=== PATIENT | male | born 1935 | race Caucasian/White ===

== ENCOUNTER 2017-11-12 03:33 | Inpatient (IN) | payer BC, MEDICARE ==
[~2017-11-12] VITALS: Ht 172.7 cm; Wt 99.8 kg
--- OUTSIDE RECORDS SUMMARY | ~2017-11-12 | XMS | Encounter Summary ---
Demographics + + + | Address | [address] | | | [place] [address] | + + + | Home Phone | | + + + | Preferred Language | Unknown | + + + | Marital Status | | + + + | Tenriism Affiliation | Unknown | + + + | Race | Unknown | + + + | Ethnic Group | Unknown | + + + Author + + + | Author | [facility] | + + + | Organization | [facility] | + + + | Address | Unknown | + + + | Phone | Unavailable | + + + Support + + +---------+ + | Name | Relationship | Address | Phone | + + +---------+ + | Keven Walls | ECON | Unknown | | + + +---------+ + | Iris Walls | ECON | Unknown | | + + +---------+ + Care Team Providers + +------+ + | Care Shim Plug Cutter Name | Role | Phone | + +------+ + | Paolo Solares MD | PCP | | + +------+ + Reason for Visit MRI/CAT Scan (Routine) + +--------+ + + + + | Status | Reason | Specialty | Diagnoses / | Referred By | Referred To | | | | | Procedures | Contact | Contact | + +--------+ + + + + | Pending | | Radiology | Diagnoses | See, | | | Review | | | Pain | Medical | | | | | | Procedures | Record | | | | | | CTA lower | | | | | | | extremity | | | | | | | right | | | + +--------+ + + + + Encounter Details +--------+ + + + + | Date | Type | Department | Care Team | Description | +--------+ + + + + | 11/07/ | Hospital | [facility] | See, Medical | Pain | | 2018 | Encounter | [facility] | Record | | | | | RADIOLOGY [address] | | | | | | [place] [address] | | | | | | [phone] | | | +--------+ + + + + Social History + +-------+ +--------+------+ | Tobacco Use | Types | Packs/Day | Years | Date | | | | | Used | | + +-------+ +--------+------+ | Never Smoker | | | | | + +-------+ +--------+------+ + + +---------+ + | Alcohol Use | Drinks/We | oz/Week | Comments | | | ek | | | + + +---------+ + | No | | | | + + +---------+ + + + + | Sex Assigned at | Date Recorded | | | | + + + | Not on file | | + + + as of this encounter Medications at Time of Discharge + + +-------+---------+--------+ + | Medication | Sig. | Disp. | Refills | Start | End Date | | | | | | Date | | + + +-------+---------+--------+ + | amLODIPine | Take 10 mg by mouth | | | | | | (NORVASC) 5 MG | daily. | | | | | | tablet | | | | | | + + +-------+---------+--------+ + | aspirin 81 MG | Take 81 mg by mouth | | | | | | tablet | daily. | | | | | + + +-------+---------+--------+ + | clopidogrel | Take 75 mg by mouth | | | | | | (PLAVIX) 75 MG | daily. | | | | | | tablet | | | | | | + + +-------+---------+--------+ + | insulin - MIX | Inject 20 Units into | | | | | | insulin NPH-insulin | the skin 2 (two) | | | | | | regular 70/30 | times daily before | | | | | | (HUMULIN, NOVOLIN | meals. | | | | | | 70/30) (70-30) 100 | | | | | | | UNIT/ML injection | | | | | | + + +-------+---------+--------+ + | metFORMIN | Take 1,000 mg by | | | | | | (GLUCOPHAGE) 1000 MG | mouth nightly. | | | | | | tablet | | | | | | + + +-------+---------+--------+ + | omeprazole | Take 40 mg by mouth | | | | | | (PRILOSEC) 40 MG | every morning before | | | | | | capsuleIndications: | breakfast. | | | | | | Gastroesophageal | | | | | | | Reflux Disease | | | | | | + + +-------+---------+--------+ + | pramipexole | Take 1 mg by mouth 3 | | | | | | (MIRAPEX) 1 MG | (three) times | | | | | | tablet | daily. | | | | | + + +-------+---------+--------+ + as of this encounter Plan of Treatment Not on fileas of this encounter Procedures + +--------+ + + + | Procedure Name | Priori | Date/Time | Associated Diagnosis | Comments | | | ty | | | | + +--------+ + + + | CTA LOWER EXTREMITY | Routin | 11/05/2017 | Pain | Results for this | | RIGHT W CONTRAST | e | 2:42 AM | | procedure are in the | | | | PDT | | results section. | + +--------+ + + + in this encounter Results CTA lower extremity right (11/05/2017 2:42 AM) + + + | Narrative | Performed At | + + + | This is a non-reportable procedure without a radiologist report and | [facility] | | is used for image storage only | [facility]Y | + + + + + + + + | Performing | Address | City/State/Zipcode | Phone Number | | Organization | | | | + + + + + | [facility] | [address] | [place] [address] | | + + + + + in this encounter Visit Diagnoses + + | Diagnosis | + + | Pain | + + | Generalized pain | + +"
--- OUTSIDE RECORDS SUMMARY | ~2017-11-12 | XMS | Encounter Summary ---
Demographics + + + | Address | [address] | | | [place] [address] | + + + | Home Phone | | + + + | Preferred Language | Unknown | + + + | Marital Status | | + + + | Baptist Affiliation | Unknown | + + + | Race | Unknown | + + + | Ethnic Group | Unknown | + + + Author + + + | Author | [facility] | + + + | Organization | [facility] | + + + | Address [...] Team Providers + +------+ + | Care Carpet Sewing Machine Operator Name | Role | Phone | + +------+ + | Paolo Solares MD | PCP | | + +------+ + Encounter Details +--------+ + + + + | Date | Type | Department | Care Team | Description | +--------+ + + + + | 11/07/ | Procedure | [facility] | | | | 2018 | [facility] | [facility] | | | | | | [facility] | | | | | | [address] | | | | | | [place] [address] | | | | | | [phone] | | | +--------+ + + + [...] + + + as of this encounter Plan of Treatment Not on fileas of this encounter Visit Diagnoses Not on filein this encounter"
--- OUTSIDE RECORDS SUMMARY | ~2017-11-12 | XMS | Encounter Summary ---
Demographics + + + | Address | [address] | | | [place] [address] | + + + | Home Phone | | + + + | Preferred Language | Unknown | + + + | Marital Status | | + + + | Anabaptism Affiliation | Unknown | + + + | Race | Unknown | + + + | Ethnic Group | Unknown | + + + Author + + + | Author | [facility] | + + + | Organization | [facility] | + + + | Address [...] Team Providers + +------+ + | Care Compensation Consulting Manager Name | Role | Phone | + +------+ + | Paolo Solares MD | PCP | | + +------+ + Encounter Details +--------+ + + + + | Date | Type | Department | Care Team | Description | +--------+ + + + + | 11/07/ | Hospital | [facility]YS[facility] | See, Medical | Pain | | 2018 | Encounter | [facility] | Record | | | | | RADIOLOGY [address] | | [address] | | | | | | [place] [address] | | | | | | [phone] | | | +--------+ + + + [...] | + +--------+ + + + | XR HIP 2 VIEW RIGHT | Routin | 11/05/2017 | Pain | Results for this | | | e | 2:42 AM | | procedure are in the | | | | PDT | | results section. | + +--------+ + + + in this encounter Results X-ray hip 2 view right (11/05/2017 2:42 AM) + + + | Narrative | Performed At | + + + | This is a non-reportable procedure without a radiologist report and | [facility] | | is used for image storage only | [facility]IOLOGY | + + + + + + + + | Performing | Address | City/State/Zipcode | Phone Number | | Organization | | | | + + + + + | [facility] | [address] | [place] [address] | | + + + + + in this encounter Visit Diagnoses + + | Diagnosis | + + | Pain | + + | Generalized pain | + +"
--- OUTSIDE RECORDS SUMMARY | ~2017-11-12 | XMS | Encounter Summary ---
Demographics + + + | Address | [address] | | | [place] [address] | + + + | Home Phone | | + + + | Preferred Language | Unknown | + + + | Marital Status | | + + + | Pentecostal Affiliation | Unknown | + + + | Race | Unknown | + + + | Ethnic Group | Unknown | + + + Author + + + | Author | [facility] | + + + | Organization | [facility] | + + + | Address [...] Team Providers + +------+ + | Care Pan Reclaim Processor Name | Role | Phone | + +------+ + | Paolo Solares MD | PCP | | + +------+ + Encounter Details +--------+ + + + + | Date | Type | Department | Care Team | Description | +--------+ + + + + | 11/07/ | Ancillary | [facility] | See, Medical | Pain | | 2018 | Orders | [facility] | Record | | | | | [address] | | | | | | [place] [address] | | | | | | [phone] | | | +--------+ + + + [...] Treatment Not on fileas of this encounter Results X-ray hip 2 view [...] | + + + + + | [facility] | [address] | [place] [address] | | + + + + + X-ray chest 1 view (11/05/2017 2:42 AM) + + + | Narrative | Performed At | + + + | This is a non-reportable procedure without a radiologist report and | [facility] | | is used for image storage only | [facility] | + + + + + + + + | Performing | Address | City/State/Zipcode | Phone Number | | Organization | | | | + + + + + | [facility] | [address] | [place] [address] | | + + + + + in this encounter Visit Diagnoses + + | Diagnosis | + + | Pain | + + | Generalized pain | + +"
--- OUTSIDE RECORDS SUMMARY | ~2017-11-12 | XMS | Clinical Summary ---
Demographics + + + | Address | [address] | | | [place] [address] | + + + | Home Phone | | + + + | Preferred Language | Unknown | + + + | Marital Status | | + + + | Latter-Day Affiliation | Unknown | + + + | Race | Unknown | + + + | Ethnic Group | Unknown | + + + Author + + + | Author | [facility] | | | and [place] | + + + | Organization | [facility] | | | and [place] | + + + | Address | Unknown | + + + | Phone | Unavailable | + + + Support + + + + + | Name | Relationship | Address | Phone | + + + + + | Keven Hernandez | LU | NA | | | | | [place], [place] | | + + + + + | [place] | ECON | [address] | | | | | [place] [address] | | + + + + + Care Team Providers + +------+ + | Care Supervisor Drapery Hanging Name | Role | Phone | + +------+ + | Paolo Solares MD | PP | | + +------+ + Allergies No Known Allergies Current Medications + + +-------+---------+------+------+-------+ | Prescription | Sig. | Disp. | Refills | Star | End | Statu | | | | | | t | Date | s | | | | | | Date | | | + + +-------+---------+------+------+-------+ | metFORMIN | Take 1,000 mg by | | | | | Activ | | (GLUCOPHAGE) 1000 MG | mouth 2 times daily | | | | | e | | tablet | (with breakfast & | | | | | | | | dinner). | | | | | | + + +-------+---------+------+------+-------+ | clopidogrel | Take 300 mg by mouth | | | | | Activ | | (PLAVIX) 300 mg TABS | Daily. | | | | | e | + + +-------+---------+------+------+-------+ Active Problems Not on file Social History + +-------+ +--------+------+ | Tobacco [...] on file | | + + + Last Filed Vital Signs + + + + | Vital Sign | Reading | Time Taken | + + + + | Blood Pressure | 154/65 | 07/22/20171300 PDT | + + + + | Pulse | 44 | 07/22/20171300 PDT | + + + + | Temperature | 36.1 C (97 F) | 07/22/20171210 PDT | + + + + | Respiratory Rate | 10 | 07/22/20171300 PDT | + + + + | Oxygen Saturation | 95% | 07/22/20171300 PDT | + + + + | Inhaled Oxygen | - | - | | Concentration | | | + + + + | Weight | 101 kg (222 lb 10.6 | 07/22/2017 1211 PDT | | | oz) | | + + + + | Height | - | - | + + + + | Body Mass Index | - | - | + + + + Plan of Treatment + + + + + | Health Maintenance | Due Date | Last Done | Comments | + + + + + | Vaccine: | | | | | Dtap/Tdap/Td (1 - | 7 | | | | Tdap) | | | | + + + + + | Vaccine: Zoster (1 | | | | | of 2) | 8 | | | + + + + + | Vaccine: | | | | | Pneumococcal 65+ | 3 | | | | Low/Medium Risk (1 | | | | | of 2 - PCV13) | | | | + + + + + | Statin Therapy | | | | | (optimal intensity) | 8 | | | + + + + + | Vaccine: Influenza | | | | | (#1) | 8 | | | + + + + + Results Not on filefrom Last 3 Months Insurance + +--------+ +--------+ +---------+ | Payer | Benefi | Subscriber | Type | Phone | Address | | | t Plan | ID | | | | | | / | | | | | | | Group | | | | | + +--------+ +--------+ +---------+ | MEDICARE | MEDICA | [id number] | Medica | [phone] | | | RE | | re | [phone] | | | | PART A | | | | | | | AND B | | | | | + +--------+ +--------+ +---------+ | [employer] | [place] | [id number] | PPO | [phone] | | | TEAMST | 3 | | [phone] | | | | ERS | | | | | | | TRUST | | | | | | | PREMER | | | | | | | A PPO | | | | | + +--------+ +--------+ +---------+ + +--------+ +--------+ + + | Guarantor Name | Accoun | Relation to | Date | Phone | Billing Address | | | t Type | Patient | of | | | | | | | | | | + +--------+ +--------+ + + | MIKIE HERNANDEZ | Person | Self [birth year] | Home: | [address] | | | [place] | | [phone] | [phone] [place] [address] | | | johnson | | [phone] | | + +--------+ +--------+ + +"
--- OUTSIDE RECORDS SUMMARY | ~2017-11-12 | XMS | Encounter Summary ---
Demographics + + + | Address | [address] | | | [place] [address] | + + + | Home Phone | | + + + | Preferred Language | Unknown | + + + | Marital Status | | + + + | Samaritan Affiliation | Unknown | + + + | Race | Unknown | + + + | Ethnic Group | Unknown | + + + Author + + + | Author | [facility] | + + + | Organization | [facility] | + + + | Address [...] Team Providers + +------+ + | Care Heavy Media Operator Name | Role | Phone | + +------+ + | Paolo Solares MD | PCP | | + +------+ + Reason for Referral MRI/CAT Scan (Routine) + +--------+ + + [...] Record | | | | | | CT head | | | | | | | without | | | | | | | contrast | | | + +--------+ + + + + MRI/CAT Scan (Routine) + +--------+ + + [...] | + +--------+ + + + + MRI/CAT Scan (Routine) + +--------+ + + [...] | | | | | | CTA | | | | | | | pulmonary | | | | | | | with IV | | | | | | | contrast | | | + +--------+ + + + + Encounter Details +--------+ + + + + | Date | Type | Department | Care Team | Description | +--------+ + + + + | 11/07/ | Ancillary | [facility] | See, Medical | Pain | | 2018 | [facility] | [facility] | Record | | | | | [address] | | | | | | [place] [address] | | | | | | [phone] | | | +--------+ + + + [...] Not on fileas of this encounter Results CTA pulmonary with IV contrast (11/06/2017 2:41 AM) + + + | Narrative | [...] | + + + + + | [facility] | [address] | [place] [address] | | + + + + + CT head without contrast (11/05/2017 2:42 AM) + + + | Narrative | Performed At | + + + | This is a non-reportable procedure without a radiologist report and | [facility] | | is used for image storage only | [facility] | + + + + + + + + | Performing | Address | City/State/Zipcode | Phone Number | | Organization | | | | + + + + + | [facility] | [address] | [place] [address] | | + + + + + CTA lower extremity right (11/05/2017 2:42 AM) [...] | + + + + + | [facility] | [address] | [place] [address] | | + + + + + in this encounter Visit Diagnoses + + | Diagnosis | + + | Pain | + + | Generalized pain | + +"
--- OUTSIDE RECORDS SUMMARY | ~2017-11-12 | XMS | Encounter Summary ---
Demographics + + + | Address | [address] | | | [place] [address] | + + + | Home Phone | | + + + | Preferred Language | Unknown | + + + | Marital Status | | + + + | Latter Day Affiliation | Unknown | + + + | Race | Unknown | + + + | Ethnic Group | Unknown | + + + Author + + + | Author | [facility] | + + + | Organization | [facility] | + + + | Address [...] Team Providers + +------+ + | Care Car Filler Name | Role | Phone | + +------+ + | Paolo Solares MD | PCP | | + +------+ + Encounter Details +--------+ + + + + | Date | Type | Department | Care Team | Description | +--------+ + + + + | 11/07/ | Ancillary | [facility] | See, Medical | Pain | | 2018 | Orders | [facility] | Record | | | | | [address] | | | | | | [place] [address] | | | | | | [phone] | | | +--------+ + + + [...] [facility] | [address] | [place] [address] | | + + + + + [...] [facility] | [address] | [place] [address] | | + + + + + in this encounter Visit Diagnoses + + | Diagnosis | + + | Pain | + + | Generalized pain | + +"
--- OUTSIDE RECORDS SUMMARY | ~2017-11-12 | XMS | Encounter Summary ---
Demographics + + + | Address | [address] | | | [place] [address] | + + + | Home Phone | | + + + | Preferred Language | Unknown | + + + | Marital Status | | + + + | Bahai Affiliation | Unknown | + + + | Race | Unknown | + + + | Ethnic Group | Unknown | + + + Author + + + | Author | [facility] | + + + | Organization | [facility] | + + + | Address [...] Team Providers + +------+ + | Care Hay Stacker Name | Role | Phone | + +------+ + | Paolo Solares MD | PCP | | + +------+ + Encounter Details +--------+ + + + + | Date | Type | Department | Care Team | Description | +--------+ + + + + | 11/07/ | Ancillary | [facility] | See, Medical | Pain | | 2018 | Orders | [facility] | Record | | | | | [address] | | | | | | [place] [address] | | | | | | [phone] | | | +--------+ + + + [...] [facility] | [address] | [place] [address] | | + + + + + [...] [facility] | [address] | [place] [address] | | + + + + + in this encounter Visit Diagnoses + + | Diagnosis | + + | Pain | + + | Generalized pain | + +"
--- OUTSIDE RECORDS SUMMARY | ~2017-11-12 | XMS | Encounter Summary ---
Demographics + + + | Address | [address] | | | [place] [address] | + + + | Home Phone | | + + + | Preferred Language | Unknown | + + + | Marital Status | | + + + | Roman Catholic Affiliation | Unknown | + + + | Race | Unknown | + + + | Ethnic Group | Unknown | + + + Author + + + | Author | [facility] | + + + | Organization | [facility] | + + + | Address [...] Team Providers + +------+ + | Care Management Retail Intern Name | Role | Phone | + [...] + + | 11/07/ | Hospital | [facility] PHYSICIAN | See, Medical | Pain | | 2018 | Encounter | [facility] | Record | | | | | RADIOLOGY [address] | | | | | | [place] [address] | | | | | | [phone] | | | +--------+ + + + [...] | + + + + + | [facility] | [address] | [place] [address] | | + + + + + in this encounter Visit Diagnoses + + | Diagnosis | + + | Pain | + + | Generalized pain | + +"
--- OUTSIDE RECORDS SUMMARY | ~2017-11-12 | XMS | Encounter Summary ---
Demographics + + + | Address | [address] | | | [place] [address] | + + + | Home Phone | | + + + | Preferred Language | Unknown | + + + | Marital Status | | + + + | Pentecostalism Affiliation | Unknown | + + + | Race | Unknown | + + + | Ethnic Group | Unknown | + + + Author + + + | Author | [facility] | + + + | Organization | [facility] | + + + | Address [...] Team Providers + +------+ + | Care Woodworking Belt Sander Name | Role | Phone | + +------+ + | Paolo Solares MD | PCP | | + +------+ + Encounter Details +--------+ + + + + | Date | Type | Department | Care Team | Description | +--------+ + + + + | 11/07/ | Hospital | [facility] | See, Medical | Pain | | 2018 | Encounter | [facility] | Record | | | | | RADIOLOGY [address] | | | | | | [address] | | | | | | [place] [address] | | | | | | [phone] | | | +--------+ + + + [...] | [address] | [place] [address] | | + + + + + in this encounter Visit Diagnoses + + | Diagnosis | + + | Pain | + + | Generalized pain | + +"
--- OUTSIDE RECORDS SUMMARY | ~2017-11-12 | XMS | Encounter Summary ---
Demographics + + + | Address | [address] | | | [place] [address] | + + + | Home Phone | | + + + | Preferred Language | Unknown | + + + | Marital Status | | + + + | Scientology Affiliation | Unknown | + + + | Race | Unknown | + + + | Ethnic Group | Unknown | + + + Author + + + | Author | [facility] | + + + | Organization | [facility] | + + + | Address [...] Team Providers + +------+ + | Care Life Coach Name | Role | Phone | + [...] + + | 11/07/ | Hospital | [facility] | See, Medical | Pain | | 2018 | Encounter | [facility] | Record | | | | | RADIOLOGY [address] | | | | | | [place] [address] | | | | | | [phone] | | | +--------+ + + + [...] + +--------+ + + + | CT HEAD WO CONTRAST | Routin | 11/05/2017 | Pain | Results for this | | | e | 2:42 AM | | procedure are in the | | | | PDT | | results section. | + +--------+ + + + in this encounter Results CT head without contrast (11/05/2017 2:42 AM) [...] | + + + + + | [facility] | [address] | [place] [address] | | + + + + + in this encounter Visit Diagnoses + + | Diagnosis | + + | Pain | + + | Generalized pain | + +"
--- OUTSIDE RECORDS SUMMARY | ~2017-11-12 | XMS | Clinical Summary ---
Demographics + + + | Address | [address] | | | [place] [address] | + + + | Home Phone | | + + + | Preferred Language | Unknown | + + + | Marital Status | | + + + | Pentecostalism Affiliation | Unknown | + + + | Race | Unknown | + + + | Ethnic Group | Unknown | + + + Author + + + | Author | [facility] | | | and [place] | + + + | Organization | [facility] | | | and [...] | + + + + + | [place],Iris | ECON | [address] | | | | | [place] [address] | | + + + + + Care Team Providers + +------+ + | Care Senior Property Manager Name | Role | Phone | [...] +--------+ +---------+ | MEDICARE | MEDICA | [id number] | Medica | [phone] | | | RE | | re | [phone] | | | | PART A | | | | | | | AND B | | | | | + +--------+ +--------+ +---------+ | [employer] | [place] | [id number] | PPO | [phone] | | [...] | Self [birth year] | Home: | [address] | | | [place] | | 1936 | [phone] | [place] [address] | | | j[place]son | | | [phone] | | + +--------+ +--------+ + +"
--- OUTSIDE RECORDS SUMMARY | ~2017-11-12 | XMS | Clinical Summary ---
Demographics + + + | Address | [address] | | | [place] [address] | + + + | Home Phone | | + + + | Preferred Language | Unknown | + + + | Marital Status | | + + + | Oriental Orthodox Affiliation | Unknown | + + + | Race | Unknown | + + + | Ethnic Group | Unknown | + + + Author + + + | Author | [facility] | | | and [place] | + + + | Organization | [facility] | | [...] | + + + + + | Coulters,Iris | ECON | [address] | | | | | [place] [address] | | + + + + + Care Team Providers + +------+ + | Care Marble Mason Name | Role | Phone | + [...] +--------+ +---------+ | MEDICARE | MEDICA | [id number] | Medica | [phone] | | | | RE | | re | [phone] | | | | PART A | | | | | | | AND B | | | | | + +--------+ +--------+ +---------+ | [employer] | [place] | [id number] | PPO | [phone] | | [...] | Self | [birth year] | Home: | [address] | | | [place] | | 1936 | [phone] | [place] [address] | | | [place] | | | [phone] | | + +--------+ +--------+ + +"
--- OUTSIDE RECORDS SUMMARY | ~2017-11-12 | XMS | Encounter Summary ---
Demographics + + + | Address | [address] | | | [place] [address] | + + + | Home Phone | | + + + | Preferred Language | Unknown | + + + | Marital Status | | + + + | Temple Affiliation | Unknown | + + + | Race | Unknown | + + + | Ethnic Group | Unknown | + + + Author + + + | Author | [facility] | + + + | Organization | [facility] | + + + | Address | Unknown | + + + | Phone | Unavailable | + + + Support + + +---------+ + | Name | Relationship | Address | Phone | + + +---------+ + | Keven Wlals | ECON | Unknown | | + + +---------+ + | Iris Walls | ECON | Unknown | | + + +---------+ + Care Team Providers + +------+ + | Care Revolving Field Assembler Name | Role | Phone | + +------+ + | Paolo Solares MD | PCP | | + +------+ + Encounter Details +--------+ + + + + | Date | Type | Department | Care Team | Description | +--------+ + + + + | 11/07/ | Procedure | [facility] | | | | 2018 | [facility] | [facility] | | | | | | [facility] [place] | | | | | | [address] | | | | | | [place] [address] | | | | | | [phone] | | | +--------+ + + + [...]
--- OUTSIDE RECORDS SUMMARY | ~2017-11-12 | XMS | Clinical Summary ---
Demographics + + + | Address | [address] | | | [place] [address] | + + + | Home Phone | | + + + | Preferred Language | Unknown | + + + | Marital Status | | + + + | Jew Affiliation | Unknown | + + + | Race | Unknown | + + + | Ethnic Group | Unknown | + + + Author + + + | Author | [facility] | + + + | Organization | [facility] | + + + | Address | Unknown | + + + | Phone | Unavailable | + + + Support + + +---------+ + | Name | Relationship | Address | Phone | + + +---------+ + | Keven Hernandez | ECON | Unknown | | + + +---------+ + | Iris Hernandez | ECON | Unknown | | + + +---------+ + Care Team Providers + +------+ + | Care Steward/Stewardess Lounge Name | Role | Phone | + +------+ + | Fide Solares MD | PP | | + [...] mouth nightly. | | | | | e | | tablet | | | | | | | + + +-------+---------+------+------+-------+ | amLODIPine | Take 10 mg by mouth | | | | | Activ | | (NORVASC) 5 MG | daily. | | | | | e | | tablet | | | | | | | + + +-------+---------+------+------+-------+ | aspirin 81 MG | Take 81 mg by mouth | | | | | Activ | | tablet | daily. | | | | | e | + + +-------+---------+------+------+-------+ | clopidogrel | Take 75 mg by mouth | | | | | Activ | | (PLAVIX) 75 MG | daily. | | | | | e | | tablet | | | | | | | + + +-------+---------+------+------+-------+ | omeprazole | Take 40 mg by mouth | | | | | Activ | | (PRILOSEC) 40 MG | every morning before | | | | | e | | capsuleIndications: | breakfast. | | | | | | | Gastroesophageal | | | | | | | | Reflux Disease | | | | | | | + + +-------+---------+------+------+-------+ | insulin - MIX | Inject 20 Units into | | | | | Activ | | insulin NPH-insulin | the skin 2 (two) | | | | | e | | regular 70/30 | times daily before | | | | | | | (HUMULIN, NOVOLIN | meals. | | | | | | | 70/30) (70-30) 100 | | | | | | | | UNIT/ML injection | | | | | | | + + +-------+---------+------+------+-------+ | pramipexole | Take 1 mg by mouth 3 | | | | | Activ | | (MIRAPEX) 1 MG | (three) times | | | | | e | | tablet | daily. | | | | | | + + +-------+---------+------+------+-------+ Active Problems + + + | Problem | Noted Date | + + + | Weakness generalized | 11/08/2017 | + + + | Acute pulmonary embolism (HCC) | 11/07/2017 | + + + | Coronary artery disease | 11/07/2017 | + + + | Hypertension | 11/07/2017 | + + + | Type 2 diabetes mellitus (HCC) | 11/07/2017 | + + + | Avulsion of hamstring muscle, right, initial encounter | 11/07/2017 | + + + | Thigh hematoma, right, initial encounter | 11/07/2017 | + + + Resolved Problems + + + + | Problem | Noted | Resolved | | | Date | Date | + + + + | Acute post-hemorrhagic anemia | 11/08/19 | | | | 18 | 8 | + + + + Encounters +--------+ + + + + | Date | Type | Specialty | Care Team | Description | +--------+ + + + + | 11/07/ | Hospital | | Jonathan Jimenez | Other acute | | 2018 - | Encounter | MD Negrita Rashid, | pulmonary embolism | | | | | MD Katey Jacobs, | without acute cor | | 11/11/ | | | Torsten Luong MD | pulmonale (HCC) | | 2018 | | | Amie Newby MD | (Primary Dx) | +--------+ + + + + +---+ + | | Discharge | | | Summaries | | | - Odin, | | | Amie Augustin MD | | | - | | | 11/11/2017 | | | 12:34 PM | | | PDT | | | Formatting | | | of this | | | note may be | | | different | | | from the | | | original.[facility] | | [facility]: | | | Hospitalist | | | Physician | | | Discharge | | | Summary Pt: | | | Norman | | | Bryan | | | AGE/SEX: 81 | | | y.o. | | | male | | | MRN: | | | [id number] | | | OM: | | | [id number] | | | PCP: | | | FIDE SOLARES | | | | | | : | | | 1935 | | | Admit date: | | | | | | 11/07/2017Dis | | | charge date | | | and time: | | | 11/11/2017 | | | 12:34 PM | | | Admitting | | | Physician: | | | Jonathan M | | | MD Barbara | | | Discharge | | | Physician: | | | Amie U | | | Odin , | | | MDConsults: | | | Dr. | | | LeePrimary | | | Discharge | | | Diagnoses: | | | Principal | | | Problem: | | | Acute | | | pulmonary | | | embolism | | | (HCC)Active | | | Problems: | | | Coronary | | | artery | | | disease | | | Hypertensio | | | n Type 2 | | | diabetes | | | mellitus | | | (HCC) | | | Thigh | | | hematoma, | | | right, | | | initial | | | encounter | | | Weakness | | | generalized | | | Resolved | | | Problems: | | | Acute | | | post-hemorr | | | hagic | | | anemiaSecon | | | mlaina | | | Discharge | | | Diagnoses: | | | | | | NillDischar | | | ged | | | Condition: | | | stableSigni | | | ficant | | | Diagnostic | | | Studies/Pro | | | cedures: | | | Us Lower | | | Extremity | | | Venous | | | Doppler | | | BilateralRe | | | sult Date: | | | 11/07/2017No | | | evidence | | | for deep | | | venous | | | thrombosis | | | bilaterally | | | . RADIA | | | Electronica | | | lly signed | | | by Jackson | | | MD Júnior | | | on Sep 9 | | | 2018 | | | 11:01PM | | | Referring | | | Provider | | | Line: | | | [phone] | | | 5SITE ID: | | | [id number] | | | Cardiac | | | Adult | | | CompleteRes | | | ult Date: | | | . | | | Overall | | | left | | | ventricular | | | systolic | | | function is | | | normal | | | with, an EF | | | between 60 | | | - 65 %. 2. | | | The right | | | ventricle | | | is mildly | | | enlarged | | | measuring | | | between 3.4 | | | - 3.7 cm. | | | 3. The | | | right | | | ventricular | | | systolic | | | function is | | | normal. 4. | | | Mild | | | tricuspid | | | regurgitati | | | on present. | | | 5. The | | | right | | | ventricular | | | systolic | | | pressure | | | (pulmonary | | | artery | | | systolic | | | pressure), | | | as measured | | | by | | | Doppler, is | | | | | | 34.70mmHg.H | | | PI and | | | Hospital | | | Course: 81 | | | year old | | | male with | | | past | | | medical | | | history of | | | CAD, HTN | | | and DM Type | | | 2 who was | | | admitted as | | | [facility] | | [facility] ICU | | | due to | | | acute | | | pulmonary | | | embolism. | | | Apparently, | | | patient | | | had a fall | | | on | | | 11/05/2017 a | | | nd | | | developed a | | | hamstring | | | avulsion of | | | RLE with | | | resultant | | | hematoma in | | | the | | | posterior | | | compartment | | | of the | | | thigh and | | | another he | | | matoma | | | along with | | | the | | | ischioanal | | | fossa. | | | Orthopedic | | | services | | | was | | | consulted | | | there and | | | they | | | recommended | | | | | | conservativ | | | e | | | management | | | and no | | | surgery was | | | | | | recommended | | | . The | | | following | | | day, | | | patient was | | | working | | | with PT | | | services | | | and | | | suddenly | | | developed | | | chest | | | pressure | | | and | | | shortness | | | of breath | | | symptoms. | | | Work up for | | | ACS and | | | Troponins | | | were | | | negative | | | but CTA | | | chest | | | showed | | | multiple | | | pulmonary | | | emboli | | | extending | | | from the | | | distal main | | | pulmonary | | | arteries | | | into the | | | lobar, | | | segmental | | | and | | | subsegmenta | | | l branches | | | of RUL, | | | RML, RLL | | | and LLL. | | | Patient was | | | not a | | | candidate | | | for | | | anticoagula | | | tion due to | | | recent | | | fall and | | | hematoma so | | | Vascular | | | surgery | | | services at | | | [facility] was | | | contacted | | | and Dr. Humphreys | | | | | | recommended | | | IVC filter | | | placement. | | | He was | | | kept in ICU | | | for | | | monitoring | | | and | | | treatment | | | and Dr. Humphreys | | | | | | placed IVC | | | filter | | | without | | | complicatio | | | ns. He was | | | then trans | | | ferred out | | | of the ICU | | | to acute | | | careBecause | | | of his | | | hematoma he | | | was at | | | risk of | | | bleeding | | | and it was | | | decided to | | | proceed | | | with the | | | IVC filter. | | | He is | | | status post | | | IVC | | | filter. | | | Once | | | hematoma | | | improved | | | might need | | | to talk to | | | the primary | | | care | | | doctor | | | regarding | | | full | | | anticoagula | | | tion. When | | | to hold | | | Plavix for | | | 2 more days | | | and then | | | he will | | | talk to the | | | primary | | | care | | | provider | | | for | | | restarting | | | Plavix. His | | | right | | | thigh | | | hematoma | | | has | | | improvedHe | | | Had no CP, | | | SOB, N/V, | | | Diarrhea, | | | Abdominal | | | pain or RAZA. | | | No | | | constipatio | | | n or change | | | in bowel | | | habits. No | | | orthopnea | | | or PND. | | | Appetite is | | | good | | | without | | | abdominal | | | bloating. | | | No cough or | | | fever. No | | | dizziness, | | | lightheaded | | | ness or any | | | symptoms | | | suggestive | | | of stroke. | | | Follow Up | | | Labs/Imagin | | | g and | | | Monitoring: | | | DR. | | | LeeDischarg | | | e Vitals: | | | Vitals: | | | 11/10/17 | | | 2316 | | | 11/11/17 | | | 0306 | | | 11/11/17 | | | 0836 | | | 11/11/17 | | | 1100 BP: | | | 143/65 | | | 120/58 | | | 139/65 | | | 131/61 BP | | | Location: | | | Right upper | | | arm Right | | | upper arm | | | Right upper | | | arm Right | | | upper arm | | | Pulse: 54 | | | 67 52 58 | | | Resp: 22 16 | | | 20 18 | | | Temp: 98.2 | | | F (36.8 | | | C) 98.4 | | | F (36.9 | | | C) 97.6 | | | F (36.4 | | | C) 98.4 | | | F (36.9 | | | C) | | | TempSrc: | | | Axillary | | | Axillary | | | Axillary | | | Axillary | | | SpO2: 97% | | | 98% 97% 91% | | | Weight: | | | 105.1 kg | | | (231 lb | | | 11.3 oz) | | | Height: | | | Discharge | | | Exam: | | | Constitutio | | | nal: Alert | | | and | | | oriented to | | | person, | | | place, and | | | time. Awake | | | and alert | | | and talking | | | to me | | | appropriate | | | lyCardiovas | | | cular: | | | Normal | | | rate, | | | regular | | | rhythm, | | | normal | | | heart | | | sounds with | | | S1 and S2 | | | and intact | | | distal | | | pulses. | | | Exam | | | reveals no | | | gallop and | | | no friction | | | rub. | | | 3/6HSMPulmo | | | nary/Chest: | | | Effort | | | normal and | | | breath | | | sounds | | | normal. No | | | stridor. No | | | | | | respiratory | | | distress. | | | no | | | wheezes. no | | | rales. | | | exhibits no | | | | | | tenderness. | | | Abdominal: | | | Soft. | | | Bowel | | | sounds are | | | normal. | | | exhibits no | | | distension | | | and no | | | mass. There | | | is no | | | tenderness. | | | There is | | | no rebound | | | and no | | | guarding. | | | Musculoskel | | | etal: | | | Normal | | | range of | | | motion.exhi | | | bits no | | | tenderness. | | | Right | | | thigh | | | hematoma | | | Neurologica | | | l: Alert | | | and | | | oriented to | | | person, | | | place, and | | | time. | | | Moving all | | | 4 | | | extremities | | | .Skin: Skin | | | is warm | | | and dry. No | | | rash | | | noted. No | | | erythema. | | | No pallor. | | | Psychiatric | | | : Has a | | | normal mood | | | and | | | affect. | | | Behavior is | | | normal. | | | Judgment | | | normal. Not | | | suicidal | | | LABS: | | | Recent | | | LabsLab | | | | | | 3 | | | | | | 5 | | | | | | 0 WBC 9.11 | | | 8.01 9.26 | | | HGB 9.8* | | | 10.2* 10.2* | | | HCT 27.9* | | | 28.9* 29.1* | | | PLT 144* | | | 151 153 | | | NEUTOPHILPC | | | T 70.97 | | | 69.33 70.50 | | | MONOPCT | | | 6.47 7.59 | | | 7.81 Recent | | | [facility] | | | | | | 3 | | | | | | 5 | | | | | | 0 | | | | | | 8 NA 135 | | | 136 136 < | | | > 139 K 4.9 | | | 4.5 4.3 < | | | > 4.1 CL | | | 102 101 101 | | | < > 103 | | | CO2 27 27 | | | 25 < > 28 | | | BUN 23 22 | | | 18 < > 17 | | | CREATININE | | | 1.0 0.9 1.0 | | | < > 0.95 | | | PROT -- | | | -- -- | | | -- 6.3 | | | BILITOT -- | | | -- -- | | | -- 0.9 | | | ALT -- | | | -- -- | | | -- 17 AST | | | -- -- | | | -- -- 14 | | | < > = | | | values in | | | this | | | interval | | | not | | | displayed.R | | | ecent | | | [facility] | | | | | | 3 | | | | | | 5 | | | | | | 0 MG 2.0 | | | 2.1 2.1 | | | Recent | | | [facility] | | | | | | 8 INR 1.0 | | | Recent | | | [facility] | | | | | | 0 | | | 09/10/61382 | | | 8 | | | [id number] | | | 7 CKTOTAL | | | 118 155 191 | | | Results | | | No | | | results | | | found for | | | the last 72 | | | hours. | | | | | | Disposition | | | : Home or | | | Self | | | CarePatient | | | | | | Instruction | | | s: | | | Medication | | | List | | | CONTINUE | | | taking | | | these | | | medications | | | | | | amLODIPine | | | 5 MG | | | tabletRefil | | | ls: | | | 0Commonly | | | known as: | | | NORVASC | | | aspirin 81 | | | MG | | | tabletRefil | | | ls: 0 | | | clopidogrel | | | 75 MG | | | tabletRefil | | | ls: | | | 0Commonly | | | known as: | | | PLAVIX | | | insulin - | | | MIX insulin | | | | | | NPH-insulin | | | regular | | | 70/30 | | | (70-30) 100 | | | UNIT/ML | | | injectionRe | | | fills: | | | 0Commonly | | | known as: | | | humuLIN, | | | novoLIN | | | 70/30 | | | metFORMIN | | | 1000 MG | | | tabletRefil | | | ls: | | | 0Commonly | | | known as: | | | GLUCOPHAGE | | | omeprazole | | | 40 MG | | | capsuleRefi | | | lls: | | | 0Commonly | | | known as: | | | PRILOSEC | | | pramipexole | | | 1 MG | | | tabletRefil | | | ls: | | | 0Commonly | | | known as: | | | MIRAPEX | | | You might | | | also be | | | taking | | | other | | | medications | | | not listed | | | above. If | | | you have | | | questions | | | about any | | | of your | | | other | | | medications | | | , talk to | | | the person | | | who | | | prescribed | | | them or | | | your | | | Primary | | | Care | | | Provider. | | | Activity: | | | activity | | | as | | | toleratedDi | | | et: | | | diabetic | | | dietWound | | | Care: as | | | directedDis | | | charge | | | medications | | | | | | reconciliat | | | ion was | | | completed | | | by myself. | | | I | | | carefully | | | reviewed | | | all the | | | medications | | | with the | | | patient. | | | All the | | | dosages was | | | confirmed | | | with the | | | patient to | | | the best of | | | patient's | | | knowledge. | | | I resumed | | | most of his | | | home | | | medication | | | after | | | talking to | | | the | | | patient. I | | | informed | | | the patient | | | that, If | | | you are | | | not taking | | | any of | | | those | | | medicines | | | or if you | | | think that | | | dose is not | | | right | | | please talk | | | to the | | | primary | | | care doctor | | | for | | | adjustment | | | of doses | | | and | | | medications | | | . Please | | | take all | | | the | | | medication | | | to your PCP | | | and show | | | him what | | | medication | | | you are | | | taking so | | | that he can | | | adjust | | | your | | | medications | | | if needed. | | | Follow-Up: | | | Jaime [address] Petr, | | | [id number] | | | [place] | | | [address] | | | [place] | | | [phone] | | | [phone] | | | T Solares, | | | [address] | | | | | | [place] | | | [place] | | | [place] | | | [phone] | | | [address]In 1 | | | week | | | Discharge | | | took more | | | than 35 | | | minutes, to | | | include | | | final | | | examination | | | , | | | discussion | | | of | | | admission, | | | and | | | preparation | | | of | | | prescriptio | | | ns, | | | instruction | | | s for | | | ongoing | | | care, | | | follow up | | | and | | | dictation | | | of | | | summary.Sig | | | leobardo:AMIE U | | | ODIN, | | | MD11/11/2017 | | | 12:34 | | | PMDictation | | | software, | | | Dragon, | | | used which | | | may contain | | | error for | | | similar | | | sounding | | | words even | | | after | | | review. | | | Personal | | | communicati | | | on | | | requested | | | for any | | | clarificati | | | on.Portions | | | of this | | | chart may | | | have been | | | copied from | | | previous | | | notes for | | | continuity | | | of care | | | purpose | +---+ + +--------+ +---+ +------+ | 11/07/ | Hospital | | See, Medical | Pain | | 2017 | Encounter | | Record | | +--------+ +---+ +------+ | 11/07/ | Hospital | | See, Medical | Pain | | 2017 | Encounter | | Record | | +--------+ +---+ +------+ | 11/07/ | Hospital | | See, Medical | Pain | | 2018 | Encounter | | Record | | +--------+ +---+ +------+ | 11/07/ | Hospital | | See, Medical | Pain | | 2018 | Encounter | | Record | | +--------+ +---+ +------+ | 11/07/ | Hospital | | See, Medical | Pain | | 2018 | Encounter | | Record | | +--------+ +---+ +------+ | 11/07/ | Procedure | | | | | 2018 | Pass | | | | +--------+ +---+ +------+ | 11/07/ | Procedure | | | | | 2018 | Pass | | | | +--------+ +---+ +------+ | 11/07/ | Ancillary | | See, Medical | Pain | | 2018 | Orders | | Record | | +--------+ +---+ +------+ | 11/07/ | Ancillary | | See, Medical | Pain | | 2018 | Orders | | Record | | +--------+ +---+ +------+ from Last 3 Months Immunizations + + + + | Name | Dates Previously Given | Next Due | + + + + | Hepatitis A Adult | 08/22/2013 | | + + + + | Hepatitis B Adult | 08/22/2013 | | + + + + | IPV | 08/22/2013 | | + + + + | Influenza, Trivalent | 12/06/2003 | | | W/Preservative | | | + + + + | Tdap | 10/29/2008 | | + + + + | Typhoid Inactivated | 08/22/2013 | | + + + + | Yellow Fever | 08/22/2013 | | + + + + | Zoster (Live) | 08/22/2013 | | + + + + Social History + [...] | Blood Pressure | 131/61 | 11/11/2017 11:00 AM PDT | + + + + | Pulse | 58 | 11/11/2017 11:00 AM PDT | + + + + | Temperature | 36.9 C (98.4 F) | 11/11/2017 11:00 AM PDT | + + + + | Respiratory Rate | 18 | 11/11/2017 11:00 AM PDT | + + + + | Oxygen Saturation | 91% | 11/11/2017 11:00 AM PDT | + + + + | Inhaled Oxygen | - | - | | Concentration | | | + + + + | Weight | 105.1 kg (231 lb | 11/11/2017 3:06 AM PDT | | | 11.3 oz) | | + + + + | Height | 172.7 cm (5' 8") | 11/07/2017 6:00 PM PDT | + + + + | Body Mass Index | 35.23 | 11/11/2017 3:06 AM PDT | + + + + Plan of Treatment Not on file Implants + +--------+-------+ +--------+--------+--------+ | Implanted | Type | Area | Manufacture | Device | Expira | Model | | | | | r | | tion | / | | | | | | Identi | Date | Serial | | | | | | fier | | / Lot | + +--------+-------+ +--------+--------+--------+ | Salvatore Sung Vena Cava | Filter | Shiela | PEPPER | | 05/14/ | IGTCFS | | Filter-11/07/2017Implanted: | | Cava | [employer] | | 2020 | -65-1- | | Qty: 1 on 11/07/2017 by Petr | | | Navarro PABON | | | JUG-TU | | Jaime Villanueva MD | | | | | | LIP | | | | | | | | /[id number] | | | | | | | | 6 | | | | | | | | /[id number] | | | | | | | | 572 | + +--------+-------+ +--------+--------+--------+ Procedures + +--------+ + + + | Procedure Name | Priori | Date/Time | Associated Diagnosis | Comments | | | ty | | | | + +--------+ + + + | POCT GLUCOSE | Routin | 11/11/2017 | | Results for this | | | e | 10:53 AM | | procedure are in the | | | | PDT | | results section. | + +--------+ + + + | POCT GLUCOSE | Routin | 11/11/2017 | | Results for this | | | e | 5:10 AM | | procedure are in the | | | | PDT | | results section. | + +--------+ + + + | PHOSPHOROUS | [place] | 11/11/2017 | | Results for this | | | | 4:13 AM | | procedure are in the | | | | PDT | | results section. | + +--------+ + + + | MAGNESIUM | [place] | 11/11/2017 | | Results for this | | | | 4:13 AM | | procedure are in the | | | | PDT | | results section. | + +--------+ + + + | BASIC METABOLIC | [place] | 11/11/2017 | | Results for this | | PANEL | | 4:13 AM | | procedure are in the | | | | PDT | | results section. | + +--------+ + + + | CBC W/AUTO DIFF | [place] | 11/11/2017 | | Results for this | | (REFLEX TO MANUAL) | | 4:13 AM | | procedure are in the | | | | PDT | | results section. | + +--------+ + + + | POCT GLUCOSE | Routin | 11/10/2017 | | Results for this | | | e | 8:54 PM | | procedure are in the | | | | PDT | | results section. | + +--------+ + + + | POCT GLUCOSE | Routin | 11/10/2017 | | Results for this | | | e | 4:36 PM | | procedure are in the | | | | PDT | | results section. | + +--------+ + + + | POCT GLUCOSE | Routin | 11/10/2017 | | Results for this | | | e | 11:24 AM | | procedure are in the | | | | PDT | | results section. | + +--------+ + + + | POCT GLUCOSE | Routin | 11/10/2017 | | Results for this | | | e | 10:00 AM | | procedure are in the | | | | PDT | | results section. | + +--------+ + + + | POCT GLUCOSE | Routin | 11/10/2017 | | Results for this | | | e | 5:25 AM | | procedure are in the | | | | PDT | | results section. | + +--------+ + + + | PHOSPHOROUS | Routin | 11/10/2017 | | Results [...] + +--------+ + + + | CBC W/AUTO DIFF | Routin | 11/10/2017 | | Results for this | | (REFLEX TO MANUAL) | e | 4:35 AM | | procedure are in the | | | | PDT | | results section. | + +--------+ + + + | POCT GLUCOSE | Routin | 11/09/2017 | | Results for this | | | e | 9:19 PM | | procedure are in the | | | | PDT | | results section. | + +--------+ + + + | POCT GLUCOSE | Routin | 11/09/2017 | | Results for this | | | e | 4:29 PM | | procedure are in the | | | | PDT | | results section. | + +--------+ + + + | POCT GLUCOSE | Routin | 11/09/2017 | | Results for this | | | e | 11:48 AM | | procedure are in the | | | | PDT | | results section. | + +--------+ + + + | POCT GLUCOSE | Routin | 11/09/2017 | | Results for this | | | e | 6:07 AM | | procedure are in the | | | | PDT | | results section. | + +--------+ + + + | CK | Routin | 11/09/2017 | | Results for this | | | e - AM | 4:00 AM | | procedure are in the | | | | PDT | | results section. | + +--------+ + + + | PHOSPHOROUS | Routin | 11/09/2017 | | Results [...] + +--------+ + + + | CBC W/AUTO DIFF | Routin | 11/09/2017 | | Results for this | | (REFLEX TO MANUAL) | e | 4:00 AM | | procedure are in the | | | | PDT | | results section. | + +--------+ + + + | POCT GLUCOSE | Routin | 11/08/2017 | | Results for this | | | e | 9:52 PM | | procedure are in the | | | | PDT | | results section. | + +--------+ + + + | POCT GLUCOSE | Routin | 11/08/2017 | | Results for this | | | e | 5:15 PM | | procedure are in the | | | | PDT | | results section. | + +--------+ + + + | POCT GLUCOSE | Routin | 11/08/2017 | | Results for this | | | e | 12:08 PM | | procedure are in the | | | | PDT | | results section. | + +--------+ + + + | HGB AND HCT | STAT | 11/08/2017 | | Results for this | | | | 12:01 PM | | procedure are in the | | | | PDT | | results section. | + +--------+ + + + | POCT GLUCOSE | Routin | 11/08/2017 | | Results for this | | | e | 10:14 AM | | procedure are in the | | | | PDT | | results section. | + +--------+ + + + | ECHO CARDIAC ADULT | Routin | 11/08/2017 | | Results for this | | COMPLETE | e | 8:30 AM | | procedure are in the | | | | PDT | | results section. | + +--------+ + + + | CK | STAT | 11/08/2017 | | Results for this | | | | 6:08 AM | | procedure are in the | | | | PDT | | results section. | + +--------+ + + + | PHOSPHOROUS | Routin | 11/08/2017 | | Results [...] + +--------+ + + + | CBC W/AUTO DIFF | STAT | 11/08/2017 | | Results for this | | (REFLEX TO MANUAL) | | 6:08 AM | | procedure are in the | | | | PDT | | results section. | + +--------+ + + + | POCT GLUCOSE | Routin | 11/08/2017 | | Results for this | | | e | 5:52 AM | | procedure are in the | | | | PDT | | results section. | + +--------+ + + + | POCT GLUCOSE | Routin | 11/08/2017 | | Results for this | | | e | 12:21 AM | | procedure are in the | | | | PDT | | results section. | + +--------+ + + + | CK | STAT | 11/08/2017 | | Results for this | | | | 12:17 AM | | procedure are in the | | | | PDT | | results section. | + +--------+ + + + | HGB AND HCT | STAT | 11/07/2017 | | Results for this | | | | 11:56 PM | | procedure are in the | | | | PDT | | results section. | + +--------+ + + + | US LOWER EXTREMITY | Today | 11/07/2017 | | Results for this | | VENOUS DOPPLER BILAT | | 10:08 PM | | procedure are in the | | | | PDT | | results section. | + +--------+ + + + | POCT GLUCOSE | Routin | 11/07/2017 | | Results for this | | | e | 7:37 PM | | procedure are in the | | | | PDT | | results section. | + +--------+ + + + | IR IVC FILTER | Routin | 11/07/2017 | | Results for this | | PLACEMENT | e | 7:21 PM | | procedure are in the | | | | PDT | | results section. | + +--------+ + + + | IR GUIDANCE VASCULAR | Routin | 11/07/2017 | | Results for this | | ACCESS US | e | 7:15 PM | | procedure are in the | | | | PDT | | results section. | + +--------+ + + + | LACTIC ACID, PLASMA | STAT | 11/07/2017 | | Results for this | | | | 6:40 PM | | procedure are in the | | | | PDT | | results section. | + +--------+ + + + | PROTIME-INR | STAT | 11/07/2017 | | Results for this | | | | 6:38 PM | | procedure are in the | | | | PDT | | results section. | + +--------+ + + + | CK | STAT | 11/07/2017 | | Results for this | | | | 6:38 PM | | procedure are in the | | | | PDT | | results section. | + +--------+ + + + | COMPREHENSIVE | STAT | 11/07/2017 | | Results for this | | METABOLIC PANEL | | 6:38 PM | | procedure are in the | | | | PDT | | results section. | + +--------+ + + + | CBC W/AUTO DIFF | STAT | 11/07/2017 | | Results for this | | (REFLEX TO MANUAL) | | 6:38 PM | | procedure are in the | | | | PDT | | results section. | + +--------+ + + + | MRSA BY PCR | Routin | 11/07/2017 | | Results for this | | | e | 6:13 PM | | procedure are in the | | | | PDT | | results section. | + +--------+ + + + | CTA PULMONARY W | Routin | 11/06/2017 | Pain | Results for this | | CONTRAST | e | 2:41 AM | | procedure are in the [...] 1 VIEW | Routin | 11/05/2017 | Pain | [...] section. | + +--------+ + + + from Last 3 Months Results POCT glucose (11/11/2017 10:53 AM)Only the most recent of 18 results within the time period is included. + + + + + | Component | Value | Ref Range | Performed At | + + + + + | GLUCOSE,POC SCREEN | 274 (H)Comment: Testing | 65 - 99 mg/dL | [facility] | | | performed at [facility] [place] | | | | | [address] [facility];[place] | | | | | [address] | | | + + + + + + + + + + | Performing | Address | City/State/Zipcode | Phone Number | | Organization | | | | + + + + + | [facility] | [address] | [place] [address] | | + + + + + CBC w/auto diff (reflex to manual) (11/11/2017 4:13 AM)Only the most recent of 5 results w alaynain the time period is included. + + + + + | Component | Value | Ref Range | Performed At | + + + + + | WBC | 9.11 | 3.80 - 11.00 K/uL | [facility] | + + + + + | RBC | 3.27 (L) | 4.20 - 5.70 M/uL | [facility] | + + + + + | HGB | 9.8 (L) | 13.2 - 17.0 g/dL | [facility] | + + + + + | HCT | 27.9 (L) | 39.0 - 50.0 % | [facility] | + + + + + | MCV | 85.5 | 80.0 - 100.0 fl | [facility] | + + + + + | MCH | 30.1 | 27.0 - 34.0 pg | [facility] | + + + + + | MCHC | 35.2 | 32.0 - 35.5 g/dL | [facility] | + + + + + | RDW SD | 42.4 | 37 - 53 fl | [facility] | + + + + + | PLT | 144 (L) | 150 - 400 K/uL | [facility] | + + + + + | MPV | 10.0 | fl | [facility] | + + + + + | DIFF TYPE | AUTOMATED | | [facility] | + + + + + | NEUTROPHILS | 70.97 | % | [facility] | + + + + + | LYMPHOCYTES | 19.21 | % | [facility] | + + + + + | MONOCYTES | 6.47 | % | [facility] | + + + + + | EOSINOPHILS | 2.59 | % | [facility] | + + + + + | BASOPHILS | 0.76 | % | [facility] | + + + + + | NEUTROPHILS ABS | 6.46 | 1.90 - 7.40 K/uL | [facility] | + + + + + | LYMPHOCYTES ABS | 1.75 | 1.00 - 3.90 K/uL | [facility] | + + + + + | MONOCYTES ABS | 0.59 | 0.00 - 0.80 K/uL | [facility] | + + + + + | EOSINOPHILS ABS | 0.24 | 0.00 - 0.50 K/uL | [facility] | + + + + + | BASOPHILS ABS | 0.07Comment: Testing | 0.00 - 0.10 K/uL | [facility] | | | performed at [facility] [place] | | | | | [address];[place] | | | | | [address] | | | + + + + + + + | Specimen | + + | Blood | + + + + + + + | Performing | Address | City/State/Zipcode | Phone Number | | Organization | | | | + + + + + | [facility] | [address] | [place] [address] | | + + + + + Phosphorus (11/11/2017 4:13 AM)Only the most recent of 4 results within the time period is included. + + + + + | Component | Value | Ref Range | Performed At | + + + + + | PHOSPHORUS | 3.5Comment: Testing | 2.3 - 4.8 mg/dL | [facility] | | | performed at [facility] [place] | | | | | [facility];[place], [place] | | | | | [address] | | | + + + + + + + | Specimen | + + | Blood | + + + + + + + | Performing | Address | City/State/Zipcode | Phone Number | | Organization | | | | + + + + + | [facility] | [address] | [place] [address] | | + + + + + Magnesium (11/11/2017 4:13 AM)Only the most recent of 4 results within the time period is included. + + + + + | Component | Value | Ref Range | Performed At | + + + + + | MAGNESIUM | 2.0Comment: MODERATE | 1.7 - 2.4 mg/dL | [facility] | | | HEMOLYSISTesting | | | | | performed at [facility] [place] | | | | | [facility];[place], [place] | | | | | [address] | | | + + + + + + + | Specimen | + + | Blood | + + + + + + + | Performing | Address | City/State/Zipcode | Phone Number | | Organization | | | | + + + + + | [facility] | [address] | [place] [address] | | + + + + + Basic metabolic panel (11/11/2017 4:13 AM)Only the most recent of 4 results within the period is included. + + + + + | Component | Value | Ref Range | Performed At | + + + + + | SODIUM | 135 | 135 - 145 mmol/L | [facility] | + + + + + | POTASSIUM | 4.9Comment: MODERATE | 3.5 - 4.9 mmol/L | [facility] | | | HEMOLYSIS | | | + + + + + | CHLORIDE | 102 | 99 - 109 mmol/L | [facility] | + + + + + | CO2 | 27 | 23 - 32 mmol/L | [facility] | + + + + + | ANION GAP AGAP | 11 | 5 - 20 mmol/L | [facility] | + + + + + | GLUCOSE | 155 (H) | 65 - 99 mg/dL | [facility] | + + + + + | BUN | 23 | 8 - 25 mg/dL | [facility] | + + + + + | CREATININE | 1.0 | 0.70 - 1.30 mg/dL | [facility] | + + + + + | BUN/CREAT | 23 | | [facility] | + + + + + | CALCIUM | 7.8 (L) | 8.5 - 10.5 mg/dL | [facility] | + + + + + | EGFR | >60Comment: GFR <60: | >60 mL/min/1.73m2 | [facility] | | | CHRONIC KIDNEY DISEASE, | | | | | IF FOUND OVER A 3 MONTH | | | | | PERIOD.GFR <15: KIDNEY | | | | | FAILURE.FOR | | | | | AMERICANS, MULTIPLY THE | | | | | CALCULATED GFR BY | | | | | 1.210.This eGFR is | | | | | calculated using the | | | | | MDRD IDIN traceable | | | | | equation.Testing | | | | | performed at [facility] [place] | | | | | [facility];[place], [place] | | | | | [address] | | | + + + + + + + | Specimen | + + | Blood | + + + + + + + | Performing | Address | City/State/Zipcode | Phone Number | | Organization | | | | + + + + + | [facility] | [address] [facility] | [place] [address] | | + + + + + CPK (11/09/2017 4:00 AM)Only the most recent of 4 results within the time period is includ ed. + + + + + | Component | Value | Ref Range | Performed At | + + + + + | CPK | 118Comment: Testing | 55 - 400 U/L | [email or web address] | | | performed at [facility] [place] | | | | | [facility];[place] | | | | | [address] | | | + + + + + + + | Specimen | + + | Blood | + + + + + + + | Performing | Address | City/State/Zipcode | Phone Number | | Organization | | | | + + + + + | [facility] | [address] | [place] [address] | | + + + + + HGB and HCT (11/08/2017 12:01 PM)Only the most recent of 2 results within the time period i s included. + + + + + | Component | Value | Ref Range | Performed At | + + + + + | HGB | 11.2 (L) | 13.2 - 17.0 g/dL | [email or web address] | + + + + + | HCT | 32.2 (L)Comment: Testing | 39.0 - 50.0 % | [facility] | | | performed at [facility] [place] | | | | | [address];[place] | | | | | [address] | | | + + + + + + + + + + | Performing | Address | City/State/Zipcode | Phone Number | | Organization | | | | + + + + + | [facility] | [address] | [place] [address] | | + + + + + Echo cardiac adult complete (11/08/2017 8:30 AM) + +-------+ + + | Component | Value | Ref Range | Performed At | + +-------+ + + | LV EF | 65 | 50 - 70 % | [facility] | | | | | [facility] | + +-------+ + + + + + | Impressions | Performed At | + + + | 1. Overall left ventricular systolic function is normal with, an EF | [facility] | | between 60 - 65 %. 2. The right ventricle is mildly enlarged | [facility] | | measuring between 3.4 - 3.7 [...] NORMAN HERNANDEZ Date of : 1935 | [facility] | | Performing Physician: Sharda Hernadez MD, | RADIOLOGY | | FAC | | | INDICATIONS PULMONARY EMBOLISM CONCLUSIONS [...] ECG rhythm: Sinus rhythm. ECG rhythm: Resting | | | bradycardia (HR<60bpm). Study: A 2-dimensional transthoracic | | | echocardiogram with m-mode, spectral and color flow Doppler was | | | perfomed. Study: This was a technically adequate study. Left | | | Ventricle: Overall left ventricular systolic function is normal with, | | | an EF between 60 - 65 %. Left Ventricle: The left ventricle cavity | | | size is normal. Left Ventricle: Left ventricular wall thickness is | | | normal. Right Ventricle: The right ventricle is mildly enlarged | | | measuring between 3.4 - 3.7 cm. Right Ventricle: The right | | | ventricular systolic function is normal. Left Atrium: The left atrial | | | size is normal Left Atrium: , and the LA measures 4.1cm. Right | | | Atrium: The right atrium is mildly enlarged. Aortic Valve: The aortic | | | valve is trileaflet. Aortic Valve: The aortic valve is mildly | | | calcified. Aortic Valve: There is no evidence of aortic | | | regurgitation. Aortic Valve: There is no evidence of aortic | | | stenosis. Mitral Valve: The mitral valve is normal. Mitral Valve: | | | There is trace mitral regurgitation. Tricuspid Valve: The tricuspid | | | valve appears structurally normal. Tricuspid Valve: Mild tricuspid | | | regurgitation present. Tricuspid Valve: There is mild pulmonary | | | hypertension. Tricuspid Valve: The right ventricular systolic | | | pressure (pulmonary artery systolic pressure), as measured by Doppler, | | | is 34.70mmHg. Pulmonic Valve: Pulmonic valve appears structurally | | | normal. Pulmonic Valve: Mild pulmonic regurgitation. Pericardium: | | | There is a trivial pericardial effusion present. IVC/Hepatic Veins: | | | The IVC is normal size (1.5-2.5cm) and collapses >50% with sniff, | | | consistent with central venous pressures of 5-10mmHg. MEASUREMENTS | | | RA Area: 13.51 cm2 Ao asc: 2.67 cm Ao | | | sinus: 2.[address] junct: 2.52 cm IVC: 1.58 cm LA | | | Major: 5.12 cm EDV(Teich): 98.65 ml IVSd: 0.75 cm | | | LVIDd: 4.62 cm LVPWd: 1.24 cm LVOT Diam: 1.92 cm | | | %FS: 29.70 % EF(Teich): 56.81 % ESV(Teich): 42.60 ml | | | IVSs: 1.13 cm LVIDs: 3.25 cm LVPWs: 1.50 cm | | | SV(Teich): 56.05 ml RA Major: 5.14 cm RVIDd: 3.49 cm | | | LAESV(A-L): 48.23 ml LAESV Index (A-L): 22.33 ml/m2 LAAs | | | A2C: 18.00 cm2 LAESV A-L A2C: 49.35 ml LALs A2C: 5.57 cm | | | LAAs A4C: 16.69 cm2 LAESV A-L A4C: 44.72 ml LALs A4C: | | | 5.28 cm Ao Diam: 3.18 cm AV Cusp: 1.64 cm LA Diam: 4.07 | | | cm LA/Ao: 1.27 %FS: 34.07 % EDV(Teich): 122.09 ml | | | EF(Teich): 62.73 % ESV(Teich): 45.49 ml IVSd: 0.82 cm | | | IVSs: 1.01 cm LVIDd: 5.06 cm LVIDs: 3.34 cm LVPWd: | | | 0.79 cm LVPWs: 1.41 cm SV(Teich): 76.59 ml TAPSE: 2.27 | | | cm IVC diameter: 2.41 cm IVC collapse: 0.90 cm IVC % | | | collapse: 60.08 % HR: 56.81 BPM AV maxP.10 mmHg AV | | | meanP.86 mmHg AV Vmax: 1.94 m/s AV Vmean: 1.40 m/s | | | AV VTI: 48.26 cm EPI Vmax: 1.57 cm2 EPI (VTI): 1.55 cm2 | | | AVAI Vmax: 0.00 cm2/m2 AVAI (VTI): 0.00 cm2/m2 LVOT | | | maxP.40 mmHg LVOT meanP.21 mmHg LVSI Dopp: 34.74 | | | ml/m2 LVSV Dopp: 75.04 ml LVOT Vmax: 1.04 m/s LVOT | | | Vmean: 0.69 m/s LVOT VTI: 25.70 cm MCO: 505.23 ms MV A | | | Kurtis: 0.87 m/s MV DecT: 191.95 ms MV E Kurtis: 0.89 m/s MV | | | E/A Ratio: 1.02 MV PHT: 57.30 ms MVA By PHT: 3.83 cm2 | | | MV A Dur: 131.30 ms Septal e': 0.09 m/s Septal E/e': | | | 9.33 Lateral e': 0.08 m/s Lateral E/e': 10.00 P Vein | | | A: 0.25 m/s P Vein A Dur: 102.75 ms P Vein D: 0.37 m/s | | | P Vein S/D Ratio: 1.57 P Vein S: 0.59 m/s PAEDP: 11.06 | | | mmHg PRend P.06 mmHg PRend Vmax: 1.41 m/s HR: 59.71 | | | BPM PV maxP.09 mmHg PV meanP.66 mmHg PV Vmax: | | | 0.88 m/s PV Vmean: 0.61 m/s PV VTI: 23.70 cm RAP: 3 | | | mmHg RV S': 0.11 m/s RVSP: 34.70 mmHg TR maxP.70 | | | mmHg TR Vmax: 2.81 m/s TV A Kurtis: 0.43 m/s TV Dec [place]: | | | 2.19 m/s2 TV Dec Time: 244.15 ms TV E Kurtis: 0.53 m/s TV E/A | | | Ratio: 1.22 Automotive Tire Tester: [id number] Authenticated by: Sharda | | | Satya JONES, [facility] Report Date/Time: 11-08-2017 16:25:4 | | + + + + + | Procedure Note | + + | Gallo, Rad Results In - 11/08/2017 4:30 PM PDT Patient Name: Lionel HERNANDEZ of | | : 1935ccession: [id number] Physician: Sharda Hernadez MD, [facility] | | INDICATIONS PUL | | MONARY EMBOLISMCONCLUSIONS 1. Overall left ventricular systolic function is | | normal with, an EF between 60 - 65 %.2. The right ventricle is mildly enlarged measuring | | between 3.4 - 3.7 cm.3. The right ventricular systolic function is normal.4. Mild | | tricuspid regurgitation present.5. The right ventricular systolic pressure (pulmonary | | artery systolic pressure), as measured by Doppler, is 34.70mmHg.FINDINGS--------ECG | | rhythm: Sinus rhythm. ECG rhythm: Resting bradycardia (HR<60bpm).Study: A 2-dimensional | | transthoracic echocardiogram with m-mode, spectral and color flow Doppler was perfomed. | | Study: This was a technically adequate study.Left Ventricle: Overall left ventricular | | systolic function is normal with, an EF between 60 - 65 %. Left Ventricle: The left | | ventricle cavity size is normal. Left Ventricle: Left ventricular wall thickness is | | normal.Right Ventricle: The right ventricle is mildly enlarged measuring between 3.4 - | | 3.7 cm. Right Ventricle: The right ventricular systolic function is normal.Left Atrium: | | The left atrial size is normalLeft Atrium: , and the LA measures 4.1cm.Right Atrium: The | | right atrium is mildly enlarged.Aortic Valve: The aortic valve is trileaflet. Aortic | | Valve: The aortic valve is mildly calcified. Aortic Valve: There is no evidence of | | aortic regurgitation. Aortic Valve: There is no evidence of aortic stenosis.Mitral | | Valve: The mitral valve is normal. Mitral Valve: There is trace mitral | | regurgitation.Tricuspid Valve: The tricuspid valve appears structurally normal. | | Tricuspid Valve: Mild tricuspid regurgitation present. Tricuspid Valve: There is mild | | pulmonary hypertension. Tricuspid Valve: The right ventricular systolic pressure | | (pulmonary artery systolic pressure), as measured by Doppler, is 34.70mmHg.Pulmonic | | Valve: Pulmonic valve appears structurally normal. Pulmonic Valve: Mild pulmonic | | regurgitation.Pericardium: There is a trivial pericardial effusion present.IVC/Hepatic | | Veins: The IVC is normal size (1.5-2.5cm) and collapses >50% with sniff, consistent with | | central venous pressures of 5-10mmHg.MEASUREMENTS RA Area: 13.51 cm2Ao | | asc: [...] mlLAESV Index (A-L): 22.33 ml/m2LAAs A2C: 18.00 [id number] A-L A2C: 49.35 | | mlLALs A2C: 5.57 cmLAAs A4C: 16.69 [id number] A-L A4C: 44.72 mlLALs A4C: 5.28 cmAo | | Diam: 3.18 cmAV Cusp: 1.64 cmLA Diam: 4.07 cmLA/Ao: 1.27 %FS: 34.07 | | %EDV(Teich): 122.09 mlEF(Teich): 62.73 [...] 48.26 cmAVA Vmax: 1.57 cm2AVA (VTI): 1.55 [id number] Vmax: | | 0.00 cm2/m2AVAI (VTI): 0.00 cm2/m2LVOT maxP.40 mmHgLVOT meanP.21 mmHgLVSI | | Dopp: 34.74 ml/m2LVSV Dopp: 75.04 mlLVOT Vmax: 1.04 m/sLVOT Vmean: 0.69 m/sLVOT | | VTI: 25.70 cmMCO: 505.23 msMV A Kurtis: 0.87 m/sMV DecT: 191.95 msMV E Kurtis: 0.89 | | m/sMV E/A Ratio: 1.02 MV PHT: 57.30 msMVA By PHT: 3.83 cm2MV A Dur: 131.30 | | msSeptal e': 0.09 m/sSeptal E/e': 9.33 Lateral e': 0.08 m/sLateral E/e': 10.00 P | | Vein A: 0.25 m/sP Vein A Dur: 102.75 msP Vein D: 0.37 m/sP Vein S/D Ratio: 1.57 | | P Vein S: 0.59 m/sPAEDP: 11.06 mmHgPRend P.06 mmHgPRend Vmax: 1.41 m/sHR: | | 59.71 BPMPV maxP.09 mmHgPV meanP.66 mmHgPV Vmax: 0.88 m/sPV Vmean: 0.61 | | m/sPV VTI: 23.70 cmRAP: 3 mmHgRV S': 0.11 m/sRVSP: 34.70 mmHgTR maxP.70 | | mmHgTR Vmax: 2.81 m/sTV A Kurtis: 0.43 m/sTV Dec [place]: 2.19 m/s2TV Dec Time: | | 244.15 msTV E Kurtis: 0.53 m/sTV E/A Ratio: 1.22 Automotive Tire Tester: [email or web address] by: | | Sharda Hernadez MD, FACCReport Date/Time: 11-08-2017 16:25:4IMPRESSION:1. Overall left | | ventricular systolic function [...] A Kurtis: 0.43 m/s | |TV Dec [place]: 2.19 m/s2 | |TV Dec Time: 244.15 ms | |TV E Kurtis: 0.53 m/s | |TV E/A Ratio: 1.22 | | | |Automotive Tire Tester: KVW | |Authenticated by: Sharda Hernadez MD, [facility] | |Report Date/Time: 11-08-2017 16:25:4 | | [...] by Doppler, is 34.70mmHg. | + + + + + + + | Performing | Address | City/State/Zipcode | Phone Number | | Organization | | | | + + + + + | [facility] | [address] [facility] | [place] [address] | | + + + + + US Lower extremity venous doppler bilateral (11/07/2017 10:08 PM) + + + | Impressions | Performed At | + + + | No evidence for deep venous thrombosis bilaterally. RADIA | [facility] | | Electronically signed by Jackson Callejas MD on Nov 07 2017 11:01PM | RADIOLOGY | | Referring Provider Line: [phone] ID: [id number] | | + + + + + + | Narrative | Performed At | + + + | EXAM: BILATERAL LOWER EXTREMITY VENOUS ULTRASOUND EXAM DATE: | [place] | | 11/07/2017 10:08 PM. CLINICAL HISTORY: Bilateral pulmonary emboli. | RADIOLOGY | | COMPARISON: None. TECHNIQUE: Real-time sonographic vascular | | | imaging was performed by the cardiac catheterization technician through the lower extremities | | | utilizing both color-flow and Doppler spectral analysis. Multiple | | | hospital insurance representative static images were saved for review. [...] + | Gallo, Rad Results In - 11/07/2017 11:01 PM PDT EXAM:BILATERAL LOWER EXTREMITY VENOUS | | ULTRASOUNDEXAM DATE: 11/07/2017 10:08 PM.CLINICAL HISTORY: Bilateral pulmonary | | emboli.COMPARISON: None.TECHNIQUE: Real-time sonographic vascular imaging was performed | | by the cardiac catheterization technician through the lower extremities utilizing both color-flow and Doppler | | spectral analysis. Multiple hospital insurance representative static images were saved for review.FINDINGS: | | Right:Common Femoral Vein (CFV): Normal.CFV-GSV Junction: Normal.Profunda Femoral Vein | | (PFV): Normal.Femoral Vein (FV) Prox: Normal.Femoral Vein (FV) Mid: Normal.Femoral Vein | | (FV) Dist: Normal.Popliteal Vein: Normal.Posterior Tibial Veins: Normal.Peroneal Veins: | | Normal.Left:Common Femoral Vein (CFV): Normal.CFV-GSV Junction: Normal.Profunda Femoral | | Vein (PFV): Normal.Femoral Vein (FV) Prox: Normal.Femoral Vein (FV) Mid: Normal.Femoral | | Vein (FV) Dist: Normal.Popliteal Vein: Normal.Posterior Tibial Veins: Normal.Peroneal | | Veins: Normal.Other: None.IMPRESSION:No evidence for deep venous thrombosis | | bilaterally.[facility] Electronically signed by Jackson Callejas MD on Nov 07 2017 11:01PM | | Referring Provider Line: [phone] ID: [id number] | |CFV-GSV Junction: Normal. | [...] Nov 07 2017 11:01PM Referring Provider Line: [phone] ID: [id number] | + + + + + + + | Performing | Address | City/State/Zipcode | Phone Number | | Organization | | | | + + + + + | [facility] | [address] | [place] [address] | | + + + + + IR IVC filter placement (11/07/2017 7:21 PM) + + + | Narrative | Performed At | + + + | IR IVC FILTER PLACEMENT PREOPERATIVE DIAGNOSIS DVT and PE with | [facility] | | contraindication for anticoagulation POSTOPERATIVE DIAGNOSIS Same | RADIOLOGY | | PROCEDURES 1. Moderate conscious sedation 2. Ultrasound guided | | | access of right internal jugular vein 3. Vena cavagram. 4. Inferior | | | vena cava filter placement under fluoroscopic guidance SURGEON | | | Jaime Humphreys MD FIXED INCOME PORTFOLIO MANAGER None. ANESTHESIA Moderate sedation, | | | [...] was properly identified and brought to the tutorial laboratory supervisor. | | | Patient was placed supine on the tutorial laboratory supervisor table and patient was given | | [...] + | Gallo, Rad Results In - 11/10/2017 4:27 PM PDT IR IVC FILTER PLACEMENTPREOPERATIVE | | DIAGNOSISDVT and PE with contraindication for anticoagulationPOSTOPERATIVE | | DIAGNOSISSamePROCEDURES1. Moderate conscious sedation2. Ultrasound guided access of | | right internal jugular vein3. Vena cavagram.4. Inferior vena cava filter placement under | | fluoroscopic guidanceSUKristy De La Rosa.ANESTHESIAModerate sedation, | | local anesthesia.Informed consent was obtained from the patient. Continuous cardiac | | monitoring was performed throughout the procedure.Conscious sedation was provided by the | | nursing staff during the procedure under my supervision.Sedation time: 10 | | minutesMedications: 1 mg Versed IV, 50 mcg Fentanyl IVESTIMATED BLOOD | | LOSSMinimal.CONTRAST USED25 mL of Isovue-250.INDICATIONSSee preoperative history and | | physicalFINDINGSA Bard Padma filter was deployed below the level of the renal veins in | | the inferiorvena cava and confirmed by fluoroscopy.DESCRIPTION OF PROCEDUREPatient was | | properly identified and brought to the tutorial laboratory supervisor.Patient was placed supine on the cath | [...] x2. There were no apparent | | complications.IMPRESSIONProper placement of a Cook Salvatore tulip IVC filter below the | | level of the renal veins. | |Medications: 1 mg Versed IV, 50 mcg Fentanyl IV | | | |ESTIMATED BLOOD LOSS | |Minimal. | | | |CONTRAST USED | |25 mL of Isovue-250. | | | |INDICATIONS | |See preoperative history and physical | | | |FINDINGS | |A Bard Swain filter was deployed below the level of the renal veins in the inferior | |vena cava and confirmed by fluoroscopy. | | | |DESCRIPTION OF PROCEDURE | |Patient was properly identified and brought to the tutorial laboratory supervisor. | |Patient was placed supine on the tutorial laboratory supervisor table and patient was | |given moderate [...] | |IMPRESSION | |Proper placement of a [employer] IVC filter below the level of the renal veins. | | | | | + + + + + + + | Performing | Address | City/State/Zipcode | Phone Number | | Organization | | | | + + + + + | [facility] | [address] | [place] [address] | | + + + + + IR guidance vascular access US (11/07/2017 7:15 PM) + + + | Narrative | Performed At | + + + | This Point of Care (POC) ultrasound image has been reviewed and | [facility] | | interpreted by the physician identified as the performing physician in | RADIOLOGY | | the associated interpretation and report. | | + + + + + + + + | Performing | Address | City/State/Zipcode | Phone Number | | Organization | | | | + + + + + | [facility] | [address] | [place] [address] | | + + + + + Lactic acid (11/07/2017 6:40 PM) + + + + + | Component | Value | Ref Range | Performed At | + + + + + | LACTIC ACID | 1.4Comment: Testing | 0.4 - 2.0 mmol/L | [facility] | | | performed at [facility] [place] | | | | | [address];[place], [place] | | | | | [id number] | | | + + + + + + + | Specimen | + + | Blood | + + + + + + + | Performing | Address | City/State/Zipcode | Phone Number | | Organization | | | | + + + + + | [facility] | [address] | [place] [address] | | + + + + + Protime-INR (11/07/2017 6:38 PM) + + + + + | Component | Value | Ref Range | Performed At | + + + + + | INR | 1.0Comment: REFERENCE | | [facility] | | | RANGE:0.9 - | | | | | 1.2 NON-ANTICOAGULATE | | | | | D2.0 - 3.0 ALL OTHER | | | | | THERAPEUTIC | | | | | INDICATIONS2.5 - 3.5 | | | | | MECHANICAL HEART VALVES, | | | | | RECURRENT OR SYSTEMIC | | | | | EMBOLISMTesting | | | | | performed at [facility] [place] | | [address];[place] | | | | | [address] | | | + + + + + + + | Specimen | + + | Blood | + + + + + + + | Performing | Address | City/State/Zipcode | Phone Number | | Organization | | | | + + + + + | [facility] | [address] | [place] [address] | | + + + + + Comprehensive metabolic panel (11/07/2017 6:38 PM) + + + + + | Component | Value | Ref Range | Performed At | + + + + + | SODIUM | 139 | 135 - 145 mmol/L | [facility] | + + + + + | POTASSIUM | 4.1 | 3.5 - 4.9 mmol/L | [facility] | + + + + + | CHLORIDE | 103 | 99 - 109 mmol/L | [facility] | + + + + + | CO2 | 28 | 23 - 32 mmol/L | [facility] | + + + + + | ANION GAP AGAP | 12 | 5 - 20 mmol/L | [facility] | + + + + + | GLUCOSE | 194 (H) | 65 - 99 mg/dL | [facility] | + + + + + | BUN | 17 | 8 - 25 mg/dL | [facility] | + + + + + | CREATININE | 0.95 | 0.70 - 1.30 mg/dL | [facility] | + + + + + | BUN/CREAT | 18 | | [facility] | + + + + + | CALCIUM | 8.0 (L) | 8.5 - 10.5 mg/dL | [facility] | + + + + + | TOTAL PROTEIN | 6.3 | 6.3 - 8.2 g/dL | [facility] | + + + + + | Albumin | 3.0 (L) | 3.3 - 4.8 g/dL | [facility] | + + + + + | GLOBULIN | 3.2 | 1.3 - 4.9 g/dL | [facility] | + + + + + | A/G | 0.9 (L) | 1.0 - 2.4 | [facility] | + + + + + | TBIL | 0.9 | 0.1 - 1.5 mg/dL | [facility] | + + + + + | ALK PHOS | 65 | 35 - 115 U/L | [facility] | + + + + + | AST | 14 | 10 - 45 U/L | [facility] | + + + + + | ALT | 17 | 10 - 65 U/L | [facility] | + + + + + | EGFR | >60Comment: GFR <60: | >60 mL/min/1.73m2 | [facility] | | | CHRONIC KIDNEY DISEASE, | | | | | IF FOUND OVER A 3 MONTH | | | | | PERIOD.GFR <15: KIDNEY | | | | | FAILURE.FOR | | | | | AMERICANS, MULTIPLY THE | | | | | CALCULATED GFR BY | | | | | 1.210.This eGFR is | | | | | calculated using the | | | | | MDRD IDMS traceable | | | | | equation.Testing | | | | | performed at [facility] [place] | | | | [address];[place] | | | | | [address] | | | + + + + + + + | Specimen | + + | Blood | + + + + + + + | Performing | Address | City/State/Zipcode | Phone Number | | Organization | | | | + + + + + | [facility] | [address] | [place] [address] | | + + + + + MRSA by PCR (11/07/2017 6:13 PM) + + + + + | Component | Value | Ref Range | Performed At | + + + + + | SOURCE | NARES(NOSE) | | [facility] | + + + + + | MRSA PCR | NEGATIVEComment: Testing | NEGATIVE | [facility] | | | performed at [facility] [place];[address] | | | | [address];[place] | | | | | [address] | | | + + + + + + + | Specimen | + + | Nasopharyngeal - | | Nasopharyngeal | | Culture | + + + + + + + | Performing | Address | City/State/Zipcode | Phone Number | | Organization | | | | + + + + + | [facility] | [address] | [place] [address] | | + + + + + CTA pulmonary with IV contrast (11/06/2017 2:41 AM) + + + | Narrative | Performed At | + + + | This is a non-reportable procedure without a radiologist report and | [facility] | | is used for image storage only | [facility] | + + + + + + + + | Performing | Address | City/State/Zipcode | Phone Number | | Organization | | | | + + + + + | [facility] | [address] | [place] [address] | | + + + + + [...] | + + + + + | [facility] | [address] | [place] [address] | | + + + + + X-ray hip 2 view right (11/05/2017 2:42 [...] | + + + + + | [facility] | [address] | [place] [address] | | + + + + + [...] [facility] | [address] | [place] [address] | | + + + + + [...] [facility] | [address] | [place] [address] | | + + + + + from Last 3 Months Insurance + +--------+ +------+-------+ + | Payer | Benefi | Subscriber | Type | Phone | Address | | | t Plan | ID | | | | | | / | | | | | | | Group | | | | | + +--------+ +------+-------+ + | MEDICARE | MEDICA | [id number] | | | [address] | | | RE | | | | [place] [address] | | | IP-OP | | | | | + +--------+ +------+-------+ + + +--------+ +--------+ + + | Guarantor Name | Accoun | Relation to | Date | Phone | Billing Address | | | t Type | Patient | of | | | | | | | | | | + +--------+ +--------+ + + | NORMAN HERNANDEZ | Person | Self [birth year] Home: | [address] | | | al/Fam | | 1936 | [phone] | [place] | | | [place] | | | [phone] | [phone] | + +--------+ +--------+ + +
--- OUTSIDE RECORDS SUMMARY | ~2017-11-12 | XMS | Encounter Summary ---
Demographics + + + | Address | [address] | | | [place] [address] | + + + | Home Phone | | + + + | Preferred Language | Unknown | + + + | Marital Status | | + + + | Alevism Affiliation | Unknown | + + + | Race | Unknown | + + + | Ethnic Group | Unknown | + + + Author + + + | Author | [facility] [facility] | + + + | Organization | [facility] [facility] | + + + | Address [...] Team Providers + +------+ + | Care In Home Sales Consultant Name | Role | Phone | + +------+ + | Paolo Solares MD | PCP | | + +------+ + Encounter Details +--------+ + + + + | Date | Type | Department | Care Team | Description | +--------+ + + + + | 11/07/ | Procedure | [facility] | | | | 2018 | [facility] | [facility] | | | | | | [facility] | | | | | | [address] | | | | | | [place] [address] | | | | | | [phone] | | | +--------+ + + + [...]
--- OUTSIDE RECORDS SUMMARY | ~2017-11-12 | XMS | Clinical Summary ---
Demographics + + + | Address | [address] | | | [place] [address] | + + + | Home Phone | | + + + | Preferred Language | Unknown | + + + | Marital Status | | + + + | Rastafari Affiliation | Unknown | + + + | Race | Unknown | + + + | Ethnic Group | Unknown | + + + Author + + + | Author | [facility] [employer] [facility] | + + + | Organization | [facility] [employer] | + + + | Address [...] Team Providers + +------+ + | Care Strategic Manager Name | Role | Phone | [...] | | | Norman | | | Cecil | | | AGE/SEX: 81 | | | y.o. | | | male | | | MRN: | | | [id number] | | | OM: | | | [...] | | | anemiaSecon | | | malina | | | Discharge | | | [...] | | services at | | | [facility] was | | | contacted [...] | | | 0 | | | 09/10/84796 | | | 8 | | | [address] | | | 7 [address] | | [...] | Jaime [address] Petr, | | | [id number] | | | [place] | | | DriveRichla | | | nd [place] | | | [phone] | | | 2-[address]Scott | | | T Solares, | | | [address] | | | | | | [place] | | | n [place] | | | [place] | | | [phone] | | | [address]In [address] | | [...] Testing | 65 - 99 mg/dL | [facility] | | | performed at [facility];[address] | | | | | [address] [facility] [address] [facility] [address];[place] | | | | | [address] | | | + + + + + + + + + + | Performing | Address | City/State/Zipcode | Phone Number | | Organization | | | | + + + + + | [facility] | [address] | [place] [address] | | + + + + + [...] (L) | 13.2 - 17.0 g/dL | [facility] | + + + + + | HCT | 27.9 (L) | 39.0 - 50.0 % | [facility] | + + + + + | MCV | 85.5 | 80.0 - 100.0 fl | [facility] | + + + [...] (L) | 150 - 400 K/uL | [facility] | + + + [...] Testing | 0.00 - 0.10 K/uL | [facility] | | | performed at [facility];[address] | | | | | [address];[place] | | | | | [address] | | | + + + + + + + | Specimen | + + | Blood | + + + + + + + | Performing | Address | City/State/Zipcode | Phone Number | | Organization | | | | + + + + + | [facility] | [address] | [place] [address] | | + + + + + Phosphorus (11/11/2017 4:13 AM)Only the most recent of 4 results within the time period is included. + + + + + | Component | Value | Ref Range | Performed At | + + + + + | PHOSPHORUS | 3.5Comment: Testing | 2.3 - 4.8 mg/dL | [facility] | | | performed at [facility] | | | | | [facility];[place], [place] | | | | | [address] | | | + + + + + + + | Specimen | + + | Blood | + + + + + + + | Performing | Address | City/State/Zipcode | Phone Number | | Organization | | | | + + + + + | [facility] | [address] | [place] [address] | | + + + + + Magnesium (11/11/2017 4:13 AM)Only the most recent of 4 results within the time period is included. + + + + + | Component | Value | Ref Range | Performed At | + + + + + | MAGNESIUM | 2.0Comment: MODERATE | 1.7 - 2.4 mg/dL | [facility] | | | HEMOLYSISTesting | | | | | performed at [facility];[address] | | | | | [address];[place], [place] | | | | | [address] | | | + + + + + + + | Specimen | + + | Blood | + + + + + + + | Performing | Address | City/State/Zipcode | Phone Number | | Organization | | | | + + + + + | [facility] | [address] | [place] [address] | | + + + + + [...] 1.0 | 0.70 - 1.30 mg/dL | [facility] | + + + + + | BUN/CREAT | 23 | | [facility] | + + + + + | CALCIUM | 7.8 (L) | 8.5 - 10.5 mg/dL | [facility] | + + + + + | EGFR | >60Comment: GFR <60: | >60 mL/min/1.73m2 | [facility] | | | CHRONIC [...] | | | | | performed at [facility] | | | | | [facility];[place], [place] | | | | | [address] | | | + + + + + + + | Specimen | + + | Blood | + + + + + + + | Performing | Address | City/State/Zipcode | Phone Number | | Organization | | | | + + + + + | [facility] | [address] | [place] [address] | | + + + + + CPK (11/09/2017 4:00 AM)Only the most recent of 4 results within the time period is includ ed. + + + + + | Component | Value | Ref Range | Performed At | + + + + + | CPK | 118Comment: Testing | 55 - 400 U/L | [facility] | | | performed at [facility];[address] | | | | | [facility];[place] | | | | | [address] | | | + + + + + + + | Specimen | + + | Blood | + + + + + + + | Performing | Address | City/State/Zipcode | Phone Number | | Organization | | | | + + + + + | [facility] | [address] | [place] [address] | | + + + + + HGB and HCT (11/08/2017 12:01 PM)Only the most recent of 2 results within the time period i s included. + + + + + | Component | Value | Ref Range | Performed At | + + + + + | HGB | 11.2 (L) | 13.2 - 17.0 g/dL | [facility] | + + + + + | HCT | 32.2 (L)Comment: Testing | 39.0 - 50.0 % | [facility] | | | performed at [facility];[address] | | | | | [address];[place] | | | | | [address] | | | + + + + + + + + + + | Performing | Address | City/State/Zipcode | Phone Number | | Organization | | | | + + + + + | [facility] | [address] | [place] [address] | | + + + + + [...] NORMAN HERNANDEZ Date of : 1935 | [facility] | | Performing Physician: Sharda Hernadez MD, [...] TV A Kurtis: 0.43 m/s TV Dec [place]: | | | 2.19 m/s2 TV Dec Time: 244.15 ms TV E Kurtis: 0.53 m/s TV E/A | | | Ratio: 1.22 Web Site Specialist: GADIEL Authenticated by: Sharda | | | Satya JONES, [facility] Report Date/Time: 11-08-2017 16:25:4 | | + + + + + | Procedure Note | + + | Gallo, Rad Results In - 11/08/2017 4:30 PM PDT Patient Name: Lionel HERNANDEZ of | | : 1935ccession: [id number] Physician: Sharda Hernadez MD, [facility] | | INDICATIONS PUL | | [...] mlLAESV Index (A-L): 22.33 ml/m2LAAs A2C: 18.00 [id number] A-L A2C: 49.35 | | mlLALs A2C: 5.57 cmLAAs A4C: 16.69 [id number] A-L A4C: 44.72 mlLALs A4C: 5.28 cmAo [...] 48.26 cmAVA Vmax: 1.57 cm2AVA (VTI): 1.55 [id number] Vmax: | | 0.00 cm2/m2AVAI (VTI): 0.00 [...] 2.81 m/sTV A Kurtis: 0.43 m/sTV Dec [place]: 2.19 m/s2TV Dec Time: | | 244.15 msTV E Kurtis: 0.53 m/sTV E/A Ratio: 1.22 Web Site Specialist: KVWAuthenticated by: | | Sharda Hernadez MD, [...] A Kurtis: 0.43 m/s | |TV Dec [place]: 2.19 m/s2 | |TV Dec Time: 244.15 ms | |TV E Kurtis: 0.53 m/s | |TV E/A Ratio: 1.22 | | | |Web Site Specialist: KVW | |Authenticated by: Sharda Hernadez MD, [facility] | |Report Date/Time: 11-08-2017 16:25:4 | [...] | + + + + + | [facility] | [address] [facility] [address] | [place] [address] | | + + + + + US Lower extremity venous doppler bilateral (11/07/2017 10:08 PM) + + + | Impressions | Performed At | + + + | No evidence for deep venous thrombosis bilaterally. [facility] | [facility] | | Electronically signed by Jackson Callejas MD on Nov 07 2017 11:01PM | RADIOLOGY | | Referring Provider Line: [phone] ID: [id number] | | + + + + + + | Narrative | Performed At | + + + | EXAM: BILATERAL LOWER EXTREMITY VENOUS ULTRASOUND EXAM DATE: | [place] | | 11/07/2017 10:08 PM. CLINICAL HISTORY: Bilateral pulmonary emboli. | RAD[facility] | | COMPARISON: None. TECHNIQUE: Real-time sonographic vascular | | | imaging was performed by the leacher through the lower extremities | | | utilizing both color-flow and Doppler spectral analysis. Multiple | | | sales representative door to door static images were saved for review. FINDINGS: [...] imaging was performed | | by the leacher through the lower extremities utilizing both color-flow and Doppler | | spectral analysis. Multiple sales representative door to door static images were saved for review.FINDINGS: | [...] 2017 11:01PM | | Referring Provider Line: [phone] ID: [id number] | |CFV-GSV Junction: Normal. | [...] Nov 07 2017 11:01PM Referring Provider Line: [phone] ID: [id number] | + + + + + + + | Performing | Address | City/State/Zipcode | Phone Number | | Organization | | | | + + + + + | [facility] | [address] | [place] [address] | | + + + + + IR IVC filter placement (11/07/2017 7:21 PM) + + + | Narrative | Performed At | + + + | IR IVC FILTER PLACEMENT PREOPERATIVE DIAGNOSIS DVT and PE with | [facility] | | contraindication for anticoagulation POSTOPERATIVE DIAGNOSIS Same | [facility] | | PROCEDURES 1. Moderate conscious sedation 2. Ultrasound guided | | | access of right internal jugular vein 3. Vena cavagram. 4. Inferior | | | vena cava filter placement under fluoroscopic guidance SURGEON | | | Jaime Humphreys MD MACHINE SEWER None. ANESTHESIA Moderate sedation, | | | [...] was properly identified and brought to the stucco laborer. | | | Patient was placed supine on the stucco laborer table and patient was given | | [...] | properly identified and brought to the stucco laborer.Patient was placed supine on the cath | [...] | | | |FINDINGS | |A [employer] Concho filter was deployed below the level of the renal veins in the inferior | |vena cava and confirmed by fluoroscopy. | | | |DESCRIPTION OF PROCEDURE | |Patient was properly identified and brought to the stucco laborer. | |Patient was placed supine on the stucco laborer table and patient was | |given moderate [...] | |IMPRESSION | |Proper placement of a [employer] IVC filter below the level of the renal veins. | | | | | + + + + + + + | Performing | Address | City/State/Zipcode | Phone Number | | Organization | | | | + + + + + | [facility] | [address] | [place] [address] | | + + + + + [...] | + + + + + | [facility] | [address] | [place] [address] | | + + + + + Lactic acid (11/07/2017 6:40 PM) + + + + + | Component | Value | Ref Range | Performed At | + + + + + | LACTIC ACID | 1.4Comment: Testing | 0.4 - 2.0 mmol/L | [facility] | | | performed at [facility];[address] | | | | | [address];[place], [place] | | | | | [address] | | | + + + + + + + | Specimen | + + | Blood | + + + + + + + | Performing | Address | City/State/Zipcode | Phone Number | | Organization | | | | + + + + + | [facility] | [address] | [place] [address] | | + + + + + Protime-INR (11/07/2017 6:38 PM) + + + + + | Component | Value | Ref Range | Performed At | + + + + + | INR | 1.0Comment: REFERENCE | | [facility] | | | RANGE:0.9 [...] | | | | | performed at [facility];[address] | | | [address];[place] | | | | | [address] | | | + + + + + + + | Specimen | + + | Blood | + + + + + + + | Performing | Address | City/State/Zipcode | Phone Number | | Organization | | | | + + + + + | [facility] | [address] | [place] [address] | | + + + + + [...] 65 | 35 - 115 U/L | [facility] | + + + + + | AST | 14 | 10 - 45 U/L | [facility] | + + + + + | ALT | 17 | 10 - 65 U/L | [facility] | + + + + + | EGFR | >60Comment: GFR <60: | >60 mL/min/1.73m2 | [facility] | | | CHRONIC [...] | | | | | performed at [facility];[address] | | | | | [address];[place] | | | | | [address] | | | + + + + + + + | Specimen | + + | Blood | + + + + + + + | Performing | Address | City/State/Zipcode | Phone Number | | Organization | | | | + + + + + | [facility] | [address] | [place] [address] | | + + + + + MRSA by PCR (11/07/2017 6:13 PM) + + + + + | Component | Value | Ref Range | Performed At | + + + + + | SOURCE | NARES(NOSE) | | [facility] | + + + + + | MRSA PCR | NEGATIVEComment: Testing | NEGATIVE | [facility] | | | performed at [facility];[address] | | | | | [address];[place] | | | | | [address] | | | + + + + + + + | Specimen | + + | Nasopharyngeal - | | Nasopharyngeal | | Culture | + + + + + + + | Performing | Address | City/State/Zipcode | Phone Number | | Organization | | | | + + + + + | [facility] | [address] | [place] [address] | | + + + + + CTA pulmonary with IV contrast (11/06/2017 2:41 AM) + + + | Narrative | Performed At | + + + | This is a non-reportable procedure without a radiologist report and | [facility] | | is used for image storage only | [facility]Y | + + + + + + + + | Performing | Address | City/State/Zipcode | Phone Number | | Organization | | | | + + + + + | [facility] | [address] | [place] [address] | | + + + + + [...] | + + + + + | [facility] | [address] | [place] [address] | | + + + + + [...] | + + + + + | [facility] | [address] | [place] [address] | | + + + + + [...] [facility] | [address] | [place] [address] | | + + + + + [...] | [address] | [place] [address] | | + + + + + [...] +------+-------+ + | MEDICARE | MEDICA | [id number] | | | [address] | | | RE | | | | [place] [address] | | | IP-OP | | | [...] | Self | [birth year] | Home: | [address] | | | al/Fam | | 1936 | [phone] | [place] | | | [place] | | | [phone] | [phone] | + +--------+ +--------+ + +
--- OUTSIDE RECORDS SUMMARY | ~2017-11-12 | XMS | Encounter Summary ---
Demographics + + + | Address | [address] | | | [place] [address] | + + + | Home Phone | | + + + | Preferred Language | Unknown | + + + | Marital Status | | + + + | Buddhism Affiliation | Unknown | + + + | Race | Unknown | + + + | Ethnic Group | Unknown | + + + Author + + + | Author | [facility] | + + + | Organization | [facility] [facility] | + + + | Address [...] Team Providers + +------+ + | Care Mill Laborer Name | Role | Phone | + [...] + + | 11/07/ | Ancillary | [facility] | See, Medical | Pain | | 2018 | [facility] | [facility] | Record | | | | | [address] | | | | | | [place] [address] | | | | | | [phone] | | | +--------+ + + + [...] [facility] | [address] | [place] [address] | | + + + + + [...] [facility] | [address] | [place] [address] | | + + + + + [...] [facility] | [address] | [place] [address] | | + + + + + in this encounter Visit Diagnoses + + | Diagnosis | + + | Pain | + + | Generalized pain | + +"
--- OUTSIDE RECORDS SUMMARY | ~2017-11-12 | XMS | Encounter Summary ---
Demographics + + + | Address | [address] | | | [place] [address] | + + + | Home Phone | | + + + | Preferred Language | Unknown | + + + | Marital Status | | + + + | Orthodox Affiliation | Unknown | + + + | Race | Unknown | + + + | Ethnic Group | Unknown | + + + Author + + + | Author | [facility] [facility] | + + + | Organization | [facility] [employer] [facility] | + + + | Address [...] Team Providers + +------+ + | Care Deep Fat Cook Fry Name | Role | Phone | + [...] + + | 11/07/ | Hospital | [facility] | See, Medical | Pain | | 2018 | Encounter | [facility] | Record | | | | | RADIOLOGY [address] | | | | | | [place] [address] | | | | | | [phone] | | | +--------+ + + + [...] + + in this encounter Results CTA pulmonary with IV [...] | + + + + + | [facility] | [address] | [place] [address] | | + + + + + in this encounter Visit Diagnoses + + | Diagnosis | + + | Pain | + + | Generalized pain | + +"
--- OUTSIDE RECORDS SUMMARY | ~2017-11-12 | XMS | Encounter Summary ---
Demographics + + + | Address | [address] | | | [place] [address] | + + + | Home Phone | | + + + | Preferred Language | Unknown | + + + | Marital Status | | + + + | Synagogue Affiliation | Unknown | + + + | Race | Unknown | + + + | Ethnic Group | Unknown | + + + Author + + + | Author | [facility] | + + + | Organization | [facility] | + + + | Address [...] Team Providers + +------+ + | Care Computer Artist Name | Role | Phone | + +------+ + | Fide Solares MD | PCP | | + +------+ + Reason for Visit Auth/Cert +--------+--------+ + + + + | Status | Reason | Specialty | Diagnoses / | Referred By | Referred To | | | | | Procedures | Contact | Contact | +--------+--------+ + + + + | | | Internal | Diagnoses | | [facility] 9th | | | | Medicine | Bilateral | | [address] | | | | | PE's Needs | | [address] | | | | | IVC filter | | [address] | | | | | | | [place], [place] | | | | | | | [address] Phone: | | | | | | | [phone] | +--------+--------+ + + + + Encounter Details +--------+ + + + + | Date | Type | Department | Care Team | Description | +--------+ + + + + | 11/07/ | Hospital | [facility] | Ana Jimenezgallo | Other acute | | 2018 - | Encounter | [facility] | MD Taylor Menchaca | pulmonary embolism | | | | [address] | [address] [employer] | without acute cor | | 11/11/ | | [address] | Office [place], [place] | pulmonale (HCC) | | 2018 | | [place] [address] | [phone] | (Primary Dx) | | | | [phone] | | | | | | | Reynaldo Rees MD | | | | | | [address] | | | | | | [place] [address] | | | | | | [phone] | | | | | | | | | | | | Torsten Mcghee | | | | | | MD [address] | | | | | | [address]VD [place], [place] | | | | | | [address] | | | | | | | | | | | | Amie Newby MD | | | | | | [address] [facility] [address] | | | | | | [place] [address] | | | | | | [phone] | | | | | | | [...] + + + as of this encounter Last Filed Vital [...] AM PDT | + + + + in this encounter Discharge Summaries Amie Newby MD - 11/11/2017 12:34 PM PDTFormatting of this note may be different from andreas calles. [facility] Service: Hospitalist Physician Discharge Summary Pt: Norman Hernandez AGE/SEX: 81 y.o. male ROOM: [facility] PCP: FIDE SOLARES : 1935 Admit date: [...] Nov 07 2017 11:01PM Referring Provider Line: [phone] ID: [id number] Echo Cardiac Adult Complete Result [...] who was admitted as a transfer from [facility] to our ICU due to acute [...] hematoma so V ascular surgery services at [facility] was contacted and Dr. Humphreys recommended [...] improved might need [facility] full [facility]. When to [...] arm Pulse: 54 67 52 58 Resp: 18 Temp: 98.2 F (36.8 C) 98.4 [...] Not suicida l LABS: Recent Labs Lab 11/11/1741211/10/17 0435 11/09/17 0400 WBC 9.11 8.01 9.26 HGB 9.8* 10.2* 10.2* HCT 27.9* 28.9* 29.1* PLT 144* 151 153 NEUTOPHILPCT 70.97 69.33 70.50 MONOPCT 6.47 7.59 7.81 Recent Labs Lab 11/11/173 11/10/17 0435 11/09/17 0400 11/07/17 1838 NA 135 136 136 [...] this interval not displayed. Recent Labs Lab 11/11/17 0413 11/10/17 0435 11/09/17 0400 MG 2.0 2.1 2.1 Recent Labs [...] medications if needed. Follow-Up: Jaime Humphreys MD [address] [place] [id number] Fide Solares MD [address] [place] [id number] In 1 week Discharge took more than 35 minutes, to include final examination, discussion of admission, and preparation of prescriptions, instructions for ongoing care, follow up and dictation of summary. Signed: AMIE Charli PERFECTO, MD 11/11/2017 12:34 PM Dictation software, Dole [employer], used which may contain error for similar sounding words even af ter review. Personal communication requested for any clarification. Portions of this chart may have been copied from previous notes for continuity of care purp ose in this encounter Discharge Instructions Amie Newby MD - 11/11/2017Hold Plvix for 2 days. Talk to PCP before restarting Talk to PCP regarding full anticoagulationin this encounter Medications at Time of Discharge [...] + +-------+---------+--------+ + as of this encounter Progress Notes Amie Newby MD - 11/10/2017 11:40 AM PDTFormatting of this note may be different from andreas calles. [facility] Service: Hospitalist Progress Note Pt: Norman Kavita AGE/SEX: 81 y.o. male ROOM: 9118/9118-1 : 1935 PCP: FIDE SOLARES ADMIT DATE: 11/07/2017 TODAY'S DATE: 11/10/2017 Hospital Day/Hospital Course: LOS: [address] Mcghee 81 year old malewith past medical history of CAD, HTN and DM Type 2 who was admitted as a transfer from [facility] to our ICU due to acute [...] hematoma so Vas cular surgery services at [facility] was contacted and Dr. Humphreys recommended IVC filter placement. Andre mendoza was kept in ICU for monitoring [...] CO2 27 25 26 28 BUN 18 18 17 CREATININE 0.9 1.0 1.0 0.95 [...] Component Value Units Date/Time MRSA by PCR [[id number]] Collected: 11/07/171812 Specimen: Nasopharyngeal from Nasopharyngeal Culture Updated: 11/07/171931 SOURCE NARES(NOSE) MRSA PCR NEGATIVE PROBLEM LIST [...] who was admitted as a transfer from [facility] to our ICU due to acute [...] MD, FACP 11/10/2017 11:40 AM Dictation software, Dole Tian, used which may contain error for similar sounding words even af ter review. Personal communication requested for any clarification. Portions of this chart may have been copied from previous notes for continuity of care purp Amie Goodson MD - 11/09/2017 11:17 AM PDTFormatting of this note may be different from andreas mendoza original. [facility] Service: Hospitalist Progress Note Pt: Norman Hernandez AGE/SEX: 81 y.o. male ROOM: [address] [place] [address] : 1935 PCP: FIDE SOLARES ADMIT DATE: 11/07/2017 TODAY'S DATE: 11/09/2017 Hospital Day/Hospital Course: LOS: [address] Mcghee 81 year old malewith past medical history of CAD, HTN and DM Type 2 who was admitted as a transfer from [facility] to our ICU due to acute [...] hematoma so Vas cular surgery services at [facility] was contacted and Dr. Humphreys recommended IVC filter placement. Andre mendoza was kept in ICU for monitoring [...] Component Value Units Date/Time MRSA by PCR [[id number]] Collected: 11/07/171812 Specimen: Nasopharyngeal from Nasopharyngeal Culture [...] who was admitted as a transfer from [facility] to our ICU due to acute [...] MD, FACP 11/09/2017 11:17 AM Dictation software, Dole Tian, used which may contain error for similar sounding words even af ter review. Personal communication requested for any clarification. Portions of this chart may have been copied from previous notes for continuity of care purp Torsten Vance MD - 11/08/2017 9:00 AM PDTFormatting of this note may be different from the original. [facility] Service: Hospitalist Progress Note Norman Hernandez 81 y.o. [id number] [id number] male FIDE SOLARES Hospital Day: LOS: 1 day SUBJECTIVE Patient Summary: Patient is a 81 year old male with past medical history of CAD, HTN and DM Type 2 who was a dmitted as a transfer from [facility] to our ICU due to acute [...] following day, patient was working with PT [employer] and suddenly developed chest pressure and shortness [...] hem atoma so Vascular surgery services at [facility] was contacted and Dr. Humphreys recommended [...] compartment syndrome. Orthopedic services was consulted in [facility] who recommended conservative management and pain [...] and answered their questions. TORSTEN MCGHEE MD 11/08/2017Radha Su DO - 11/07/2017 9:25 PM PDTPt arrived to ICU in very stable conditi on earlier this evening. He was taken to the [facility] and had an IVC filter placed by Dr. Arroyo. The pt is on RA with oxygen sats 97-98% wihtout any dyspnea or distress. He is pain free at this time except for c/o c/o cramping in his R thigh and wants to get his nightly pramipe xole. Otherwise, he ate dinner and is watching TV in bed. I examined him, including his legs which he reports are unchanged from earlier today and he is stable to transfer out of the [facility] to acute care. I gave report to Dr. Rees who accepted the pt in transfer to the hospi talist service. Cayla Dos Santos, [facility] - 11/07/2017 5:49 PM PDTFormatting of this note may be different from the original. Clinical Pharmacy Note: Renal Monitoring Norman Hernandez [...] Cayla Dos Santos PharmD 11/07/2017 5:49 PM in this encounter Plan of Treatment Not [...] + + + in this encounter Results POCT glucose (11/11/2017 10:53 AM) + + + + + | Component | Value | Ref Range | Performed At | + + + + + | GLUCOSE,POC SCREEN | 274 (H)Comment: Testing | 65 - 99 mg/dL | [facility] | | | performed at [facility];[address] | | | | | [address];[place] | | | | | [address] | | | + + + + + + + + + + | Performing | Address | City/State/Zipcode | Phone Number | | Organization | | | | + + + + + | [facility] | [address] | [place] [address] | | + + + + + POCT glucose (11/11/2017 5:10 AM) + + + + + | Component | Value | Ref Range | Performed At | + + + + + | GLUCOSE,POC SCREEN | 173 (H)Comment: Testing | 65 - 99 mg/dL | [facility] | | | performed at [facility];[address] | | | | | [address];[place] | | | | | [address] | | | + + + + + + + + + + | Performing | Address | City/State/Zipcode | Phone Number | | Organization | | | | + + + + + | [facility] | [address] | [place] [address] | | + + + + + Phosphorus (11/11/2017 4:13 AM) + + + + + | Component | Value | Ref Range | Performed At | + + + + + | PHOSPHORUS | 3.5Comment: Testing | 2.3 - 4.8 mg/dL | [facility] | | | performed at [facility];[address] | | | | | [facility];[place] | | | | | [address] | | | + + + + + + + | Specimen | + + | Blood | + + + + + + + | Performing | Address | City/State/Zipcode | Phone Number | | Organization | | | | + + + + + | [facility] | [address] | [place] [address] | | + + + + + Magnesium (11/11/2017 4:13 AM) + + + + + | Component | Value | Ref Range | Performed At | + + + + + | MAGNESIUM | 2.0Comment: MODERATE | 1.7 - 2.4 mg/dL | [facility] | | | HEMOLYSISTesting | | | | | performed at [facility];[address] | | | | | [address];[place] | | | | | [address] | | | + + + + + + + | Specimen | + + | Blood | + + + + + + + | Performing | Address | City/State/Zipcode | Phone Number | | Organization | | | | + + + + + | [facility] | [address] | [place] [address] | | + + + + + Basic metabolic panel (11/11/2017 4:13 AM) + + + + + | Component | Value | Ref Range | Performed At | + + + + + | SODIUM | 135 | 135 - 145 mmol/L | [facility] | + + + + + | POTASSIUM | 4.9Comment: MODERATE | 3.5 - 4.9 mmol/L | [facility] | | | HEMOLYSIS | | | + + + + + | CHLORIDE | 102 | 99 - 109 mmol/L | [facility] | + + + + + | CO2 | 27 | 23 - 32 mmol/L | [facility] | + + + + + | ANION GAP AGAP | 11 | 5 - 20 mmol/L | [facility] | + + + + + | GLUCOSE | 155 (H) | 65 - 99 mg/dL | [facility] | + + + + + | BUN | 23 | 8 - 25 mg/dL | [facility] | + + + + + | CREATININE | 1.0 | 0.70 - 1.30 mg/dL | [facility] | + + + + + | BUN/CREAT | 23 | | [facility] | + + + + + | CALCIUM | 7.8 (L) | 8.5 - 10.5 mg/dL | [facility] | + + + + + | EGFR | >60Comment: GFR <60: | >60 mL/min/1.73m2 | [facility] | | | CHRONIC KIDNEY DISEASE, [...] | | | | | performed at [facility];[address] | | | | | [address];[place] | | | | | [address] | | | + + + + + + + | Specimen | + + | Blood | + + + + + + + | Performing | Address | City/State/Zipcode | Phone Number | | Organization | | | | + + + + + | [facility] | [address] | [place] [address] | | + + + + + CBC w/auto diff (reflex to manual) (11/11/2017 4:13 AM) + + + + + | Component | Value | Ref Range | Performed At | + + + + + | WBC | 9.11 | 3.80 - 11.00 K/uL | [facility] | + + + + + | RBC | 3.27 (L) | 4.20 - 5.70 M/uL | [facility] | + + + + + | HGB | 9.8 (L) | 13.2 - 17.0 g/dL | [facility] | + + + + + | HCT | 27.9 (L) | 39.0 - 50.0 % | [facility] | + + + + + | MCV | 85.5 | 80.0 - 100.0 fl | [facility] | + + [...] (L) | 150 - 400 K/uL | [facility] | + + + + + | MPV | 10.0 | fl | [facility] | + + + + + | DIFF TYPE | AUTOMATED | | [facility] | + + + + + | NEUTROPHILS | 70.97 | % | [facility] | + + + + + | LYMPHOCYTES | 19.21 | % | [facility] | + + + + + | MONOCYTES | 6.47 | % | [facility] | + + [...] 0.24 | 0.00 - 0.50 K/uL | [facility] | + + + + + | BASOPHILS ABS | 0.07Comment: Testing | 0.00 - 0.10 K/uL | [facility] | | | performed at [facility] | | | | | [address];[place], [place] | | | | | [address] | | | + + + + + + + | Specimen | + + | Blood | + + + + + + + | Performing | Address | City/State/Zipcode | Phone Number | | Organization | | | | + + + + + | [facility] | [address] | [place] [address] | | + + + + + POCT glucose (11/10/2017 8:54 PM) + + + + + | Component | Value | Ref Range | Performed At | + + + + + | GLUCOSE,POC SCREEN | 224 (H)Comment: Testing | 65 - 99 mg/dL | [facility] | | | performed at [facility];[address] | | | | | [facility];[place] | | | | | [address] | | | + + + + + + + + + + | Performing | Address | City/State/Zipcode | Phone Number | | Organization | | | | + + + + + | [facility] | [address] | [place] [address] | | + + + + + POCT glucose (11/10/2017 4:36 PM) + + + + + | Component | Value | Ref Range | Performed At | + + + + + | GLUCOSE,POC SCREEN | 271 (H)Comment: Testing | 65 - 99 mg/dL | [facility] | | | performed at [facility];[address] | | | | | [address];[place] | | | | | [address] | | | + + + + + + + + + + | Performing | Address | City/State/Zipcode | Phone Number | | Organization | | | | + + + + + | [facility] | [address] | [place] [address] | | + + + + + POCT glucose (11/10/2017 11:24 AM) + + + + + | Component | Value | Ref Range | Performed At | + + + + + | GLUCOSE,POC SCREEN | 234 (H)Comment: Testing | 65 - 99 mg/dL | [facility] | | | performed at [facility];[address] | | | | | [address];[place] | | | | | [address] | | | + + + + + + + + + + | Performing | Address | City/State/Zipcode | Phone Number | | Organization | | | | + + + + + | [facility] | [address] | [place] [address] | | + + + + + POCT glucose (11/10/2017 10:00 AM) + + + + + | Component | Value | Ref Range | Performed At | + + + + + | GLUCOSE,POC SCREEN | 247 (H)Comment: Testing | 65 - 99 mg/dL | [facility] | | | performed at [facility];[address] | | | | | [address];[place] | | | | | [address] | | | + + + + + + + + + + | Performing | Address | City/State/Zipcode | Phone Number | | Organization | | | | + + + + + | [facility] | [address] | [place] [address] | | + + + + + POCT glucose (11/10/2017 5:25 AM) + + + + + | Component | Value | Ref Range | Performed At | + + + + + | GLUCOSE,POC SCREEN | 228 (H)Comment: Testing | 65 - 99 mg/dL | [facility] | | | performed at [facility];[address] | | | | | [address];[place] | | | | | [address] | | | + + + + + + + + + + | Performing | Address | City/State/Zipcode | Phone Number | | Organization | | | | + + + + + | [facility] | [address] | [place] [address] | | + + + + + Phosphorus (11/10/2017 4:35 AM) + + + + + | Component | Value | Ref Range | Performed At | + + + + + | PHOSPHORUS | 3.6Comment: Testing | 2.3 - 4.8 mg/dL | [facility] | | | performed at [facility], [address] | | LABORATORY | | | [address], | | | | | [place] [address] | | | + + + + + + + | Specimen | + + | Blood | + + + + + + + | Performing | Address | City/State/Zipcode | Phone Number | | Organization | | | | + + + + + | [facility] | [address] | [place] [address] | [phone] | | LABORATORY | [address] | | | + + + + + Magnesium (11/10/2017 4:35 AM) + + + + + | Component | Value | Ref Range | Performed At | + + + + + | MAGNESIUM | 2.1Comment: Testing | 1.7 - 2.4 mg/dL | [facility] | | | performed at [facility], [address] | | LABORATORY | | | [facility], | | | | | [place] [address] | | | + + + + + + + | Specimen | + + | Blood | + + + + + + + | Performing | Address | City/State/Zipcode | Phone Number | | Organization | | | | + + + + + | [facility] | [address] | [place] [address] | [phone] | | LABORATORY | [address] | | | + + + + + Basic metabolic panel (11/10/2017 4:35 AM) + + + + + | Component | Value | Ref Range | Performed At | + + + + + | SODIUM | 136 | 135 - 145 mmol/L | [facility] | | | | | LABORATORY | + + + + + | POTASSIUM | 4.5 | 3.5 - 4.9 mmol/L | [facility] | | | | | LABORATORY | + + + + + | CHLORIDE | 101 | 99 - 109 mmol/L | [facility] | | | | | LABORATORY | + + + + + | CO2 | 27 | 23 - 32 mmol/L | [facility] | | | | | LABORATORY | + + + + + | ANION GAP AGAP | 13 | 5 - 20 mmol/L | [facility] | | | | | LABORATORY | + + + + + | GLUCOSE | 219 (H) | 65 - 99 mg/dL | [facility] | | | | | LAB[facility] | + + + + + | BUN | 22 | 8 - 25 mg/dL | [facility] | | | | | LABORATORY | + + + + + | CREATININE | 0.9 | 0.70 - 1.30 mg/dL | [facility] | | | | | LABORATORY | + + + + + | BUN/CREAT | 24 | | [facility] | | | | | LABORATORY | + + + + + | CALCIUM | 8.0 (L) | 8.5 - 10.5 mg/dL | [facility] | | | | | LABORATORY | + + + + + | EGFR | >60Comment: GFR <60: | >60 mL/min/1.73m2 | [facility] | | | CHRONIC KIDNEY DISEASE, | | LABORATORY | | | IF FOUND OVER A [...] | | | | | performed at [facility], [address] | | | | | [facility], | | | | | [place] [address] | | | + + + + + + + | Specimen | + + | Blood | + + + + + + + | Performing | Address | City/State/Zipcode | Phone Number | | Organization | | | | + + + + + | [facility] | [address] | [place] [address] | [phone] | | LABORATORY | [address] | | | + + + + + CBC w/auto diff (reflex to manual) (11/10/2017 4:35 AM) + + + + + | Component | Value | Ref Range | Performed At | + + + + + | WBC | 8.01 | 3.80 - 11.00 K/uL | [facility] | | | | | LABORATORY | + + + + + | RBC | 3.41 (L) | 4.20 - 5.70 M/uL | [facility] | | | | | LABORATORY | + + + + + | HGB | 10.2 (L) | 13.2 - 17.0 g/dL | [facility] | | | | | LABOR[facility]ORY | + + + + + | HCT | 28.9 (L) | 39.0 - 50.0 % | [facility] | | | | | LABORATORY | + + + + + | MCV | 84.8 | 80.0 - 100.0 fl | [facility] | | | | | LABORATORY | + + + + + | MCH | 29.9 | 27.0 - 34.0 pg | [facility] | | | | | LABORATORY | + + + + + | MCHC | 35.2 | 32.0 - 35.5 g/dL | [facility] | | | | | LABORATORY | + + + + + | RDW SD | 42.4 | 37 - 53 fl | [facility] | | | | | LABORATORY | + + + + + | PLT | 151 | 150 - 400 K/uL | [facility] | | | | | LABORATORY | + + + + + | MPV | 10.4 | fl | [facility] | | | | | LABORATORY | + + + + + | DIFF TYPE | AUTOMATED | | [facility] | | | | | LABORATORY | + + + + + | NEUTROPHILS | 69.33 | % | [facility] | | | | | LABORATORY | + + + + + | LYMPHOCYTES | 20.01 | % | [facility] | | | | | LABORATORY | + + + + + | MONOCYTES | 7.59 | % | [facility] | | | | | LABORATORY | + + + + + | EOSINOPHILS | 2.49 | % | [facility] | | | | | LABORATORY | + + + + + | BASOPHILS | 0.58 | % | [facility] | | | | | LABORATORY | + + + + + | NEUTROPHILS ABS | 5.55 | 1.90 - 7.40 K/uL | [facility] | | | | | LABORATORY | + + + + + | LYMPHOCYTES ABS | 1.60 | 1.00 - 3.90 K/uL | [facility] | | | | | LABORATORY | + + + + + | MONOCYTES ABS | 0.61 | 0.00 - 0.80 K/uL | [facility] | | | | | LABORATORY | + + + + + | EOSINOPHILS ABS | 0.20 | 0.00 - 0.50 K/uL | [facility] | | | | | LABORATORY | + + + + + | BASOPHILS ABS | 0.05Comment: Testing | 0.00 - 0.10 K/uL | [facility] | | | performed at [facility], [address] | | LABORATORY | | | [address] [facility], | | | | | [place] [address] | | | + + + + + + + | Specimen | + + | Blood | + + + + + + + | Performing | Address | City/State/Zipcode | Phone Number | | Organization | | | | + + + + + | [facility] | [address] | [place] [address] | [phone] | | LABORATORY | [address] | | | + + + + + POCT glucose (11/09/2017 9:19 PM) + + + + + | Component | Value | Ref Range | Performed At | + + + + + | GLUCOSE,POC SCREEN | 228 (H)Comment: Testing | 65 - 99 mg/dL | [facility] | | | performed at [facility];[address] | | | | | [address];[place], [place] | | | | | [address] | | | + + + + + + + + + + | Performing | Address | City/State/Zipcode | Phone Number | | Organization | | | | + + + + + | [facility] | [address] | [place] [address] | | + + + + + POCT glucose (11/09/2017 4:29 PM) + + + + + | Component | Value | Ref Range | Performed At | + + + + + | GLUCOSE,POC SCREEN | 225 (H)Comment: Testing | 65 - 99 mg/dL | [facility] | | | performed at [facility];[address] | | | | | [address];[place], [place] | | | | | [address] | | | + + + + + + + + + + | Performing | Address | City/State/Zipcode | Phone Number | | Organization | | | | + + + + + | [facility] | [address] | [place] [address] | | + + + + + POCT glucose (11/09/2017 11:48 AM) + + + + + | Component | Value | Ref Range | Performed At | + + + + + | GLUCOSE,POC SCREEN | 213 (H)Comment: Testing | 65 - 99 mg/dL | [facility] | | | performed at [facility];[address] | | | | | [address];[place] | | | | | [address] | | | + + + + + + + + + + | Performing | Address | City/State/Zipcode | Phone Number | | Organization | | | | + + + + + | [facility] | [address] | [place] [address] | | + + + + + POCT glucose (11/09/2017 6:07 AM) + + + + + | Component | Value | Ref Range | Performed At | + + + + + | GLUCOSE,POC SCREEN | 231 (H)Comment: Testing | 65 - 99 mg/dL | [facility] | | | performed at [facility];[address] | | | | | [address];[place] | | | | | [address] | | | + + + + + + + + + + | Performing | Address | City/State/Zipcode | Phone Number | | Organization | | | | + + + + + | [facility] | [address] | [place] [address] | | + + + + + Phosphorus (11/09/2017 4:00 AM) + + + + + | Component | Value | Ref Range | Performed At | + + + + + | PHOSPHORUS | 3.0Comment: Testing | 2.3 - 4.8 mg/dL | [facility] | | | performed at [facility], [address] | LABORATORY | | | [facility], | | | | | [place] [address] | | | + + + + + + + | Specimen | + + | Blood | + + + + + + + | Performing | Address | City/State/Zipcode | Phone Number | | Organization | | | | + + + + + | [facility] | [address] [place] [address] | [place] [address] | [phone] | | LABORATORY | Blvd. | | | + + + + + Magnesium (11/09/2017 4:00 AM) + + + + + | Component | Value | Ref Range | Performed At | + + + + + | MAGNESIUM | 2.1Comment: Testing | 1.7 - 2.4 mg/dL | [facility] | | | performed at [facility], [address] | | LABORATORY | | | [facility], | | | | | [place] [address] | | | + + + + + + + | Specimen | + + | Blood | + + + + + + + | Performing | Address | City/State/Zipcode | Phone Number | | Organization | | | | + + + + + | [facility] | [address] | [place] [address] | [phone] | | LABORATORY | Blvd. | | | + + + + + Basic metabolic panel (11/09/2017 4:00 AM) + + + + + | Component | Value | Ref Range | Performed At | + + + + + | SODIUM | 136 | 135 - 145 mmol/L | [facility] | | | | | LABORATORY | + + + + + | POTASSIUM | 4.3 | 3.5 - 4.9 mmol/L | [facility] | | | | | LABORATORY | + + + + + | CHLORIDE | 101 | 99 - 109 mmol/L | [facility] | | | | | LABORATORY | + + + + + | CO2 | 25 | 23 - 32 mmol/L | [facility] | | | | | LABORATORY | + + + + + | ANION GAP AGAP | 14 | 5 - 20 mmol/L | [facility] | | | | | LABORATORY | + + + + + | GLUCOSE | 213 (H) | 65 - 99 mg/dL | [facility] | | | | | LABORATORY | + + + + + | BUN | 18 | 8 - 25 mg/dL | [facility] | | | | | LABORATORY | + + + + + | CREATININE | 1.0 | 0.70 - 1.30 mg/dL | [facility] | | | | | LABORATORY | + + + + + | BUN/CREAT | 18 | | [facility] | | | | | LABORATORY | + + + + + | CALCIUM | 7.6 (L) | 8.5 - 10.5 mg/dL | [facility] | | | | | LABORATORY | + + + + + | EGFR | >60Comment: GFR <60: | >60 mL/min/1.73m2 | [facility] | | | CHRONIC KIDNEY DISEASE, | | LABORATORY | | | IF FOUND OVER A [...] | | | | | performed at [facility], [address] | | | | | [facility], | | | | | [place] [address] | | | + + + + + + + | Specimen | + + | Blood | + + + + + + + | Performing | Address | City/State/Zipcode | Phone Number | | Organization | | | | + + + + + | [facility] | [address] | [place] [address] | [phone] | | LABORATORY | Blvd. | | | + + + + + CBC w/auto diff (reflex to manual) (11/09/2017 4:00 AM) + + + + + | Component | Value | Ref Range | Performed At | + + + + + | WBC | 9.26 | 3.80 - 11.00 K/uL | [facility] | | | | | LABORATORY | + + + + + | RBC | 3.41 (L) | 4.20 - 5.70 M/uL | [facility] | | | | | LABORATORY | + + + + + | HGB | 10.2 (L) | 13.2 - 17.0 g/dL | [facility] | | | | | LABORATORY | + + + + + | HCT | 29.1 (L) | 39.0 - 50.0 % | [facility] | | | | | LABORATORY | + + + + + | MCV | 85.2 | 80.0 - 100.0 fl | [facility] | | | | | LABORATORY | + + + + + | MCH | 30.0 | 27.0 - 34.0 pg | [facility] | | | | | LABORATORY | + + + + + | MCHC | 35.1 | 32.0 - 35.5 g/dL | [facility] | | | | | LABORATORY | + + + + + | RDW SD | 42.9 | 37 - 53 fl | [facility] | | | | | LABORATORY | + + + + + | PLT | 153 | 150 - 400 K/uL | [facility] | | | | | LABORATORY | + + + + + | MPV | 10.5 | fl | [facility] | | | | | LABORATORY | + + + + + | DIFF TYPE | AUTOMATED | | [facility] | | | | | LABORATORY | + + + + + | NEUTROPHILS | 70.50 | % | [facility] | | | | | LABORATORY | + + + + + | LYMPHOCYTES | 19.96 | % | [facility] | | | | | LABORATORY | + + + + + | MONOCYTES | 7.81 | % | [facility] | | | | | LABORATORY | + + + + + | EOSINOPHILS | 1.17 | % | [facility] | | | | | LABORATORY | + + + + + | BASOPHILS | 0.56 | % | [facility] | | | | | LABORATORY | + + + + + | NEUTROPHILS ABS | 6.53 | 1.90 - 7.40 K/uL | [facility] | | | | | LABORATORY | + + + + + | LYMPHOCYTES ABS | 1.85 | 1.00 - 3.90 K/uL | [facility] | | | | | LABORATORY | + + + + + | MONOCYTES ABS | 0.72 | 0.00 - 0.80 K/uL | [facility] | | | | | LABORATORY | + + + + + | EOSINOPHILS ABS | 0.11 | 0.00 - 0.50 K/uL | [facility] | | | | | LABORATORY | + + + + + | BASOPHILS ABS | 0.05Comment: Testing | 0.00 - 0.10 K/uL | [facility] | | | performed at [facility], [address] | | LABORATORY | | | [facility], | | | | | [place] [address] | | | + + + + + + + | Specimen | + + | Blood | + + + + + + + | Performing | Address | City/State/Zipcode | Phone Number | | Organization | | | | + + + + + | [facility] | [address] [place] [address] | [place] [address] | [phone] | | LABORATORY | [facility]. | | | + + + + + CPK (11/09/2017 4:00 AM) + + + + + | Component | Value | Ref Range | Performed At | + + + + + | CPK | 118Comment: Testing | 55 - 400 U/L | [facility] | | | performed at [facility];[address] | | | | | [address];[place] | | | | | [address] | | | + + + + + + + | Specimen | + + | Blood | + + + + + + + | Performing | Address | City/State/Zipcode | Phone Number | | Organization | | | | + + + + + | [facility] | [address] | [place] [address] | | + + + + + POCT glucose (11/08/2017 9:52 PM) + + + + + | Component | Value | Ref Range | Performed At | + + + + + | GLUCOSE,POC SCREEN | 272 (H)Comment: Testing | 65 - 99 mg/dL | [facility] | | | performed at [facility];[address] | | | | | [address];[place], [place] | | | | | [address] | | | + + + + + + + + + + | Performing | Address | City/State/Zipcode | Phone Number | | Organization | | | | + + + + + | [facility] | [address] | [place] [address] | | + + + + + POCT glucose (11/08/2017 5:15 PM) + + + + + | Component | Value | Ref Range | Performed At | + + + + + | GLUCOSE,POC SCREEN | 282 (H)Comment: Testing | 65 - 99 mg/dL | [facility] | | | performed at [facility];[address] | | | | | [address];[place] | | | | | [address] | | | + + + + + + + + + + | Performing | Address | City/State/Zipcode | Phone Number | | Organization | | | | + + + + + | [facility] | [address] | [place] [address] | | + + + + + POCT glucose (11/08/2017 12:08 PM) + + + + + | Component | Value | Ref Range | Performed At | + + + + + | GLUCOSE,POC SCREEN | 288 (H)Comment: Testing | 65 - 99 mg/dL | [facility] | | | performed at [facility];[address] | | | | | [address];[place] | | | | | [address] | | | + + + + + + + + + + | Performing | Address | City/State/Zipcode | Phone Number | | Organization | | | | + + + + + | [facility] | [address] | [place] [address] | | + + + + + HGB and HCT (11/08/2017 12:01 PM) + + + + + | Component | Value | Ref Range | Performed At | + + + + + | HGB | 11.2 (L) | 13.2 - 17.0 g/dL | [facility]ORAT[facility] | + + + + + | HCT | 32.2 (L)Comment: Testing | 39.0 - 50.0 % | [facility] | | | performed at [facility];[address] | | | | | [facility];[place] | | | | | [address] | | | + + + + + + + + + + | Performing | Address | City/State/Zipcode | Phone Number | | Organization | | | | + + + + + | [facility] | [address] | [place] [address] | | + + + + + POCT glucose (11/08/2017 10:14 AM) + + + + + | Component | Value | Ref Range | Performed At | + + + + + | GLUCOSE,POC SCREEN | 181 (H)Comment: Testing | 65 - 99 mg/dL | [facility] | | | performed at [facility];[address] | | | | | [address];[place], [place] | | | | | [address] | | | + + + + + + + + + + | Performing | Address | City/State/Zipcode | Phone Number | | Organization | | | | + + + + + | [facility] | [address] | [place] [address] | | + + + + + [...] NORMAN HERNANDEZ Date of : 1935 | [place] | | Performing Physician: Sharda Hernadez MD, | RADIOLOGY | | FACC | | | INDICATIONS PULMONARY EMBOLISM CONCLUSIONS [...] TV A Kurtis: 0.43 m/s TV Dec Mccracken: | | | 2.19 m/s2 TV Dec Time: 244.15 ms TV E Kurtis: 0.53 m/s TV E/A | | | Ratio: 1.22 Director [employer]: [employer] Authenticated by: Sharda | | | Satya JONES, [facility] Report Date/Time: 11-08-2017 16:25:4 | | + + + + + | Procedure Note | + + | Roni Holder In - 11/08/2017 4:30 PM PDT Patient Name: Lionel HERNANDEZ of | | : 1935ccession: [id number] Physician: Sharda Hernadez MD, [facility] | | INDICATIONS PUL | | MONARY [...] mlLAESV Index (A-L): 22.33 ml/m2LAAs A2C: 18.00 [id number] A-L A2C: 49.35 | | mlLALs A2C: 5.57 cmLAAs A4C: 16.69 [id number] A-L A4C: 44.72 mlLALs A4C: 5.28 cmAo [...] 48.26 cmAVA Vmax: 1.57 cm2AVA (VTI): 1.55 [id number] Vmax: | | 0.00 cm2/m2AVAI (VTI): 0.00 [...] 2.81 m/sTV A Kurtis: 0.43 m/sTV Dec Mccracken: 2.19 m/s2TV Dec Time: | | 244.15 msTV E Kurtis: 0.53 m/sTV E/A Ratio: 1.22 Director Nursery School: [email or web address] by: | | Sharda Hernadez MD, [...] A Kurtis: 0.43 m/s | |TV Dec Mccracken: 2.19 m/s2 | |TV Dec Time: 244.15 ms | |TV E Kurtis: 0.53 m/s | |TV E/A Ratio: 1.22 | | | |Director Nursery [employer]: [employer] | |Authenticated by: Sharda Hernadez MD, [facility] | |Report Date/Time: 11-08-2017 16:25:4 | | [...] | + + + + + | [facility] | [address] | [place] [address] | | + + + + + CPK (11/08/2017 6:08 AM) + + + + + | Component | Value | Ref Range | Performed At | + + + + + | CPK | 155Comment: Testing | 55 - 400 U/L | [facility] | | | performed at [facility];[address] | | | | | [address];[place] | | | | | [address] | | | + + + + + + + + + + | Performing | Address | City/State/Zipcode | Phone Number | | Organization | | | | + + + + + | [facility] | [address] | [place] [address] | | + + + + + Phosphorus (11/08/2017 6:08 AM) + + + + + | Component | Value | Ref Range | Performed At | + + + + + | PHOSPHORUS | 3.2Comment: Testing | 2.3 - 4.8 mg/dL | [facility] | | | performed at [facility], [address] | | LABORATORY | | | [facility], | | | | | [place] [address] | | | + + + + + + + | Specimen | + + | Blood | + + + + + + + | Performing | Address | City/State/Zipcode | Phone Number | | Organization | | | | + + + + + | [facility] | [address] | [place] [address] | [phone] | | LABORATORY | [address]vd[address] | | | + + + + + Magnesium (11/08/2017 6:08 AM) + + + + + | Component | Value | Ref Range | Performed At | + + + + + | MAGNESIUM | 2.1Comment: Testing | 1.7 - 2.4 mg/dL | [facility] | | | performed at [facility], [address] | | LABORATORY | | | [address], | | | | | [place] [address] | | | + + + + + + + | Specimen | + + | Blood | + + + + + + + | Performing | Address | City/State/Zipcode | Phone Number | | Organization | | | | + + + + + | [facility] | [address] | [place] [address] | [phone] | | LABORATORY | [address]vd[address] | | | + + + + + Basic metabolic panel (11/08/2017 6:08 AM) + + + + + | Component | Value | Ref Range | Performed At | + + + + + | SODIUM | 138 | 135 - 145 mmol/L | [facility] | | | | | LABORATORY | + + + + + | POTASSIUM | 4.3 | 3.5 - 4.9 mmol/L | [facility] | | | | | LABORATORY | + + + + + | CHLORIDE | 102 | 99 - 109 mmol/L | [facility] | | | | | LABORATORY | + + + + + | CO2 | 26 | 23 - 32 mmol/L | [facility] | | | | | LABORATORY | + + + + + | ANION GAP AGAP | 14 | 5 - 20 mmol/L | [facility] | | | | | LABORATORY | + + + + + | GLUCOSE | 177 (H) | 65 - 99 mg/dL | [facility] | | | | | LABORATORY | + + + + + | BUN | 18 | 8 - 25 mg/dL | [facility] | | | | | LABORATORY | + + + + + | CREATININE | 1.0 | 0.70 - 1.30 mg/dL | [facility] | | | | | LABORATORY | + + + + + | BUN/CREAT | 18 | | [facility] | | | | | LABORATORY | + + + + + | CALCIUM | 7.9 (L) | 8.5 - 10.5 mg/dL | [facility] | | | | | LABORATORY | + + + + + | EGFR | >60Comment: GFR <60: | >60 mL/min/1.73m2 | [facility] | | | CHRONIC KIDNEY DISEASE, | | LABORATORY | | | IF FOUND OVER A [...] | | | | | performed at [facility], [address] | | | | | [address], | | | | | [place] [address] | | | + + + + + + + | Specimen | + + | Blood | + + + + + + + | Performing | Address | City/State/Zipcode | Phone Number | | Organization | | | | + + + + + | [facility] | [address] | [place] [address] | [phone] | | LABORATORY | [place] | | | + + + + + CBC w/auto diff (reflex to manual) (11/08/2017 6:08 AM) + + + + + | Component | Value | Ref Range | Performed At | + + + + + | WBC | 8.65 | 3.80 - 11.00 K/uL | [facility] | + + + + + | RBC | 3.47 (L) | 4.20 - 5.70 M/uL | [facility] | + + + + + | HGB | 10.4 (L) | 13.2 - 17.0 g/dL | [facility] | + + + + + | HCT | 29.8 (L) | 39.0 - 50.0 % | [facility] | + + + + + | MCV | 85.9 | 80.0 - 100.0 fl | [facility] | + + + + + | MCH | 30.0 | 27.0 - 34.0 pg | [facility] | + + + + + | MCHC | 34.9 | 32.0 - 35.5 g/dL | [facility] | + + + + + | RDW SD | 43.3 | 37 - 53 fl | [facility] | + + + + + | PLT | 139 (L) | 150 - 400 K/uL | [facility] | + + + + + | MPV | 10.0 | fl | [facility] | + + + + + | DIFF TYPE | AUTOMATED | | [facility] | + + + + + | NEUTROPHILS | 63.16 | % | [facility] | + + + + + | LYMPHOCYTES | 26.48 | % | [facility] | + + + + + | MONOCYTES | 8.27 | % | [facility] | + + + + + | EOSINOPHILS | 1.57 | % | [facility] | + + + + + | BASOPHILS | 0.52 | % | [facility] | + + + + + | NEUTROPHILS ABS | 5.46 | 1.90 - 7.40 K/uL | [facility] | + + + + + | LYMPHOCYTES ABS | 2.29 | 1.00 - 3.90 K/uL | [facility] | + + + + + | MONOCYTES ABS | 0.72 | 0.00 - 0.80 K/uL | [facility] | + + + + + | EOSINOPHILS ABS | 0.14 | 0.00 - 0.50 K/uL | [facility] | + + + + + | BASOPHILS ABS | 0.05Comment: Testing | 0.00 - 0.10 K/uL | [facility] | | | performed at [facility] | | | | | [address] [facility];[place], [place] | | | | | [address] | | | + + + + + + + | Specimen | + + | Blood | + + + + + + + | Performing | Address | City/State/Zipcode | Phone Number | | Organization | | | | + + + + + | [facility] | [address] | [place] [address] | | + + + + + POCT glucose (11/08/2017 5:52 AM) + + + + + | Component | Value | Ref Range | Performed At | + + + + + | GLUCOSE,POC SCREEN | 181 (H)Comment: Testing | 65 - 99 mg/dL | [facility] | | | performed at [facility];[address] | | | | | [facility];[place] | | | | | [address] | | | + + + + + + + + + + | Performing | Address | City/State/Zipcode | Phone Number | | Organization | | | | + + + + + | [facility] | [address] | [place] [address] | | + + + + + POCT glucose (11/08/2017 12:21 AM) + + + + + | Component | Value | Ref Range | Performed At | + + + + + | GLUCOSE,POC SCREEN | 213 (H)Comment: Testing | 65 - 99 mg/dL | [facility] | | | performed at [facility];[address] | | | | | [address];[place], [place] | | | | | [address] | | | + + + + + + + + + + | Performing | Address | City/State/Zipcode | Phone Number | | Organization | | | | + + + + + | [facility] | [address] | [place] [address] | | + + + + + CPK (11/08/2017 12:17 AM) + + + + + | Component | Value | Ref Range | Performed At | + + + + + | CPK | 191Comment: Testing | 55 - 400 U/L | [facility] | | | performed at [facility];[address] | | | | | [address];[place], [place] | | | | | [address] | | | + + + + + + + | Specimen | + + | Blood | + + + + + + + | Performing | Address | City/State/Zipcode | Phone Number | | Organization | | | | + + + + + | [facility] | [address] | [place] [address] | | + + + + + HGB and HCT (11/07/2017 11:56 PM) + + + + + | Component | Value | Ref Range | Performed At | + + + + + | HGB | 10.4 (L) | 13.2 - 17.0 g/dL | [facility] | + + + + + | HCT | 31.0 (L)Comment: Testing | 39.0 - 50.0 % | [facility] | | | performed at [facility];[address] | | | | | [address];[place] | | | | | [address] | | | + + + + + + + + + + | Performing | Address | City/State/Zipcode | Phone Number | | Organization | | | | + + + + + | [facility] | [address] | [place] [address] | | + + + + + US Lower extremity venous doppler bilateral (11/07/2017 10:08 PM) + + + | Impressions | Performed At | + + + | No evidence for deep venous thrombosis bilaterally. RADIA | [facility] | | Electronically signed by Jackson Callejas MD on Nov 07 2017 11:01PM | RADIOLOGY | | Referring Provider Line: [phone] ID: [id number] | | + + + + + + | Narrative | Performed At | + + + | EXAM: BILATERAL LOWER EXTREMITY VENOUS ULTRASOUND EXAM DATE: | [facility] | | 11/07/2017 10:08 PM. CLINICAL HISTORY: Bilateral pulmonary emboli. | RADIOLOGY | | COMPARISON: None. TECHNIQUE: Real-time sonographic vascular | | | imaging was performed by the medical delivery technician through the lower extremities | | | utilizing both color-flow and Doppler spectral analysis. Multiple | | | customer solutions representative static images were saved for review. [...] imaging was performed | | by the medical delivery technician through the lower extremities utilizing both color-flow and Doppler | | spectral analysis. Multiple customer solutions representative static images were saved for review.FINDINGS: [...] 2017 11:01PM | | Referring Provider Line: [phone] ID: [id number] | |CFV-GSV Junction: Normal. | [...] Nov 07 2017 11:01PM Referring Provider Line: [phone] ID: [id number] | + + + + + + + | Performing | Address | City/State/Zipcode | Phone Number | | Organization | | | | + + + + + | [facility] | [address] | [place] [address] | | + + + + + POCT glucose (11/07/2017 7:37 PM) + + + + + | Component | Value | Ref Range | Performed At | + + + + + | GLUCOSE,POC SCREEN | 222 (H)Comment: Testing | 65 - 99 mg/dL | [facility] | | | performed at [facility];[address] | [address];[place], [place] | | | | | [address] | | | + + + + + + + + + + | Performing | Address | City/State/Zipcode | Phone Number | | Organization | | | | + + + + + | [facility] | [address] | [place] [address] | | + + + + + IR IVC filter placement (11/07/2017 7:21 PM) + + + | Narrative | Performed At | + + + | IR IVC FILTER PLACEMENT PREOPERATIVE DIAGNOSIS DVT and PE with | [facility] | | contraindication for anticoagulation POSTOPERATIVE DIAGNOSIS Same | RADIOLOGY | | PROCEDURES 1. Moderate conscious sedation 2. Ultrasound guided | | | access of right internal jugular vein 3. Vena cavagram. 4. Inferior | | | vena cava filter placement under fluoroscopic guidance SURGEON | | | Jaime Humphreys MD HUMAN [employer]OURCES [employer]OCIATE None. ANESTHESIA Moderate sedation, | | | [...] preoperative history and physical FINDINGS A [employer] [place] | | | filter was deployed below the level of the renal veins in the inferior | | | vena cava and confirmed by fluoroscopy. DESCRIPTION OF PROCEDURE | | | Patient was properly identified and brought to the laborer starch factory. | | | Patient was placed supine on the laborer starch factory table and patient was given | | [...] cava filter placement under | | fluoroscopic guidanceVILOETTE VillagranBannerreji.ANESTHESIAModerate sedation, | | local anesthesia.Informed consent was [...] preoperative history and | | physicalFINDINGSA [employer] [place] filter was deployed below the level of the renal veins in | | the inferiorvena cava and confirmed by fluoroscopy.DESCRIPTION OF PROCEDUREPatient was | | properly identified and brought to the laborer starch factory.Patient was placed supine on the cath | [...] | | | |FINDINGS | |A [employer] [place] filter was deployed below the level of the renal veins in the inferior | |vena cava and confirmed by fluoroscopy. | | | |DESCRIPTION OF PROCEDURE | |Patient was properly identified and brought to the laborer starch factory. | |Patient was placed supine on the laborer starch factory table and patient was | |given moderate [...] | + + + + + | [facility] | [address] | [place] [address] | | + + + + + IR guidance vascular access US (11/07/2017 7:15 PM) + + + | Narrative | Performed At | + + + | This Point of Care (POC) ultrasound image has been reviewed and | [facility] | | interpreted by the physician identified as the performing physician in | RADIOLOGY | | the associated interpretation and report. | | + + + + + + + + | Performing | Address | City/State/Zipcode | Phone Number | | Organization | | | | + + + + + | [facility] | [address] | [place] [address] | | + + + + + Lactic acid (11/07/2017 6:40 PM) + + + + + | Component | Value | Ref Range | Performed At | + + + + + | LACTIC ACID | 1.4Comment: Testing | 0.4 - 2.0 mmol/L | [facility] | | | performed at [facility];[address] | | | | | [facility];[place] | | | | | [address] | | | + + + + + + + | Specimen | + + | Blood | + + + + + + + | Performing | Address | City/State/Zipcode | Phone Number | | Organization | | | | + + + + + | [facility] | [address] | [place] [address] | | + + + + + Protime-INR (11/07/2017 6:38 PM) + + + + + | Component | Value | Ref Range | Performed At | + + + + + | INR | 1.0Comment: REFERENCE | | [facility] | | | RANGE:0.9 - | [...] | | | | | performed at [facility];[address] | | | | | [address];[place] | | | | | [address] | | | + + + + + + + | Specimen | + + | Blood | + + + + + + + | Performing | Address | City/State/Zipcode | Phone Number | | Organization | | | | + + + + + | [facility] | [address] | [place] [address] | | + + + + + CPK (11/07/2017 6:38 PM) + + + + + | Component | Value | Ref Range | Performed At | + + + + + | CPK | 141Comment: Testing | 55 - 400 U/L | [facility] | | | performed at [facility];[address] | | | | | [address];[place] | | | | | [address] | | | + + + + + + + | Specimen | + + | Blood | + + + + + + + | Performing | Address | City/State/Zipcode | Phone Number | | Organization | | | | + + + + + | [facility] | [address] | [place] [address] | | + + + + + Comprehensive metabolic panel (11/07/2017 6:38 PM) + + + + + | Component | Value | Ref Range | Performed At | + + + + + | SODIUM | 139 | 135 - 145 mmol/L | [facility] | + + + + + | POTASSIUM | 4.1 | 3.5 - 4.9 mmol/L | [facility] | + + + + + | CHLORIDE | 103 | 99 - 109 mmol/L | [facility] | + + + + + | CO2 | 28 | 23 - 32 mmol/L | [facility] | + + + + + | ANION GAP AGAP | 12 | 5 - 20 mmol/L | [facility] | + + + + + | GLUCOSE | 194 (H) | 65 - 99 mg/dL | [facility] | + + + + + | BUN | 17 | 8 - 25 mg/dL | [facility] | + + + + + | CREATININE | 0.95 | 0.70 - 1.30 mg/dL | [facility] | + + + + + | BUN/CREAT | 18 | | [facility] | + + + + + | CALCIUM | 8.0 (L) | 8.5 - 10.5 mg/dL | [facility] | + + + + + | TOTAL PROTEIN | 6.3 | 6.3 - 8.2 g/dL | [facility] | + + + + + | Albumin | 3.0 (L) | 3.3 - 4.8 g/dL | [facility] | + + + + + | GLOBULIN | 3.2 | 1.3 - 4.9 g/dL | [facility] | + + + + + | A/G | 0.9 (L) | 1.0 - 2.4 | [facility] | + + + + + | TBIL | 0.9 | 0.1 - 1.5 mg/dL | [facility] | + + + + + | ALK PHOS | 65 | 35 - 115 U/L | [facility] | + + + + + | AST | 14 | 10 - 45 U/L | [facility] | + + + + + | ALT | 17 | 10 - 65 U/L | [facility] | + + + + + | EGFR | >60Comment: GFR <60: | >60 mL/min/1.73m2 | [facility] | | | CHRONIC KIDNEY DISEASE, [...] | | | | | performed at [facility];[address] | | | | | [facility];[place], [place] | | | | | [address] | | | + + + + + + + | Specimen | + + | Blood | + + + + + + + | Performing | Address | City/State/Zipcode | Phone Number | | Organization | | | | + + + + + | [facility] | [address] | [place] [address] | | + + + + + CBC W/Auto Diff (Reflex to Manual) (11/07/2017 6:38 PM) + + + + + | Component | Value | Ref Range | Performed At | + + + + + | WBC | 8.12 | 3.80 - 11.00 K/uL | [facility] | + + + + + | RBC | 3.76 (L) | 4.20 - 5.70 M/uL | [facility] | + + + + + | HGB | 10.9 (L) | 13.2 - 17.0 g/dL | [facility] | + + + + + | HCT | 32.6 (L) | 39.0 - 50.0 % | [facility] | + + + + + | MCV | 86.7 | 80.0 - 100.0 fl | [facility] | + + + + + | MCH | 29.1 | 27.0 - 34.0 pg | [facility] | + + + + + | MCHC | 33.5 | 32.0 - 35.5 g/dL | [facility] | + + + + + | RDW SD | 42.4 | 37 - 53 fl | [facility] | + + + + + | PLT | 144 (L) | 150 - 400 K/uL | [facility] | + + + + + | MPV | 9.9 | fl | [facility] | + + + + + | DIFF TYPE | AUTOMATED | | [facility] | + + + + + | NEUTROPHILS | 63.18 | % | [facility] | + + + + + | LYMPHOCYTES | 28.46 | % | [facility] | + + + + + | MONOCYTES | 7.06 | % | [facility] | + + + + + | EOSINOPHILS | 0.97 | % | [facility] | + + + + + | BASOPHILS | 0.33 | % | [facility] | + + + + + | NEUTROPHILS ABS | 5.13 | 1.90 - 7.40 K/uL | [facility] | + + + + + | LYMPHOCYTES ABS | 2.31 | 1.00 - 3.90 K/uL | [facility] | + + + + + | MONOCYTES ABS | 0.57 | 0.00 - 0.80 K/uL | [facility] | + + + + + | EOSINOPHILS ABS | 0.08 | 0.00 - 0.50 K/uL | [facility] | + + + + + | BASOPHILS ABS | 0.03Comment: Testing | 0.00 - 0.10 K/uL | [facility] | | | performed at [facility];[address] | | | | [address];[place] | | | | | [address] | | | + + + + + + + | Specimen | + + | Blood | + + + + + + + | Performing | Address | City/State/Zipcode | Phone Number | | Organization | | | | + + + + + | [facility] | [address] | [place] [address] | | + + + + + MRSA by PCR (11/07/2017 6:13 PM) + + + + + | Component | Value | Ref Range | Performed At | + + + + + | SOURCE | NARES(NOSE) | | [facility] | + + + + + | MRSA PCR | NEGATIVEComment: Testing | NEGATIVE | [facility] | | | performed at [facility];[address] | | | | [address];[place], [place] | | | | | [address] | | | + + + + + + + | Specimen | + + | Nasopharyngeal - | | Nasopharyngeal | | Culture | + + + + + + + | Performing | Address | City/State/Zipcode | Phone Number | | Organization | | | | + + + + + | [facility] | [address] | [place] [address] | | + + + + + in this encounter Visit Diagnoses + + | Diagnosis | + + | Other acute pulmonary embolism without acute cor pulmonale (HCC) | + + | Coronary artery disease | + + | Coronary atherosclerosis of unspecified type of vessel, resighini or graft | + + | Hypertension | + + | Unspecified essential hypertension | + + | Type 2 diabetes mellitus (HCC) | + + | Type II or unspecified type diabetes mellitus without mention of complication, not | | stated as uncontrolled | + + | Thigh hematoma, right, initial encounter | + + | Acute post-hemorrhagic anemia | + + | Acute posthemorrhagic anemia | + + | Weakness generalized | + + | Other malaise and fatigue | + + Admitting Diagnoses + + | Diagnosis | + + | Other acute pulmonary embolism without acute cor pulmonale (HCC) | + + | Bilateral PE's | + + | Needs IVC filter | + + Administered Medications + +--------+---------+------+------+------+ | Medication Order | MAR | Action | Dose | Rate | Site | | | Action | Date | | | | + +--------+---------+------+------+------+ + +---+ | acetaminophen (TYLENOL) | | | suppository 650 mg 650 mg, | | | Rectal, Every 6 Hours PRN, Mild | | | Pain (1-3), Fever, Starting Sun | | | 11/07/17 at 1743 | | + +---+ | | | + +---+ + +-------+ +--------+---+---+ | acetaminophen (TYLENOL) tablet | Given | 11/07/2017 | 650 mg | | | | 650 mg 650 mg, Oral, Every 6 | | 23:31 | | | | | Hours PRN, Mild Pain (1-3), | | PDT | | | | | Fever, Starting 11/07/17 at | | | | | | | 1743 | | | | | | + +-------+ +--------+---+---+ +---+---+ | | | +---+---+ + +-------+ +-------+---+---+ | amLODIPine (NORVASC) tablet 10 | Given | | 10 mg | | | | mg 10 mg, Oral, Daily, First | | 8 09:12 | | | | | dose on 11/08/17 at 0900 | | PDT | | | | + +-------+ +-------+---+---+ +-------+ +-------+---+---+ | Given | | 10 mg | | | | | 8 08:38 | | | | | | PDT | | | | +-------+ +-------+---+---+ | Given | | 10 mg | | | | | 8 09:04 | | | | | | PDT | | | | +-------+ +-------+---+---+ +---+---+ | | | +---+---+ + +-------+ +-----+-------+---+ | ceFAZolin (ANCEF) IVPB 2 g 2 | Given | 11/07/2017 | 2 g | 200 | | | g, Intravenous, Administer over | | 19:02 | | mL/hr | | | 30 Minutes, Once, 11/07/17 at | | PDT | | | | | 1930, For 1 dose, Intra-procedure | | | | | | | (CATH/IR) | | | | | | + +-------+ +-----+-------+---+ + + +-----+-------+---+ | Given by Other | 11/07/2017 | 2 g | 200 | | | | 19:53 | | mL/hr | | | | PDT | | | | + + +-----+-------+---+ + +---+ | | | + +---+ | dextrose 10 % infusion at | | | 0-100 mL/hr, Intravenous, | | | Continuous PRN, Hypoglycemia, | | | Starting 11/08/17 at 1226, For | | | BG 70 or less run infusion at | | | 100 mL/ hr. Discontinue when BG | | | increases to 100 mg/dl or greater | | | x 2-3 hours and patient is | | | eating. Call provider if BG not | | | maintained after 2-3 hours. | | + +---+ | | | + +---+ | dextrose 50 % solution 12 mL | | | 12 mL, Intravenous, PRN, | | | Hypoglycemia (BG < 70 mg/dL), | | | Starting [facility] 11/08/17 at 1226 | | + +---+ | | | + +---+ | dextrose 50 % solution 25 mL | | | 25 mL, Intravenous, PRN, | | | Hypoglycemia (BG < 70 mg/dL), | | | Starting [facility] 11/08/17 at 1226 | | + +---+ | | | + +---+ + +-------+ +--------+---+---+ | docusate sodium (COLACE) | Given | 11/07/2017 | 100 mg | | | | capsule 100 mg 100 mg, Oral, 2 | | 20:46 | | | | | Times Daily, First dose on Sun | | PDT | | | | | 11/07/17 at 2100 | | | | | | + +-------+ +--------+---+---+ +---+---+ | | | +---+---+ + +-------+ +--------+---+---+ | docusate sodium (COLACE) | Given | | 100 mg | | | | capsule 100 mg 100 mg, Oral, 2 | | 8 08:38 | | | | | Times Daily, First dose on Mon | | PDT | | | | | 11/08/17 at 1330 | | | | | | + +-------+ +--------+---+---+ +-------+ +--------+---+---+ | Given | | 100 mg | | | | | 8 20:58 | | | | | | PDT | | | | +-------+ +--------+---+---+ | Given | | 100 mg | | | | | 8 09:04 | | | | | | PDT | | | | +-------+ +--------+---+---+ +---+---+ | | | +---+---+ + +-------+ +--------+---+---+ | fentaNYL (SUBLIMAZE) injection | Given | 11/07/2017 | 50 mcg | | | | Once PRN, Starting Wed11/07/17 at | | 19:02 | | | | | 1902, Intra-procedure (CATH/IR) | | PDT | | | | + +-------+ +--------+---+---+ + +---+ | | | + +---+ | glucagon (GLUCAGEN) injection | | | 0.5 mg 0.5 mg, Intramuscular, | | | PRN, Hypoglycemia, (BG < 70 | | | mg/dL), Starting Wed11/08/17 at | | | 1226 | | + +---+ | | | + +---+ | glucagon (GLUCAGEN) injection 1 | | | mg 1 mg, Intramuscular, PRN, | | | Hypoglycemia, (BG < 70 mg/dL), | | | Starting Wed11/08/17 at 1226 | | + +---+ | | | + +---+ + +-------+ +-------+---+---+ | hydrALAZINE (APRESOLINE) | Given | | 10 mg | | | | injection 10 mg 10 mg, | | 8 09:34 | | | | | Intravenous, Every 1 Hour PRN, | | PDT | | | | | Hypertension, Starting 11/07/17 | | | | | | | at 1813 | | | | | | + +-------+ +-------+---+---+ +---+---+ | | | +---+---+ + +-------+ +-------+---+---+ | hydrALAZINE (APRESOLINE) | Given | | 20 mg | | | | injection 20 mg 20 mg, | | 8 09:17 | | | | | Intravenous, Every 1 Hour PRN, | | PDT | | | | | Hypertension, Starting 11/07/17 | | | | | | | at 1813 | | | | | | + +-------+ +-------+---+---+ + +---+ | | | + +---+ | hydrALAZINE (APRESOLINE) | | | injection 20 mg 20 mg, | | | Intravenous, Every 1 Hour PRN, | | | Hypertension, Starting Wed | | | 11/10/17 at 1146 | | + +---+ | | | + +---+ + +-------+ + +---+---+ | HYDROcodone-acetaminophen | Given | | 1 tablet | | | | (NORCO) 10-325 MG per tablet 1 | | 8 04:45 | | | | | tablet 1 tablet, Oral, Every 4 | | PDT | | | | | Hours PRN, Severe Pain (7-10), | | | | | | | Starting 11/07/17 at 2345 | | | | | | + +-------+ + +---+---+ +---+---+ | | | +---+---+ + +-------+ + +---+---+ | HYDROcodone-acetaminophen | Given | | 1 tablet | | | | (NORCO) 10-325 MG per tablet 1 | | 8 09:12 | | | | | tablet 1 tablet, Oral, Every 4 | | PDT | | | | | Hours PRN, Severe Pain (7-10), | | | | | | | Starting 11/08/17 at 1228 | | | | | | + +-------+ + +---+---+ +-------+ + +---+---+ | Given | | 1 tablet | | | | | 8 15:48 | | | | | | PDT | | | | +-------+ + +---+---+ +---+---+ | | | +---+---+ + +-------+ + +---+---+ | HYDROcodone-acetaminophen | Given | | 1 tablet | | | | (NORCO) 5-325 MG per tablet 1 | | 8 17:15 | | | | | tablet 1 tablet, Oral, Every 4 | | PDT | | | | | Hours PRN, Mild Pain (1-3), | | | | | | | Moderate Pain (4-6), Starting Mon | | | | | | | 11/08/17 at 1228 | | | | | | + +-------+ + +---+---+ +---+---+ | | | +---+---+ + +-------+ +--------+---+---+ | HYDROmorphone (DILAUDID) | Given | | 0.5 mg | | | | injection 0.5 mg 0.5 mg, | | 8 00:14 | | | | | Intravenous, Every 3 Hours PRN, | | PDT | | | | | Severe Pain (7-10), Starting Sun | | | | | | | 11/07/17 at 2349 | | | | | | + +-------+ +--------+---+---+ +---+---+ | | | +---+---+ + +-------+ + +---+---+ | insulin glargine (LANTUS) | Given | | 10 Units | | | | injection 10 Units 10 Units, | | 8 12:07 | | | | | Subcutaneous, 2 Times Daily, | | PDT | | | | | First dose on Tu11/09/17 at 1200 | | | | | | + +-------+ + +---+---+ +-------+ + +---+---+ | Given | | 10 Units | | | | | 8 21:20 | | | | | | PDT | | | | +-------+ + +---+---+ | Given | | 10 Units | | | | | 8 08:42 | | | | | | PDT | | | | +-------+ + +---+---+ +---+---+ | | | +---+---+ + +-------+ + +---+---+ | insulin glargine (LANTUS) | Given | | 15 Units | | | | injection 15 Units 15 Units, | | 8 20:59 | | | | | Subcutaneous, 2 Times Daily, | | PDT | | | | | First dose on Wed11/10/17 at 2100 | | | | | | + +-------+ + +---+---+ +-------+ + +---+---+ | Given | | 15 Units | | | | | 8 09:05 | | | | | | PDT | | | | +-------+ + +---+---+ +---+---+ | | | +---+---+ + +-------+ + +---+---+ | insulin glargine (LANTUS) | Given | | 20 Units | | | | injection 20 Units 20 Units, | | 8 22:35 | | | | | Subcutaneous, Nightly, First dose | | PDT | | | | | on 11/08/17 at 2200 | | | | | | + +-------+ + +---+---+ +---+---+ | | | +---+---+ + +-------+ +---------+---+---+ | insulin lispro (human) | Given | | 5 Units | | | | (HUMALOG) injection 0-10 Units | | 8 16:43 | | | | | 0-10 Units, Subcutaneous, 3 Times | | PDT | | | | | Daily Before Meals, First dose | | | | | | | on Wed11/08/17 at 1300 | | | | | | + +-------+ +---------+---+---+ +-------+ +---------+---+---+ | Given | | 2 Units | | | | | 8 05:52 | | | | | | PDT | | | | +-------+ +---------+---+---+ | Given | | 5 Units | | | | | 8 11:06 | | | | | | PDT | | | | +-------+ +---------+---+---+ +---+---+ | | | +---+---+ + +-------+ +---------+---+---+ | insulin lispro (human) | Given | | 2 Units | | | | (HUMALOG) injection 0-5 Units | | 8 22:35 | | | | | 0-5 Units, Subcutaneous, Nightly, | | PDT | | | | | First dose on Wed11/08/17 at | | | | | | | 2200 | | | | | | + +-------+ +---------+---+---+ +-------+ +---------+---+---+ | Given | | 1 Units | | | | | 8 21:20 | | | | | | PDT | | | | +-------+ +---------+---+---+ | Given | | 1 Units | | | | | 8 21:00 | | | | | | PDT | | | | +-------+ +---------+---+---+ +---+---+ | | | +---+---+ + +-------+ +---------+---+---+ | insulin lispro (human) | Given | 11/07/2017 | 2 Units | | | | (HUMALOG) injection 0-6 Units | | 20:46 | | | | | 0-6 Units, Subcutaneous, Every 6 | | PDT | | | | | Hours Scheduled (4 times per | | | | | | | day), First dose on 11/07/17 at | | | | | | | 1900 | | | | | | + +-------+ +---------+---+---+ + + +---------+---+---+ | Given | | 2 Units | | | | | 8 00:22 | | | | | | PDT | | | | + + +---------+---+---+ | Given by Other | | 1 Units | | | | | 8 06:47 | | | | | | PDT | | | | + + +---------+---+---+ +---+---+ | | | +---+---+ + +-------+ +--------+---+---+ | iopamidol (ISOVUE-250) 51 % | Given | 11/07/2017 | 25 mLs | | | | injection 25 mL 25 mL, | | 19:07 | | | | | Intra-arterial, Img Once PRN, | | PDT | | | | | Other, Starting 11/07/17 at | | | | | | | 1932, For 1 dose | | | | | | + +-------+ +--------+---+---+ +---+---+ | | | +---+---+ + +-------+ +--------+---+---+ | lidocaine 1 % injection Once | Given | 11/07/2017 | 10 mLs | | | | PRN, During PCI per physician, | | 19:02 | | | | | Starting 11/07/17 at 1902, | | PDT | | | | | Intra-procedure (CATH/IR) | | | | | | + +-------+ +--------+---+---+ +---+---+ | | | +---+---+ + +-------+ +------+---+---+ | midazolam (VERSED) injection | Given | 11/07/2017 | 1 mg | | | | Intravenous, Once PRN, Starting | | 19:02 | | | | | 11/07/17 at 1902, | | PDT | | | | | Intra-procedure (CATH/IR) | | | | | | + +-------+ +------+---+---+ +---+---+ | | | +---+---+ + +-------+ +------+---+---+ | ondansetron (ZOFRAN) injection | Given | | 4 mg | | | | 4 mg 4 mg, Intravenous, Every 6 | | 8 08:18 | | | | | Hours PRN, Nausea, Vomiting, | | PDT | | | | | Starting 11/07/17 at 1743 | | | | | | + +-------+ +------+---+---+ +-------+ +------+---+---+ | Given | | 4 mg | | | | | 8 09:54 | | | | | | PDT | | | | +-------+ +------+---+---+ + +---+ | | | + +---+ | ondansetron (ZOFRAN-ODT) | | | disintegrating tablet 4 mg 4 mg, | | | Oral, Every 6 Hours PRN, Nausea, | | | Vomiting, Starting 11/07/17 at | | | 1743 | | + +---+ | | | + +---+ + +-------+ +-------+---+---+ | pantoprazole (PROTONIX) EC | Given | | 40 mg | | | | tablet 40 mg 40 mg, Oral, Every | | 8 06:47 | | | | | Morning Before Breakfast, First | | PDT | | | | | dose on 11/08/17 at 0630 | | | | | | + +-------+ +-------+---+---+ +-------+ +-------+---+---+ | Given | | 40 mg | | | | | 8 05:40 | | | | | | PDT | | | | +-------+ +-------+---+---+ | Given | | 40 mg | | | | | 8 05:52 | | | | | | PDT | | | | +-------+ +-------+---+---+ +---+---+ | | | +---+---+ + +-------+ +------+---+---+ | polyethylene glycol (GLYCOLAX) | Given | 11/07/2017 | 17 g | | | | packet 17 g 17 g, Oral, Daily | | 20:46 | | | | | PRN, Constipation, Starting Sun | | PDT | | | | | 11/07/17 at 1748 | | | | | | + +-------+ +------+---+---+ +-------+ +------+---+---+ | Given | | 17 g | | | | | 8 09:27 | | | | | | PDT | | | | +-------+ +------+---+---+ +---+---+ | | | +---+---+ + +-------+ +------+---+---+ | pramipexole (MIRAPEX) tablet 1 | Given | 11/07/2017 | 1 mg | | | | mg 1 mg, Oral, Nightly, First | | 21:58 | | | | | dose on 11/07/17 at 2200 | | PDT | | | | + +-------+ +------+---+---+ +---+---+ | | | +---+---+ + +-------+ +------+---+---+ | pramipexole (MIRAPEX) tablet 2 | Given | | 2 mg | | | | mg 2 mg, Oral, 3 Times Daily, | | 8 20:59 | | | | | First dose on Wed11/08/17 at 2200 | | PDT | | | | + +-------+ +------+---+---+ +-------+ +------+---+---+ | Given | | 2 mg | | | | | 8 05:52 | | | | | | PDT | | | | +-------+ +------+---+---+ | Given | | 2 mg | | | | | 8 13:52 | | | | | | PDT | | | | +-------+ +------+---+---+ +---+---+ | | | +---+---+ + +---------+ +---+-------+---+ | sodium chloride 0.9 % infusion | New Bag | | | 110 | | | at 110 mL/hr, Intravenous, | | 8 10:16 | | mL/hr | | | Continuous, Starting Wed11/08/17 | | PDT | | | | | at 1030 | | | | | | + +---------+ +---+-------+---+ +---------+ +---+-------+---+ | New Bag | | | 110 | | | | 8 20:00 | | mL/hr | | | | PDT | | | | +---------+ +---+-------+---+ | New Bag | | | 110 | | | | 8 04:03 | | mL/hr | | | | PDT | | | | +---------+ +---+-------+---+ +---+---+ | | | +---+---+ + +-------+ +-------+---+---+ | traMADol (ULTRAM) tablet 50 mg | Given | | 50 mg | | | | 50 mg, Oral, Every 6 Hours PRN, | | 8 08:38 | | | | | Severe Pain (7-10), Starting Mon | | PDT | | | | | 11/08/17 at 1242 | | | | | | + +-------+ +-------+---+---+ +-------+ +-------+---+---+ | Given | | 50 mg | | | | | 8 20:58 | | | | | | PDT | | | | +-------+ +-------+---+---+ | Given | | 50 mg | | | | | 8 09:04 | | | | | | PDT | | | | +-------+ +-------+---+---+ +---+---+ | | | +---+---+ in this encounter
--- OUTSIDE RECORDS SUMMARY | ~2017-11-12 | XMS | Encounter Summary ---
Demographics + + + | Address | [address] | | | [place] [address] | + + + | Home Phone | | + + + | Preferred Language | Unknown | + + + | Marital Status | | + + + | Synagogue Affiliation | Unknown | + + + | Race | Unknown | + + + | Ethnic Group | Unknown | + + + Author + + + | Author | [facility] | + + + | Organization | [facility] | + + + | [...] Team Providers + +------+ + | Care Drill Hand Name | Role | Phone | + +------+ + | Paolo Solares MD | PCP | | + +------+ + Encounter Details +--------+ + + + + | Date | Type | Department | Care Team | Description | +--------+ + + + + | 11/07/ | Hospital | [facility] | See, Medical | Pain | | 2018 | Encounter | [facility] | Record | | | | | RADIOLOGY [address] | | [address] | [address] | | | | | | [place] [address] | | | | | | [phone] | | | +--------+ + + + [...] | [address] | [place] [address] | | + + + + + in this encounter Visit Diagnoses + + | Diagnosis | + + | Pain | + + | Generalized pain | + +"
--- OUTSIDE RECORDS SUMMARY | ~2017-11-12 | XMS | Encounter Summary ---
Demographics + + + | Address | [address] | | | [place] [address] | + + + | Home Phone | | + + + | Preferred Language | Unknown | + + + | Marital Status | | + + + | Uatsdin Affiliation | Unknown | + + + | Race | Unknown | + + + | Ethnic Group | Unknown | + + + Author + + + | Author | [facility] | + + + | Organization | [facility] | + + + | Address [...] Team Providers + +------+ + | Care Manufacturing Teacher Name | Role | Phone | + [...] + + | 11/07/ | Ancillary | [facility] | See, Medical | Pain | | 2018 | [facility] | [facility] | Record | | | | | [address] | | | | | | [place] [address] | | | | | | [phone] | | | +--------+ + + + [...] [facility] | [address] | [place] [address] | | + + + + + [...] [facility] | [address] | [place] [address] | | + + + + + [...] [facility] | [address] | [place] [address] | | + + + + + in this encounter Visit Diagnoses + + | Diagnosis | + + | Pain | + + | Generalized pain | + +"
--- OUTSIDE RECORDS SUMMARY | ~2017-11-12 | XMS | Encounter Summary ---
Demographics + + + | Address | [address] | | | [place] [address] | + + + | Home Phone | | + + + | Preferred Language | Unknown | + + + | Marital Status | | + + + | Congregational Affiliation | Unknown | + + + | Race | Unknown | + + + | Ethnic Group | Unknown | + + + Author + + + | Author | [facility] | + + + | Organization | [facility] | + + + | Address [...] Team Providers + +------+ + | Care Photographer News Name | Role | Phone | + [...] + + | 11/07/ | Hospital | [facility] | See, Medical | Pain | | 2018 | Encounter | [facility] | Record | | | | | RADIOLOGY [address] | | | | | | [place] [address] | | | | | | [phone] | | | +--------+ + + + [...] | + + + + + | [facility] | [address] | [place] [address] | | + + + + + in this encounter Visit Diagnoses + + | Diagnosis | + + | Pain | + + | Generalized pain | + +"
--- OUTSIDE RECORDS SUMMARY | ~2017-11-12 | XMS | Encounter Summary ---
Demographics + + + | Address | [address] | | | [place] [address] | + + + | Home Phone | | + + + | Preferred Language | Unknown | + + + | Marital Status | | + + + | Congregational Affiliation | Unknown | + + + | Race | Unknown | + + + | Ethnic Group | Unknown | + + + Author + + + | Author | [facility] [employer] [facility] | + + + | Organization | [facility] [facility] | + + + | Address [...] Team Providers + +------+ + | Care Neurosurgical Nurse Practitioner Name | Role | Phone | + [...] | | Internal | Diagnoses | | [facility] 9th | | | | Medicine | Bilateral | | [address] | | | | | PE's Needs | | [address] | | | | | IVC filter | | [address] | | | | | | | [place], [place] | | | | | | | [address] Phone: | | | | | | | [phone] | +--------+--------+ + + + + Encounter Details +--------+ + + + + | Date | Type | Department | Care Team | Description | +--------+ + + + + | 11/07/ | Hospital | [facility] | Aan Jimenezgallo | Other acute | | 2018 - | Encounter | [facility] | MD Taylor Menchaca | pulmonary embolism | | | | [address] [place] | [address] [employer] | without acute cor | | 11/11/ | | [address] | Office [place], [place] | pulmonale (HCC) | | 2018 | | [place] [address] | [address] | (Primary Dx) | | | | [phone] | | | | | | | Reynaldo Rees MD | | | | | | [address] | | | | | | [place] [address] | | | | | | [phone] | | | | | | | | | | | | Torsten Mcghee | | | | | | MD Taylor [address] | | | | | | [address] [place], [place] | | | | | | [address] | | | | | | | | | | | | Amie Newby MD | | | | | | [address] [facility] | | | | | | [place] [address] | | | | | | [phone] | | | | | | | [...] note may be different from andreas calles. [facility] Service: Hospitalist Physician Discharge Summary Pt: Norman Hernandez AGE/SEX: 81 y.o. male ROOM: [facility]91[facility] PCP: FIDE SOLARES : 1935 Admit date: [...] Nov 07 2017 11:01PM Referring Provider Line: [phone] ID: [id number] Echo Cardiac Adult Complete Result [...] who was admitted as a transfer from [facility] to our ICU due to acute pulmonary [...] hematoma so V ascular surgery services at [facility] was contacted and Dr. Humphreys recommended [...] improved might need [facility] full [facility]. When to [...] medications if needed. Follow-Up: Jaime Humphreys MD [address] [place] [id number] Fide Solares MD [address] [place] [id number] In 1 week Discharge took more than 35 minutes, to include final examination, discussion of admission, and preparation of prescriptions, instructions for ongoing care, follow up and dictation of summary. Signed: AMIE Charli PERFECTO, MD 11/11/2017 12:34 PM Dictation software, [employer], used which may contain error for similar sounding words even af ter review. Personal communication requested for any clarification. Portions of this chart may have been copied from previous notes for continuity of care purp ose in this encounter Discharge Instructions Amie Newyb MD - 11/11/2017Hold Plvix for 2 days. [...] note may be different from andreas calles. [facility] Service: Hospitalist Progress Note Pt: Norman Kavita AGE/SEX: 81 y.o. male ROOM: 9118/9118-1 : 1935 PCP: FIDE SOLARES ADMIT DATE: 11/07/2017 TODAY'S DATE: 11/10/2017 Hospital Day/Hospital Course: LOS: [address] Mcghee 81 year old malewith past medical history of CAD, HTN and DM Type 2 who was admitted as a transfer from [facility] to our ICU due to acute pulmonary [...] hematoma so Vas cular surgery services at [facility] was contacted and Dr. Humphreys recommended [...] Component Value Units Date/Time MRSA by PCR [[id number]] Collected: 11/07/171812 Specimen: Nasopharyngeal from Nasopharyngeal Culture [...] who was admitted as a transfer from [facility] to our ICU due to acute pulmonary [...] MD, FACP 11/10/2017 11:40 AM Dictation software, [employer], used which may contain error for similar sounding words even af ter review. Personal communication requested for any clarification. Portions of this chart may have been copied from previous notes for continuity of care purp Amie Goodson MD - 11/09/2017 11:17 AM PDTFormatting of this note may be different from andreas mendoza original. [facility] Service: Hospitalist Progress Note Pt: Norman Hernandez AGE/SEX: 81 y.o. male ROOM: [address] [place] [address] : 1935 PCP: FIDE SOLARES ADMIT DATE: 11/07/2017 TODAY'S DATE: 11/09/2017 Hospital Day/Hospital Course: LOS: [address] Mcghee 81 year old malewith past medical history of CAD, HTN and DM Type 2 who was admitted as a transfer from [facility] to our ICU due to acute pulmonary [...] hematoma so Vas cular surgery services at [facility] was contacted and Dr. Humphreys recommended [...] Component Value Units Date/Time MRSA by PCR [[id number]] Collected: 11/07/171812 Specimen: Nasopharyngeal from Nasopharyngeal Culture [...] who was admitted as a transfer from [facility] to our ICU due to acute pulmonary [...] MD, FACP 11/09/2017 11:17 AM Dictation software, [employer], used which may contain error for similar sounding words even af ter review. Personal communication requested for any clarification. Portions of this chart may have been copied from previous notes for continuity of care purp Torsten Vance MD - 11/08/2017 9:00 AM PDTFormatting of this note may be different from the original. [facility] Service: Hospitalist Progress Note Norman Hernandez 81 y.o. [id number] male FIDE SOLARES Hospital Day: LOS: 1 day SUBJECTIVE Patient Summary: Patient is a 81 year old male with past medical history of CAD, HTN and DM Type 2 who was a dmitted as a transfer from [facility] to our ICU due to acute pulmonary [...] following day, patient was working with PT [employer] and suddenly developed chest pressure and shortness [...] hem atoma so Vascular surgery services at [facility] was contacted and Dr. Humphreys recommended IVC filter placement. He was kept in ICU for monitoring and treatment and Dr. Humpherys placed IVC filter wit hout complications. He [...] compartment syndrome. Orthopedic services was consulted in [facility] who recommended conservative management and pain [...] this evening. He was taken to the dairy lab technician and had an IVC filter placed by [...] is stable to transfer out of the [facility] to acute care. I gave report to Dr. Rees who accepted the pt in transfer to the hospi talist service. Cayla Dos Santos, [facility] - 11/07/2017 5:49 PM PDTFormatting of this [...] Testing | 65 - 99 mg/dL | [facility] | | | performed at [facility];[address] | | | | | [address];[place] | | | | | [address] | | | + + + + + + + + + + | Performing | Address | City/State/Zipcode | Phone Number | | Organization | | | | + + + + + | [facility] | [address] | [place] [address] | | + + + + + POCT glucose (11/11/2017 5:10 AM) + + + + + | Component | Value | Ref Range | Performed At | + + + + + | GLUCOSE,POC SCREEN | 173 (H)Comment: Testing | 65 - 99 mg/dL | [facility] | | | performed at [facility];[address] | | | | | [address];[place] | | | | | [address] | | | + + + + + + + + + + | Performing | Address | City/State/Zipcode | Phone Number | | Organization | | | | + + + + + | [facility] | [address] | [place] [address] | | + + + + + Phosphorus (11/11/2017 4:13 AM) + + + + + | Component | Value | Ref Range | Performed At | + + + + + | PHOSPHORUS | 3.5Comment: Testing | 2.3 - 4.8 mg/dL | [facility] | | | performed at [facility];[address] | | | | | [employer];[place] | | | | | [address] | | | + + + + + + + | Specimen | + + | Blood | + + + + + + + | Performing | Address | City/State/Zipcode | Phone Number | | Organization | | | | + + + + + | [facility] | [address] | [place] [address] | | + + + + + Magnesium (11/11/2017 4:13 AM) + + + + + | Component | Value | Ref Range | Performed At | + + + + + | MAGNESIUM | 2.0Comment: MODERATE | 1.7 - 2.4 mg/dL | [facility] | | | HEMOLYSISTesting | | | | | performed at [facility];[address] | | | | | [address];[place] | | | | | [address] | | | + + + + + + + | Specimen | + + | Blood | + + + + + + + | Performing | Address | City/State/Zipcode | Phone Number | | Organization | | | | + + + + + | [facility] | [address] | [place] [address] | | + + + + + Basic metabolic panel (11/11/2017 4:13 AM) + + + + + | Component | Value | Ref Range | Performed At | + + + + + | SODIUM | 135 | 135 - 145 mmol/L | [facility] | + + + + + | POTASSIUM | 4.9Comment: MODERATE | 3.5 - 4.9 mmol/L | [facility] | | | HEMOLYSIS | [...] 1.0 | 0.70 - 1.30 mg/dL | [facility] | + + + + + | BUN/CREAT | 23 | | [facility] | + + + + + | CALCIUM | 7.8 (L) | 8.5 - 10.5 mg/dL | [facility] | + + + + + | EGFR | >60Comment: GFR <60: | >60 mL/min/1.73m2 | [facility] | | | CHRONIC KIDNEY [...] | | | | | performed at [facility];[address] | | | | | [address];[place] | | | | | [address] | | | + + + + + + + | Specimen | + + | Blood | + + + + + + + | Performing | Address | City/State/Zipcode | Phone Number | | Organization | | | | + + + + + | [facility] | [address] | [place] [address] | | + + + + + CBC w/auto diff (reflex to manual) (11/11/2017 4:13 AM) + + + + + | Component | Value | Ref Range | Performed At | + + + + + | WBC | 9.11 | 3.80 - 11.00 K/uL | [facility] | + + + + + | RBC | 3.27 (L) | 4.20 - 5.70 M/uL | [facility] | + + + + + | HGB | 9.8 (L) | 13.2 - 17.0 g/dL | [facility] | + + + + + | HCT | 27.9 (L) | 39.0 - 50.0 % | [facility] | + + + + + [...] (L) | 150 - 400 K/uL | [facility] | + + + + + | MPV | 10.0 | fl | [facility] | + + + + + | DIFF TYPE | AUTOMATED | | [facility] | + + + + + | NEUTROPHILS | 70.97 | % | [facility] | + + + + [...] 0.24 | 0.00 - 0.50 K/uL | [facility] | + + + + + | BASOPHILS ABS | 0.07Comment: Testing | 0.00 - 0.10 K/uL | [facility] | | | performed at [facility] | | | | | [address];[place], [place] | | | | | [address] | | | + + + + + + + | Specimen | + + | Blood | + + + + + + + | Performing | Address | City/State/Zipcode | Phone Number | | Organization | | | | + + + + + | [facility] | [address] | [place] [address] | | + + + + + POCT glucose (11/10/2017 8:54 PM) + + + + + | Component | Value | Ref Range | Performed At | + + + + + | GLUCOSE,POC SCREEN | 224 (H)Comment: Testing | 65 - 99 mg/dL | [facility] | | | performed at [facility];[address] | | | | | [facility];[place] | | | | | [address] | | | + + + + + + + + + + | Performing | Address | City/State/Zipcode | Phone Number | | Organization | | | | + + + + + | [facility] | [address] | [place] [address] | | + + + + + POCT glucose (11/10/2017 4:36 PM) + + + + + | Component | Value | Ref Range | Performed At | + + + + + | GLUCOSE,POC SCREEN | 271 (H)Comment: Testing | 65 - 99 mg/dL | [facility] | | | performed at [facility];[address] | | | | | [address];[place] | | | | | [address] | | | + + + + + + + + + + | Performing | Address | City/State/Zipcode | Phone Number | | Organization | | | | + + + + + | [facility] | [address] | [place] [address] | | + + + + + POCT glucose (11/10/2017 11:24 AM) + + + + + | Component | Value | Ref Range | Performed At | + + + + + | GLUCOSE,POC SCREEN | 234 (H)Comment: Testing | 65 - 99 mg/dL | [facility] | | | performed at [facility];[address] | | | | | [address];[place] | | | | | [address] | | | + + + + + + + + + + | Performing | Address | City/State/Zipcode | Phone Number | | Organization | | | | + + + + + | [facility] | [address] | [place] [address] | | + + + + + POCT glucose (11/10/2017 10:00 AM) + + + + + | Component | Value | Ref Range | Performed At | + + + + + | GLUCOSE,POC SCREEN | 247 (H)Comment: Testing | 65 - 99 mg/dL | [facility] | | | performed at [facility];[address] | | | | | [address];[place] | | | | | [address] | | | + + + + + + + + + + | Performing | Address | City/State/Zipcode | Phone Number | | Organization | | | | + + + + + | [facility] | [address] | [place] [address] | | + + + + + POCT glucose (11/10/2017 5:25 AM) + + + + + | Component | Value | Ref Range | Performed At | + + + + + | GLUCOSE,POC SCREEN | 228 (H)Comment: Testing | 65 - 99 mg/dL | [facility] | | | performed at [facility];[address] | | | | | [address];[place] | | | | | [address] | | | + + + + + + + + + + | Performing | Address | City/State/Zipcode | Phone Number | | Organization | | | | + + + + + | [facility] | [address] | [place] [address] | | + + + + + Phosphorus (11/10/2017 4:35 AM) + + + + + | Component | Value | Ref Range | Performed At | + + + + + | PHOSPHORUS | 3.6Comment: Testing | 2.3 - 4.8 mg/dL | [facility] | | | performed at [facility], [address] | | LABORATORY | | | [address], | | | | | [place] [address] | | | + + + + + + + | Specimen | + + | Blood | + + + + + + + | Performing | Address | City/State/Zipcode | Phone Number | | Organization | | | | + + + + + | [facility] | [address] | [place] [address] | [phone] | | LABORATORY | [address] | | | + + + + + Magnesium (11/10/2017 4:35 AM) + + + + + | Component | Value | Ref Range | Performed At | + + + + + | MAGNESIUM | 2.1Comment: Testing | 1.7 - 2.4 mg/dL | [facility] | | | performed at [facility], [address] | | LABORATORY | | | [facility], | | | | | [place] [address] | | | + + + + + + + | Specimen | + + | Blood | + + + + + + + | Performing | Address | City/State/Zipcode | Phone Number | | Organization | | | | + + + + + | [facility] | [address] | [place] [address] | [phone] | | LABORATORY | [address]vd. | | [...] | | | | | performed at [facility], [address] | | | | | [facility], | | | | | [place] [address] | | | + + + + + + + | Specimen | + + | Blood | + + + + + + + | Performing | Address | City/State/Zipcode | Phone Number | | Organization | | | | + + + + + | [facility] | [address] | [place] [address] | [phone] | | LABORATORY | [address]vd. | | [...] | [facility] | | | performed at [facility], [address] | | LABORATORY | | | [address] [facility], | | | | | [place] [address] | | | + + + + + + + | Specimen | + + | Blood | + + + + + + + | Performing | Address | City/State/Zipcode | Phone Number | | Organization | | | | + + + + + | [facility] | [address] | [place] [address] | [phone] | | LABORATORY | [address] | | | + + + + + POCT glucose (11/09/2017 9:19 PM) + + + + + | Component | Value | Ref Range | Performed At | + + + + + | GLUCOSE,POC SCREEN | 228 (H)Comment: Testing | 65 - 99 mg/dL | [facility] | | | performed at [facility];[address] | | | | | [address];[place], [place] | | | | | [address] | | | + + + + + + + + + + | Performing | Address | City/State/Zipcode | Phone Number | | Organization | | | | + + + + + | [facility] | [address] | [place] [address] | | + + + + + POCT glucose (11/09/2017 4:29 PM) + + + + + | Component | Value | Ref Range | Performed At | + + + + + | GLUCOSE,POC SCREEN | 225 (H)Comment: Testing | 65 - 99 mg/dL | [facility] | | | performed at [facility];[address] | | | | | [address];[place], [place] | | | | | [address] | | | + + + + + + + + + + | Performing | Address | City/State/Zipcode | Phone Number | | Organization | | | | + + + + + | [facility] | [address] | [place] [address] | | + + + + + POCT glucose (11/09/2017 11:48 AM) + + + + + | Component | Value | Ref Range | Performed At | + + + + + | GLUCOSE,POC SCREEN | 213 (H)Comment: Testing | 65 - 99 mg/dL | [facility] | | | performed at [facility];[address] | | | | | [address];[place] | | | | | [address] | | | + + + + + + + + + + | Performing | Address | City/State/Zipcode | Phone Number | | Organization | | | | + + + + + | [facility] | [address] | [place] [address] | | + + + + + POCT glucose (11/09/2017 6:07 AM) + + + + + | Component | Value | Ref Range | Performed At | + + + + + | GLUCOSE,POC SCREEN | 231 (H)Comment: Testing | 65 - 99 mg/dL | [facility] | | | performed at [facility];[address] | | | | | [address];[place] | | | | | [address] | | | + + + + + + + + + + | Performing | Address | City/State/Zipcode | Phone Number | | Organization | | | | + + + + + | [facility] | [address] | [place] [address] | | + + + + + Phosphorus (11/09/2017 4:00 AM) + + + + + | Component | Value | Ref Range | Performed At | + + + + + | PHOSPHORUS | 3.0Comment: Testing | 2.3 - 4.8 mg/dL | [facility] | | | performed at [facility], [address] | | LABORATORY | | | [facility], | | | | | [place] [address] | | | + + + + + + + | Specimen | + + | Blood | + + + + + + + | Performing | Address | City/State/Zipcode | Phone Number | | Organization | | | | + + + + + | [facility] | [address] [place] [address] | [place] [address] | [phone] | | LABORATORY | [address]vd[address] | | | + + + + + Magnesium (11/09/2017 4:00 AM) + + + + + | Component | Value | Ref Range | Performed At | + + + + + | MAGNESIUM | 2.1Comment: Testing | 1.7 - 2.4 mg/dL | [facility] | | | performed at [facility], [address] | | LABORATORY | | | [facility] [place] [address], | | | | | [place] [address] | | | + + + + + + + | Specimen | + + | Blood | + + + + + + + | Performing | Address | City/State/Zipcode | Phone Number | | Organization | | | | + + + + + | [facility] | [address] | [place] [address] | [phone] | | LABORATORY | Blvd. | | [...] >60Comment: GFR <60: | >60 mL/min/1.73m2 | [facility] | | | CHRONIC KIDNEY DISEASE, | [...] | | | | | performed at [facility], [address] | | | | | [facility], | | | | | [place] [address] | | | + + + + + + + | Specimen | + + | Blood | + + + + + + + | Performing | Address | City/State/Zipcode | Phone Number | | Organization | | | | + + + + + | [facility] | [address] | [place] [address] | [phone] | | LABORATORY | Blvd. | | [...] [address] | | LABORATORY | | | [facility], | | | | | [place] [address] | | | + + + + + + + | Specimen | + + | Blood | + + + + + + + | Performing | Address | City/State/Zipcode | Phone Number | | Organization | | | | + + + + + | [facility] | [address] [place] [address] | [place] [address] | [phone] | | LABORATORY | [facility]. | | | + + + + + CPK (11/09/2017 4:00 AM) + + + + + | Component | Value | Ref Range | Performed At | + + + + + | CPK | 118Comment: Testing | 55 - 400 U/L | [facility] | | | performed at [facility];[address] | | | | | [address];[place] | | | | | [address] | | | + + + + + + + | Specimen | + + | Blood | + + + + + + + | Performing | Address | City/State/Zipcode | Phone Number | | Organization | | | | + + + + + | [facility] | [address] | [place] [address] | | + + + + + POCT glucose (11/08/2017 9:52 PM) + + + + + | Component | Value | Ref Range | Performed At | + + + + + | GLUCOSE,POC SCREEN | 272 (H)Comment: Testing | 65 - 99 mg/dL | [facility] | | | performed at [facility];[address] | | | | | [address];[place], [place] | | | | | [address] | | | + + + + + + + + + + | Performing | Address | City/State/Zipcode | Phone Number | | Organization | | | | + + + + + | [facility] | [address] | [place] [address] | | + + + + + POCT glucose (11/08/2017 5:15 PM) + + + + + | Component | Value | Ref Range | Performed At | + + + + + | GLUCOSE,POC SCREEN | 282 (H)Comment: Testing | 65 - 99 mg/dL | [facility] | | | performed at [facility];[address] | | | | | [address];[place] | | | | | [address] | | | + + + + + + + + + + | Performing | Address | City/State/Zipcode | Phone Number | | Organization | | | | + + + + + | [facility] | [address] | [place] [address] | | + + + + + POCT glucose (11/08/2017 12:08 PM) + + + + + | Component | Value | Ref Range | Performed At | + + + + + | GLUCOSE,POC SCREEN | 288 (H)Comment: Testing | 65 - 99 mg/dL | [facility] | | | performed at [facility];[address] | | | | [address];[place] | | | | | [address] | | | + + + + + + + + + + | Performing | Address | City/State/Zipcode | Phone Number | | Organization | | | | + + + + + | [facility] | [address] [facility] | [place] [address] | | + + + + + HGB and HCT (11/08/2017 12:01 PM) + + + + + | Component | Value | Ref Range | Performed At | + + + + + | HGB | 11.2 (L) | 13.2 - 17.0 g/dL | [facility] | + + + + + | HCT | 32.2 (L)Comment: Testing | 39.0 - 50.0 % | [facility] | | | performed at [facility];[address] | | | | | [employer];[place] | | | | | [address] | | | + + + + + + + + + + | Performing | Address | City/State/Zipcode | Phone Number | | Organization | | | | + + + + + | [facility] | [address] | [place] [address] | | + + + + + POCT glucose (11/08/2017 10:14 AM) + + + + + | Component | Value | Ref Range | Performed At | + + + + + | GLUCOSE,POC SCREEN | 181 (H)Comment: Testing | 65 - 99 mg/dL | [facility] | | | performed at [facility];[address] | | | | | [address];[place], [place] | | | | | [id number] | | | + + + + + + + + + + | Performing | Address | City/State/Zipcode | Phone Number | | Organization | | | | + + + + + | [facility] | [address] | [place] [address] | | + + + + + [...] TV A Kurtis: 0.43 m/s TV Dec [place]: | | | 2.19 m/s2 TV Dec Time: 244.15 ms TV E Kurt[place]: 0.53 m/s TV E/A | | | Ratio: 1.22 Test Eng: GADIEL Authenticated by: Sharda | | | Satya JONES, [facility] Report Date/Time: 11-08-2017 16:25:4 | | + + + + + | Procedure Note | + + | Roni Holder In - 11/08/2017 4:30 PM PDT Patient Name: Lionel HERNANDEZ of | | : 1935ccession: [id number] Physician: Sharda Hernadez MD, [facility] | | INDICATIONS PUL | | MONARY [...] mlLAESV Index (A-L): 22.33 ml/m2LAAs A2C: 18.00 io3CBCID A-L A2C: 49.35 | | mlLALs A2C: 5.57 cmLAAs A4C: 16.69 [id number] A-L A4C: 44.72 mlLALs A4C: 5.28 cmAo [...] 48.26 cmAVA Vmax: 1.57 cm2AVA (VTI): 1.55 [id number] Vmax: | | 0.00 cm2/m2AVAI (VTI): 0.00 [...] 2.81 m/sTV A Kurtis: 0.43 m/sTV Dec [place]: 2.19 m/s2TV Dec Time: | | 244.15 msTV E Kurtis: 0.53 m/sTV E/A Ratio: 1.22 Test Eng: SIDDHARTHAuthenticated by: | | Sharda Hernadez MD, [...] A Kurtis: 0.43 m/s | |TV Dec [place]: 2.19 m/s2 | |TV Dec Time: 244.15 ms | |TV E Kurtis: 0.53 m/s | |TV E/A Ratio: 1.22 | | | |Test Eng: KVW | |Authenticated by: Sharda Hernadez MD, [...] | + + + + + | [facility] | [address] | [place] [address] | | + + + + + CPK (11/08/2017 6:08 AM) + + + + + | Component | Value | Ref Range | Performed At | + + + + + | CPK | 155Comment: Testing | 55 - 400 U/L | [facility] | | | performed at [facility];[address] | [address];[place] | | | | | [address] | | | + + + + + + + + + + | Performing | Address | City/State/Zipcode | Phone Number | | Organization | | | | + + + + + | [facility] | [address] | [place] [address] | | + + + + + Phosphorus (11/08/2017 6:08 AM) + + + + + | Component | Value | Ref Range | Performed At | + + + + + | PHOSPHORUS | 3.2Comment: Testing | 2.3 - 4.8 mg/dL | [facility] | | | performed at [facility], [address] | | LABORATORY | | | [facility], | | | | | [place] [address] | | | + + + + + + + | Specimen | + + | Blood | + + + + + + + | Performing | Address | City/State/Zipcode | Phone Number | | Organization | | | | + + + + + | [facility] | [address] | [place] [address] | [phone] | | LABORATORY | [address] | | | + + + + + Magnesium (11/08/2017 6:08 AM) + + + + + | Component | Value | Ref Range | Performed At | + + + + + | MAGNESIUM | 2.1Comment: Testing | 1.7 - 2.4 mg/dL | [facility] | | | performed at [facility], [address] | | LABORATORY | | | [address], | | | | | [place] [address] | | | + + + + + + + | Specimen | + + | Blood | + + + + + + + | Performing | Address | City/State/Zipcode | Phone Number | | Organization | | | | + + + + + | [facility] | [address] | [place] [address] | [phone] | | LABORATORY | [address] | | | + + + + + Basic metabolic panel (11/08/2017 6:08 AM) + + + + + | Component | Value | Ref Range | Performed At | + + + + + | SODIUM | 138 | 135 - 145 mmol/L | [facility] | | | | | LABORATORY | [...] + | BUN/CREAT | 18 | | [facility] | | | | | LABORATORY | + + + + + | CALCIUM | 7.9 (L) | 8.5 - 10.5 mg/dL | [facility] | | | | | LABORATORY | [...] | | | | | performed at [facility], [address] | | | | | [address], | | | | | [place] [address] | | | + + + + + + + | Specimen | + + | Blood | + + + + + + + | Performing | Address | City/State/Zipcode | Phone Number | | Organization | | | | + + + + + | [facility] | [address] | [place] [address] | [phone] | | LABORATORY | [address] | | | + + + + + CBC w/auto diff (reflex to manual) (11/08/2017 6:08 AM) + + + + + | Component | Value | Ref Range | Performed At | + + + + + | WBC | 8.65 | 3.80 - 11.00 K/uL | [facility] | + + + + + | RBC | 3.47 (L) | 4.20 - 5.70 M/uL | [facility] | + + + + + | HGB | 10.4 (L) | 13.2 - 17.0 g/dL | [facility] | + + + + + [...] 34.9 | 32.0 - 35.5 g/dL | [facility] | + + + + + | RDW SD | 43.3 | 37 - 53 fl | [facility] | + + + + + | PLT | 139 (L) | 150 - 400 K/uL | [facility] | + + + + + | MPV | 10.0 | fl | [facility] | + + + + + | DIFF TYPE | AUTOMATED | | [facility] | + + + + + | NEUTROPHILS | 63.16 | % | [facility] | + + + + [...] 0.14 | 0.00 - 0.50 K/uL | [facility] | + + + + + | BASOPHILS ABS | 0.05Comment: Testing | 0.00 - 0.10 K/uL | [facility] | | | performed at [facility] | | | | | [address] [facility];[place], [place] | | | | | [address] | | | + + + + + + + | Specimen | + + | Blood | + + + + + + + | Performing | Address | City/State/Zipcode | Phone Number | | Organization | | | | + + + + + | [facility] | [address] | [place] [address] | | + + + + + POCT glucose (11/08/2017 5:52 AM) + + + + + | Component | Value | Ref Range | Performed At | + + + + + | GLUCOSE,POC SCREEN | 181 (H)Comment: Testing | 65 - 99 mg/dL | [facility] | | | performed at [facility];[address] | | | | [address] [facility];[place] | | | | | [address] | | | + + + + + + + + + + | Performing | Address | City/State/Zipcode | Phone Number | | Organization | | | | + + + + + | [facility] | [address] | [place] [address] | | + + + + + POCT glucose (11/08/2017 12:21 AM) + + + + + | Component | Value | Ref Range | Performed At | + + + + + | GLUCOSE,POC SCREEN | 213 (H)Comment: Testing | 65 - 99 mg/dL | [facility] | | | performed at [facility];[address];[place], [place] | | | | | [address] | | | + + + + + + + + + + | Performing | Address | City/State/Zipcode | Phone Number | | Organization | | | | + + + + + | [facility] | [address] | [place] [address] | | + + + + + CPK (11/08/2017 12:17 AM) + + + + + | Component | Value | Ref Range | Performed At | + + + + + | CPK | 191Comment: Testing | 55 - 400 U/L | [facility] | | | performed at [facility];[address];[place], [place] | | | | | [address] | | | + + + + + + + | Specimen | + + | Blood | + + + + + + + | Performing | Address | City/State/Zipcode | Phone Number | | Organization | | | | + + + + + | [facility] | [address] | [place] [address] | | + + + + + HGB and HCT (11/07/2017 11:56 PM) + + + + + | Component | Value | Ref Range | Performed At | + + + + + | HGB | 10.4 (L) | 13.2 - 17.0 g/dL | [facility] | + + + + + | HCT | 31.0 (L)Comment: Testing | 39.0 - 50.0 % | [facility] | | | performed at [facility];[address] | | | | | [address];[place] | | | | | [address] | | | + + + + + + + + + + | Performing | Address | City/State/Zipcode | Phone Number | | Organization | | | | + + + + + | [facility] | [address] | [place] [address] | | + + + + + US Lower extremity venous doppler bilateral (11/07/2017 10:08 PM) + + + | Impressions | Performed At | + + + | No evidence for deep venous thrombosis bilaterally. [facility] | [facility] | | Electronically signed by Jackson Callejas MD on Nov 07 2017 11:01PM | RADIOLOGY | | Referring Provider Line: [phone] ID: [id number] | | + + + + + + | Narrative | Performed At | + + + | EXAM: BILATERAL LOWER EXTREMITY VENOUS ULTRASOUND EXAM DATE: | [facility] | | 11/07/2017 10:08 PM. CLINICAL HISTORY: Bilateral pulmonary emboli. | RAD[facility] | | COMPARISON: None. TECHNIQUE: Real-time sonographic vascular | | | imaging was performed by the clay miller through the lower extremities | | | utilizing both color-flow and Doppler spectral analysis. Multiple | | | authorization representative static images were saved for review. [...] imaging was performed | | by the clay miller through the lower extremities utilizing both color-flow and Doppler | | spectral analysis. Multiple authorization representative static images were saved for review.FINDINGS: [...] 2017 11:01PM | | Referring Provider Line: [phone] ID: [id number] | |CFV-GSV Junction: Normal. | [...] Nov 07 2017 11:01PM Referring Provider Line: [phone] ID: [id number] | + + + + + + + | Performing | Address | City/State/Zipcode | Phone Number | | Organization | | | | + + + + + | [facility] | [address] | [place] [address] | | + + + + + POCT glucose (11/07/2017 7:37 PM) + + + + + | Component | Value | Ref Range | Performed At | + + + + + | GLUCOSE,POC SCREEN | 222 (H)Comment: Testing | 65 - 99 mg/dL | [facility] | | | performed at [facility];[address];[place], [place] | | | | | [address] | | | + + + + + + + + + + | Performing | Address | City/State/Zipcode | Phone Number | | Organization | | | | + + + + + | [facility] | [address] | [place] [address] | | + + + + + [...] SURGEON | | | Jaime Humphreys MD TABULATING SUPERVISOR None. ANESTHESIA Moderate sedation, | | | [...] preoperative history and physical FINDINGS A Bard Walworth | | | filter was deployed below the level of the renal veins in the inferior | | | vena cava and confirmed by fluoroscopy. DESCRIPTION OF PROCEDURE | | | Patient was properly identified and brought to the dairy lab technician. | | | Patient was placed supine on the dairy lab technician table and patient was given | [...] cava filter placement under | | fluoroscopic guidanceVIOLETTE VillagranDignity Health [facility].ANESTHESIAModerate sedation, | | local anesthesia.Informed consent was [...] preoperative history and | | physicalFINDINGSA Bard Walworth filter was deployed below the level of the renal veins in | | the inferiorvena cava and confirmed by fluoroscopy.DESCRIPTION OF PROCEDUREPatient was | | properly identified and brought to the dairy lab technician.Patient was placed supine on the cath [...] | | | |FINDINGS | |A Bard Walworth filter was deployed below the level of the renal veins in the inferior | |vena cava and confirmed by fluoroscopy. | | | |DESCRIPTION OF PROCEDURE | |Patient was properly identified and brought to the dairy lab technician. | |Patient was placed supine on the dairy lab technician table and patient was | |given [...] | + + + + + | [facility] | [address] | [place] [address] | | + + + + + [...] | + + + + + | [facility] | [address] | [place] [address] | | + + + + + Lactic acid (11/07/2017 6:40 PM) + + + + + | Component | Value | Ref Range | Performed At | + + + + + | LACTIC ACID | 1.4Comment: Testing | 0.4 - 2.0 mmol/L | [facility] | | | performed at [facility];[address] | | | | | [facility];[place] | | | | | [address] | | | + + + + + + + | Specimen | + + | Blood | + + + + + + + | Performing | Address | City/State/Zipcode | Phone Number | | Organization | | | | + + + + + | [facility] | [address] | [place] [address] | | + + + + + Protime-INR (11/07/2017 6:38 PM) + + + + + | Component | Value | Ref Range | Performed At | + + + + + | INR | 1.0Comment: REFERENCE | | [facility] | | | RANGE:0.9 - [...] | | | | | performed at [facility];[address] | | | | | [address];[place] | | | | | [address] | | | + + + + + + + | Specimen | + + | Blood | + + + + + + + | Performing | Address | City/State/Zipcode | Phone Number | | Organization | | | | + + + + + | [facility] | [address] | [place] [address] | | + + + + + CPK (11/07/2017 6:38 PM) + + + + + | Component | Value | Ref Range | Performed At | + + + + + | CPK | 141Comment: Testing | 55 - 400 U/L | [facility] | | | performed at [facility];[address] | | | | | [address];[place] | | | | | [address] | | | + + + + + + + | Specimen | + + | Blood | + + + + + + + | Performing | Address | City/State/Zipcode | Phone Number | | Organization | | | | + + + + + | [facility] | [address] | [place] [address] | | + + + + + Comprehensive metabolic panel (11/07/2017 6:38 PM) + + + + + | Component | Value | Ref Range | Performed At | + + + + + | SODIUM | 139 | 135 - 145 mmol/L | [facility] | + + + + + | POTASSIUM | 4.1 | 3.5 - 4.9 mmol/L | [facility] | + + + + + [...] (L) | 8.5 - 10.5 mg/dL | [facility] | + + + + + | TOTAL PROTEIN | 6.3 | 6.3 - 8.2 g/dL | [facility] | + + + + + | Albumin | 3.0 (L) | 3.3 - 4.8 g/dL | [facility] | + + + + + | GLOBULIN | 3.2 | 1.3 - 4.9 g/dL | [facility] | + + + + + | A/G | 0.9 (L) | 1.0 - 2.4 | [facility] | + + + + + | TBIL | 0.9 | 0.1 - 1.5 mg/dL | [facility] | + + + + + | ALK PHOS | 65 | 35 - 115 U/L | [facility] | + + + + + | AST | 14 | 10 - 45 U/L | [facility] | + + + + + | ALT | 17 | 10 - 65 U/L | [facility] | + + + + + | EGFR | >60Comment: GFR <60: | >60 mL/min/1.73m2 | [facility] | | | CHRONIC KIDNEY [...] | | | | | performed at [facility];[address] | | | | | [facility];[place], [place] | | | | | [address] | | | + + + + + + + | Specimen | + + | Blood | + + + + + + + | Performing | Address | City/State/Zipcode | Phone Number | | Organization | | | | + + + + + | [facility] | [address] | [place] [address] | | + + + + + CBC W/Auto Diff (Reflex to Manual) (11/07/2017 6:38 PM) + + + + + | Component | Value | Ref Range | Performed At | + + + + + | WBC | 8.12 | 3.80 - 11.00 K/uL | [facility] | + + + + + | RBC | 3.76 (L) | 4.20 - 5.70 M/uL | [facility] | + + + + + | HGB | 10.9 (L) | 13.2 - 17.0 g/dL | [facility] | + + + + + | HCT | 32.6 (L) | 39.0 - 50.0 % | [facility] | + + + + + | MCV | 86.7 | 80.0 - 100.0 fl | [facility] | + + + + + | MCH | 29.1 | 27.0 - 34.0 pg | [facility] | + + + + + | MCHC | 33.5 | 32.0 - 35.5 g/dL | [facility] | + + + + + | RDW SD | 42.4 | 37 - 53 fl | [facility] | + + + + + | PLT | 144 (L) | 150 - 400 K/uL | [facility] | + + + + + | MPV | 9.9 | fl | [facility] | + + + + + [...] Testing | 0.00 - 0.10 K/uL | [facility] | | | performed at [facility];[address] | | | | | [address];[place] | | | | | [address] | | | + + + + + + + | Specimen | + + | Blood | + + + + + + + | Performing | Address | City/State/Zipcode | Phone Number | | Organization | | | | + + + + + | [facility] | [address] | [place] [address] | | + + + + + MRSA by PCR (11/07/2017 6:13 PM) + + + + + | Component | Value | Ref Range | Performed At | + + + + + | SOURCE | NARES(NOSE) | | [facility] | + + + + + | MRSA PCR | NEGATIVEComment: Testing | NEGATIVE | [facility] | | | performed at [facility];[address] | | | | | [address];[place], [place] | | | | | [address] | | | + + + + + + + | Specimen | + + | Nasopharyngeal - | | Nasopharyngeal | | Culture | + + + + + + + | Performing | Address | City/State/Zipcode | Phone Number | | Organization | | | | + + + + + | [facility] | [address] | [place] [address] | | + + + + + in this encounter Visit Diagnoses + + | Diagnosis | + + | Other acute pulmonary embolism without acute cor pulmonale (HCC) | + + | Coronary artery disease | + + | Coronary atherosclerosis of unspecified type of vessel, [place] or graft | + + | Hypertension [...] < 70 mg/dL), | | | Starting [facility] 11/08/17 at 1226 | | + +---+ | | | + +---+ | dextrose 50 % solution 25 mL | | | 25 mL, Intravenous, PRN, | | | Hypoglycemia (BG < 70 mg/dL), | | | Starting [facility] 11/08/17 at 1226 | | + +---+ [...]
--- OUTSIDE RECORDS SUMMARY | ~2017-11-12 | XMS | Encounter Summary ---
Demographics + + + | Address | [address] | | | [place] [address] | + + + | Home Phone | | + + + | Preferred Language | Unknown | + + + | Marital Status | | + + + | Cheondoism Affiliation | Unknown | + + + | Race | Unknown | + + + | Ethnic Group | Unknown | + + + Author + + + | Author | [facility] | + + + | Organization | [facility] | + + + | Address [...] Team Providers + +------+ + | Care Digital Project Coordinator Name | Role | Phone | + +------+ + | Paolo Solares MD | PCP | | + +------+ + Encounter Details +--------+ + + + + | Date | Type | Department | Care Team | Description | +--------+ + + + + | 11/07/ | Hospital | [facility] | See, Medical | Pain | | 2018 | Encounter | [facility] | Record | | | | | RADIOLOGY [address] | | | | | | [place] [address] | | | | | | [phone] | | | +--------+ + + + [...] + + in this encounter Results X-ray chest 1 view (11/05/2017 2:42 AM) + + + | Narrative | Performed At | + + + | This is a non-reportable procedure without a radiologist report and | [facility] | | is used for image storage only | RADIOLOGY | + + + + + + + + | Performing | Address | City/State/Zipcode | Phone Number | | Organization | | | | + + + + + | [facility] | [address] | [place] [address] | | + + + + + in this encounter Visit Diagnoses + + | Diagnosis | + + | Pain | + + | Generalized pain | + +"
--- OUTSIDE RECORDS SUMMARY | ~2017-11-12 | XMS | Encounter Summary ---
Demographics + + + | Address | [address] | | | [place] [address] | + + + | Home Phone | | + + + | Preferred Language | Unknown | + + + | Marital Status | | + + + | Amish Affiliation | Unknown | + + + | Race | Unknown | + + + | Ethnic Group | Unknown | + + + Author + + + | Author | [facility] | + + + | Organization | [facility] | + + + | Address [...] Team Providers + +------+ + | Care Concrete Vault Maker Name | Role | Phone | + +------+ + | Paolo Solares MD | PCP | | + +------+ + Encounter Details +--------+ + + + + | Date | Type | Department | Care Team | Description | +--------+ + + + + | 11/07/ | Procedure | [facility] | | | | 2018 | [facility] | [facility] | | | | | | [facility] | | | | | | [address] | | | | | | [place] [address] | | | | | | [phone] | | | +--------+ + + + [...]
--- OUTSIDE RECORDS SUMMARY | ~2017-11-12 | XMS | Encounter Summary ---
Demographics + + + | Address | [address] | | | [place] [address] | + + + | Home Phone | | + + + | Preferred Language | Unknown | + + + | Marital Status | | + + + | Christianity Affiliation | Unknown | + + + | Race | Unknown | + + + | Ethnic Group | Unknown | + + + Author + + + | Author | [facility] [employer] | + + + | Organization | [facility] [employer] | + + + | Address [...] Team Providers + +------+ + | Care [employer] Taleo Manager Name | Role | Phone | [...] | | Internal | Diagnoses | | [facility] 9th | | | | Medicine | Bilateral | | [address] | | | | | PE's Needs | | [address] | | | | | IVC filter | | [address] | | | | | | | [place], [place] | | | | | | | [address] Phone: | | | | | | | [phone] | +--------+--------+ + + + + Encounter Details +--------+ + + + + | Date | Type | Department | Care Team | Description | +--------+ + + + + | 11/07/ | Hospital | [facility] | Ana Jimenezgallo | Other acute | | 2018 - | Encounter | [facility] | MD Taylor Menchaca | pulmonary embolism | | | | [address] [place] | [address] [employer] | without acute cor | | 11/11/ | | [address] | Office [place], [place] | pulmonale (HCC) | | 2018 | | [place] [address] | [address] | (Primary Dx) | | | | [phone] | | | | | | | Reynaldo Rees MD | | | | | | [address] | | | | | | [place] [address] | | | | | | [phone] | | | | | | | | | | | | Torsten Mcghee | | | | | | MD Taylor [address] | | | | | | BLVD [place], [place] | | | | | | [address] | | | | | | | | | | | | Amie Newby MD | | | | | | [address] | | | | | | [place] [address] | | | | | | [phone] | | | | | | | [...] note may be different from andreas calles. [facility] Service: Hospitalist Physician Discharge Summary Pt: Norman Hernandez AGE/SEX: 81 y.o. male ROOM: [facility], [facility] PCP: FIDE SOLARES : 1935 Admit [...] Nov 07 2017 11:01PM Referring Provider Line: [phone] ID: [id number] Echo Cardiac Adult Complete Result [...] who was admitted as a transfer from [facility] to our ICU due to acute [...] hematoma so V ascular surgery services at [facility] was contacted and Dr. Humphreys recommended IVC [...] improved [facility]. When [...] if needed. Follow-Up: Jaime Humphreys MD [address] [place] [address] Fide Solares MD [address] [place] [id number] In 1 week Discharge took more than 35 minutes, to include final examination, discussion of admission, and preparation of prescriptions, instructions for ongoing care, follow up and dictation of summary. Signed: AMIE Charli PERFECTO, MD 11/11/2017 12:34 PM Dictation software, Real Time Wine, used which may contain error for similar [...] note may be different from andreas calles. [facility] Service: Hospitalist Progress Note Pt: Norman Kavita AGE/SEX: 81 y.o. male ROOM: 9118/[id number] : 1935 PCP: FIDE SOLARES ADMIT DATE: 11/07/2017 TODAY'S DATE: 11/10/2017 Hospital Day/Hospital Course: LOS: [address] Mcghee 81 year old malewith past medical history of CAD, HTN and DM Type 2 who was admitted as a transfer from [facility] to our ICU due to acute [...] hematoma so Vas cular surgery services at [facility] was contacted and Dr. Humphreys recommended IVC [...] Component Value Units Date/Time MRSA by PCR [[id number]] Collected: 11/07/171812 Specimen: Nasopharyngeal from Nasopharyngeal Culture [...] who was admitted as a transfer from [facility] to our ICU due to acute [...] MD, FACP 11/10/2017 11:40 AM Dictation software, Real Time Wine, used which may contain error for similar sounding words even af ter review. Personal communication requested for any clarification. Portions of this chart may have been copied from previous notes for continuity of care purp Amie Goodson MD - 11/09/2017 11:17 AM PDTFormatting of this note may be different from andreas mendoza original. [facility] Service: Hospitalist Progress Note Pt: Norman Hernandez AGE/SEX: 81 y.o. male ROOM: [address] [place] [address] : 1935 PCP: FIDE SOLARES ADMIT DATE: 11/07/2017 TODAY'S DATE: 11/09/2017 Hospital Day/Hospital Course: LOS: [address] Mcghee 81 year old malewith past medical history of CAD, HTN and DM Type 2 who was admitted as a transfer from [facility] to our ICU due to acute [...] hematoma so Vas cular surgery services at [facility] was contacted and Dr. Humphreys recommended IVC [...] Component Value Units Date/Time MRSA by PCR [[id number]] Collected: 11/07/171812 Specimen: Nasopharyngeal from Nasopharyngeal Culture [...] who was admitted as a transfer from [facility] to our ICU due to acute [...] MD, FACP 11/09/2017 11:17 AM Dictation software, Real Time Wine, used which may contain error for similar sounding words even af ter review. Personal communication requested for any clarification. Portions of this chart may have been copied from previous notes for continuity of care purp Torsten Vance MD - 11/08/2017 9:00 AM PDTFormatting of this note may be different from the original. [facility] Service: Hospitalist Progress Note Norman Hernandez 81 y.o. [id number] male FIDE SOLARES Hospital Day: LOS: 1 day SUBJECTIVE Patient Summary: Patient is a 81 year old male with past medical history of CAD, HTN and DM Type 2 who was a dmitted as a transfer from [facility] to our ICU due to acute [...] following day, patient was working with PT [employer] and suddenly developed chest pressure and shortness [...] hem atoma so Vascular surgery services at [facility] was contacted and Dr. Humphreys recommended IVC [...] compartment syndrome. Orthopedic services was consulted in [facility] who recommended conservative management and pain contr [...] this evening. He was taken to the slabber and had an IVC filter placed by [...] is stable to transfer out of the [facility] to acute care. I gave report to Dr. Rees who accepted the pt in transfer to the hospi talist service. Cayla Dos Santos, [facility] - 11/07/2017 5:49 PM PDTFormatting of this [...] Testing | 65 - 99 mg/dL | [facility] | | | performed at [facility];[address] | | | | | [address];[place] | | | | | [address] | | | + + + + + + + + + + | Performing | Address | City/State/Zipcode | Phone Number | | Organization | | | | + + + + + | [facility] | [address] | [place] [address] | | + + + + + POCT glucose (11/11/2017 5:10 AM) + + + + + | Component | Value | Ref Range | Performed At | + + + + + | GLUCOSE,POC SCREEN | 173 (H)Comment: Testing | 65 - 99 mg/dL | [facility] | | | performed at [facility];[address] | | | | | [address];[place] | | | | | [address] | | | + + + + + + + + + + | Performing | Address | City/State/Zipcode | Phone Number | | Organization | | | | + + + + + | [facility] | [address] | [place] [address] | | + + + + + Phosphorus (11/11/2017 4:13 AM) + + + + + | Component | Value | Ref Range | Performed At | + + + + + | PHOSPHORUS | 3.5Comment: Testing | 2.3 - 4.8 mg/dL | [facility] | | | performed at [facility];[address] | | | | | [address];[place] | | | | | [address] | | | + + + + + + + | Specimen | + + | Blood | + + + + + + + | Performing | Address | City/State/Zipcode | Phone Number | | Organization | | | | + + + + + | [facility] | [address] | [place] [address] | | + + + + + Magnesium (11/11/2017 4:13 AM) + + + + + | Component | Value | Ref Range | Performed At | + + + + + | MAGNESIUM | 2.0Comment: MODERATE | 1.7 - 2.4 mg/dL | [facility] | | | HEMOLYSISTesting | | | | | performed at [facility];[address] | | | | | [address];[place] | | | | | [address] | | | + + + + + + + | Specimen | + + | Blood | + + + + + + + | Performing | Address | City/State/Zipcode | Phone Number | | Organization | | | | + + + + + | [facility] | [address] | [place] [address] | | + + + + + Basic metabolic panel (11/11/2017 4:13 AM) + + + + + | Component | Value | Ref Range | Performed At | + + + + + | SODIUM | 135 | 135 - 145 mmol/L | [facility] | + + + + + | POTASSIUM | 4.9Comment: MODERATE | 3.5 - 4.9 mmol/L | [facility] | | | HEMOLYSIS | | [...] 1.0 | 0.70 - 1.30 mg/dL | [facility] | + + + + + | BUN/CREAT | 23 | | [facility] | + + + + + | CALCIUM | 7.8 (L) | 8.5 - 10.5 mg/dL | [facility] | + + + + + | EGFR | >60Comment: GFR <60: | >60 mL/min/1.73m2 | [facility] | | | CHRONIC [...] | | | | | performed at [facility];[address] | | | | | [address];[place] | | | | | [address] | | | + + + + + + + | Specimen | + + | Blood | + + + + + + + | Performing | Address | City/State/Zipcode | Phone Number | | Organization | | | | + + + + + | [facility] | [address] | [place] [address] | | + + + + + CBC w/auto diff (reflex to manual) (11/11/2017 4:13 AM) + + + + + | Component | Value | Ref Range | Performed At | + + + + + | WBC | 9.11 | 3.80 - 11.00 K/uL | [facility] | + + + + + | RBC | 3.27 (L) | 4.20 - 5.70 M/uL | [facility] | + + + + + | HGB | 9.8 (L) | 13.2 - 17.0 g/dL | [facility] | + + + + + | HCT | 27.9 (L) | 39.0 - 50.0 % | [facility] | + + + + + [...] (L) | 150 - 400 K/uL | [facility] | + + + + + | MPV | 10.0 | fl | [facility] | + + + + + | DIFF TYPE | AUTOMATED | | [facility] | + + + + + | NEUTROPHILS | 70.97 | % | [facility] | + + + [...] 0.24 | 0.00 - 0.50 K/uL | [facility] | + + + + + | BASOPHILS ABS | 0.07Comment: Testing | 0.00 - 0.10 K/uL | [facility] | | | performed at [facility] | | | | | [address];[place], [place] | | | | | [address] | | | + + + + + + + | Specimen | + + | Blood | + + + + + + + | Performing | Address | City/State/Zipcode | Phone Number | | Organization | | | | + + + + + | [facility] | [address] | [place] [address] | | + + + + + POCT glucose (11/10/2017 8:54 PM) + + + + + | Component | Value | Ref Range | Performed At | + + + + + | GLUCOSE,POC SCREEN | 224 (H)Comment: Testing | 65 - 99 mg/dL | [facility] | | | performed at [facility];[address] | | | | | [facility];[place] | | | | | [address] | | | + + + + + + + + + + | Performing | Address | City/State/Zipcode | Phone Number | | Organization | | | | + + + + + | [facility] | [address] | [facility] [place] [address] | | + + + + + POCT glucose (11/10/2017 4:36 PM) + + + + + | Component | Value | Ref Range | Performed At | + + + + + | GLUCOSE,POC SCREEN | 271 (H)Comment: Testing | 65 - 99 mg/dL | [facility] | | | performed at [facility];[address] | | | | | [address];[place] | | | | | [address] | | | + + + + + + + + + + | Performing | Address | City/State/Zipcode | Phone Number | | Organization | | | | + + + + + | [facility] | [address] | [place] [address] | | + + + + + POCT glucose (11/10/2017 11:24 AM) + + + + + | Component | Value | Ref Range | Performed At | + + + + + | GLUCOSE,POC SCREEN | 234 (H)Comment: Testing | 65 - 99 mg/dL | [facility] | | | performed at [facility];[address] | | | | | [address];[place] | | | | | [address] | | | + + + + + + + + + + | Performing | Address | City/State/Zipcode | Phone Number | | Organization | | | | + + + + + | [facility] | [address] | [place] [address] | | + + + + + POCT glucose (11/10/2017 10:00 AM) + + + + + | Component | Value | Ref Range | Performed At | + + + + + | GLUCOSE,POC SCREEN | 247 (H)Comment: Testing | 65 - 99 mg/dL | [facility] | | | performed at [facility];[address] | | | | | [address];[place] | | | | | [address] | | | + + + + + + + + + + | Performing | Address | City/State/Zipcode | Phone Number | | Organization | | | | + + + + + | [facility] | [address] | [place] [address] | | + + + + + POCT glucose (11/10/2017 5:25 AM) + + + + + | Component | Value | Ref Range | Performed At | + + + + + | GLUCOSE,POC SCREEN | 228 (H)Comment: Testing | 65 - 99 mg/dL | [facility] | | | performed at [facility];[address] | | | | | [address];[place] | | | | | [address] | | | + + + + + + + + + + | Performing | Address | City/State/Zipcode | Phone Number | | Organization | | | | + + + + + | [facility] | [address] | [place] [address] | | + + + + + Phosphorus (11/10/2017 4:35 AM) + + + + + | Component | Value | Ref Range | Performed At | + + + + + | PHOSPHORUS | 3.6Comment: Testing | 2.3 - 4.8 mg/dL | [facility] | | | performed at [facility], [address] | | LABORATORY | | | [address], | | | | | [place] [address] | | | + + + + + + + | Specimen | + + | Blood | + + + + + + + | Performing | Address | City/State/Zipcode | Phone Number | | Organization | | | | + + + + + | [facility] | [address] | [place] [address] | [phone] | | LABORATORY | [address] | | | + + + + + Magnesium (11/10/2017 4:35 AM) + + + + + | Component | Value | Ref Range | Performed At | + + + + + | MAGNESIUM | 2.1Comment: Testing | 1.7 - 2.4 mg/dL | [facility] | | | performed at [facility], [address] | | LABORATORY | | | [facility], | | | | | [place] [address] | | | + + + + + + + | Specimen | + + | Blood | + + + + + + + | Performing | Address | City/State/Zipcode | Phone Number | | Organization | | | | + + + + + | [facility] | [address] | [place] [address] | [phone] | | LABORATORY | [address]vd. | | [...] | | | | | performed at [facility], [address] | | | | | [facility], | | | | | [place] [address] | | | + + + + + + + | Specimen | + + | Blood | + + + + + + + | Performing | Address | City/State/Zipcode | Phone Number | | Organization | | | | + + + + + | [facility] | [address] | [place] [address] | [phone] | | LABORATORY | Blvd. | | [...] | [facility] | | | performed at [facility], [address] | | LABORATORY | | | [address] [facility], | | | | | [place] [address] | | | + + + + + + + | Specimen | + + | Blood | + + + + + + + | Performing | Address | City/State/Zipcode | Phone Number | | Organization | | | | + + + + + | [facility] | [address] | [place] [address] | [phone] | | LABORATORY | [address] | | | + + + + + POCT glucose (11/09/2017 9:19 PM) + + + + + | Component | Value | Ref Range | Performed At | + + + + + | GLUCOSE,POC SCREEN | 228 (H)Comment: Testing | 65 - 99 mg/dL | [facility] | | | performed at [facility];[address] | | | | | [address];[place], [place] | | | | | [address] | | | + + + + + + + + + + | Performing | Address | City/State/Zipcode | Phone Number | | Organization | | | | + + + + + | [facility] | [address] | [place] [address] | | + + + + + POCT glucose (11/09/2017 4:29 PM) + + + + + | Component | Value | Ref Range | Performed At | + + + + + | GLUCOSE,POC SCREEN | 225 (H)Comment: Testing | 65 - 99 mg/dL | [facility] | | | performed at [facility];[address] | | | | | [address];[place], [place] | | | | | [address] | | | + + + + + + + + + + | Performing | Address | City/State/Zipcode | Phone Number | | Organization | | | | + + + + + | [facility] | [address] | [facility] [place] [address] | | + + + + + POCT glucose (11/09/2017 11:48 AM) + + + + + | Component | Value | Ref Range | Performed At | + + + + + | GLUCOSE,POC SCREEN | 213 (H)Comment: Testing | 65 - 99 mg/dL | [facility] | | | performed at [facility];[address] | | | | | [address];[place] | | | | | [address] | | | + + + + + + + + + + | Performing | Address | City/State/Zipcode | Phone Number | | Organization | | | | + + + + + | [facility] | [address] | [place] [address] | | + + + + + POCT glucose (11/09/2017 6:07 AM) + + + + + | Component | Value | Ref Range | Performed At | + + + + + | GLUCOSE,POC SCREEN | 231 (H)Comment: Testing | 65 - 99 mg/dL | [facility] | | | performed at [facility];[address] | | | | | [address];[place] | | | | | [address] | | | + + + + + + + + + + | Performing | Address | City/State/Zipcode | Phone Number | | Organization | | | | + + + + + | [facility] | [address] | [place] [address] | | + + + + + Phosphorus (11/09/2017 4:00 AM) + + + + + | Component | Value | Ref Range | Performed At | + + + + + | PHOSPHORUS | 3.0Comment: Testing | 2.3 - 4.8 mg/dL | [facility] | | | performed at [facility], [address] | | LABORATORY | | | [facility], | | | | | [place] [address] | | | + + + + + + + | Specimen | + + | Blood | + + + + + + + | Performing | Address | City/State/Zipcode | Phone Number | | Organization | | | | + + + + + | [facility] | [address] [place] [address] | [place] [address] | [phone] | | LABORATORY | [address]vd[address] | | | + + + + + Magnesium (11/09/2017 4:00 AM) + + + + + | Component | Value | Ref Range | Performed At | + + + + + | MAGNESIUM | 2.1Comment: Testing | 1.7 - 2.4 mg/dL | [facility] | | | performed at [facility], [address] | | LABORATORY | | | [facility] [address], | | | | | [place] [address] | | | + + + + + + + | Specimen | + + | Blood | + + + + + + + | Performing | Address | City/State/Zipcode | Phone Number | | Organization | | | | + + + + + | [facility] | [address] | [place] [address] | [phone] | | LABORATORY | Blvd. | | [...] >60Comment: GFR <60: | >60 mL/min/1.73m2 | [facility] | | | CHRONIC KIDNEY DISEASE, | [...] | | | | | performed at [facility], [address] | | | | | [facility], | | | | | [place] [address] | | | + + + + + + + | Specimen | + + | Blood | + + + + + + + | Performing | Address | City/State/Zipcode | Phone Number | | Organization | | | | + + + + + | [facility] | [address] | [place] [address] | [phone] | | LABORATORY | Blvd. | | [...] [address] | | LABORATORY | | | [facility], | | | | | [place] [address] | | | + + + + + + + | Specimen | + + | Blood | + + + + + + + | Performing | Address | City/State/Zipcode | Phone Number | | Organization | | | | + + + + + | [facility] | [address] [place] [address] | [place] [address] | [phone] | | LABORATORY | [facility]. | | | + + + + + CPK (11/09/2017 4:00 AM) + + + + + | Component | Value | Ref Range | Performed At | + + + + + | CPK | 118Comment: Testing | 55 - 400 U/L | [facility] | | | performed at [facility];[address] | | | | | [address];[place] | | | | | [address] | | | + + + + + + + | Specimen | + + | Blood | + + + + + + + | Performing | Address | City/State/Zipcode | Phone Number | | Organization | | | | + + + + + | [facility] | [address] | [place] [address] | | + + + + + POCT glucose (11/08/2017 9:52 PM) + + + + + | Component | Value | Ref Range | Performed At | + + + + + | GLUCOSE,POC SCREEN | 272 (H)Comment: Testing | 65 - 99 mg/dL | [facility] | | | performed at [facility];[address] | | | | | [address];[place], [place] | | | | | [address] | | | + + + + + + + + + + | Performing | Address | City/State/Zipcode | Phone Number | | Organization | | | | + + + + + | [facility] | [address] | [place] [address] | | + + + + + POCT glucose (11/08/2017 5:15 PM) + + + + + | Component | Value | Ref Range | Performed At | + + + + + | GLUCOSE,POC SCREEN | 282 (H)Comment: Testing | 65 - 99 mg/dL | [facility] | | | performed at [facility];[address] | | | | | [address];[place] | | | | | [address] | | | + + + + + + + + + + | Performing | Address | City/State/Zipcode | Phone Number | | Organization | | | | + + + + + | [facility] | [address] | [place] [address] | | + + + + + POCT glucose (11/08/2017 12:08 PM) + + + + + | Component | Value | Ref Range | Performed At | + + + + + | GLUCOSE,POC SCREEN | 288 (H)Comment: Testing | 65 - 99 mg/dL | [facility] | | | performed at [facility];[address] | | | | | [address];[place] | | | | | [address] | | | + + + + + + + + + + | Performing | Address | City/State/Zipcode | Phone Number | | Organization | | | | + + + + + | [facility] | [address] | [place] [address] | | + + + + + HGB and HCT (11/08/2017 12:01 PM) + + + + + | Component | Value | Ref Range | Performed At | + + + + + | HGB | 11.2 (L) | 13.2 - 17.0 g/dL | [facility] | + + + + + | HCT | 32.2 (L)Comment: Testing | 39.0 - 50.0 % | [facility] | | | performed at [facility];[address] | | | | | [address];[place] | | | | | [address] | | | + + + + + + + + + + | Performing | Address | City/State/Zipcode | Phone Number | | Organization | | | | + + + + + | [facility] | [address] | [place] [address] | | + + + + + POCT glucose (11/08/2017 10:14 AM) + + + + + | Component | Value | Ref Range | Performed At | + + + + + | GLUCOSE,POC SCREEN | 181 (H)Comment: Testing | 65 - 99 mg/dL | [facility] | | | performed at [facility];[address] | | | | | [address];[place], [place] | | | | | [address] | | | + + + + + + + + + + | Performing | Address | City/State/Zipcode | Phone Number | | Organization | | | | + + + + + | [facility] | [address] | [place] [address] | | + + + + + [...] TV A Kurtis: 0.43 m/s TV Dec [place]: | | | 2.19 m/s2 TV Dec Time: 244.15 ms TV E [place]: 0.53 m/s TV E/A | | | Ratio: 1.22 Merchandise Shopper: GADIEL Authenticated by: Sharda | | | Satya JONES, [facility] Report Date/Time: 11-08-2017 16:25:4 | | + + + + + | Procedure Note | + + | Roni Holder In - 11/08/2017 4:30 PM PDT Patient Name: Lionel HERNANDEZ of | | : 1937ccession: [id number] Physician: Sharda Hernadez MD, [facility] | | INDICATIONS PUL | | MONARY [...] mlLAESV Index (A-L): 22.33 ml/m2LAAs A2C: 18.00 [id number] A-L A2C: 49.35 | | mlLALs A2C: 5.57 cmLAAs A4C: 16.69 [id number] A-L A4C: 44.72 mlLALs A4C: 5.28 cmAo [...] 48.26 cmAVA Vmax: 1.57 cm2AVA (VTI): 1.55 [id number] Vmax: | | 0.00 cm2/m2AVAI (VTI): 0.00 [...] 2.81 m/sTV A Kurtis: 0.43 m/sTV Dec [place]: 2.19 m/s2TV Dec Time: | | 244.15 msTV E Kurtis: 0.53 m/sTV E/A Ratio: 1.22 Merchandise Shopper: [id number] by: | | Sharda Hernadez MD, [...] A Kurtis: 0.43 m/s | |TV Dec [place]: 2.19 m/s2 | |TV Dec Time: 244.15 ms | |TV E Kurtis: 0.53 m/s | |TV E/A Ratio: 1.22 | | | |Merchandise Shopper: KVW | |Authenticated by: Sharda Hernadez MD, [facility] | |Report Date/Time: 11-08-2017 16:25:4 [...] | + + + + + | [facility] | [address] | [place] [address] | | + + + + + CPK (11/08/2017 6:08 AM) + + + + + | Component | Value | Ref Range | Performed At | + + + + + | CPK | 155Comment: Testing | 55 - 400 U/L | [facility] | | | performed at [facility];[address] | | [address];[place] | | | | | [address] | | | + + + + + + + + + + | Performing | Address | City/State/Zipcode | Phone Number | | Organization | | | | + + + + + | [facility] | [address] | [place] [address] | | + + + + + Phosphorus (11/08/2017 6:08 AM) + + + + + | Component | Value | Ref Range | Performed At | + + + + + | PHOSPHORUS | 3.2Comment: Testing | 2.3 - 4.8 mg/dL | [facility] | | | performed at [facility], [address] | | LABORATORY | | | [facility], | | | | | [place] [address] | | | + + + + + + + | Specimen | + + | Blood | + + + + + + + | Performing | Address | City/State/Zipcode | Phone Number | | Organization | | | | + + + + + | [facility] | [address] | [place] [address] | [phone] | | LABORATORY | [address]vd[address] | | | + + + + + Magnesium (11/08/2017 6:08 AM) + + + + + | Component | Value | Ref Range | Performed At | + + + + + | MAGNESIUM | 2.1Comment: Testing | 1.7 - 2.4 mg/dL | [facility] | | | performed at [facility], [address] | | LABORATORY | | | [address], | | | | | [place] [address] | | | + + + + + + + | Specimen | + + | Blood | + + + + + + + | Performing | Address | City/State/Zipcode | Phone Number | | Organization | | | | + + + + + | [facility] | [address] | [place] [address] | [phone] | | LABORATORY | [address]vd[address] | | | + + + + + Basic metabolic panel (11/08/2017 6:08 AM) + + + + + | Component | Value | Ref Range | Performed At | + + + + + | SODIUM | 138 | 135 - 145 mmol/L | [facility] | | | | | LABORATORY | [...] + | BUN/CREAT | 18 | | [facility] | | | | | LABORATORY | + + + + + | CALCIUM | 7.9 (L) | 8.5 - 10.5 mg/dL | [facility] | | | | | LABORATORY [...] | | | | | performed at [facility], [address] | | | | | [address], | | | | | [place] [address] | | | + + + + + + + | Specimen | + + | Blood | + + + + + + + | Performing | Address | City/State/Zipcode | Phone Number | | Organization | | | | + + + + + | [facility] | [address] | [place] [address] | [phone] | | LABORATORY | [address] | | | + + + + + CBC w/auto diff (reflex to manual) (11/08/2017 6:08 AM) + + + + + | Component | Value | Ref Range | Performed At | + + + + + | WBC | 8.65 | 3.80 - 11.00 K/uL | [facility] | + + + + + | RBC | 3.47 (L) | 4.20 - 5.70 M/uL | [facility] | + + + + + | HGB | 10.4 (L) | 13.2 - 17.0 g/dL | [facility] | + + + + + [...] 34.9 | 32.0 - 35.5 g/dL | [facility] | + + + + + | RDW SD | 43.3 | 37 - 53 fl | [facility] | + + + + + | PLT | 139 (L) | 150 - 400 K/uL | [facility] | + + + + + | MPV | 10.0 | fl | [facility] | + + + + + | DIFF TYPE | AUTOMATED | | [facility] | + + + + + | NEUTROPHILS | 63.16 | % | [facility] | + + + [...] 0.14 | 0.00 - 0.50 K/uL | [facility] | + + + + + | BASOPHILS ABS | 0.05Comment: Testing | 0.00 - 0.10 K/uL | [facility] | | | performed at [facility] | | | | | [address] [facility];[place], [place] | | | | | [address] | | | + + + + + + + | Specimen | + + | Blood | + + + + + + + | Performing | Address | City/State/Zipcode | Phone Number | | Organization | | | | + + + + + | [facility] | [address] | [place] [address] | | + + + + + POCT glucose (11/08/2017 5:52 AM) + + + + + | Component | Value | Ref Range | Performed At | + + + + + | GLUCOSE,POC SCREEN | 181 (H)Comment: Testing | 65 - 99 mg/dL | [facility] | | | performed at [facility];[address] | | [address] | | [address] [facility];[place] | | | | | [address] | | | + + + + + + + + + + | Performing | Address | City/State/Zipcode | Phone Number | | Organization | | | | + + + + + | [facility] | [address] | [place] [address] | | + + + + + POCT glucose (11/08/2017 12:21 AM) + + + + + | Component | Value | Ref Range | Performed At | + + + + + | GLUCOSE,POC SCREEN | 213 (H)Comment: Testing | 65 - 99 mg/dL | [facility] | | | performed at [facility];[address] | [address];[place], [place] | | | | | [address] | | | + + + + + + + + + + | Performing | Address | City/State/Zipcode | Phone Number | | Organization | | | | + + + + + | [facility] | [address] | [place] [address] | | + + + + + CPK (11/08/2017 12:17 AM) + + + + + | Component | Value | Ref Range | Performed At | + + + + + | CPK | 191Comment: Testing | 55 - 400 U/L | [facility] | | | performed at [facility];[address];[place], [place] | | | | | [address] | | | + + + + + + + | Specimen | + + | Blood | + + + + + + + | Performing | Address | City/State/Zipcode | Phone Number | | Organization | | | | + + + + + | [facility] | [address] | [place] [address] | | + + + + + HGB and HCT (11/07/2017 11:56 PM) + + + + + | Component | Value | Ref Range | Performed At | + + + + + | HGB | 10.4 (L) | 13.2 - 17.0 g/dL | [facility] | + + + + + | HCT | 31.0 (L)Comment: Testing | 39.0 - 50.0 % | [facility] | | | performed at [facility];[address] | | | | | [address];[place] | | | | | [address] | | | + + + + + + + + + + | Performing | Address | City/State/Zipcode | Phone Number | | Organization | | | | + + + + + | [facility] | [address] | [place] [address] | | + + + + + US Lower extremity venous doppler bilateral (11/07/2017 10:08 PM) + + + | Impressions | Performed At | + + + | No evidence for deep venous thrombosis bilaterally. [facility] | [facility] | | Electronically signed by Jackson Callejas MD on Nov 07 2017 11:01PM | RADIOLOGY | | Referring Provider Line: [phone] ID: [id number] | | + + + + + + | Narrative | Performed At | + + + | EXAM: BILATERAL LOWER EXTREMITY VENOUS ULTRASOUND EXAM DATE: | [facility] | | 11/07/2017 10:08 PM. CLINICAL HISTORY: Bilateral pulmonary emboli. | RADIOLOGY | | COMPARISON: None. TECHNIQUE: Real-time sonographic vascular | | | imaging was performed by the dredging inspector through the lower extremities | | | utilizing both color-flow and Doppler spectral analysis. Multiple | | | installation service representative static images were saved for review. [...] imaging was performed | | by the dredging inspector through the lower extremities utilizing both color-flow and Doppler | | spectral analysis. Multiple installation service representative static images were saved for review.FINDINGS: [...] 2017 11:01PM | | Referring Provider Line: [phone] ID: [id number] | |CFV-GSV Junction: Normal. | [...] Nov 07 2017 11:01PM Referring Provider Line: [phone] ID: [id number] | + + + + + + + | Performing | Address | City/State/Zipcode | Phone Number | | Organization | | | | + + + + + | [facility] | [address] | [place] [address] | | + + + + + POCT glucose (11/07/2017 7:37 PM) + + + + + | Component | Value | Ref Range | Performed At | + + + + + | GLUCOSE,POC SCREEN | 222 (H)Comment: Testing | 65 - 99 mg/dL | [facility] | | | performed at [facility];[address];[place], [place] | | | | | [address] | | | + + + + + + + + + + | Performing | Address | City/State/Zipcode | Phone Number | | Organization | | | | + + + + + | [facility] | [address] | [place] [address] | | + + + + + [...] SURGEON | | | Jaime Humphreys MD IMMIGRATION SERVICES OFFICER None. ANESTHESIA Moderate sedation, | | | [...] preoperative history and physical FINDINGS A Bard Andrew | | | filter was deployed below the level of the renal veins in the inferior | | | vena cava and confirmed by fluoroscopy. DESCRIPTION OF PROCEDURE | | | Patient was properly identified and brought to the slabber. | | | Patient was placed supine on the slabber table and patient was given | | [...] filter placement under | | fluoroscopic guidanceVIOLETTE VillagranSage Memorial Hospitalreji.ANESTHESIAModerate sedation, | | local anesthesia.Informed consent was [...] preoperative history and | | physicalFINDINGSA Bard Andrew filter was deployed below the level of the renal veins in | | the inferiorvena cava and confirmed by fluoroscopy.DESCRIPTION OF PROCEDUREPatient was | | properly identified and brought to the slabber.Patient was placed supine on the cath | [...] | | | |FINDINGS | |A Bard Andrew filter was deployed below the level of the renal veins in the inferior | |vena cava and confirmed by fluoroscopy. | | | |DESCRIPTION OF PROCEDURE | |Patient was properly identified and brought to the slabber. | |Patient was placed supine on the slabber table and patient was | |given moderate [...] | + + + + + | [facility] | [address] | [place] [address] | | + + + + + [...] | + + + + + | [facility] | [address] | [place] [address] | | + + + + + Lactic acid (11/07/2017 6:40 PM) + + + + + | Component | Value | Ref Range | Performed At | + + + + + | LACTIC ACID | 1.4Comment: Testing | 0.4 - 2.0 mmol/L | [facility] | | | performed at [facility];[address] | | | | | [address] [facility];[place] | | | | | [address] | | | + + + + + + + | Specimen | + + | Blood | + + + + + + + | Performing | Address | City/State/Zipcode | Phone Number | | Organization | | | | + + + + + | [facility] | [address] | [facility] [place] [address] | | + + + + + Protime-INR (11/07/2017 6:38 PM) + + + + + | Component | Value | Ref Range | Performed At | + + + + + | INR | 1.0Comment: REFERENCE | | [facility] | | | RANGE:0.9 [...] | | | | | performed at [facility];[address] | | | | | [address];[place] | | | | | [address] | | | + + + + + + + | Specimen | + + | Blood | + + + + + + + | Performing | Address | City/State/Zipcode | Phone Number | | Organization | | | | + + + + + | [facility] | [address] | [place] [address] | | + + + + + CPK (11/07/2017 6:38 PM) + + + + + | Component | Value | Ref Range | Performed At | + + + + + | CPK | 141Comment: Testing | 55 - 400 U/L | [facility] | | | performed at [facility];[address] | | | | | [address];[place] | | | | | [address] | | | + + + + + + + | Specimen | + + | Blood | + + + + + + + | Performing | Address | City/State/Zipcode | Phone Number | | Organization | | | | + + + + + | [facility] | [address] | [place] [address] | | + + + + + Comprehensive metabolic panel (11/07/2017 6:38 PM) + + + + + | Component | Value | Ref Range | Performed At | + + + + + | SODIUM | 139 | 135 - 145 mmol/L | [facility] | + + + + + | POTASSIUM | 4.1 | 3.5 - 4.9 mmol/L | [facility] | + + + + + [...] (L) | 8.5 - 10.5 mg/dL | [facility] | + + + + + | TOTAL PROTEIN | 6.3 | 6.3 - 8.2 g/dL | [facility] | + + + + + | Albumin | 3.0 (L) | 3.3 - 4.8 g/dL | [facility] | + + + + + | GLOBULIN | 3.2 | 1.3 - 4.9 g/dL | [facility] | + + + + + | A/G | 0.9 (L) | 1.0 - 2.4 | [facility] | + + + + + | TBIL | 0.9 | 0.1 - 1.5 mg/dL | [facility] | + + + + + | ALK PHOS | 65 | 35 - 115 U/L | [facility] | + + + + + | AST | 14 | 10 - 45 U/L | [facility] | + + + + + | ALT | 17 | 10 - 65 U/L | [facility] | + + + + + | EGFR | >60Comment: GFR <60: | >60 mL/min/1.73m2 | [facility] | | | CHRONIC [...] | | | | | performed at [facility];[address] | | | | | [facility];[place], [place] | | | | | [address] | | | + + + + + + + | Specimen | + + | Blood | + + + + + + + | Performing | Address | City/State/Zipcode | Phone Number | | Organization | | | | + + + + + | [facility] | [address] | [place] [address] | | + + + + + CBC W/Auto Diff (Reflex to Manual) (11/07/2017 6:38 PM) + + + + + | Component | Value | Ref Range | Performed At | + + + + + | WBC | 8.12 | 3.80 - 11.00 K/uL | [facility] | + + + + + | RBC | 3.76 (L) | 4.20 - 5.70 M/uL | [facility] | + + + + + | HGB | 10.9 (L) | 13.2 - 17.0 g/dL | [facility] | + + + + + | HCT | 32.6 (L) | 39.0 - 50.0 % | [facility] | + + + + + | MCV | 86.7 | 80.0 - 100.0 fl | [facility] | + + + + + | MCH | 29.1 | 27.0 - 34.0 pg | [facility] | + + + + + | MCHC | 33.5 | 32.0 - 35.5 g/dL | [facility] | + + + + + | RDW SD | 42.4 | 37 - 53 fl | [facility] | + + + + + | PLT | 144 (L) | 150 - 400 K/uL | [facility] | + + + + + | MPV | 9.9 | fl | [facility] | + + + + + [...] Testing | 0.00 - 0.10 K/uL | [facility] | | | performed at [facility];[address] | | | | | [address];[place] | | | | | [address] | | | + + + + + + + | Specimen | + + | Blood | + + + + + + + | Performing | Address | City/State/Zipcode | Phone Number | | Organization | | | | + + + + + | [facility] | [address] | [place] [address] | | + + + + + MRSA by PCR (11/07/2017 6:13 PM) + + + + + | Component | Value | Ref Range | Performed At | + + + + + | SOURCE | NARES(NOSE) | | [facility] | + + + + + | MRSA PCR | NEGATIVEComment: Testing | NEGATIVE | [facility] | | | performed at [facility];[address] | | | | | [address];[place], [place] | | | | | [address] | | | + + + + + + + | Specimen | + + | Nasopharyngeal - | | Nasopharyngeal | | Culture | + + + + + + + | Performing | Address | City/State/Zipcode | Phone Number | | Organization | | | | + + + + + | [facility] | [address] | [place] [address] | | + + + + + in this encounter Visit Diagnoses + + | Diagnosis | + + | Other acute pulmonary embolism without acute cor pulmonale (HCC) | + + | Coronary artery disease | + + | Coronary atherosclerosis of unspecified type of vessel, [place] or graft | + + | Hypertension [...] 70 mg/dL), | | | Starting [facility] 11/08/17 at 1226 | | + +---+ | | | + +---+ | dextrose 50 % solution 25 mL | | | 25 mL, Intravenous, PRN, | | | Hypoglycemia (BG < 70 mg/dL), | | | Starting [facility] 11/08/17 at 1226 | | + +---+ [...]
--- OUTSIDE RECORDS SUMMARY | ~2017-11-12 | XMS | Clinical Summary ---
Demographics + + + | Address | [address] | | | [place] [address] | + + + | Home Phone | | + + + | Preferred Language | Unknown | + + + | Marital Status | | + + + | Pentecostalism Affiliation | Unknown | + + + | Race | Unknown | + + + | Ethnic Group | Unknown | + + + Author + + + | Author | [facility] | + + + | Organization | [facility] | + + + | Address [...] Team Providers + +------+ + | Care Tour Director Name | Role | Phone | + [...] | | | Norman | | | [place] | | | AGE/SEX: 81 | | | y.o. | | | male | | | MRN: | | | [id number] | | | OM: | | | [...] | | services at | | | [facility] was | | | contacted | | [...] | | | 0 | | | 09/10/20443 | | | 8 | | | [address] | | | 7 CKTOTAL | | [...] | Jaime Y Petr, | | | [id number] | | | [place] | | | DriveRichla | | | nd [place] | | | [phone] | | | 2-[address]Scott | | | T Solares, | | | [address] | | | | | | [place] | | | n [place] | | | [place] | | | [phone] | | | 84In 1 | | [...] Testing | 65 - 99 mg/dL | [facility] | | | performed at [facility] | | | | | [address] [facility];[place] | | | | | [address] | | | + + + + + + + + + + | Performing | Address | City/State/Zipcode | Phone Number | | Organization | | | | + + + + + | [facility] | [address] | [place] [address] | | + + + + + [...] (L) | 13.2 - 17.0 g/dL | [facility] | + + + + + | HCT | 27.9 (L) | 39.0 - 50.0 % | [facility] | + + + + + | MCV | 85.5 | 80.0 - 100.0 fl | [facility] | + + + [...] (L) | 150 - 400 K/uL | [facility] | + + + [...] Testing | 0.00 - 0.10 K/uL | [facility] | | | performed at [facility];[address] | | | | | [address];[place] | | | | | [address] | | | + + + + + + + | Specimen | + + | Blood | + + + + + + + | Performing | Address | City/State/Zipcode | Phone Number | | Organization | | | | + + + + + | [facility] | [address] | [place] [address] | | + + + + + Phosphorus (11/11/2017 4:13 AM)Only the most recent of 4 results within the time period is included. + + + + + | Component | Value | Ref Range | Performed At | + + + + + | PHOSPHORUS | 3.5Comment: Testing | 2.3 - 4.8 mg/dL | [facility] | | | performed at [facility] | | | | | [facility];[place], [place] | | | | | [address] | | | + + + + + + + | Specimen | + + | Blood | + + + + + + + | Performing | Address | City/State/Zipcode | Phone Number | | Organization | | | | + + + + + | [facility] | [address] | [place] [address] | | + + + + + Magnesium (11/11/2017 4:13 AM)Only the most recent of 4 results within the time period is included. + + + + + | Component | Value | Ref Range | Performed At | + + + + + | MAGNESIUM | 2.0Comment: MODERATE | 1.7 - 2.4 mg/dL | [facility] | | | HEMOLYSISTesting | | | | | performed at [facility];[address] | | | | | [facility];[place], [place] | | | | | [address] | | | + + + + + + + | Specimen | + + | Blood | + + + + + + + | Performing | Address | City/State/Zipcode | Phone Number | | Organization | | | | + + + + + | [facility] | [address] | [place] [address] | | + + + + + [...] 1.0 | 0.70 - 1.30 mg/dL | [facility] | + + + + + | BUN/CREAT | 23 | | [facility] | + + + + + | CALCIUM | 7.8 (L) | 8.5 - 10.5 mg/dL | [facility] | + + + + + | EGFR | >60Comment: GFR <60: | >60 mL/min/1.73m2 | [facility] | | | CHRONIC [...] the | | | | | MDRD IDPR traceable | | | | | equation.Testing | | | | | performed at [facility] | | | | | [facility];[place], [place] | | | | | [address] | | | + + + + + + + | Specimen | + + | Blood | + + + + + + + | Performing | Address | City/State/Zipcode | Phone Number | | Organization | | | | + + + + + | [facility] | [address] [facility] | [place] [address] | | + + + + + CPK (11/09/2017 4:00 AM)Only the most recent of 4 results within the time period is includ ed. + + + + + | Component | Value | Ref Range | Performed At | + + + + + | CPK | 118Comment: Testing | 55 - 400 U/L | [facility] | | | performed at [facility];[address] | | | | | [facility];[place] | | | | | [address] | | | + + + + + + + | Specimen | + + | Blood | + + + + + + + | Performing | Address | City/State/Zipcode | Phone Number | | Organization | | | | + + + + + | [facility] | [address] | [place] [address] | | + + + + + HGB and HCT (11/08/2017 12:01 PM)Only the most recent of 2 results within the time period i s included. + + + + + | Component | Value | Ref Range | Performed At | + + + + + | HGB | 11.2 (L) | 13.2 - 17.0 g/dL | [facility] | + + + + + | HCT | 32.2 (L)Comment: Testing | 39.0 - 50.0 % | [facility] | | | performed at [facility];[address] | | | | | [address];[place] | | | | | [address] | | | + + + + + + + + + + | Performing | Address | City/State/Zipcode | Phone Number | | Organization | | | | + + + + + | [facility] | [address] | [place] [address] | | + + + + + [...] NORMAN HERNANDEZ Date of : 1935 | [facility] | | Performing Physician: Sharda Hernadez MD, [...] TV A Kurtis: 0.43 m/s TV Dec [place]: | | | 2.19 m/s2 TV Dec Time: 244.15 ms TV E Kurtis: 0.53 m/s TV E/A | | | Ratio: 1.22 Pediatric Nephrologist: GADIEL Authenticated by: Sharda | | | Satya JONES, [facility] Report Date/Time: 11-08-2017 16:25:4 | | + + + + + | Procedure Note | + + | Gallo, Rad Results In - 11/08/2017 4:30 PM PDT Patient Name: Lionel HERNANDEZ of | | : 1935ccession: [id number] Physician: Sharda Hernadez MD, [facility] | | INDICATIONS PUL | | MONARY [...] mlLAESV Index (A-L): 22.33 ml/m2LAAs A2C: 18.00 [id number] A-L A2C: 49.35 | | mlLALs A2C: 5.57 cmLAAs A4C: 16.69 [id number] A-L A4C: 44.72 mlLALs A4C: 5.28 cmAo [...] 48.26 cmAVA Vmax: 1.57 cm2AVA (VTI): 1.55 [id number] Vmax: | | 0.00 cm2/m2AVAI (VTI): 0.00 [...] 2.81 m/sTV A Kurtis: 0.43 m/sTV Dec [place]: 2.19 m/s2TV Dec Time: | | 244.15 msTV E Kurtis: 0.53 m/sTV E/A Ratio: 1.22 Pediatric Nephrologist: KVWAuthenticated by: | | Sharda Hernadez MD, [...] A Kurtis: 0.43 m/s | |TV Dec [place]: 2.19 m/s2 | |TV Dec Time: 244.15 ms | |TV E Kurtis: 0.53 m/s | |TV E/A Ratio: 1.22 | | | |Pediatric Nephrologist: KVW | |Authenticated by: Sharda Hernadez MD, [facility] | |Report Date/Time: 11-08-2017 16:25:4 [...] | + + + + + | [facility] | [address] [facility] | [place] [address] | | + + + + + US Lower extremity venous doppler bilateral (11/07/2017 10:08 PM) + + + | Impressions | Performed At | + + + | No evidence for deep venous thrombosis bilaterally. [facility] | [facility] | | Electronically signed by Jackson Callejas MD on Nov 07 2017 11:01PM | RADIOLOGY | | Referring Provider Line: [phone] ID: [id number] | | + + + + + + | Narrative | Performed At | + + + | EXAM: BILATERAL LOWER EXTREMITY VENOUS ULTRASOUND EXAM DATE: | [place] | | 11/07/2017 10:08 PM. CLINICAL HISTORY: Bilateral pulmonary emboli. | RADIOLOGY | | COMPARISON: None. TECHNIQUE: Real-time sonographic vascular | | | imaging was performed by the bruise trimmer through the lower extremities | | | utilizing both color-flow and Doppler spectral analysis. Multiple | | | player services representative static images were saved for review. [...] imaging was performed | | by the bruise trimmer through the lower extremities utilizing both color-flow and Doppler | | spectral analysis. Multiple player services representative static images were saved for review.FINDINGS: [...] 2017 11:01PM | | Referring Provider Line: [phone] ID: [id number] | |CFV-GSV Junction: Normal. | [...] Nov 07 2017 11:01PM Referring Provider Line: [phone] ID: [id number] | + + + + + + + | Performing | Address | City/State/Zipcode | Phone Number | | Organization | | | | + + + + + | [facility] | [address] | [place] [address] | | + + + + + IR IVC filter placement (11/07/2017 7:21 PM) + + + | Narrative | Performed At | + + + | IR IVC FILTER PLACEMENT PREOPERATIVE DIAGNOSIS DVT and PE with | [facility] | | contraindication for anticoagulation POSTOPERATIVE DIAGNOSIS Same | RADIOLOGY | | PROCEDURES 1. Moderate conscious sedation 2. Ultrasound guided | | | access of right internal jugular vein 3. Vena cavagram. 4. Inferior | | | vena cava filter placement under fluoroscopic guidance SURGEON | | | Jaime Humphreys MD OCC MED PHYSICIAN None. ANESTHESIA Moderate sedation, | | | [...] properly identified and brought to the laborer pipeline. | | | Patient was placed supine on the laborer pipeline table and patient was given | | [...] properly identified and brought to the laborer pipeline.Patient was placed supine on the cath | [...] | | | |FINDINGS | |A [employer] [place] filter was deployed below the level of the renal veins in the inferior | |vena cava and confirmed by fluoroscopy. | | | |DESCRIPTION OF PROCEDURE | |Patient was properly identified and brought to the laborer pipeline. | |Patient was placed supine on the laborer pipeline table and patient was | |given moderate [...] | |IMPRESSION | |Proper placement of a [employer] IVC filter below the level of the renal veins. | | | | | + + + + + + + | Performing | Address | City/State/Zipcode | Phone Number | | Organization | | | | + + + + + | [facility] | [address] | [place] [address] | | + + + + + [...] | + + + + + | [facility] | [address] | [place] [address] | | + + + + + Lactic acid (11/07/2017 6:40 PM) + + + + + | Component | Value | Ref Range | Performed At | + + + + + | LACTIC ACID | 1.4Comment: Testing | 0.4 - 2.0 mmol/L | [facility] | | | performed at [facility];[address] | | | | | [address];[place], [place] | | | | | [address] | | | + + + + + + + | Specimen | + + | Blood | + + + + + + + | Performing | Address | City/State/Zipcode | Phone Number | | Organization | | | | + + + + + | [facility] | [address] | [place] [address] | | + + + + + Protime-INR (11/07/2017 6:38 PM) + + + + + | Component | Value | Ref Range | Performed At | + + + + + | INR | 1.0Comment: REFERENCE | | [facility] | | | RANGE:0.9 [...] | | | | | performed at [facility];[address] | [address];[place] | | | | | [address] | | | + + + + + + + | Specimen | + + | Blood | + + + + + + + | Performing | Address | City/State/Zipcode | Phone Number | | Organization | | | | + + + + + | [facility] | [address] | [place] [address] | | + + + + + [...] 65 | 35 - 115 U/L | [facility] | + + + + + | AST | 14 | 10 - 45 U/L | [facility] | + + + + + | ALT | 17 | 10 - 65 U/L | [facility] | + + + + + | EGFR | >60Comment: GFR <60: | >60 mL/min/1.73m2 | [facility] | | | CHRONIC [...] | | | | | performed at [facility];[address] | | | | | [address];[place] | | | | | [address] | | | + + + + + + + | Specimen | + + | Blood | + + + + + + + | Performing | Address | City/State/Zipcode | Phone Number | | Organization | | | | + + + + + | [facility] | [address] [facility] | [place] [address] | | + + + + + MRSA by PCR (11/07/2017 6:13 PM) + + + + + | Component | Value | Ref Range | Performed At | + + + + + | SOURCE | NARES(NOSE) | | [facility] | + + + + + | MRSA PCR | NEGATIVEComment: Testing | NEGATIVE | [facility] | | | performed at [facility];[address] | | | | | [address];[place] | | | | | [address] | | | + + + + + + + | Specimen | + + | Nasopharyngeal - | | Nasopharyngeal | | Culture | + + + + + + + | Performing | Address | City/State/Zipcode | Phone Number | | Organization | | | | + + + + + | [facility] | [address] | [place] [address] | | + + + + + CTA pulmonary with IV contrast (11/06/2017 2:41 AM) + + + | Narrative | Performed At | + + + | This is a non-reportable procedure without a radiologist report and | [facility] | | is used for image storage only | RADIOLOGY | + + + + + + + + | Performing | Address | City/State/Zipcode | Phone Number | | Organization | | | | + + + + + | [facility] | [address] | [place] [address] | | + + + + + [...] | + + + + + | [facility] | [address] | [place] [address] | | + + + + + [...] | + + + + + | [facility] | [address] | [place] [address] | | + + + + + [...] [facility] | [address] | [place] [address] | | + + + + + [...] | [address] | [place] [address] | | + + + + + [...] +------+-------+ + | MEDICARE | MEDICA | [id number] | | | [address] | | | RE | | | | [place] [address] | | | IP-OP | | | [...] | Self [birth year] Home: | [address] | | | al/Fam | | 1936 | [phone] [place] | | | [place] | | | [phone] | [phone] | + +--------+ +--------+ + +
--- OUTSIDE RECORDS SUMMARY | ~2017-11-12 | XMS | Encounter Summary ---
Demographics + + + | Address | [address] | | | [place] [address] | + + + | Home Phone | | + + + | Preferred Language | Unknown | + + + | Marital Status | | + + + | Islam Affiliation | Unknown | + + + | Race | Unknown | + + + | Ethnic Group | Unknown | + + + Author + + + | Author | [facility] | + + + | Organization | [facility] | + + + | Address [...] Team Providers + +------+ + | Care Entry Level Automotive Technician Name | Role | Phone | [...] + + | 11/07/ | Hospital | [facility] PHYS[facility]IAN | See, Medical | Pain | | 2018 | Encounter | [facility] | Record | | | | | RADIOLOGY [address] | | | | | | [place] [address] | | | | | | [phone] | | | +--------+ + + + [...] | + + + + + | [facility] | [address] | [place] [address] | | + + + + + in this encounter Visit Diagnoses + + | Diagnosis | + + | Pain | + + | Generalized pain | + +"
--- OUTSIDE RECORDS SUMMARY | ~2017-11-12 | XMS | Encounter Summary ---
Demographics + + + | Address | [address] | | | [place] [address] | + + + | Home Phone | | + + + | Preferred Language | Unknown | + + + | Marital Status | | + + + | Mandaen Affiliation | Unknown | + + + | Race | Unknown | + + + | Ethnic Group | Unknown | + + + Author + + + | Author | [facility] | + + + | Organization | [facility] | + + + | Address [...] Team Providers + +------+ + | Care Chaperone Name | Role | Phone | + +------+ + | Paolo Solares MD | PCP | | + +------+ + Encounter Details +--------+ + + + + | Date | Type | Department | Care Team | Description | +--------+ + + + + | 11/07/ | Procedure | [facility] | | | | 2018 | [facility] | [facility] | | | | | | [facility] | | | | | | [address] | | | | | | [place] [address] | | | | | | [phone] | | | +--------+ + + + [...]
--- OUTSIDE RECORDS SUMMARY | ~2017-11-12 | XMS | Encounter Summary ---
Demographics + + + | Address | [address] | | | [place] [address] | + + + | Home Phone | | + + + | Preferred Language | Unknown | + + + | Marital Status | | + + + | Yarsani Affiliation | Unknown | + + + | Race | Unknown | + + + | Ethnic Group | Unknown | + + + Author + + + | Author | [facility] | + + + | Organization | [facility] | + + + | Address [...] Team Providers + +------+ + | Care Business Education Instructor Name | Role | Phone | [...] + + | 11/07/ | Hospital | [facility] PHYS[facility]IAN | See, Medical | Pain | | 2018 | Encounter | [facility] | Record | | | | | RADIOLOGY [address] | | | | | | [place] [address] | | | | | | [phone] | | | +--------+ + + + [...] | + + + + + | [facility] | [address] | [place] [address] | | + + + + + in this encounter Visit Diagnoses + + | Diagnosis | + + | Pain | + + | Generalized pain | + +"
--- OUTSIDE RECORDS SUMMARY | ~2017-11-12 | XMS | Encounter Summary ---
Demographics + + + | Address | [address] | | | [place] [address] | + + + | Home Phone | | + + + | Preferred Language | Unknown | + + + | Marital Status | | + + + | Muslim Affiliation | Unknown | + + + | Race | Unknown | + + + | Ethnic Group | Unknown | + + + Author + + + | Author | [facility] | + + + | Organization | [facility] | + + + | Address [...] Team Providers + +------+ + | Care Magazine Feeder Name | Role | Phone | + [...] + + | 11/07/ | Hospital | [facility] PHYSICIAN | See, Medical | Pain | | 2018 | Encounter | [facility] | Record | | | | | RADIOLOGY [address] | | | | | | [place] [address] | | | | | | [phone] | | | +--------+ + + + [...] | + + + + + | [facility] | [address] | [place] [address] | | + + + + + in this encounter Visit Diagnoses + + | Diagnosis | + + | Pain | + + | Generalized pain | + +"
--- OUTSIDE RECORDS SUMMARY | ~2017-11-12 | XMS | Encounter Summary ---
Demographics + + + | Address | [address] | | | [place] [address] | + + + | Home Phone | | + + + | Preferred Language | Unknown | + + + | Marital Status | | + + + | Restorationist Affiliation | Unknown | + + + | Race | Unknown | + + + | Ethnic Group | Unknown | + + + Author + + + | Author | [facility] | + + + | Organization | [facility] | + + + | Address [...] Team Providers + +------+ + | Care Clinical Support Specialist Name | Role | Phone | + +------+ + | Paolo Solares MD | PCP | | + +------+ + Encounter Details +--------+ + + + + | Date | Type | Department | Care Team | Description | +--------+ + + + + | 11/07/ | Hospital | [facility] PHYS[facility]IAN | See, Medical | Pain | | 2018 | Encounter | [facility] | Record | | | | | RADIOLOGY [address] | | | | | | [address] | | | | | | [place] [address] | | | | | | [phone] | | | +--------+ + + + [...] | [address] | [place] [address] | | + + + + + in this encounter Visit Diagnoses + + | Diagnosis | + + | Pain | + + | Generalized pain | + +"
--- OUTSIDE RECORDS SUMMARY | ~2017-11-12 | XMS | Encounter Summary ---
Demographics + + + | Address | [address] | | | [place] [address] | + + + | Home Phone | | + + + | Preferred Language | Unknown | + + + | Marital Status | | + + + | Jain Affiliation | Unknown | + + + | Race | Unknown | + + + | Ethnic Group | Unknown | + + + Author + + + | Author | [facility] | + + + | Organization | [facility] | + + + | Address [...] Team Providers + +------+ + | Care Shaker Tender Name | Role | Phone | + +------+ + | Paolo Solares MD | PCP | | + +------+ + Encounter Details +--------+ + + + + | Date | Type | Department | Care Team | Description | +--------+ + + + + | 11/07/ | Procedure | [facility] | | | | 2018 | [facility] | [facility] | | | | | | [facility] | | | | | | [address] | | | | | | [place] [address] | | | | | | [phone] | | | +--------+ + + + [...]
--- OUTSIDE RECORDS SUMMARY | ~2017-11-12 | XMS | Encounter Summary ---
Demographics + + + | Address | [address] | | | [place] [address] | + + + | Home Phone | | + + + | Preferred Language | Unknown | + + + | Marital Status | | + + + | Mosque Affiliation | Unknown | + + + | Race | Unknown | + + + | Ethnic Group | Unknown | + + + Author + + + | Author | [facility] | + + + | Organization | [facility] | + + + | Address [...] Team Providers + +------+ + | Care Instrument Room Technician Name | Role | Phone | [...] | | | | | [place] [address] | | | | | | [phone] | | | +--------+ + + + [...] | [address] | [place] [address] | | + + + + + in this encounter Visit Diagnoses + + | Diagnosis | + + | Pain | + + | Generalized pain | + +"
--- OUTSIDE RECORDS SUMMARY | ~2017-11-12 | XMS | Encounter Summary ---
Demographics + + + | Address | [address] | | | [place] [address] | + + + | Home Phone | | + + + | Preferred Language | Unknown | + + + | Marital Status | | + + + | Scientology Affiliation | Unknown | + + + | Race | Unknown | + + + | Ethnic Group | Unknown | + + + Author + + + | Author | [facility] | + + + | Organization | [facility] | + + + | Address [...] Team Providers + +------+ + | Care Lead Janitor Name | Role | Phone | + [...] + + | 11/07/ | Hospital | [facility] PH[facility] | See, Medical | Pain | | 2018 | Encounter | [facility] | Record | | | | | RADIOLOGY [address] | | | | | | [place] [address] | | | | | | [phone] | | | +--------+ + + + [...] | + + + + + | [facility] | [address] | [place] [address] | | + + + + + in this encounter Visit Diagnoses + + | Diagnosis | + + | Pain | + + | Generalized pain | + +"
[~2017-11-12 03:33] MED LIST: ADULT LOW DOSE81 MG PO; AMLODIPINE BESY10 MG PO; BACTRIM DS TAB1 EACH PO; CLOPIDOGREL75 MG PO; GLUCOPHAGE1000 MG PO; KEFLEX500 MG PO; METFORMIN HCL500 MG PO; MIRAPEX1 MG PO; NORCO 5-325 TA1 EACH PO; SIMVASTATIN40 MG PO
--- OUTSIDE RECORDS SUMMARY | 2017-11-12 03:38 | XMS ---
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 Nina has no Care Guidelines for this patient. [place] [facility]12 MO.) [facility] T[facility] 3 NOTE: Visits indicate total known visits. ED/C VISIT TRACKING (12 MO.) 11/12/2017 03:34 [facility] [place] TYPE: Emergency COMPLAINT: - SOB 11/05/2017 19:39 [facility] [place] TYPE: Emergency COMPLAINT: - FALL/RT HIP PAIN 07/22/2017 12:00 [facility] [place] TYPE: Emergency DIAGNOSES: - Syncope and collapse - Chest Pain - Other chest pain - CP INPATIENT VISIT TRACKING (12 MO.) 11/07/2017 17:30 [facility] [place] TYPE: General Medicine DIAGNOSES: - Needs IVC filter - Other pulmonary embolism without acute cor pulmonale - Bilateral PE's [email or web address]
--- NOTE | 2017-11-12 11:20 | NUR ---
PT ARRIVED TP FLOOR VIA STRETCHER. PT IS A/O. AT BEDSIDE. PT IS SL IN LEFT AC, FLUSHES WELL. TELE PLACED. HR 54. IN SR. PAIN RATED 6/10 IN RIGHT LEG. PT HAS BRUISING TO WHOLE RIGHT BACK LEG AND INNER RIGHT THIGH. LUNGS CLEAR, MURMUR. HEARD. CAP REFILL <3 SEC. +1 EDEMA IN THE RLE. TRACE IN LLE. PT ORIENTED TO ROOM. CALL LIGHT IN REACH. DENIES FURTHER NEEDS.
--- NOTE | 2017-11-12 13:18 | NUR ---
PT APPEARS TO BE SLEEPING. AT BESIDE. RESPIRATIONS ARE EQUAL AND NON LABORED. TELE IN PLACE. HR 50 IN SR. HR DROPPED TO 38. DR OLIVER NOTIFIED. NO NEW ORDERS. CALL LIGHT IN REACH.
--- NOTE | 2017-11-12 13:50 | NUR ---
Patient is in bedd sleeping. call in reach. no need at this time.
--- NOTE | 2017-11-12 14:59 | NUR ---
PT REPORTING 7/10 PAIN IN RIGHT LEG. PRN PAIN MEDICATION GIVEN. INCENTIVE SPEROMETER GIVEN. ICE WATER REFRESHED. CALL LIGHT IN REACH. DENIES FURTHER NEEDS.
[2017-11-12] MEDS ORDERED: NOVOLOG MI100 UNIT/1 SUB-Q (15:17)
[2017-11-12] MEDS ORDERED: OMEPRAZOLE40 MG PO (15:17)
--- NOTE | 2017-11-12 15:54 | NUR ---
MED REC COMPLETE WITH [facility] REFILL HISTORY AND PATIENT INTERVIEW.
--- NOTE | 2017-11-12 16:44 | NUR ---
ADMITTED SWING BED TODAY. HERE FOR PAIN CNTROL AND PHYSICAL THERAPY. TELE #1. SR PAXTON AT TIMES. DR OLIVER AWARE. SBA WITH WALKER.
--- NOTE | 2017-11-12 16:45 | NUR ---
ADMITTED SWING BED TODAY. HERE FOR PAIN CNTROL AND PHYSICAL THERAPY. TELE #1. SR PAXTON AT TIMES. DR OLIVER AWARE. SBA WITH WALKER.
--- NOTE | 2017-11-12 20:20 | NUR ---
CHARGE NURSE ROUNDING NOTE: PT SWING BED STATUS, [place], REPOSITIONED IN BED, C/O R LEG PAIN WITH MOVEMENT, BUT DENIES NEED FOR PAIN MED. COOPERARATIVE WITH VITALS. CALL LIGHT AND FLUIDS AT BEDSIDE, IN ROOM. NO REQUESTS
--- NOTE | 2017-11-12 21:08 | NUR ---
PATIENT WAS SLEEPING SOUNDLY WHEN I HAD TO AWAKEN HIM FOR [id number] WITH 3 UNITS COVERAGE SIGNED FOR BY BUCK CALVILLO. MIKET'S S/O IS ASLEEP ON THE COUCH. PATIENT IS IN A PLEASANT MOOD, BUT LOING FORWARD TO GETTING SOME SLEEP. PATIENT IN NO PAIN AT THIS TIME AND DOES NOT WISH TO HAVE ANYTHING FOR PAIN AT THIS TIME. LIGHTS TURNED DOWN AND FRESH ICE WATER GIVEN. PATIENT SAYS HE IS WARM ENOUGH DOES S/O.
--- NOTE | 2017-11-12 22:51 | EKG ---
[facility] [address] [facility] [place], [place] [address] Signed Sinus bradycardia with sinus arrhythmia Otherwise normal ECG When compared with ECG of 06-NOV-2017 18:04, No significant change was found Confirmed by MAYTE OLIVER MD ([id number]) on 11/12/2017 10:51:31 PM Electronically Signed By: MAYTE OLIVER MD 11/12/17 2251 PATIENT NAME: NORMAN HERNANDEZ Electrocardiogram DATE OF : 39 PHYSICIAN: MAYTE OLIVER MD REPORT #: [id number] REPORT IS CONFIDENTIAL AND NOT TO BE RELEASED WITHOUT AUTHORIZATION
--- NOTE | 2017-11-12 22:53 | NUR ---
PATIENT RESTING QUIETLY ON HIS RT SIDE IN ROOM. TELE SHOWS A HEART RATE OF 54. PATIENT'S RESPIRATINS EVEN AND UNLABORED. S/O SLEEPING ON THE COUCH.
--- NOTE | 2017-11-12 23:33 | NUR ---
PATIENT CONTINUES TO REST QUIETLY WITH EYES CLOSED, NOW ON HIS RIGHT SIDE. TELE READS 50 BETS A MINUTE AND RESPIRATIONS ARE 16.
--- NOTE | 2017-11-13 00:59 | NUR ---
PATIENT CONTINUES TO LAY SUPINE IN BED, SNORING SLIGHTLY, EYES CLOSED, RESPIRATIONS EVEN AND REGULAR, S/O STILL SLEEPING ON THE COUCH.
--- NOTE | 2017-11-13 01:38 | NUR ---
c/o 09/07 R HIP/UPPER THIGH AREA PAIN, MEDICATED WITH 2 NORCO. TURNS SELF IN BED, JUICE AND FRESH WATER GIVEN ON REQUESTS. NO C/O N.V, TELE#[address], ON ROOM AIR
--- NOTE | 2017-11-13 02:27 | NUR ---
PATIENT RESTING QUIETLY SUPINE ON HIS BED, NO S/S OF DISCOMFORT AT THIS TIME AND S/O STILL ASLEEP ON THE COUCH. MELINA'S TELE IS RUNNING A HR OF 66BPM, RESPIRATIONS ARE EVEN AND REGULAR. PATIENT HAS USED THE URINAL TO VOID.
--- NOTE | 2017-11-13 04:13 | NUR ---
PATIENT CONTINUES TO LAY QUIETLY IN BED AND REST WITH EYES CLOSED AND REGULAR AND EVEN RESPIRATIONS WITH NO S/S OF PAIN. S/O STILL SLEEPING ON COUCH AND PATIENT'S CALL LIGHT IN REACH.
--- NOTE | 2017-11-13 05:27 | NUR ---
PATIENT HAS APPEARED TO HAVE SLEPT WELL MOST OF THE NIGHT. S/O HAS SPENT THE NIGHT SLEEPING ON THE COUCH. PATIENT HAS BEEN USING THE URINAL, TAKING PO FLUIDS. STILL HAS TERRIBLE BRUISING OF HIS RT LEG. HAS NOT COMPLAINED OF PAIN REALLY THIS SHIFT EXCEPT FOR 1 NORCO AT 0130 AFTER USING THE URINAL HE DID HAVE SOME 7/10 RT LEG PAIN. LUNGS HAVE SOUNDED FAIRLY CLEAR. PATIENT ON AC/HS BLOOD SUGARS AND ONLY NEEDED A COUPLE UNITS OF INSULIN FOR THE EVENING.
--- NOTE | 2017-11-13 07:13 | NUR ---
SHIFT REPORT RECEIVED FROM LINE CONTROLLER RN AT BEDSIDE. PATIENT AWAKE IN BED, RESPIRATIONS EVEN AND UNLABORED. PATIENT RATES PAIN 0/10, DENIES FURTHER NEEDS AT THIS TIME. CALL LIGHT WITHIN REACH.
--- NOTE | 2017-11-13 09:00 | NUR ---
MORNING ASSESSMENT AND ROUTINE MEDICATIONS COMPLETE. PATIENT RATES PAIN 8/10, 2 NORCOS ADMINISTERED. PATIENT ON ROOM AIR, RESPIRATIONS EVEN AND UNLABORED. PATIENT DENIES FURTHER ASSISSTANCE AT THIS TIME. IN ROOM WITH PATIENT, CALL LIGHT WITHIN REACH.
--- NOTE | 2017-11-13 10:45 | NUR ---
PATIENT REQUESTING TO STAND AND STRETCH LEGS. PATIENT STOOD AT SIDE OF BED USING FWW, ONE PERSON ASSIST. PATIENT BEGAN COMPLAINING OF INCREASING DISCOMFORT AFTER A COUPLE MINUTES AND PIVOTED WITH FWW, ONE PERSON ASSIST BACK TO BE. PATIENT DENIED SOB OR CHEST PAIN. CALL LIGHT WITHIN REACH.
--- NOTE | 2017-11-13 11:30 | NUR ---
FAMILY IN ROOM WITH PATIENT. PATIENT RATES PAIN 4/10, DENIES FURTHER NEEDS AT THIS TIME. CALL LIGHT WITHIN REACH.
--- NOTE | 2017-11-13 12:00 | NUR ---
PATIENT'S OWN MEDICATION (NOVOLOG MIX) ARRIVED TO FLOOR. NOVOLOG SCHEDULED FOR [address] OLIVER REGARDING DOSAGE. 10 UNITS NOVOLOG MIX ADMINISTERED PER VERBAL ORDER BY . PATIENT WILL RESUME REGULAR DOSAGE OF 20 UNITS NOVOLOG STARTING THIS EVENING.
--- NOTE | 2017-11-13 12:17 | NUR ---
DID HIS BLOOD SUGAR CHECK FOR BREAKFAST AND LUNCH. PATIENT IS SITTING UP IN BED EATING HIS LUNCH.
--- NOTE | 2017-11-13 14:24 | NUR ---
PATIENT RESTING IN BED, WORKING ON PORTABLE LAPTOP. PATIENT DENIES SOB WELL CHEST PAIN. PATIENT REPORTS PAIN IS A "THREE OR FOUR" WHILE RESTING IN BED. PATIENT DENIES FURTHER NEEDS, CALL LIGHT WITHIN REACH.
--- NOTE | 2017-11-13 16:30 | NUR ---
DISCUSSED WITH PATIENT RATIONALE FOR NEED TO KEEP IV SITE. PATIENT WANTING IT TO BE REMOVED. AFTER DISCUSSING NEED TO KEEP IV SITE, PATIENT VERBALIZED UNDERSTANDING. PATIENT DENIES FURTHER NEEDS AT THIS TIME, CALL LIGHT WITHIN REACH.
--- NOTE | 2017-11-13 17:38 | NUR ---
DINNER TIME BLOOD GLUCOSE RESULT OF 153, ONE UNIT OF INSULIN LISPRO ADMINISTERED VIA SLIDING SCALE. CALL LIGHT WITHIN REACH.
--- NOTE | 2017-11-13 18:30 | NUR ---
PATIENT'S IV SITE FLUSHED WITH 10 MLS NORMAL SALINE. IV SITE PATENT AND WNL. CALL LIGHT WITHIN REACH.
--- NOTE | 2017-11-13 18:41 | NUR ---
PATIENT IS ALERT AND ORIENTED. ONE PERSON ASSIST WITH USE OF FWW. PATIENT IS ON ADA DIET, BLOOD SUGARS WERE SLIGHTLY ELEVATED, INSULIN PER SLIDING SCALE WELL SCHEDULED INSULIN ADMINISTERED. PO PAIN MEDS PRN. PATIENT ON ROOM AIR, USES CALL LIGHT APPROPERIATELY. PATIENT IS VOIDING QS. PATIENT IS SALINE LOCKED.
--- NOTE | 2017-11-13 20:30 | NUR ---
DESIGN ENG ROUNDING. PT RESTING IN BED. PT ASKS FOR ASSISTANCE WITH TV REMOTE, PROVIDED. PT DENIES OTHER NEEDS AT THIS TIME, CALL LIGHT IN PT'S HAND.
--- NOTE | 2017-11-13 21:35 | NUR ---
CALLED AND INFORMED PATIENT IS REFUSING TO TAKE ANYMORE SLIDING SCALAE INSULIN NOW THAT HE HAS HIS 70/30 PEN BID. VERBILZED UNDERSTANDING AND GAVE NO NEW ORDERS FOR THIS TIME.
--- NOTE | 2017-11-13 22:04 | NUR ---
PATIENT HAVING 7/10 LEG PAIN AT THIS TIME. 10/325MG NOCRO GIVEN X1. PATIENT IS NOW TRYING TO GET SOME REST.
--- NOTE | 2017-11-13 22:46 | NUR ---
PATIENT RESTING QUIETLY SUPINE WITH HEAD SLIGHTLY ELEVATED AND SNORING SLIGHTLY. EYES CLOSED, RESPIRATIONS EVEN AND UNLABORED, RESP RATE OF 16 AND TELE READING OF 50BPM. CALL LIGHT IN REACH.
--- NOTE | 2017-11-13 22:49 | NUR ---
V/S AND I&O DONE AND CHARTED. ICE WATER REFILLED. NO OTHER NEEDS AT THIS TIME.
--- NOTE | 2017-11-14 00:40 | NUR ---
PATIENT CONTINUES TO SNORE LIGHTLY LAY SUPINE IN BED WITH HEAD SLIGHTLY ELEVATED. EYES CLOSED, RESPIRATIONS REGULAR AND EVEN, RESP RATE OF 16 AND TELE HR OF 51. S/O SLEEPING ON THE COUCH. CALL LIGHT IS IN REACH.
--- NOTE | 2017-11-14 01:36 | NUR ---
PT UTILIZES CALL LIGHT, REPORTS PAIN 7/10 TO R UPPER LEG. PT REQUESTS PRN PAIN MEDICATION. PT REQUESTS PAJAMA BOTTOMS FROM HIS PERSONAL BELONGINGS. PT ASSISTED TO PUT THEM ON. PT DENIES OTHER NEEDS AT THIS TIME. CALL LIGHT WITHIN REACH.
--- NOTE | 2017-11-14 02:41 | NUR ---
PATIENT HAD NORCO PER CHARGE NURE AT 0135 AND PATIENT IS ONCE AGAIN SLEEPING QUIETLY, EYES CLOSED, RESPIRATIONS EVEN AND REGULAR, S/O STILL SLEEPING IN THE ROOM ON THE COUCH.
--- NOTE | 2017-11-14 05:00 | NUR ---
PATIENT WOKE UP AND WAS HAVING 8/10 LEG PAIN AGAIN AND WAS GIVEN ANOTHER NORCO, WHICH WAS VERY EFFECTIVE FOR HIM EARLIER IN THE SHIFT. PATIENT'S IV WAS FLUSHING FINE AND PATIENT SSAID HE SLEPT FAIRLY WELL. RIGHT LEG SWELLING AND BRUISING IS WAY DOWN FROM YESTERDAY. PATIENT SITTING UP READING A BOOK AT THIS TIME.
--- NOTE | 2017-11-14 08:11 | NUR ---
PATIENT IN BED, BREAKFAST ORDERED, BLOOD SUGAR TAKEN, BOARD UPDATED
--- NOTE | 2017-11-14 08:20 | NUR ---
PT SITTING UP EATING BREAKFAST. DENIES PAIN, NAUSEA OR OTHER CONCERNS. ALERT AND ORIENTED. IV FLUSHES WELL. CALL LIGHT WITHIN REACH.
--- NOTE | 2017-11-14 10:33 | NUR ---
PATIENT WAS OUT OF BED, I PUT HIM IN THE CHAIR, AND LET HIM KNOW TO USE HIS CALL LIGHT. I VHANGED HIS LINEN AND HE IS CURRENTLY WATCHING A TV SHOW IN HIS ROOM
--- NOTE | 2017-11-14 11:45 | NUR ---
PT SITTING UP IN RECLINER EATING LUNCH. DENIES NEEDS OR CONCERNS AT THIS TIME. CALL LIGHT WITHIN REACH.
--- NOTE | 2017-11-14 13:15 | NUR ---
PT REQUESTED TO GET BACK TO BED FROM RECLINER. REPORTING INCREASED PAIN AFTER PHYSICAL THERAPY. MEDICATED WITH HALF TAB OF NORCO PER DR. OLIVER AND PT PT REPORTS THAT THE NORCO HAS BEEN MAKING HIM FEEL "LOOPY". RATING PAIN 7/10, 1 PA TO BED. CALL LIGHT WITHIN REACH.
--- NOTE | 2017-11-14 17:05 | NUR ---
PT ASKING MULTIPLE QUESTIONS ABOUT MANAGING DIABETES AND DIET. PRINTED OUT EXTENSIVE EDUCATION FOR PATIENT AND ORDERED DIABETES CONSULT. PT SITTING IN BED VISITING WITH . REPORTS THAT HALF TAB NORCO WORKED WELL AND DENIES PAIN AT THIS TIME. CALL LIGHT WITHIN REACH.
--- NOTE | 2017-11-14 19:20 | NUR ---
BEDSIDE REPORT RECEIVED FROM OFFGOING RN. PT LYING IN BED WITH AT BEDSIDE. PT DENIES NEEDS AT THIS TIME. CALL LIGHT WITHIN REACH.
--- NOTE | 2017-11-14 20:46 | NUR ---
PATIENT CALLED TO USE THE BATHROOM. I PA USING WALKER. PATIENT C/O PAIN STATED BETWEEN 8 AND 9. RN DONTRELL NOTIFED. PATIENT IS BACK IN BED. IS IN THE ROOM.
--- NOTE | 2017-11-14 21:00 | NUR ---
PT UTILIZES CALL LIGHT, REQUESTS PAIN MEDCIATION. PT RATES PAIN 8/10 TO R THIGH. PRN NORCO, 1 TAB, ADMINISTERED. PT ASSESSMENT COMPLETE. PT'S REMAINS AT BEDSIDE, PLANS TO STAY THE NIGHT. ATTEMPT TO ADMINISTER SCHEDULED INSULIN, PT REFUSES DOSE, ONLY AGREES TO 15 UNITS. MD NOTIFIED. PT DENIES FURTHER NEEDS AT THIS TIME. CALL LIGHT WITHIN REACH.
--- NOTE | 2017-11-15 00:13 | NUR ---
PT RESTING IN BED WITH EYES CLOSED. RESPIRATIONS EVEN AND UNLABORED. PT DOES NOT WAKE WHEN JEWELRY TECHNICIAN OPENS DOOR, STANDS IN DOORWAY. PT APPEARS TO BE SLEEPING. PT'S SLEEPING ON COUCH. CALL LIGHT WITHIN PT REACH.
--- NOTE | 2017-11-15 02:05 | NUR ---
PT RESTING IN BED WITH EYES CLOSED. RESPIRATIONS ARE EVEN, UNLABORED, WITH NO S/SX OF DISTRESS NOTED. PT DOES NOT WAKE WHILE WRTIER OBSERVING FROM DOORWAY. PT'S SLEEPING ON COUCH IN ROOM. CALL LIGHT WITHIN REACH.
--- NOTE | 2017-11-15 04:01 | NUR ---
pt resting in bed with eyes closed. pt does not wake while resume writer opens door and stands in doorway. pt appears to be sleeping. pt's sleeping on couch. call light within reach.
--- NOTE | 2017-11-15 07:30 | NUR ---
PATIETN UP TO CHAIR FOR BREAKFAST. HANDS AND FACE WASHED. LINEN CHANGE DONE. IN ROOM. CALL BUTTON IN REACH. NO OTHER NEEDS AT THIS TIME.
--- NOTE | 2017-11-15 08:13 | NUR ---
BEDSIDE REPORT RECEIVED FROM DONTRELL JANE. PATIENT AWAKE LYING IN BED. AT BEDSIDE. WHITE BOARD UPDATED. ALL QUESTIONS ANSWERED. FSBS 128. NO SS INSULIN COVERAGE NEEDED. PT DID GIVE SELF 20 UNITS OF INSULIN WITH NOVOLOG PEN. JESSIKA JANE VERIFIED WITH THIS RN. PATIENT UP TO CHAIR FOR BREAKFAST. PAIN INCREASED. NORCO X1 GIVEN. OTHER MEDS PROVIDED TO PATIENT WELL. PATIENT BACK TO BED TO RELAX RIGHT LEG. CALL LIGHT WITHIN REACH. NO NEEDS AT THIS TIME. DENIES NEED FOR WARM PACK.
--- NOTE | 2017-11-15 09:00 | NUR ---
PATIENT RESTING IN BED WITH EYES CLOSED. DIAPER, SKIN, AND ORAL CARE DONE. HANDS AND FACE WASHED.
--- NOTE | 2017-11-15 09:15 | NUR ---
PATIENT VISITING WITH DIETITIAN. LEFT DAILY NEWSPAPERS IN ROOM FOR HIM TO READ.
--- NOTE | 2017-11-15 10:50 | NUR ---
PATIENT HAS QUESTIONS ABOUT FOOD AND BLOOD SUGARS. HE HAS BEEN TAKING 70/30 INSULIN TWICE A DAY FOR ABOUT 1 YEAR. HE HAS NEVER HAD ANY GUIDANCE ON FOOD INTAKE AND DIABETES. HIS DOES THE COOKING AT HOME. SHE MAKES A LOT OF TUNA WITH NOODLES. HE DRINKS A LOT OF MILK - SAYS HE COULD DRINK A GALLON A DAY. HE IS ACTIVE AT HOME DOING STUFF ALL DAY LONG. HE WISHES HE DIDN'T HAVE TO TAKE INSULIN TWICE A DAY. HE WISHES HIS BLOOD SUGARS WERE A LITTLE LOWER - THEY RUN ABOUT 200 AND HE CHECKS ONCE EVERY COUPLE OF DAYS OR WHEN HE THINKS HE IS RUNNING A HIGH BLOOD SUGAR. WE TALKED ABOUT TOTAL CARBOHYDRATES AND I GAVE HIM THE EXAMPLE OF 30 GRAMS OF CARBS PER MEAL AND WHAT THAT WOULD LOOK LIKE. WE TALKED ABOUT FRUIT, PANCAKES, BREAD, PASTA, AND RICE PORTIONS. ONE OF THE HANDOUTS NURSING GAVE HAD A SMALL PICTURE OF THE PLATE. I EXPLAINED THAT 1/4 OF THE PLATE SHOULD BE THE STARCH, 1/4 SHOULD BE PROTEIN, AND HALF SHOULD BE PRIMARILY NON-STARCHY VEGGIES MAYBE A SMALL AMOUNT OF FRUIT. BUT I EMPHASIZED TOTAL CARBOHYDRATE FOR THE MEAL WHETHER IT INCLUDES BREAD OR BANANA OR A PEAR. THINGS MADE MORE SENSE TO HIM AFTER WE TALKED. HIS WAS NOT HERE AT THIS TIME. WILL CONTINUE TO BE AVAILABLE FOR MORE NUTRITION/DIET QUESTIONS TO HELP HIM OUT IF NEEDED.
--- NOTE | 2017-11-15 13:11 | NUR ---
MELINA SITTING UP IN BED ON COMPUTER. CALL LIGHT IN REACH. NO FURTHER NEEDS AT THIS TIME.
--- NOTE | 2017-11-15 13:55 | NUR ---
ROUNDED ON PATIENT TO ASSESS PAIN LEVEL, STATES PAIN IS A "0/10" WHEN LAYING DOWN, WITH MOVEMENT PAIN INCREASES TO A "7/10". PATIENT RESTING COMFORTABLY IN BED USING LAPTOP. HARP REGULATOR WAS JUST IN THE ROOM VISITNG WITH PATIENT. CALL LIGHT WITHIN REACH. POSSESSIONS AT BEDSIDE. NO MORE COMPLAINTS AT THIS TIME. PLAN TO TAKE SHOWER IN THE NEXT HOUR.
--- NOTE | 2017-11-15 14:15 | NUR ---
PT SITTING UP IN BED, ALERT AND ORIENTED. HAD PLEASANT CONVERSATION-PT LAMENTING THE FACT THAT HE HAS HAD A FAIRLY ACTIVE LIFESTYLE AND LIVES [facility]. SINCE INJURY AND SUBSEQUENT PE'S, HE HAS BEEN CONFINED BASICALLY TO BED AND THAT IS VERY DIFFICULT ON HIM. EXTENDED A BLESSING, PT INVITED ME BACK. WILL FOLLOW NEEDED
--- NOTE | 2017-11-15 16:56 | NUR ---
ROUNDED ON PATIENT FOR MEDICATION ADMINISTRATION. AVA PROVIDED FOR PAIN MANAGEMENT. FAMILY AT BEDSIDE. PATIENT PLANS TO TAKE SHOWER A LITTLE AFTER DINNER. NO MORE COMPLAINTS AT THIS TIME. POSSESSIONS AT BEDSIDE.
--- NOTE | 2017-11-15 17:33 | NUR ---
PATIENT IN BED. CALL LIGHT IN REACH. NO FUTHER NEEDS AT THIS TIME.
--- NOTE | 2017-11-15 18:42 | NUR ---
SWING BED. PRN TYRELL EVERY 4 HOURS FOR PAIN, REPORTED 8/10 PAIN WITH MOVEMENT TODAY. WORKED WITH PT TODAY, ENCOURAGE PHYSICAL THERAPY EVEN THOUGH ITS DIFFCULT, REINENFORCE ITS IMPORTANCE WITH PATIENT. TELE 1. SALINE LOCKED. KINESIO TAPE ON RIGHT THIGH. IV DUE TO BE CHANGED TOMORROW. BED ALARM AT NIGHT.
--- NOTE | 2017-11-15 19:06 | NUR ---
PATIENT RETURNED SAFELY BACK TO BED WITH ASSISTANCE OF 2 RNs AND FWW. TELE MONTIOR REATTACHED. CALL LIGHT WITHIN REACH. POSSESSIONS AT BEDSIDE. NO MORE COMPLAINTS AT THIS TIME.
--- NOTE | 2017-11-15 19:40 | NUR ---
IN ROOM FOR REPORT, PT IS AWAKE IN BED AND DENIES NEEDS AT THIS TIME. CALL LIGHT IS WITHIN REACH.
--- NOTE | 2017-11-15 21:55 | NUR ---
ROUNDED CHARGE. PATIENT IS RESTING IN BED. RN IN THE ROOM. PATIENT DENIES ANY COMMENTS, QUESTIONS, OR CONCERNS. NO NEEDS NOTED. CALL LIGHT IN REACH.
--- NOTE | 2017-11-15 22:10 | NUR ---
IN ROOM TO ADMINISTER MEDICATIONS AND ASSESS PT. HE REPORTS HIS RT LEG PAIN IS DECREASING AND ASKED ABOUT DECREASING HIS NORCO STRENGTH FURTHER. ADVISED PT THAT WE COULD ASK THE DR FOR AN ORDER CHANGE TOMORROW. PT REPORTS NO DIZZINESS AND STATES HE IS STEADY ON HIS FEET. 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 ANTERIOR THIGH REMAINS PURPLE IN COLOR AND EXTENDS DOWN TO CALF. PT DENIES FURTHER NEEDS AT THIS TIME. CALL LIGHT IS WITHIN REACH.
--- NOTE | 2017-11-16 00:24 | NUR ---
PT IS RESTING WITH EYES CLOSED, RESPIRATIONS ARE EVEN AND NONLABORED. CALL LIGHT IS WITHIN REACH.
--- NOTE | 2017-11-16 02:31 | NUR ---
PT IS RESTING WITH EYES CLOSED, RESPIRATIONS ARE EVEN AND NONLABORED. CALL LIGHT IS WITHIN REACH.
--- NOTE | 2017-11-16 04:51 | NUR ---
PT IS RESTING WITH EYES CLOSED, RESPIRATIONS ARE EVEN AND NONLABORED. CALL LIGHT IS WITHIN REACH.
--- NOTE | 2017-11-16 06:52 | NUR ---
PT REPORTS PAIN AT 7/10, NORCO ADMINISTERED.
--- NOTE | 2017-11-16 07:06 | NUR ---
RECIEVED CHANGE OF SHIFT REPORT FROM JUANY JANE. PATIENT RESTING COMFORTABLY IN BED. WHITE BOARD UPDATED. CALL LIGHT WITHIN REACH. NO COMPLAINTS AT THIS TIME. PLAN OF CARE DISCUSSED.
--- NOTE | 2017-11-16 09:18 | NUR ---
ROUNDED ON PATIENT FOR MEDICATION ADMINSTRATION AND MORNING ASSESSMENT, PATIENT RESTING COMFORTABLY IN BED. PATIENT HAD QUESTIONS ABOUT BLOOD SUGAR CHECKS, EDUCATION PROVIDED, EXPRESSED UNDERSTANDING. PLAN TO RECIEVE PAIN MEDICATION AROUND 1030 BEFORE PHYSICAL THERAPY WORKS WITH PATIENT FOR PAIN MANAGEMENT. OCCUPATIONAL THERAPY IN ROOM WITH PATIENT AT THIS TIME. CALL LIGHT WITHIN REACH. POSSESSIONS AT BEDSIDE. WILL CONTINUE TO MONITOR. IV D/Cd AND TELE REMOVED PER NEW ORDER.
--- NOTE | 2017-11-16 12:05 | NUR ---
ROUNDED ON PATIENT FOR LUNCH ACCU CHECKS, B, NO INSULIN COVERAGE NEEDED. PATIENT WORKED WITH PHYSICAL THERAPY THIS MORNING, TOLERATED WELL, STATED PAIN INCREASED TO "8/10". PATIENT RESTING COMFORTABLY IN BED. WALKER MOVED CLOSER TO BED PER PATIENT REQUEST, EDUCATION PROVIDED BY GABBY JANE TO CALL NURSING STAFF IF THEY NEED TO GET OUT OF BED, PATIENT EXPRESSED UNDERSTANDING. CALL LIGHT WITHIN REACH. POSSESSIONS AT BEDSIDE.
--- NOTE | 2017-11-16 14:11 | NUR ---
PT SITTING IN CHAIR, JUST FINISHING LUNCH. HE IS ALERT, AWAKE AND RATHER EXCITED THAT HE WAS ABLE TO DO P.T. TODAY. PAIN MEDS TAKEN BEFORE ENABLED HIM AND HE SAID HE LEARNED HOW BETTER TO USE THEM. PT WALKED 300 FT-HE FELT IT WAS A GOOD START. HAD GOOD VISIT, EXTENDED A BLESSING-WILL FOLLOW NEEDED
--- NOTE | 2017-11-16 16:45 | NUR ---
PT REPORTED TO SAE JANE THAT HE WAS EXPERIENCING ON AND OFF CHEST PAIN WITH SHORTNESS OF BREATH EPISODES. REPEATED THIS SAME INFORMATION TO THIS RN. OTHER SYMPTOMS HAVE INCLUDED AN ACID REFLUX FEELING. HOSPITALIST CALLED AND NOTIFIED OF THIS REPORT. NEW ORDERS RECEIVED FOR NITROQUICK SL, PROTONIX, AND AN EKG.
--- NOTE | 2017-11-16 17:19 | NUR ---
PATIENT DENIED ANGINA FOR THE PAST TWO HOURS, EDUCATED BY NURSING STAFF TO REPORT ANY NEW ONSET SYMPTOMS RELATING TO ANGINA. PRN NITRO AVALIABLE. WILL CONTINUE TO MONITOR PATIENT FOR CHEST PAIN AND DISCOMFORT. PATIENT ALSO DENIES WANTING PAIN MEDICATION AT THIS TIME.
--- NOTE | 2017-11-16 18:10 | NUR ---
ROUNDED ON PATIENT FOR MEDICATION ADMINSTRATION, 3 UNITS OF INSULIN COVERAGE NEEDED FOR B. NO COMPLAINTS OF CHEST PAIN OR DISCOMFORT. FAMILY AT BEDSIDE. NO COMPLAINTS OF PAIN, DENIES WANTING NORCO AT THIS TIME. CALL LIGHT WITHIN REACH. NO MORE NEEDS AT THIS TIME.
--- NOTE | 2017-11-16 18:27 | NUR ---
SWING BED. ACCU CHECK WITH MEALS WITH S/S. REGULAR DIET. SBA WITH FWW. PATIENT WORKED WITH PT/OT TODAY. PRN NORCO AVALIABLE FOR PAIN, LAST DOSE ADMINISTERED AT 1040. TELE AND IV D/C'd TODAY. PATIENT COMPLAINED OF HAVING A FEW EPISODES OF SOME CHEST DISCOMFORT AND TIGHTNESS WITH AFTERNOON, EKG PERFORMED TO RULE OUT HEART RHYTHM CHANGES, PRN NITRO FOR CHEST PAIN AVALIABLE, PROTONIX GIVEN FOR STOMACH ACID.
--- NOTE | 2017-11-16 19:03 | NUR ---
IN ROOM FOR REPORT, PT STATES HE HAS AN UPSET STOMACH. DAY SHIFT RN ENETERED AN NIO ORDER FOR SL ZOFRAN. WILL RETURN WHEN PHARMACY HAS PROCESSED IT AND ADMINISTER. PT DENIES SOB AND CHEST PAIN AT THIS TIME. CALL LIGHT IS WITHIN REACH.
--- NOTE | 2017-11-16 20:16 | NUR ---
IN ROOM TO ASSESS PT AND ADMINISTER MEDICATIONS. PT'S VS ARE WNL AND HE HAS NO COMPLAINTS OF CHEST PAIN OR LEG PAIN AT THIS TIME. WHEN ASKED ABOUT HIS LEG PAIN HE DID NOT ANSWER HE HAS NAUSEA RIGHT NOW. FLACC HIM AT 3/10. PT WOULD LIKE TO REST AND NOT TALK AT THIS TIME. WILL CHECK ON HIM LATER. CALL LIGHT IS WITHIN REACH.
--- NOTE | 2017-11-16 23:02 | NUR ---
PT IS RESTING WITH EYES CLOSED, RESPIRATIONS ARE EVEN AND NONLABORED. CALL LIGHT IS WITHIN REACH.
--- NOTE | 2017-11-17 00:13 | NUR ---
PT IS RESTING WITH EYES CLOSED, RESPIRATIONS ARE EVEN AND NONLABORED ON 2LNC. CALL LIGHT IS WITHIN REACH.
--- NOTE | 2017-11-17 02:15 | NUR ---
PT IS RESTING WITH EYES CLOSED, RESPIRATIONS ARE EVEN AND NONLABORED. CALL LIGHT IS WITHIN REACH.
--- NOTE | 2017-11-17 03:06 | NUR ---
PT WOKE IN 8/10 PAIN IN HIS LEG. NORCO GIVEN FOR PAIN, ALSO OFFERED BISACODYL BUT HE DECIDED TO WAIT ON THAT. CRACKERS AND MILK GIVEN WITH MEDS. PT DENIES NAUSEA AND DENIES FURTHER NEEDS AT THIS TIME. CALL LIGHT IS WITHIN REACH.
--- NOTE | 2017-11-17 04:01 | NUR ---
ADMINISTERED SENNA, PT DENIES FURTHER NEEDS AT THIS TIME. CALL LIGHT IS WITHIN REACH.
--- NOTE | 2017-11-17 05:07 | NUR ---
PT STARTED THE EVENING WITH NAUSEA, ZOFRAN WAS ADMINISTERED. PT DENIED NEED FOR PAIN MEDICINE BEFORE BED. HE AWOKE ABOUT 0250 WITH 8/10 PAIN IN RT LEG. NORCO WAS ADMINISTERED AND PT HAD A SNACK. HE IS A SBA WITH FWW, ON A REGULAR DIET WITH ACHS ACCUCHECKS. HE REQUIRED 2LNC PARTWAY THROUGH THE NIGHT WHILE SLEEPING.
--- NOTE | 2017-11-17 08:50 | NUR ---
PT SITTING UP IN CHAIR, JUST FINISHED BREAKFAST, IS PLEASANT, CALM AND COOPERATIVE WITH A C/O PAIN OF 5 OUT OF 10 N HIS RLE. MEDICATIONS, INCLUDING PRN NORCO, GIVEN AND ASSESSMENT COMPLETED. PT IS A/O X4. ROOM AIR. NO PIV SINCE SWING BED STATUS. PT HAS SOME RLE WEAKNESS FROM HEMATOMA AND PAIN BUT OTHERWISE IS STEADY ON FEET WITH WALKER; STAND BY ASSISTANCE. LAST BM THE BUT PRN SENAKOT GIVEN PER PT REQUEST AND HE REFUSED MIRALAX, STATING THAT IT "DOESN'T GO DOWN WELL" FOR HIM. PT HAS NO CURRENT QUESTIONS OR CONCERNS. CALL LIGHT WITHIN REACH. FALL PRECAUTIONS IN PLACE. WILL CONTINUE TO MONITOR.
--- NOTE | 2017-11-17 10:19 | NUR ---
PT IS UP IN CHAIR RESTING AT THIS TIME WITH NO CURRENT QUESTIONS OR CONCERNS. PT STATES THAT HIS PAIN HAS IMPROVED SINCE GETTING HIS NORCO ABOUT AN HOUR AGO; STATES THAT HIS PAIN IS A 4 OUT OF 10, THAT THIS IS TOLERABLE AND COMFORTABLE AT THIS TIME. CALL LIGHT WITHIN REACH. WILL CONTINUE TO MONITOR.
--- NOTE | 2017-11-17 12:04 | NUR ---
PT UP IN CHAIR WITH NO C/O PAIN AND NO QUESTIONS OR CONCERNS. CBC WAS DRAWN BY FELLOW RN ORDERED. INSULIN GIVEN FOR FSBS OF 155. CALL LIGHT WITHIN REACH. WILL CONTINUE TO MONITOR.
[2017-11-17] MEDS ORDERED: SENNA-TIME S T1 EACH PO (13:50)
[2017-11-17] MEDS ORDERED: HYDROCODON-ACE1 EAC8 PO (13:50)
[2017-11-17] MEDS ORDERED: MIRALAX17 GM PO (13:51)
--- NOTE | 2017-11-17 14:22 | NUR ---
PT UP IN CHAIR WITH FAMILY MEMBER READY TO DC BUT AWAITING EDUCATION BY PHARMACIST. PT STATING HIS RLE PAIN IS A 5 OUT OF 10; PRN MEDICATION GIVEN. NO QUESTIONS OR CONCERNS AT THIS TIME. WILL BE READY TO DC SHORTLY. CALL LIGHT WITHIN REACH. WILL CONTINUE TO MONITOR.
--- NOTE | 2017-11-18 21:02 | EKG ---
[facility] [address] [facility] [place], [place] [address] Signed Sinus bradycardia with sinus arrhythmia Otherwise normal ECG When compared with ECG of 12-NOV-2017 03:44, No significant change was found Confirmed by JOSE REGALADO DO ([id number]) on 11/18/2017 9:01:58 PM Electronically Signed By: JOSE REGALADO DO 11/18/172101 PATIENT NAME: NORMAN HERNANDEZ Electrocardiogram DATE OF : 39 PHYSICIAN: JOSE REGALADO DO REPORT #: [id number] REPORT IS CONFIDENTIAL AND NOT TO BE RELEASED WITHOUT AUTHORIZATION
== END 2017-11-17 15:10 | disposition home or self-care (01) | DRG 948 ==
LOC: ED 03:33 → MS 10:52
PROVIDERS: ADMIT Internal Medicine
DX: R53.81 Other malaise (principal); M62.82 Rhabdomyolysis; S80.11XA Contusion of right lower leg, initial encounter; S86.191A Other injury of other muscle(s) and tendon(s) of posterior muscle group at lower leg level, right leg, initial encounter; I10 Essential (primary) hypertension; E11.9 Type 2 diabetes mellitus without complications; Z79.84 Long term (current) use of oral hypoglycemic drugs; Z86.711 Personal history of pulmonary embolism; E78.5 Hyperlipidemia, unspecified; G25.81 Restless legs syndrome
CPT/HCPCS: 36415; 71045; 80053; 82550; 83735; 83880; 84484; 85025; 93005; 93010; 96374; 96375; 97110; 97116; 97161; 97166; 97530; 97535; 99285; J1170; J1815; J2405

== ENCOUNTER 2020-02-16 14:43 | Emergency (ER) | payer BC, MEDICARE ==
[~2020-02-16] VITALS: Ht 172.7 cm; Wt 103.0 kg
--- OUTSIDE RECORDS SUMMARY | ~2020-02-16 | XMS | Encounter Summary ---
Demographics + + + | Address | [id number] [place] [address] RD | | | [place] [address] | + + + | Home Phone | | + + + | Preferred Language | Unknown | + + + | Marital Status | | + + + | Islam Affiliation | Unknown | + + + | Race | White | + + + | Ethnic Group | Not or | + + + Author + + + | Author | [facility] | | | and [place] | + + + | Organization | [facility] | | | and [place] | + + + | Address | Unknown | + + + | Phone | Unavailable | + + + Support + + + + + | Name | Relationship | Address | Phone | + + + + + | Keven Walls | ECON | NA | | | | | [place] | | + + + + + | Iris Walls | ECON | [place] [id number] | | + + + + + | Keven Walls | ECON | Unknown | | + + + + + Care Team Providers + +------+ + | Care Toy Mechanic Name | Role | Phone | + +------+ + | Paolo Solares MD | PCP | | + +------+ + Reason for Visit + + + | Reason | Comments | + + + | Chest Pain | | + + + Encounter Details +--------+ + + + + | Date | Type | Department | Care Team | Description | +--------+ + + + + | 07/22/ | Emergency | [facility] | Jacy, | Atypical chest pain | | 2018 | | [facility] | Higinio Blackmon MD [address] | (Primary Dx); Near | | | | CENTER [address] | [address] | syncope | | | | [place], [place] | [place] [address] | | | | | [address] | [phone] | | | | | [phone] | | | +--------+ + + + + Social History + +-------+ +--------+------+ | Tobacco Use | Types | Packs/Day | Years | Date | | | | | Used | | + +-------+ +--------+------+ | Never Smoker | | | | | + +-------+ +--------+------+ + +---+---+---+ | Smokeless Tobacco: | | | | | Never Used | | | | + +---+---+---+ + + +---------+ + | Alcohol Use | Drinks/Week | oz/Week | Comments | + + +---------+ + | No | | | | + + +---------+ + + + + | Sex Assigned at | Date Recorded | | | | + + + | Not on file | | + + + documented as of this encounter Last Filed Vital Signs + + + + + | Vital Sign | Reading | Time Taken | Comments | + + + + + | Blood Pressure | 154/65 | 07/22/2017 1:01 PM | | | | | PDT | | + + + + + | Pulse | 44 | 07/22/2017 1:01 PM | | | | | PDT | | + + + + + | Temperature | 36.1 C (97 F) | 07/22/2017 12:11 PM | | | | | PDT | | + + + + + | Respiratory Rate | 10 | 07/22/2017 1:01 PM | | | | | PDT | | + + + + + | Oxygen Saturation | 95% | 07/22/2017 1:01 PM | | | | | PDT | | + + + + + | Inhaled Oxygen | - | - | | | Concentration | | | | + + + + + | Weight | 101 kg (222 lb 10.6 | 07/22/2017 12:11 PM | | | | oz) | PDT | | + + + + + | Height | - | - | | + + + + + | Body Mass Index | - | - | | + + + + + documented in this encounter Discharge Instructions Instructions Higinio Louie MD - 07/22/2017Continue your same medications If you have worsening symptoms, return to the ER. Otherwise follow up with Dr. Solares documented in this encounter Medications at Time of Discharge + + + +---------+--------+ + | Medication | Sig | Dispensed | Refills | Start | End Date | | | | | | Date | | + + + +---------+--------+ + | clopidogrel | Take 300 mg by mouth | | 0 | | | | (PLAVIX) 300 mg TABS | Daily. | | | | | + + + +---------+--------+ + | metFORMIN | Take 1,000 mg by | | 0 | | | | (GLUCOPHAGE) 1000 MG | mouth 2 times daily | | | | | | tablet | (with breakfast & | | | | | | | dinner). | | | | | + + + +---------+--------+ + documented as of this encounter ED Notes Christos John RN - 07/22/2017 1:42 PM PDTPt ambulated in boothe with steady gait. Denies di zziness or chest pain. Higinio connor MD - 07/22/2017 12:26 PM PDT [facility] Mikie Walls Emergency Department Encounter Note [address] [place] [id number] PCP:Paolo Solares MD [phone] DIAGNOSIS: 1. Atypical chest pain 2. Near syncope CHIEF COMPLAINT: Chief Complaint Patient presents with Chest Pain Mode of Arrival: walk-in ED Room: ED06 [facility] Mikie Walls is a 81 y.o. male who presents to the Emergency Department for evaluation. Yesterday the patient was working on his house. He had a large board that he had been holdi ng up and was trying to set when he became somewhat dizzy and lightheaded. He states he's b een having some intermittent chest pains for about a week along with some intermittent dyspn ea which sometimes will occur at rest. No pleuritic pain. Currently feels a little fatigue d but has no chest discomfort or dyspnea. No recent fevers or chills. No coughing. No abd ominal pain, nausea, or vomiting. PAST MEDICAL & SURGICAL HISTORY There are no active problems to display for this patient. History reviewed. No pertinent surgical history. CURRENT MEDICATIONS Discharge Medication List as of 07/22/2017 13:39 CONTINUE these medications which have NOT CHANGED Details clopidogrel (PLAVIX) 300 mg TABS Take 300 mg by mouth Daily.Historical Med metFORMIN (GLUCOPHAGE) 1000 MG tablet Take 1,000 mg by mouth 2 times daily (with breakfast & dinner).Historical Med ALLERGIES No Known Allergies FAMILY AND SOCIAL HISTORY History reviewed. No pertinent family history. Social History Social History Marital status: Spouse name: N/A Number of children: N/A Years of education: N/A Social History Main Topics Smoking status: Never Smoker Smokeless tobacco: Never Used Alcohol use No Drug use: No Sexual activity: Not Asked Other Topics Concern None Social History Narrative None REVIEW OF SYSTEMS As in history of present illness. A 10 system review was otherwise negative. PHYSICAL EXAM VITAL SIGNS: (first vital signs):Temp: 36.1 C (97 F) Pulse: 53 Resp: 18 SpO2: 100 % BP: 153/81 There is no height or weight on file to calculate BMI. Constitutional: Well-appearing male patient. HEENT: Atraumatic, PERRL, Oropharynx benign. Neck: Supple with full range of motion. No JVD and no lymphadenopathy Chest: Good air movement bilaterally. No wheezes, No, rales. Cardiovascular: Normal S1 S2 Abdomen: Soft, nontender. and no rebound, guarding, or masses. Back: Within normal limits Extremities: Nontender. Trace lower extremity edema, no calf asymmetry. Present distal pu lses. Skin: Warm, Dry, No rashes Neurologic: Alert & oriented. Cranial nerves II-XII intact , Gait and speech are normal Psychiatric: Normal mood, affect and judgement. EKG 12-lead EKG shows sinus bradycardia at a rate of 52. No ST elevations or depressions. No evidence of ischemic change LABS Results for orders placed or performed during the hospital encounter of 07/22/17 Extra Lavender Top Tube Result Value Ref Range Extra Lavender Top Tube Done Extra Blue Top Tube Result Value Ref Range Extra Blue Top Tube Done CBC with Differential Result Value Ref Range WBC 8.0 4.0 - 11.0 K/uL RBC 5.06 4.30 - 5.70 M/uL Hgb 14.8 13.5 - 18.0 g/dL Hct 42.8 40.0 - 51.0 % MCV 84.5 83.0 - 101.0 fL MCH 29.3 28.0 - 35.0 pg MCHC 34.7 32.0 - 36.0 g/dL RDW-CV 14.6 <15.0 % Platelet Count 188 140 - 440 K/uL MPV 10.0 fL % Neutrophils 59.9 45.0 - 82.0 % % Lymphocytes 30.3 20.0 - 45.0 % % Monocytes 7.2 4.0 - 12.0 % % Eosinophils 1.8 0.0 - 5.0 % % Basophils 0.8 0.0 - 1.0 % Absolute Neutrophils 4.80 1.80 - 8.50 K/uL Absolute Lymphocytes 2.40 0.60 - 3.20 K/uL Absolute Monocytes 0.60 0.00 - 1.00 K/uL Absolute Eosinophils 0.10 0.00 - 0.40 K/uL Absolute Basophils 0.10 0.00 - 0.10 K/uL Comprehensive Metabolic Panel Result Value Ref Range NA 140 136 - 149 mmol/L K 4.3 3.5 - 5.1 mmol/L CL 106 98 - 109 mmol/L CO2 24 24 - 31 mmol/L ANION GAP 10 3 - 16 mmol/L GLUCOSE 162 (H) 70 - 109 mg/dL BUN 20 (H) 7 - 18 mg/dL Creatinine, Serum/Plasma 1.08 0.60 - 1.30 mg/dL eGFR if not >60 >=60 mL/min/1.73m2 CALCIUM 8.9 8.3 - 10.5 mg/dL ALBUMIN 3.8 3.2 - 5.0 g/dL Bilirubin Total 1.1 0.1 - 1.5 mg/dL Total protein 6.7 6.0 - 7.8 g/dL AST 20 10 - 42 U/L ALT 19 6 - 45 U/L ALK PHOS 66 40 - 110 U/L GLOBULIN 2.9 2.1 - 3.8 g/dL Albumin/Globulin ratio 1.3 0.8 - 2.0 BUN/CREA 18.5 Troponin I Result Value Ref Range Troponin I <0.01 <0.06 ng/mL ECG 12 lead Result Value Ref Range INTERPRETATION TEXT Not Confirmed IMAGING STUDIES (X-Rays interpreted by ED Physician) Chest x-ray shows no cardiomegaly, infiltrates, or effusions. ED COURSE & MEDICAL DECISION MAKING Pertinent Labs & Imaging studies were reviewed along with EMS notes and snf record s if applicable. (See chart for details) Medications and Allergy list reviewed. Nurses note and old records were reviewed The patient was seen and examined, given his symptoms IV was started, labs are sent, EKG an d chest x-ray obtained. His EKG showed bradycardia but was otherwise reassuring. Chest x-r ay clear. Laboratory studies unremarkable including a negative troponin. The patient state s he consistently has bradycardia with heart rates around 50 beats per minute. That is not abnormal. He may been a little bit dehydrated as he felt better after some fluids here. Hi s cardiac workup is otherwise reassuring. He was able to ambulate around the department wit hout difficulty. He was discharged ambulatory with recommendation for close primary care fo llow-up. Follow up information and return precautions were discussed in detail at the bedside prior to discharge and all questions were answered. Last Set of Vital Signs: Temp: 36.1 C (97 F) Pulse: (!) 44 Resp: 10 SpO2: 95 % BP: 154/ 65 FINAL IMPRESSION ICD-10-CM ICD-9-CM 1. Atypical chest pain R07.89 786.59 2. Near syncope R55 780.2 Follow-up Information Schedule an appointment as soon as possible for a visit with Paolo Solares MD. Specialty: Family Medicine Contact information: [address] [facility] [address] Discharge Medication List as of 07/22/2017 13:39 Administrations This Visit sodium chloride 0.9% (NS) bolus 500 mL Admin Date 07/22/2017 Action New Bag Dose 500 mL Rate 500 mL/hr Route Intravenous Administered By Christos John RN Portions of this chart were created with Awesome[employer] voice recognition software. Inadvertent so und alike substitutions may be present and are unintentional Higinio Louie MD 07/22/17 [id number] inig, Clari Wadsworth N - 07/22/2017 12:09 PM PDTPt stated had episode of chest pain yesterday and today was bendi ng over to brass pickler a piece of wood he fell over due to possible dizziness and chest pain. P t states is on blood thinner but does not know the name. documented in this encou nter Plan of Treatment Not on filedocumented as of this encounter Procedures + +--------+ + + + | Procedure Name | Priori | Date/Time | Associated Diagnosis | Comments | | | ty | | | | + +--------+ + + + | XR CHEST AP PORTABLE | STAT | 07/22/2017 | | Results for this | | | | 12:54 PM | | procedure are in the | | | | PDT | | results section. | + +--------+ + + + | TROPONIN I | STAT | 07/22/2017 | | Results for this | | | | 12:20 PM | | procedure are in the | | | | PDT | | results section. | + +--------+ + + + | CBC WITH | STAT | 07/22/2017 | | Results for this | | DIFFERENTIAL | | 12:20 PM | | procedure are in the | | | | PDT | | results section. | + +--------+ + + + | COMPREHENSIVE | STAT | 07/22/2017 | | Results for this | | METABOLIC PANEL | | 12:20 PM | | procedure are in the | | | | PDT | | results section. | + +--------+ + + + | EXTRA LAVENDER TOP | Routin | 07/22/2017 | | Results for this | | TUBE | e | 12:18 PM | | procedure are in the | | | | PDT | | results section. | + +--------+ + + + | EXTRA BLUE TOP TUBE | Routin | 07/22/2017 | | Results for this | | | e | 12:18 PM | | procedure are in the | | | | PDT | | results section. | + +--------+ + + + | ECG 12 LEAD | STAT | 07/22/2017 | | Results for this | | | | 12:05 PM | | procedure are in the | | | | PDT | | results section. | + +--------+ + + + documented in this encounter Results XR Chest AP Portable (07/22/2017 12:54 PM PDT) + + | Specimen | + + | | + + + + + | Narrative | Performed At | + + + | CLINICAL INFORMATION: Dyspnea. COMPARISON: None available. | [facility] | | FINDINGS: Portable frontal chest radiograph Lungs: No focal | | | airspace disease, pleural effusion, or pneumothorax. | | | Heart/mediastinum: Cardiac silhouette is of normal size. Central | | | pulmonary vasculature has a normal appearance. Bones: No acute | | | osseous abnormality appreciated. IMPRESSION - No acute disease. | | | Dictated and Signed by: Armond Branham MD Electronically | | | signed: 07/22/2017 1:24 PM | | + + + + + | Procedure Note | + + | Gallo, Rad Results In - 07/22/2017 1:27 PM PDT | | CLINICAL INFORMATION: Dyspnea. | | | | COMPARISON: None available. | | | | FINDINGS: | | Portable frontal chest radiograph | | | | Lungs: No focal airspace disease, pleural effusion, or pneumothorax. | | | | Heart/mediastinum: Cardiac silhouette is of normal size. Central pulmonary | | vasculature has a normal appearance. | | | | Bones: No acute osseous abnormality appreciated. | | | | IMPRESSION - No acute disease. | | | | Dictated and Signed by: Armond Branham MD | | Electronically signed: 07/22/2017 1:24 PM | + + + +---------+ + + | Performing | Address | City/State/ZIP Code | Phone Number | | Organization | | | | + +---------+ + + | [facility] | | | | + +---------+ + + Troponin I (07/22/2017 12:20 PM PDT) + + + + + + | Component | Value | Ref Range | Performed | Pathologist | | | | | At | Signature | + + + + + + | Troponin I | <0.01Comment: Reference | <0.06 ng/mL | [facility] | | | | Ranges:0.00-0.06 = | | [facility] | | | | NORMAL>0.06 = | | MEDICAL | | | | SUSPICIOUS FOR | | CENTER - | | | | MYOCARDIAL DAMAGE NOTE: | | LABORATORY | | | | Values greater than 0.50 | | | | | | ng/mL have been shown | | | | | | to be strongly | | | | | | associated with acute | | | | | | myocardial infarction. | | | | | | The [employer] [employer] | | | | | | Cardiology (ACC) | | | | | | recommends a decision | | | | | | limit of 0.06 ng/mL for | | | | | | this assay. Results | | | | | | greater than 0.06 can | | | | | | reflect a pre-infarct | | | | | | acute coronary syndrome, | | | | | | but can also reflect | | | | | | myocardial necrosis or | | | | | | injury that is not due | | | | | | to coronary artery | | | | | | disease. Some of these | | | | | | causes are sepsis, | | | | | | hypocolemia, atrial | | | | | | fibrillation, heart | | | | | | failure, pulmonary | | | | | | embolism, myocarditis, | | | | | | myocardial contusion, | | | | | | and renal failure. The | | | | | | diagnosis of myocardial | | | | | | infarction should be | | | | | | based on a combination | | | | | | of the patient's | | | | | | clinical presentation | | | | | | and the clinical | | | | | | laboratory test results | | | | | | (especially serial | | | | | | troponin levels). | | | | + + + + + + + + | Specimen | + + | Blood | + + + + + + + | Performing | Address | City/State/ZIP Code | Phone Number | | Organization | | | | + + + + + | [facility] | [address] | [place] | [phone] | | [facility] | | [address] | | | - LABORATORY | | | | + + + + + Comprehensive Metabolic Panel (07/22/2017 12:20 PM PDT) + + + + + + | Component | Value | Ref Range | Performed | Pathologist | | | | | At | Signature | + + + + + + | Na | 140 | 136 - 149 | [facility] | | | | | mmol/L | [facility] | | | | | | MEDICAL | | | | | | CENTER - | | | | | | LABORATORY | | + + + + + + | K | 4.3 | 3.5 - 5.1 | [facility] | | | | | mmol/L | [facility] | | | | | | MEDICAL | | | | | | CENTER - | | | | | | LABORATORY | | + + + + + + | Cl | 106 | 98 - 109 mmol/L | [facility] | | | | | | [facility] | | | | | | MEDICAL | | | | | | CENTER - | | | | | | LABORATORY | | + + + + + + | CO2 | 24 | 24 - 31 mmol/L | [facility] | | | | | | [facility] | | | | | | MEDICAL | | | | | | CENTER - | | | | | | LABORATORY | | + + + + + + | Anion Gap | 10 | 3 - 16 mmol/L | [facility] | | | | | | [facility] | | | | | | MED[facility] | | | | | | CENTER - | | | | | | LABORATORY | | + + + + + + | Glucose | 162 (H) | 70 - 109 mg/dL | [facility] | | | | | | [facility] | | | | | | MEDICAL | | | | | | CENTER - | | | | | | LABORATORY | | + + + + + + | BUN | 20 (H) | 7 - 18 mg/dL | [facility] | | | | | | [facility] | | | | | | MEDICAL | | | | | | CENTER - | | | | | | LABORATORY | | + + + + + + | Creatinine | 1.08 | 0.60 - 1.30 | [facility] | | | | | mg/dL | [facility] | | | | | | MEDICAL | | | | | | CENTER - | | | | | | LABORATORY | | + + + + + + | eGFR, | >60Comment: GLOMERULAR | >=60 | [facility] | | | non- | FILTRATION | mL/min/1.73m2 | [facility] | | | [place] | RATE,ESTIMATED | | MEDICAL | | | | mL/min/1.01e3Naip than | | CENTER - | | | | 60 Chronic kidney | | LABORATORY | | | | disease,if found over a | | | | | | 3-month period.Less than | | | | | | 15 Kidney failureFor | | | | | | | | | | | | Americans,multiply the | | | | | | calculated GFR by 1.21. | | | | | | | | | | + + + + + + | Calcium | 8.9 | 8.3 - 10.5 | [facility] | | | | | mg/dL | [facility] | | | | | | MEDICAL | | | | | | CENTER - | | | | | | LABORATORY | | + + + + + + | Albumin | 3.8 | 3.2 - 5.0 g/dL | [facility] | | | | | | [facility] | | | | | | MEDICAL | | | | | | CENTER - | | | | | | LABORATORY | | + + + + + + | Bilirubin | 1.1Comment: This is an | 0.1 - 1.5 mg/dL | [facility] | | | Total | appended report. These | | [facility] | | | | results have been | | MEDICAL | | | | appended to a previously | | CENTER - | | | | preliminary verified | | LABORATORY | | | | report. | | | | + + + + + + | Total | 6.7 | 6.0 - 7.8 g/dL | [facility] | | | Protein | | | [facility] | | | | | | MEDICAL | | | | | | CENTER - | | | | | | LABORATORY | | + + + + + + | AST | 20Comment: This is an | 10 - 42 U/L | [facility] | | | | appended report. These | | [facility] | | | | results have been | | MEDICAL | | | | appended to a previously | | CENTER - | | | | preliminary verified | | LABORATORY | | | | report. | | | | + + + + + + | ALT | 19Comment: This is an | 6 - 45 U/L | [facility] | | | | appended report. These | | [facility] | | | | results have been | | MEDICAL | | | | appended to a previously | | CENTER - | | | | preliminary verified | | LABORATORY | | | | report. | | | | + + + + + + | Alkaline | 66Comment: This is an | 40 - 110 U/L | [facility] | | | Phosphatase | appended report. These | | [facility] | | | | results have been | | MEDICAL | | | | appended to a previously | | CENTER - | | | | preliminary verified | | LABORATORY | | | | report. | | | | + + + + + + | Globulin | 2.9 | 2.1 - 3.8 g/dL | [facility] | | | | | | [facility] | | | | | | MEDICAL | | | | | | CENTER - | | | | | | LABORATORY | | + + + + + + | Albumin/Danitza | 1.3 | 0.8 - 2.0 | [facility] | | | bulin Ratio | | | [facility] | | | | | | MEDICAL | | | | | | CENTER - | | | | | | LABORATORY | | + + + + + + | BUN/Creatin | 18.5 | | [facility] | | | ine Ratio | | | [facility] | | | | | | MEDICAL | | | | | | CENTER - | | | | | | LABORATORY | | + + + + + + + + | Specimen | + + | Blood | + + + + + + + | Performing | Address | City/State/ZIP Code | Phone Number | | Organization | | | | + + + + + | [facility] | [address] | [place] | [phone] | | [facility] | | [address] | | | - LABORATORY | | | | + + + + + CBC with Differential (07/22/2017 12:20 PM PDT) + +-------+ + + + | Component | Value | Ref Range | Performed | Pathologist | | | | | At | Signature | + +-------+ + + + | White Blood | 8.0 | 4.0 - 11.0 K/uL | [facility] | | | Cells | | | [facility] | | | | | | MEDICAL | | | | | | CENTER - | | | | | | LABORATORY | | + +-------+ + + + | Red Blood | 5.06 | 4.30 - 5.70 | [facility] | | | Cells | | M/uL | [facility] | | | | | | MEDICAL | | | | | | CENTER - | | | | | | LABORATORY | | + +-------+ + + + | Hemoglobin | 14.8 | 13.5 - 18.0 | [facility] | | | | | g/dL | [facility] | | | | | | MEDICAL | | | | | | CENTER - | | | | | | LABORATORY | | + +-------+ + + + | Hematocrit | 42.8 | 40.0 - 51.0 % | [facility] | | | | | | [facility] | | | | | | MEDICAL | | | | | | CENTER - | | | | | | LABORATORY | | + +-------+ + + + | MCV | 84.5 | 83.0 - 101.0 fL | [facility] | | | | | | [facility] | | | | | | MEDICAL | | | | | | CENTER - | | | | | | LABORATORY | | + +-------+ + + + | MCH | 29.3 | 28.0 - 35.0 pg | [facility] | | | | | | [facility] | | | | | | MEDICAL | | | | | | CENTER - | | | | | | LABORATORY | | + +-------+ + + + | MCHC | 34.7 | 32.0 - 36.0 | [facility] | | | | | g/dL | [facility] | | | | | | MEDICAL | | | | | | CENTER - | | | | | | LABORATORY | | + +-------+ + + + | RDW-CV | 14.6 | <15.0 % | [facility] | | | | | | [facility] | | | | | | MEDICAL | | | | | | CENTER - | | | | | | LABORATORY | | + +-------+ + + + | Platelet | 188 | 140 - 440 K/uL | [facility] | | | Count | | | [facility] | | | | | | MEDICAL | | | | | | CENTER - | | | | | | LABORATORY | | + +-------+ + + + | MPV | 10.0 | fL | [facility] | | | | | | [facility] | | | | | | MEDICAL | | | | | | CENTER - | | | | | | LABORATORY | | + +-------+ + + + | % | 59.9 | 45.0 - 82.0 % | [facility] | | | Neutrophils | | | [facility] | | | | | | MEDICAL | | | | | | CENTER - | | | | | | LABORATORY | | + +-------+ + + + | % | 30.3 | 20.0 - 45.0 % | [facility] | | | Lymphocytes | | | [facility] | | | | | | MEDICAL | | | | | | CENTER - | | | | | | LABORATORY | | + +-------+ + + + | % Monocytes | 7.2 | 4.0 - 12.0 % | [facility] | | | | | | [facility] | | | | | | MEDICAL | | | | | | CENTER - | | | | | | LABORATORY | | + +-------+ + + + | % | 1.8 | 0.0 - 5.0 % | [facility] | | | Eosinophils | | | [facility] | | | | | | MEDICAL | | | | | | CENTER - | | | | | | LABORATORY | | + +-------+ + + + | % Basophils | 0.8 | 0.0 - 1.0 % | [facility] | | | | | | [facility] | | | | | | MEDICAL | | | | | | CENTER - | | | | | | LABORATORY | | + +-------+ + + + | Absolute | 4.80 | 1.80 - 8.50 | [facility] | | | Neutrophils | | K/uL | [facility] | | | | | | MEDICAL | | | | | | CENTER - | | | | | | LABORATORY | | + +-------+ + + + | Absolute | 2.40 | 0.60 - 3.20 | [facility] | | | Lymphocytes | | K/uL | [facility] | | | | | | MEDICAL | | | | | | CENTER - | | | | | | LABORATORY | | + +-------+ + + + | Absolute | 0.60 | 0.00 - 1.00 | [facility] | | | Monocytes | | K/uL | [facility] | | | | | | MEDICAL | | | | | | CENTER - | | | | | | LABORATORY | | + +-------+ + + + | Absolute | 0.10 | 0.00 - 0.40 | [facility] | | | Eosinophils | | K/uL | [facility] | | | | | | MEDICAL | | | | | | CENTER - | | | | | | LABORATORY | | + +-------+ + + + | Absolute | 0.10 | 0.00 - 0.10 | [facility] | | | Basophils | | K/uL | [facility] | | | | | | MEDICAL | | | | | | CENTER - | | | | | | LABORATORY | | + +-------+ + + + + + | Specimen | + + | Blood | + + + + + + + | Performing | Address | City/State/ZIP Code | Phone Number | | Organization | | | | + + + + + | [facility] | [address] | [place] | [phone] | | [facility] | | [address] | | | - LABORATORY | | | | + + + + + Extra Blue Top Tube (07/22/2017 12:18 PM PDT) + +-------+ + + + | Component | Value | Ref Range | Performed | Pathologist | | | | | At | Signature | + +-------+ + + + | Extra Blue | Done | | [facility] | | | Top Tube | | | [facility] | | | | | | MEDICAL | | | | | | CENTER - | | | | | | LABORATORY | | + +-------+ + + + + + | Specimen | + + | Blood | + + + + + + + | Performing | Address | City/State/ZIP Code | Phone Number | | Organization | | | | + + + + + | [facility] | [address] | [place], [place] | [phone] | | [facility] | | [address] | | | - LABORATORY | | | | + + + + + Extra Lavender Top Tube (07/22/2017 12:18 PM PDT) + +-------+ + + + | Component | Value | Ref Range | Performed | Pathologist | | | | | At | Signature | + +-------+ + + + | Extra | Done | | [facility] | | | Lavender | | | [facility] | | | Top Tube | | | MEDICAL | | | | | | CENTER - | | | | | | LABORATORY | | + +-------+ + + + + + | Specimen | + + | Blood | + + + + + + + | Performing | Address | City/State/ZIP Code | Phone Number | | Organization | | | | + + + + + | [facility] | [address] | [place] | [phone] | | [facility] | | [id number] | | | - LABORATORY | | | | + + + + + ECG 12 lead (07/22/2017 12:05 PM PDT) + + + + + + | Component | Value | Ref Range | Performed | Pathologist | | | | | At | Signature | + + + + + + | VENTRICULAR | 52 | BPM | [facility] | | | RATE EKG | | | | | + + + + + + | ATRIAL RATE | 52 | BPM | [facility] | | + + + + + + | P-R | 208 | ms | [facility] | | | INTERVAL | | | | | + + + + + + | QRS | 96 | ms | [facility] | | | DURATION | | | | | + + + + + + | Q-T | 436 | ms | [facility] | | | INTERVAL | | | | | + + + + + + | Q-T | 405 | ms | [facility] | | | INTERVAL | | | | | | (CORRECTED) | | | | | + + + + + + | P WAVE AXIS | 49 | degrees | [facility] | | + + + + + + | QRS AXIS | 41 | degrees | [facility] | | + + + + + + | T AXIS | 55 | degrees | [facility] | | + + + + + + | INTERPRETAT | Sinus bradycardia with | | [facility] | | | ION TEXT | 1st degree AV block with | | | | | | premature atrial | | | | | | complexesNonspecific T | | | | | | wave abnormalityAbnormal | | | | | | ECGNo previous ECGs | | | | | | availableConfirmed by | | | | | | NANCY BIRMINGHAM MD ([id number]) | | | | | | on 07/23/2017 7:17:34 AM | | | | + + + + + + + + | Specimen | + + | | + + + + + | Narrative | Performed At | + + + | | | + + + + +---------+ + + | Performing | Address | City/State/ZIP Code | Phone Number | | Organization | | | | + +---------+ + + | [facility] | | | | + +---------+ + + documented in this encounter Visit Diagnoses + + | Diagnosis | + + | Atypical chest pain - Primary Other chest pain | + + | Near syncope Syncope and collapse | + + documented in this encounter Administered Medications + +---------+ +---------+-------+------+ | Medication Order | MAR | Action | Dose | Rate | Site | | | Action | Date | | | | + +---------+ +---------+-------+------+ | sodium chloride 0.9% (NS) bolus | New Bag | 07/23/19 | 500 mLs | 500 | | | 500 mL 500 mL, Intravenous, | | 18 12:34 | | mL/hr | | | Administer over 1 Hours, ONCE, | | PM PDT | | | | | [place] 07/22/17 at 1230, For 1 dose | | | | | | + +---------+ +---------+-------+------+ +---+---+ | | | +---+---+ documented in this encounter"
--- OUTSIDE RECORDS SUMMARY | ~2020-02-16 | XMS | Encounter Summary ---
Demographics + + + | Address | [address] [place] [address] RD | | | [place] [address] | + + + | Home Phone | | + + + | Preferred Language | Unknown | + + + | Marital Status | | + + + | Worship Affiliation | Unknown | + + + | Race | White | + + + | Ethnic Group | Not or | + + + Author + + + | Author | [facility] | | | and [place] | + + + | Organization | [facility] | | | and [...] [place] | ECON | [place] [address] | | + + + + + | Keven Walls | ECON | Unknown | | + + + + + Care Team Providers + +------+ + | Care Adjunct Art History Instructor Name | Role | Phone | + +------+ + PCP | Unavailable | + +------+ + Encounter Details +--------+ + + + + | Date | Type | Department | Care Team | Description | +--------+ + + + + | 09/11/ | Hospital | [facility] | | | | 1998 | Encounter | MED CTR XRAY [address] | | | | | | [place] | | | | | | [place] [address] | | | | | | [phone] | | | +--------+ + + + + Social History + +-------+ +--------+------+ | Tobacco Use | Types | Packs/Day | Years | Date | | | | | Used | | + +-------+ +--------+------+ | Never Assessed | | | | | + +-------+ +--------+------+ + + + | Sex Assigned at | Date Recorded | | | | + + + | Not on file | | + + + documented as of this encounter Plan of Treatment Not on filedocumented as of this encounter Visit Diagnoses Not on filedocumented in this encounter"
--- OUTSIDE RECORDS SUMMARY | ~2020-02-16 | XMS | Encounter Summary ---
Demographics + + + | Address | [address] [place] [address] RD | | | [place] [address] | + + + | Home Phone | | + + + | Preferred Language | Unknown | + + + | Marital Status | | + + + | Catholic Affiliation | Unknown | + + + | Race | White | + + + | Ethnic Group | Not or | + + + Author + + + | Author | [facility] | | | and [place] | + + + | Organization | [facility] | | | [...] [place] | ECON | [place] [address] | | + + + + + | Keven Walls | ECON | Unknown | | + + + + + Care Team Providers + +------+ + | Care School Cafeteria Cook Head Name | Role | Phone | + +------+ + | Paolo Solares MD | PCP | | + +------+ + Encounter Details +--------+ + + + + | Date | Type | Department | Care Team | Description | +--------+ + + + + | 11/07/ | Hospital | [facility] | Conversion | Pain | | 2018 | Encounter | CONVERSION [address] | Transaction, | | | | | [address] | Provider Unknown | | | | | [place] | [phone] | | | | | [address] | | | | | | [phone] | | | +--------+ + + + [...] + + documented as of this encounter Medications at Time [...] +---------+--------+ + documented as of this encounter Plan of Treatment Not on filedocumented as of this encounter Procedures + +--------+ + + + | Procedure Name | Priori | Date/Time | Associated Diagnosis | Comments | | | ty | | | | + +--------+ + + + | CT ANGIOGRAM LOWER | Routin | 11/05/2017 | | Results for this | | EXTREMITY RIGHT W | e | 2:42 AM | | procedure are in the | | CONTRAST | | PDT | | results section. | + +--------+ + + + documented in this encounter Results CT Angiogram Lower ExtRight w Con (11/05/2017 2:42 AM PDT) + + | Specimen | + + | | + + + + + | Narrative | Performed At | + + + | This is a non-reportable procedure without a radiologist report and | | | is used for image storage only | | + + + + + | Procedure Note | + + | Roni Holder - 10/12/2018 12:26 AM PDT This is a non-reportable procedure | | without a radiologist report and isused for image storage only | + + documented in this encounter Visit Diagnoses + + | Diagnosis | + + | Pain Generalized pain | + + documented in this encounter"
--- OUTSIDE RECORDS SUMMARY | ~2020-02-16 | XMS | Encounter Summary ---
Demographics + + + | Address | [address] [place] [address] RD | | | [place] [address] | + + + | Home Phone | | + + + | Preferred Language | Unknown | + + + | Marital Status | | + + + | Lutheran Affiliation | Unknown | + + + | Race | White | + + + | Ethnic Group | Not or | + + + Author + + + | Author | [facility] | | | and [place] | + + + | Organization | [facility] | | | [...] [place] | ECON | [place] [address] | | + + + + + | Keven Walls | ECON | Unknown | | + + + + + Care Team Providers + +------+ + | Care Electric Refrigerator Servicer Name | Role | Phone | + +------+ + | Paolo Solares MD | PCP | | + +------+ + Encounter Details +--------+ + + + + | Date | Type | Department | Care Team | Description | +--------+ + + + + | 11/07/ | Hospital | [facility] | Conversion | Pain | | 2018 | Encounter | CONVERSION [address] | Transaction, | | | | | [address] | Provider Unknown | | | | | [place] | [phone] | | | | | [phone] | | | | | | [phone] | | | +--------+ + + + [...] +--------+ + + + | XR CHEST 1 VIEW | Routin | 11/05/2017 | | Results for this | | | e | 2:42 AM | | procedure are in the | | | | PDT | | results section. | + +--------+ + + + documented in this encounter Results XR Chest 1 Vw (11/05/2017 2:42 AM PDT) + + | [...]
--- OUTSIDE RECORDS SUMMARY | ~2020-02-16 | XMS | Encounter Summary ---
Demographics + + + | Address | [address] [place] [address] RD | | | [place] [address] | + + + | Home Phone | | + + + | Preferred Language | Unknown | + + + | Marital Status | | + + + | Buddhism Affiliation | Unknown | + + + | Race | White | + + + | Ethnic Group | Not or | + + + Author + + + | Author | [facility] | | | and [place] | + + + | Organization | [facility] | | | and [...] [place] | ECON | [place] [address] | | + + + + + | Keven Walls | ECON | Unknown | | + + + + + Care Team Providers + +------+ + | Care Barrel Repairer Name | Role | Phone | + +------+ + PCP | Unavailable | + +------+ + Encounter Details +--------+ + + + + | Date | Type | Department | Care Team | Description | +--------+ + + + + | 09/12/ | Hospital | [facility] | | | | 1997 | Encounter | MED CTR XRAY [address] | | | | | | [place] | | | | | | [place] [address] | | | | | | [phone] | | | +--------+ + + + [...]
--- OUTSIDE RECORDS SUMMARY | ~2020-02-16 | XMS | Encounter Summary ---
Demographics + + + | Address | [address] [place] [address] RD | | | [place] [address] | + + + | Home Phone | | + + + | Preferred Language | Unknown | + + + | Marital Status | | + + + | Rastafarian Affiliation | Unknown | + + + | Race | White | + + + | Ethnic Group | Not or | + + + Author + + + | Author | [facility] | | | and [place] | + + + | Organization | [facility] | | | [...] [place] | ECON | [place] [address] | | + + + + + | Keven Walls | ECON | Unknown | | + + + + + Care Team Providers + +------+ + | Care Rehabilitation Caseworker Name | Role | Phone | + +------+ + | Paolo Solares MD | PCP | | + +------+ + Reason for Visit Diagnostic/Screening (Routine) + +--------+ + + + + | Status | Reason | Specialty | Diagnoses / | Referred By | Referred To | | | | | Procedures | Contact | Contact | + +--------+ + + + + | Authorized | | Cardiology | Diagnoses | Paolo Solares | MICAH | | | | | Heart | MD [address] | [facility] | | | | | murmur | [address] | [place] | | | | | Procedures | [place] | [facility] | | | | | ECHO | [facility], | [place] [address] | | | | | Complete | [place] [address] | [address] | | | | | | Phone: | [place], | | | | | | [phone] | [place] [address] | | | | | | Fax: | Phone: | | | | | | [phone] | [phone] | | | | | | | Fax: | | | | | | | [phone] | + +--------+ + + + + Encounter Details +--------+ + + + + | Date | Type | Department | Care Team | Description | +--------+ + + + + | 01/28/ | Hospital | [facility] | Paolo Solares MD | No Show | | 2019 | Encounter | MED CTR ECHO [address] | [address] | | | | | [place] | [place], [place] | | | | | [place] [address] | [address] | | | | | [phone] | | | +--------+ + + + [...]
--- OUTSIDE RECORDS SUMMARY | ~2020-02-16 | XMS | Encounter Summary ---
Demographics + + + | Address | [address] [place] [address] RD | | | [place] [address] | + + + | Home Phone | | + + + | Preferred Language | Unknown | + + + | Marital Status | | + + + | Faith Affiliation | Unknown | + + + | Race | White | + + + | Ethnic Group | Not or | + + + Author + + + | Author | [facility] | | | and [place] | + + + | Organization | [facility] | | | [...] [place] | ECON | [place] [address] | | + + + + + | Keven [place]s | ECON | Unknown | | + + + + + Care Team Providers + +------+ + | Care Manager Traffic Name | Role | Phone | + +------+ + PCP | Unavailable | + +------+ + Encounter Details +--------+ + + + + | Date | Type | Department | Care Team | Description | +--------+ + + + + | 07/14/ | Hospital | [facility] | Paolo Solares MD | | | 2010 | Encounter | MED CTR XRAY [address] | | | | | [place] | [place], [place] | | | | | [place] [address] | [address] | | | | | [phone] | | | +--------+ + + + [...] | + +--------+ + + + | ECHO COMPLETE | | 07/14/2010 | | Results for this | | | | 7:44 AM | | procedure are in the | | | | PDT | | results section. | + +--------+ + + + documented in this encounter Results ECHO Complete (07/14/2010 7:44 AM PDT) + + | Specimen | + + | | + + + + + | Narrative | Performed At | + + + | [facility] | [facility] | | [address] [facility] | [facility] | | E C H O C A R D | DIAG IMG | | I O G R A P H Y R E P O R T HEIGHT: 5'8" | | | WEIGHT: 212# APPLICATIONS SUPPORT SPECIALIST: TD REFERRING DR: JULIETA | | | READING DR: ADILSON DIAGNOSIS: STENOSIS MURMUR | | | | | | M E A S U R E M E N T S | | | Aortic Root: 31 mm LV Diameter-diastole: | | | 53 mm Aortic Cusp Sep: 15 mm LV | | | Diameter--systole: 24 mm LA: 42 mm | | | Fractional Shortenin % IVS--diastole: | | | 9 mm PFV Aortic Valve: IVS--systole: | | | 11 mm MPG Mitral Valve: mmHg | | | LVPW--diastole: 8 mm PFV TR Jet: | | | 2.25 m/s LVPW--systole: 16 mm RA/RV PPG: | | | 20.2 mmHg | | | | | | ECHOCARDIOGRAM, 07/14/2010 INDICATIONS FOR PROCEDURE: | | | HEART MURMUR. TECHNICAL DATA: The quality of the study is | | | adequate. This is a 2-D echo/M- mode/Doppler/color Doppler study. | | | FINDINGS: Left atrial size is top normal. Left ventricular size | | | is normal with normal wall thickness and normal left ventricular | | | systolic function. LVEF is 65%. Aortic root is normal. Right | | | atrial size is normal. Right ventricular size is normal with | | | normal wall thickness and normal right ventricular systolic | | | function. Pericardium is normal. Pulmonary artery is normal. | | | Aortic valve is trileaflet and opens normally. Mitral valve is | | | normal. Pulmonic valve is normal. Tricuspid valve is normal. IVC | | | is normal. There is a mild mitral valve regurgitation. There is | | | a mild tricuspid valve regurgitation. IMPRESSION: 1. A | | | TOP NORMAL LEFT ATRIAL SIZE. 2. A NORMAL LEFT VENTRICULAR SIZE, | | | WALL THICKNESS AND MOTION. PRESERVED LEFT VENTRICULAR SYSTOLIC | | | FUNCTION. LVEF IS 65%. 3. A MILD MITRAL VALVE REGURGITATION. | | | 4. MILD TRICUSPID VALVE REGURGITATION. Dictated | | | Date/Time: 07/14/2010 16:14 Transcribed Date/Time: 07/14/2010 | | | 19:16 Station Helper: <Electronically Signed by Sylvia | | | MD Lawrence [facility]> 07/15/10 0809 | | + + + + + | Procedure Note | + + | Roni Holder - 04/07/2013 2:56 PM [facility] | | Diagnostic Imaging Department | | [address] [facility] | | | | | | | | E C H O C A R D I O G R A P H Y R E P O R T | | | | | | HEIGHT: 5'8" WEIGHT: 212# APPLICATIONS SUPPORT SPECIALIST: TD | | REFERRING DR: JULIETA SMALL DR: ADILSON | | | | DIAGNOSIS: STENOSIS MURMUR | | | | | | M E A S U R E M E N T S | | | | Aortic Root: 31 mm LV Diameter-diastole: 53 mm | | Aortic Cusp Sep: 15 mm LV Diameter--systole: 24 mm | | LA: 42 mm Fractional Shortenin % | | IVS--diastole: 9 mm PFV Aortic Valve: | | IVS--systole: 11 mm MPG Mitral Valve: mmHg | | LVPW--diastole: 8 mm PFV TR Jet: 2.25 m/s | | LVPW--systole: 16 mm RA/RV PP.2 mmHg | | | | | | | | ECHOCARDIOGRAM, 07/14/2010 | | | | INDICATIONS FOR PROCEDURE: HEART MURMUR. | | | | TECHNICAL DATA: The quality of the study is adequate. This is a 2-D echo/M- | | mode/Doppler/color Doppler study. | | | | FINDINGS: Left atrial size is top normal. Left ventricular size is normal | | with normal wall thickness and normal left ventricular systolic function. LVEF | | is 65%. Aortic root is normal. Right atrial size is normal. Right | | ventricular size is normal with normal wall thickness and normal right | | ventricular systolic function. Pericardium is normal. Pulmonary artery is | | normal. Aortic valve is trileaflet and opens normally. Mitral valve is | | normal. Pulmonic valve is normal. Tricuspid valve is normal. IVC is normal. | | There is a mild mitral valve regurgitation. There is a mild tricuspid valve | | regurgitation. | | | | IMPRESSION: | | 1. A TOP NORMAL LEFT ATRIAL SIZE. | | | | 2. A NORMAL LEFT VENTRICULAR SIZE, WALL THICKNESS AND MOTION. PRESERVED LEFT | | VENTRICULAR SYSTOLIC FUNCTION. LVEF IS 65%. | | | | 3. A MILD MITRAL VALVE REGURGITATION. | | | | 4. MILD TRICUSPID VALVE REGURGITATION. | | | | Dictated Date/Time: 07/14/2010 16:14 | | Transcribed Date/Time: 07/14/2010 19:16 | | Station Helper: | | <Electronically Signed by MD HORTENCIA Taylor> 07/15/10 0809 | + + + +---------+ + + | Performing | Address | City/State/ZIP Code | Phone Number | | Organization | | | | + +---------+ + + | [place] | | | | | [place] | | | | + +---------+ + + documented in this encounter Visit Diagnoses Not on filedocumented in this encounter
--- OUTSIDE RECORDS SUMMARY | ~2020-02-16 | XMS | Encounter Summary ---
Demographics + + + | Address | [address] [place] [address] RD | | | [place] [address] | + + + | Home Phone | | + + + | Preferred Language | Unknown | + + + | Marital Status | | + + + | Rastafarian Affiliation | Unknown | + + + | Race | White | + + + | Ethnic Group | Not or | + + + Author + + + | Author | [facility] | | | and [place] | + + + | Organization | [facility] | | | [...] [place] | ECON | [place] [address] | | + + + + + | Keven Walls | ECON | Unknown | | + + + + + Care Team Providers + +------+ + | Care Maintenance Superintendent Name | Role | Phone | + +------+ + PCP | Unavailable | + +------+ + Encounter Details +--------+ + + + + | Date | Type | Department | Care Team | Description | +--------+ + + + + | 02/12/ | Hospital | [facility] | Conversion | Osteoarthrosis, | | 1993 - | Encounter | [facility] [address] | Transaction, | unspecified whether | | | | [address] | Provider Unknown | generalized or | | 02/17/ | | [place], [place] | [phone] | localized, lower leg | | 1993 | | [address] | | | | | | [phone] | | | +--------+ + + + [...] filedocumented as of this encounter Visit Diagnoses + + | Diagnosis | + + | Osteoarthrosis, unspecified whether generalized or localized, lower leg | + + documented in this encounter"
--- OUTSIDE RECORDS SUMMARY | ~2020-02-16 | XMS | Encounter Summary ---
Demographics + + + | Address | [address] [place] [address] RD | | | [place] [address] | + + + | Home Phone | | + + + | Preferred Language | Unknown | + + + | Marital Status | | + + + | Evangelical Affiliation | Unknown | + + + | Race | White | + + + | Ethnic Group | Not or | + + + Author + + + | Author | [facility] | | [...] + + + | Keven Hernandez | ECON | NA | | | | | [place] | | + + + + + | Iris Hernandez | ECON | [place] [id number] | | + + + + + | Keven Hernandez | ECON | Unknown | | + + + + + Care Team Providers + +------+ + | Care Barber Shop Manager Name | Role | Phone | + +------+ + | Fide Solares MD | PCP | | + +------+ + Encounter Details +--------+ + + + + | Date | Type | Department | Care Team | Description | +--------+ + + + + | 11/07/ | Hospital | [facility] | Jimenez, Yajairayinka | Other acute | | 2018 - | Encounter | [facility] | MD Bernarda [address] | pulmonary embolism | | | | [address] | [place]VD [place], [place] | without acute cor | | 11/11/ | | [place], [place] | [address] | pulmonale (HCC) | | 2018 | | [address] | | | | | | [phone] | | | +--------+ + + + [...] + + + | Blood Pressure | 131/61 | 11/11/2017 11:48 AM | | | | | PDT | | + + + + + | Pulse | 58 | 11/11/2017 11:48 AM | | | | | PDT | | + + + + + | Temperature | 36.9 C (98.4 F) | 11/11/2017 11:48 AM | | | | | PDT | | + + + + + | Respiratory Rate | 18 | 11/11/2017 11:48 AM | | | | | PDT | | + + + + + | Oxygen Saturation | - | - | | + + + + + | Inhaled Oxygen | - | - | | | Concentration | | | | + + + + + | Weight | 105.1 kg (231 lb | 11/11/2017 11:48 AM | | | | 11.2 oz) | PDT | | + + + + + | Height | 172.7 cm (5' 8") | 11/11/2017 11:48 AM | | | | | PDT | | + + + + + | Body Mass Index | 35.23 | 11/11/2017 11:48 AM | | | | | PDT | | + + + + + documented in this encounter Discharge Summaries Odin Amie Charli - 11/11/2017 12:34 PM PDT Discharge Summaries by Amie Newby MD at 11/11/17 1234 Author: Amie Newby MD Service: Hospitalist Author Type: Physician Filed: 11/11/17 1237 Date of Service: 11/11/174 Status: Signed Soap Grinder: Amie Newby MD (Physician) [facility] Service: Hospitalist Physician Discharge Summary Pt: Norman Hernandez AGE/SEX: 81 y.o. male ROOM: [address] [place] [address] PCP: FIDE SOLARES : 1935 Admit date: 11/07/2017 Discharge date and time: 11/11/2017 12:34 PM Admitting Physician: Jonathan Jimenez MD Discharge Physician: Amie Newby MD Consults: Dr. Humphreys Primary Discharge Diagnoses: Principal Problem: Acute pulmonary embolism (HCC) Active Problems: Coronary artery disease Hypertension Type 2 diabetes mellitus (HCC) Thigh hematoma, right, initial encounter Weakness generalized Resolved Problems: Acute post-hemorrhagic anemia Secondary Discharge Diagnoses: Nill Discharged Condition: stable Significant Diagnostic Studies/Procedures: Us Lower Extremity Venous Doppler Bilateral Result Date: 11/07/2017 No evidence for deep venous thrombosis bilaterally. RADIA Electronically signed by Jackson posey MD on Nov 07 2017 11:01PM Referring Provider Line: [phone] ID: [id number] Echo Cardiac Adult Complete Result Date: 11/08/2017 1. Overall left ventricular systolic function is normal with, an EF between 60 - 65 %. 2. T he right ventricle is mildly enlarged measuring between 3.4 - 3.7 cm. 3. The right ventricul ar systolic function is normal. 4. Mild tricuspid regurgitation present. 5. The right ventri cular systolic pressure (pulmonary artery systolic pressure), as measured by Doppler, is 34. 70mmHg. HPI and Hospital Course: 81 year old malewith past medical history of CAD, HTN and DM Type 2 who was admitted as a transfer from [facility] to our ICU due to acute pulmonary embolism. Apparently, patient had a fall on 11/05/2017and developed a hamstring avulsion of RLE with resultant hematoma i n the posterior compartment of the thigh and anotherhematoma along with the ischioanal fos sa. Orthopedic services was consulted there and they recommended conservative management and no surgery was recommended. The following day, patient was working with PT services and rubia denly developed chest pressure and shortness of breath symptoms. Work up for ACS and Troponi ns were negative but CTA chest showed multiple pulmonary emboli extending from the distal ma in pulmonary arteries into the lobar, segmental and subsegmental branches of RUL, RML, RLL a nd LLL. Patient was not a candidate for anticoagulation due to recent fall and hematoma so V ascular surgery services at [facility] was contacted and Dr. Humphreys recommended IVC filter placement. He was kept in ICU for monitoring and treatment and Dr. Humphreys placedIVC filter without comp lications. He was thentransferred out of the ICU to acute care Because of his hematoma he was at risk of bleeding and it was decided to proceed with the I VC filter. He is status post IVC filter. Once hematoma improved might need to talk to the [place] imary care doctor regarding full anticoagulation. When to hold Plavix for 2 more days and th en he will talk to the primary care provider for restarting Plavix. His right thigh hematoma has improved He Had no CP, SOB, N/V, Diarrhea, Abdominal pain or RAZA. No constipation or change in bowel habits. No orthopnea or PND. Appetite is good without abdominal bloating. No cough or fever. No dizziness, lightheadedness or any symptoms suggestive of stroke. Follow Up Labs/Imaging and Monitoring: DR. Humphreys Discharge Vitals: Vitals: 11/10/17 2316 11/11/17 0306 11/11/17 0836 11/11/17 1100 BP: 143/65 120/58 139/65 131/61 BP Location: Right upper arm Right upper arm Right upper arm Right upper arm Pulse: 54 67 52 58 Resp: 16 18 Temp: 98.2 F (36.8 C) 98.4 F (36.9 C) 97.6 F (36.4 C) 98.4 F (36.9 C) TempSrc: Axillary Axillary Axillary Axillary SpO2: 97% 98% 97% 91% Weight: 105.1 kg (231 lb 11.3 oz) Height: Discharge Exam: Constitutional: Alert and oriented to person, place, and time. Awake and alert and talking to me appropriately Cardiovascular: Normal rate, regular rhythm, normal heart sounds with S1 and S2 and intact distal pulses. Exam reveals no gallop and no friction rub. 3/6HSM Pulmonary/Chest: Effort normal and breath sounds normal. No stridor. No respiratory distres s. no wheezes. no rales. exhibits no tenderness. Abdominal: Soft. Bowel sounds are normal. exhibits no distension and no mass. There is no t enderness. There is no rebound and no guarding. Musculoskeletal: Normal range of motion.exhibits no tenderness. Right thigh hematoma Neurological: Alert and oriented to person, place, and time. Moving all 4 extremities. Skin: Skin is warm and dry. No rash noted. No erythema. No pallor. Psychiatric: Has a normal mood and affect. Behavior is normal. Judgment normal. Not suicida l LABS: Recent Labs Lab 11/11/1741211/10/1743411/09/17 0400 WBC 9.11 8.01 9.26 HGB 9.8* 10.2* 10.2* HCT 27.9* 28.9* 29.1* PLT 144* 151 153 NEUTOPHILPCT 70.97 69.33 70.50 MONOPCT 6.47 7.59 7.81 Recent Labs Lab 11/11/1741211/10/1743411/09/17 0400 11/07/17 1838 NA 135 136 136 < > 139 K 4.9 4.5 4.3 < > 4.1 CL 102 101 101 < > 103 CO2 27 27 25 < > 28 BUN 23 22 18 < > 17 CREATININE 1.0 0.9 1.0 < > 0.95 PROT -- -- -- -- 6.3 BILITOT -- -- -- -- 0.9 ALT -- -- -- -- 17 AST -- -- -- -- 14 < > = values in this interval not displayed. Recent Labs Lab 11/11/1741211/10/1743411/09/17 0400 MG 2.0 2.1 2.1 Recent Labs Lab 11/07/17 1838 INR 1.0 Recent Labs Lab 11/09/17 0400 11/08/17 0608 11/08/17 0017 CKTOTAL 118 155 191 Results No results found for the last 72 hours. Disposition: Home or Self Care Patient Instructions: Medication List CONTINUE taking these medications amLODIPine 5 MG tablet Refills: 0 Commonly known as: NORVASC aspirin 81 MG tablet Refills: 0 clopidogrel 75 MG tablet Refills: 0 Commonly known as: PLAVIX insulin - MIX insulin NPH-insulin regular 70/30 (70-30) 100 UNIT/ML injection Refills: 0 Commonly known as: humuLIN, novoLIN 70/30 metFORMIN 1000 MG tablet Refills: 0 Commonly known as: GLUCOPHAGE omeprazole 40 MG capsule Refills: 0 Commonly known as: PRILOSEC pramipexole 1 MG tablet Refills: 0 Commonly known as: MIRAPEX You might also be taking other medications not listed above. If you have questions about an y of your other medications, talk to the person who prescribed them or your Primary Care Pro vider. Activity: activity as tolerated Diet: diabetic diet Wound Care: as directed Discharge medications reconciliation was completed by myself. I carefully reviewed all the medications with the patient. All the dosages was confirmed with the patient to the best o f patient's knowledge. I resumed most of his home medication after talking to the patient. I informed the patien t that, If you are not taking any of those medicines or if you think that dose is not righ t please talk to the primary care doctor for adjustment of doses and medications. Please tamiko e all the medication to your PCP and show him what medication you are taking so that he can adjust your medications if needed. Follow-Up: Jaime Humphreys MD [address] [place] [id number] iFde Solares MD [address] [place] [id number] In 1 week Discharge took more than 35 minutes, to include final examination, discussion of admission, and preparation of prescriptions, instructions for ongoing care, follow up and dictation of summary. Signed: AMIE NEWBY MD 11/11/2017 12:34 PM Dictation software, Trulia, used which may contain error for similar sounding words even af ter review. Personal communication requested for any clarification. Portions of this chart may have been copied from previous notes for continuity of care purp ose documented in this encount er Medications at Time of Discharge + + [...] +---------+--------+ + documented as of this encounter Progress Notes Conversion Transaction, Provider Unknown - 11/11/2017 2:11 PM PDTFormatting of this note m ight be different from the original. Case Management by Megan Maradiaga RN at 11/11/17 1411 Author: Megan Maradiaga RN Service: (none) Author Type: Registered Nurse Filed: 11/11/17 1600 Date of Service: 11/11/17 1411 Status: Signed Soap Grinder: Megan Maradiaga RN (Registered Nurse) Discharge Planning: CM attended RN rounding, pt to d/c hm with spouse, pt does not need HH per medical staff. Disposition: pt d/c home with spouse Transportation: pt son transported pt home All orders, signed AVS, and prescriptions have been faxed All DC paperwork completed Patient and family in agreement with discharge plan Medicare important message Megan Maradiaga RN CM onver des Transaction, Provider Unknown - 11/11/2017 1:43 PM PDT Nurse Progress Note by Allie Pepper RN at 11/11/17 1343 Author: Allie Pepper RN Service: (none) Author Type: Registered Nurse Filed: 11/11/17 1344 Date of Service: 11/11/17 1343 Status: Signed Soap Grinder: Allie Pepper RN (Registered Nurse) Discharge instructions given to patienT. Acknowledged full understanding. Vitals are stable . Copy of discharge instructions given to patient. Normotensive. Denies pain when asked. No shortness of breath, on room air. IV access discontinued. Patient belongings with patient's son. Discharge to home per private vehicle. Allie Pepper RN onver des Transaction, Provider Unknown - 11/11/2017 6:29 AM PDT Nurse Progress Note by Gracia Ardon RN at 11/11/17 5452 Author: Gracia Ardon RN Service: (none) Author Type: Registered Nurse Filed: 11/11/1731 Date of Service: 11/11/17628 Status: Signed Soap Grinder: Gracia Ardon RN (Registered Nurse) Pt c/o pain at inner, upper Rt thigh. Tramadol x 1 given. Pt on RA. SBP 120's to 150's. Otherwise hourly rounding uneventful. End of shift chart check complete onver des Transaction, Provider Unknown - 11/10/2017 4:00 PM PDT Case Management by Megan Maradiaga RN at 11/10/17 1600 Author: Megan Maradiaga RN Service: (none) Author Type: Registered Nurse Filed: 11/10/17 1601 Date of Service: 11/10/17 1600 Status: Signed Soap Grinder: Megan Maradiaga RN (Registered Nurse) Discharge Planning: CM attended RN rounding, no change to ADC plan of home with spouse Amie Rubin - 11/10/2017 11:40 AM PDTFormatting of this note might be different from the origina l. Progress Notes by Amie Newby MD at 11/10/17 1140 Author: Amie Newby MD Service: Hospitalist Author Type: Physician Filed: 11/10/17 1147 Date of Service: 11/10/17 1140 Status: Signed Soap Grinder: Amie Newby MD (Physician) [facility] Service: Hospitalist Progress Note Pt: Norman Hernandez AGE/SEX: 81 y.o. male ROOM: 9118/9118-1 : 1935 PCP: FIDE SOLARES ADMIT DATE: 11/07/2017 TODAY'S DATE: 11/10/2017 Hospital Day/Hospital Course: LOS: [address] Mcghee 81 year old malewith past medical history of CAD, HTN and DM Type 2 who was admitted as a transfer from [facility] to our ICU due to acute pulmonary embolism. Apparently, patient had a fall on 11/05/2017 and developed a hamstring avulsion of RLE with resultant hematoma in the posterior compartment of the thigh and another hematoma along with the ischioanal fossa . Orthopedic services was consulted there and they recommended conservative management and n o surgery was recommended. The following day, patient was working with PT services and lauren acuña developed chest pressure and shortness of breath symptoms. Work up for ACS and Troponins were negative but CTA chest showed multiple pulmonary emboli extending from the distal main pulmonary arteries into the lobar, segmental and subsegmental branches of RUL, RML, RLL and LLL. Patient was not a candidate for anticoagulation due to recent fall and hematoma so Vas cular surgery services at [facility] was contacted and Dr. Humphreys recommended IVC filter placement. Yinka mendoza was kept in ICU for monitoring and treatment and Dr. Humphreys placed IVC filter without complic ations. He was then transferred out of the ICU to acute care. SUBJECTIVE: Patient seen and examine. He is not having any chest pain. He is without oxygen. He said he was normal but having a slight episode of dizziness.. Declined to have any chest pain. No c hest pain, SOB, RAZA. No cough on recumbency. Had no orthopnea or PND. No Abdominal pain, N/V or fever. Still feeling tired and fatigued. No dizziness or lightheadedness. Scheduled Medications: amLODIPine 10 mg Oral Daily docusate sodium 100 mg Oral BID insulin glargine 10 Units Subcutaneous BID insulin lispro (human) 0-10 Units Subcutaneous TID AC insulin lispro (human) 0-5 Units Subcutaneous Nightly pantoprazole 40 mg Oral QAM AC pramipexole 2 mg Oral TID Continuous Infusions dextrose PRN Medications acetaminophen OR acetaminophen, dextrose, dextrose, dextrose, fentaNYL, glucagon, gluca danni, hydrALAZINE OR hydrALAZINE, HYDROcodone-acetaminophen OR HYDROcodone-acetaminop hen, HYDROmorphone, lidocaine, midazolam, ondansetron OR ondansetron, polyethylene glyco l, traMADol Allergy: No Known Allergies OBJECTIVE: Vitals: Patient Vitals for the past 24 hrs: BP Temp Temp src Pulse Resp SpO2 11/10/17 1112 148/62 98.2 F (36.8 C) Axillary 66 18 98 % 11/10/17 1000 128/60 - - 62 - - 11/10/17 0931 157/71 - - 51 - - 11/10/17 0838 163/68 - - - - - 11/10/17 0755 147/67 97.6 F (36.4 C) Axillary 111 14 98 % 11/10/17 0353 123/46 97.9 F (36.6 C) Axillary - - 96 % 11/09/17 2240 143/65 98.3 F (36.8 C) Axillary - 14 95 % 11/09/17 1945 128/58 97.6 F (36.4 C) Oral - 14 97 % 11/09/17 1554 131/60 97.6 F (36.4 C) Oral 60 16 98 % 11/09/17 1147 139/62 97.7 F (36.5 C) Oral 53 16 95 % I&O Detailed Table: Intake/Output Summary (Last 24 hours) at 11/10/17 1140 Last data filed at 11/10/17 1118 Gross per 24 hour Intake 677 ml Output 1475 ml Net -798 ml Patient Vitals for the past 96 hrs: Weight 11/07/17 1800 103.9 kg (229 lb 0.9 oz) Hemodynamics Last 24hrs: Physical Examination: Constitutional: Awake and alert and talking to me appropriately HEENT: Neck supple, no JVD, non icteric sclera. Cardiovascular: Normal rate, regular rhythm, normal heart sounds with S1 and S2, and intact distal pulses. Exam reveals no gallop and no friction rub. 2/4HSM Pulmonary/Chest: Clear bilateral. Abdominal: Soft. Nontender bowel sounds positive Extremeties/Musculoskeletal: Normal range of motion.exhibits no tenderness. He had a right thigh hematoma Neurological: Alert and oriented to person, place, and time. Moving all 4 extremities Skin: Skin is warm and dry. No rash noted. No erythema. No pallor. Psychiatric: Has a normal mood and affect. Behavior is normal. Judgment normal. Not suicida l LABS: Recent Labs Lab 11/10/17 0435 11/09/17 0400 11/08/17 1201 11/08/17 0608 WBC 8.01 9.26 -- 8.65 HGB 10.2* 10.2* 11.2* 10.4* HCT 28.9* 29.1* 32.2* 29.8* PLT 151 153 -- 139* NEUTOPHILPCT 69.33 70.50 -- 63.16 MONOPCT 7.59 7.81 -- 8.27 Recent Labs Lab 11/10/17 0435 11/09/17 0400 11/08/17 0608 11/07/17 1838 NA 136 136 138 139 K 4.5 4.3 4.3 4.1 CL 101 101 102 103 CO2 27 25 26 28 BUN 18 17 CREATININE 0.9 1.0 1.0 0.95 PROT -- -- -- 6.3 BILITOT -- -- -- 0.9 ALT -- -- -- 17 AST -- -- -- 14 Phosphorus: Lab Results Component Value Date PHOS 3.6 11/10/2017 Recent Labs Lab 11/10/17 0435 11/09/17 0400 11/08/17 0608 MG 2.1 2.1 2.1 Recent Labs Lab 11/07/17 1838 INR 1.0 Recent Labs Lab 11/09/17 0400 11/08/17 0608 11/08/17 0017 CKTOTAL 118 155 191 Results Procedure Component Value Units Date/Time MRSA by PCR [[id number]] Collected: 11/07/171812 Specimen: Nasopharyngeal from Nasopharyngeal Culture Updated: 11/07/17 193 SOURCE NARES(NOSE) MRSA PCR NEGATIVE PROBLEM LIST Principal Problem: Acute pulmonary embolism (HCC) Active Problems: Coronary artery disease Hypertension Type 2 diabetes mellitus (HCC) Thigh hematoma, right, initial encounter Acute post-hemorrhagic anemia Weakness generalized Resolved Problems: * No resolved hospital problems. * ASSESSMENT & PLAN 81 year old malewith past medical history of CAD, HTN and DM Type 2 who was admitted as a transfer from [facility] to our ICU due to acute pulmonary embolism Principal Problem: Acute pulmonary embolism (HCC) He was slightly dizzy but not requiring oxygen. He is thinking that could be related to th e insulin versus nausea medications. But his blood glucose is not hypoglycemic. Status post IVC filter. Negative for anticoagulation due to right thigh hematoma and increa sed risk of bleeding. Will require hematology service as outpatient. Active Problems: Coronary artery disease With Hypertension. Continue with amlodipine. Not having any chest pain. Type 2 diabetes mellitus (HCC) Blood glucose is slightly on the high side. I will increase the dose of Lantus. Thigh hematoma, right, initial encounter With Acute post-hemorrhagic anemia. H and H has been stable. His hematoma secondary to acu te avulsion of the right hamstring muscle with resultant hematoma of right thigh, posterior compartment and right is kilo fossa from a fall. Weakness generalized Continue to have physical therapy evaluation. Resolved Problems: * No resolved hospital problems. * Patient diagnosed with: , and I agree with the following nutritional recommendations: AMIE NEWBY MD, FACP 11/10/2017 11:40 AM Dictation software, Trulia, used which may contain error for similar sounding words even af ter review. Personal communication requested for any clarification. Portions of this chart may have been copied from previous notes for continuity of care purp ose onversion Transaction, Pr ovider Unknown - 11/10/2017 5:18 AM PDT Nurse Progress Note by Carol Ann Zabala RN at 11/10/17517 Author: Carol Ann Zabala RN Service: (none) Author Type: Registered Nurse Filed: 11/10/17519 Date of Service: 11/10/17517 Status: Signed Soap Grinder: Carol Ann Zabala RN (Registered Nurse) Pt complained of pain this shift, but refused pain medication. Pt HR SB between 48-60s with BPs 120-140s. Pts neck site is clean, dry and intact. Otherwise hourly rounding uneventful. Will continue to monitor. Chart check completed. onver des Transaction, Provider Unknown - 11/09/2017 5:01 PM PDT Nurse Progress Note by Gayla Mejias RN at 11/09/171700 Author: Gayla Mejias RN Service: (none) Author Type: Registered Nurse Filed: 11/09/171700 Date of Service: 11/09/171700 Status: Signed Soap Grinder: Gayla Mejias RN (Registered Nurse) End of shift chart review complete. Gayla Mejias RN mie Newby - 11/09/2017 11:17 AM PDTFormatting of this note might be different from the origina l. Progress Notes by Amie Newby MD at 11/09/171116 Author: Amie Newby MD Service: Hospitalist Author Type: Physician Filed: 11/09/171126 Date of Service: 11/09/171116 Status: Signed Soap Grinder: Amie Newby MD (Physician) [facility] Service: Hospitalist Progress Note Pt: Norman Hernandez AGE/SEX: 81 y.o. male ROOM: [facility]91181 : 1935 PCP: FIDE SOLARES ADMIT DATE: 11/07/2017 TODAY'S DATE: 11/09/2017 Hospital Day/Hospital Course: LOS: [address] Mcghee 81 year old malewith past medical history of CAD, HTN and DM Type 2 who was admitted as a transfer from [facility] to our ICU due to acute pulmonary embolism. Apparently, patient had a fall on 11/05/2017 and developed a hamstring avulsion of RLE with resultant hematoma in the posterior compartment of the thigh and another hematoma along with the ischioanal fossa . Orthopedic services was consulted there and they recommended conservative management and n o surgery was recommended. The following day, patient was working with PT services and lauren acuña developed chest pressure and shortness of breath symptoms. Work up for ACS and Troponins were negative but CTA chest showed multiple pulmonary emboli extending from the distal main pulmonary arteries into the lobar, segmental and subsegmental branches of RUL, RML, RLL and LLL. Patient was not a candidate for anticoagulation due to recent fall and hematoma so Vas cular surgery services at [facility] was contacted and Dr. Humphreys recommended IVC filter placement. Yinka mendoza was kept in ICU for monitoring and treatment and Dr. Humphreys placed IVC filter without complic ations. He was then transferred out of the ICU to acute care. SUBJECTIVE: Patient seen and examine. Complaint of right thigh pain. He is not short of breath. Decline d to have any chest pain. No chest pain, SOB, RAZA. No cough on recumbency. Had no orthopnea o r PND. No Abdominal pain, N/V or fever. Still feeling tired and fatigued. No dizziness or li ghtheadedness. Scheduled Medications: amLODIPine 10 mg Oral Daily docusate sodium 100 mg Oral BID insulin glargine 20 Units Subcutaneous Nightly insulin lispro (human) 0-10 Units Subcutaneous TID AC insulin lispro (human) 0-5 Units Subcutaneous Nightly pantoprazole 40 mg Oral QAM AC pramipexole 2 mg Oral TID Continuous Infusions dextrose sodium chloride (IV) 110 mL/hr at 11/09/17 0403 PRN Medications acetaminophen OR acetaminophen, dextrose, dextrose, dextrose, fentaNYL, glucagon, gluca danni, hydrALAZINE OR hydrALAZINE, HYDROcodone-acetaminophen OR HYDROcodone-acetaminop hen, HYDROmorphone, lidocaine, midazolam, ondansetron OR ondansetron, polyethylene glyco l, traMADol Allergy: No Known Allergies OBJECTIVE: Vitals: Patient Vitals for the past 24 hrs: BP Temp Temp src Pulse Resp SpO2 11/09/17 0912 151/67 - - - - - 11/09/17 0759 120/56 97.7 F (36.5 C) Oral 51 18 95 % 11/09/17 0353 160/74 98 F (36.7 C) Oral 51 18 98 % 11/08/17 2340 168/72 97.9 F (36.6 C) Oral - 20 99 % 11/08/17 1943 164/73 98 F (36.7 C) Oral - - 97 % 11/08/17 1645 155/67 97.7 F (36.5 C) Oral 71 21 93 % 11/08/17 1500 149/66 - - 62 17 (!) 87 % 11/08/17 1150 171/76 97.7 F (36.5 C) Oral 70 19 98 % 11/08/17 1145 171/76 - - 64 16 98 % I&O Detailed Table: Intake/Output Summary (Last 24 hours) at 11/09/17 1117 Last data filed at 11/09/17 0803 Gross per 24 hour Intake 986 ml Output 3200 ml Net -2214 ml Patient Vitals for the past 96 hrs: Weight 09/09/18 1800 103.9 kg (229 lb 0.9 oz) Hemodynamics Last 24hrs: Physical Examination: Constitutional: Alert and oriented to person, place, and time. HEENT: Neck supple, no JVD, non icteric sclera. Cardiovascular: Normal rate, regular rhythm, normal heart sounds with S1 and S2, and intact distal pulses. Exam reveals no gallop and no friction rub. 2/4HSM Pulmonary/Chest: Effort normal and breath sounds normal. No stridor. No respiratory distres s. no wheezes. no rales. exhibits no tenderness. Abdominal: Soft. Bowel sounds are normal. exhibits no distension and no mass. There is no t enderness. There is no rebound and no guarding. Extremeties/Musculoskeletal: Normal range of motion.exhibits no tenderness. He had a right thigh hematoma Neurological: Alert and oriented to person, place, and time. Moving all 4 extremities Skin: Skin is warm and dry. No rash noted. No erythema. No pallor. Psychiatric: Has a normal mood and affect. Behavior is normal. Judgment normal. Not suicida l LABS: Recent Labs Lab 11/09/17 0400 11/08/17 1201 11/08/17 0608 11/07/17 1838 WBC 9.26 -- 8.65 -- 8.12 HGB 10.2* 11.2* 10.4* < > 10.9* HCT 29.1* 32.2* 29.8* < > 32.6* PLT 153 -- 139* -- 144* NEUTOPHILPCT 70.50 -- 63.16 -- 63.18 MONOPCT 7.81 -- 8.27 -- 7.06 < > = values in this interval not displayed. Recent Labs Lab 11/09/17 0400 11/08/17 0608 11/07/17 1838 NA 136 138 139 K 4.3 4.3 4.1 CL 101 102 103 CO2 25 26 28 BUN 18 18 17 CREATININE 1.0 1.0 0.95 PROT -- -- 6.3 BILITOT -- -- 0.9 ALT -- -- 17 AST -- -- 14 Phosphorus: Lab Results Component Value Date PHOS 3.0 11/09/2017 Recent Labs Lab 11/09/17 0400 11/08/17 0608 MG 2.1 2.1 Recent Labs Lab 11/07/17 1838 INR 1.0 Recent Labs Lab 11/09/17 0400 11/08/17 0608 11/08/17 0017 CKTOTAL 118 155 191 Results Procedure Component Value Units Date/Time MRSA by PCR [[id number]] Collected: 11/07/171812 Specimen: Nasopharyngeal from Nasopharyngeal Culture Updated: 11/07/17 193 SOURCE NARES(NOSE) MRSA PCR NEGATIVE PROBLEM LIST Principal Problem: Acute pulmonary embolism (HCC) Active Problems: Coronary artery disease Hypertension Type 2 diabetes mellitus (HCC) Thigh hematoma, right, initial encounter Acute post-hemorrhagic anemia Weakness generalized Resolved Problems: * No resolved hospital problems. * ASSESSMENT & PLAN 81 year old malewith past medical history of CAD, HTN and DM Type 2 who was admitted as a transfer from [facility] to our ICU due to acute pulmonary embolism Principal Problem: Acute pulmonary embolism (HCC) Status post IVC filter. Negative for anticoagulation due to right thigh hematoma and incre ased risk of bleeding. Will require hematology service as outpatient. Active Problems: Coronary artery disease With Hypertension. Continue with amlodipine. Type 2 diabetes mellitus (HCC) Diabetes is appropriately controlled. Continue with Lantus at this time. Thigh hematoma, right, initial encounter With Acute post-hemorrhagic anemia. H and H has been stable. His hematoma secondary to acu te avulsion of the right hamstring muscle with resultant hematoma of right thigh, posterior compartment and right is kilo fossa from a fall. Weakness generalized Continue to have physical therapy evaluation. Resolved Problems: * No resolved hospital problems. * Patient diagnosed with: , and I agree with the following nutritional recommendations: AMIE NEWBY MD, FACP 11/09/2017 11:17 AM Dictation software, Trulia, used which may contain error for similar sounding words even af ter review. Personal communication requested for any clarification. Portions of this chart may have been copied from previous notes for continuity of care purp ose onversion Transaction, Colby ovider Unknown - 11/09/2017 5:15 AM PDT Nurse Progress Note by Kerry Jensen RN at 11/09/17 0515 Author: Kerry Jensen RN Service: (none) Author Type: Registered Nurse Filed: 11/09/17516 Date of Service: 11/09/17514 Status: Signed Soap Grinder: Kerry Jensen RN (Registered Nurse) Pt had uneventful shift. Denies any pain, VSS. 12 hr chart check complete. Kerry Jensen RN 5:16 AM onver des Transaction, Provider Unknown - 11/08/2017 6:29 PM PDT Nurse Progress Note by Jami Camilo RN at 11/08/171828 Author: Jami Camilo RN Service: (none) Author Type: Registered Nurse Filed: 11/08/171828 Date of Service: 11/08/171828 Status: Signed Soap Grinder: Jami Camilo RN (Registered Nurse) End of shift review complete. Jami Camilo RN onver des Transaction, Provider Unknown - 11/08/2017 10:12 AM PDT Case Management by Teresa Abernathy RN at 11/08/17 1012 Author: Teresa Abernathy RN Service: (none) Author Type: Registered Nurse Filed: 11/08/17 1015 Date of Service: 11/08/171011 Status: Signed Soap Grinder: Teresa Abernathy RN (Registered Nurse) 11/08/17 1000 Discharge Planning Evaluation Admitting Diagnosis hypoxia; fall Readmission No Living Arrangements Spouse/significant other Support Systems Spouse/significant other Type of Residence Private residence Independent with ADL's Yes Independent with Mobility Yes Home Care Services No Caregiver after Discharge No Mental Status Oriented Prior functional status indep Resources Financial concerns No Ostomy/Drains/Appliances No Anticipated Disposition Facility Type Home Met with pt and son Adam([phone]) and discussed discharge planning. Pt lives with barb Barfield in [place] and has been indep with all his ADL's. No use of home O2, no dme, no anticoagulants, no HD. Plans to return home Patient's PCP is: Dr Seay--[place] Patient's insurance: medicare Coverage concerns: Medication coverage/concerns: Rx Bedside Delivery: Community resources utilized / needed: Assistance in transportation: family Identification of any specific education / training: no Barriers to Discharge / Alternative housing needed: PT nora Anticipated DCP: tbd Rosalie Abernathy RN CM onver des Transaction, Provider Unknown - 11/08/2017 9:49 AM PDT Nurse Progress Note by Jami Camilo RN at 11/08/17948 Author: Jami Camilo RN Service: (none) Author Type: Registered Nurse Filed: 11/08/17 182 Date of Service: 11/08/17948 Status: Signed Soap Grinder: Jami Camilo RN (Registered Nurse) 0945 pt reporting dizziness, CP and headache. MD paged. JONES at bedside at 12:30. See orders. Jami Camilo RN Torsten Mustafa MD - 11/08/2017 9:00 AM PDTFormatting of this note might be different from t iraj original. Progress Notes by Torsten Mcghee MD at 11/08/17899 Author: Torsten Mcghee MD Service: Hospitalist Author Type: Physician Filed: 11/09/17 174 Date of Service: 11/08/17899 Status: Addendum Soap Grinder: Torsten Mcghee MD (Physician) Related Notes: Original Note by Torsten Mcghee MD (Physician) filed at 11/08/17 21 59 [facility] Service: Hospitalist Progress Note Norman Virgenultrie 81 y.o. [id number] male [facility] Hospital Day: LOS: 1 day SUBJECTIVE Patient Summary: Patient is a 81 year old male with past medical history of CAD, HTN and DM Type 2 who was a dmitted as a transfer from [facility] to our ICU due to acute pulmonary embolism. Apparen tly, patient had a fall on 11/05/2017 and developed a hamstring avulsion of RLE with resultant hematoma in the posterior compartment of the thigh and another hematoma along with the isch ioanal fossa. Orthopedic services was consulted there and they recommended conservative nickolas gement and no surgery was recommended. The following day, patient was working with PT [employer] and suddenly developed chest pressure and shortness of breath symptoms. Work up for ACS a nd Troponins were negative but CTA chest showed multiple pulmonary emboli extending from the distal main pulmonary arteries into the lobar, segmental and subsegmental branches of RUL, RML, RLL and LLL. Patient was not a candidate for anticoagulation due to recent fall and hem atoma so Vascular surgery services at [facility] was contacted and Dr. Humphreys recommended IVC filter placement. He was kept in ICU for monitoring and treatment and Dr. Humphreys placed IVC filter wit hout complications. He was then transferred out of the ICU to acute care. Events Overnight: Patient seen and examined. Overnight events noted. Patient complaint of headaches, nausea, mild chest discomfort and cough. Denied shortness of breath, denied abdominal pain, diarrhea or constipation. Feels fatigue, appetite is fair. Remained afebrile. Scheduled Medications amLODIPine 10 mg Oral Daily docusate sodium 100 mg Oral BID insulin glargine 20 Units Subcutaneous Nightly insulin lispro (human) 0-10 Units Subcutaneous TID AC insulin lispro (human) 0-5 Units Subcutaneous Nightly pantoprazole 40 mg Oral QAM AC pramipexole 2 mg Oral TID Continuous Infusions dextrose sodium chloride (IV) 110 mL/hr at 11/08/17 1016 PRN Medications acetaminophen OR acetaminophen, dextrose, dextrose, dextrose, fentaNYL, glucagon, gluca danni, hydrALAZINE OR hydrALAZINE, HYDROcodone-acetaminophen OR HYDROcodone-acetaminop hen, HYDROmorphone, lidocaine, midazolam, ondansetron OR ondansetron, polyethylene glyco l, traMADol Allergy: No Known Allergies OBJECTIVE Vital Signs: BP 164/73 (BP Location: Right upper arm) | Pulse 71 | Temp 98 F (36.7 C) (Oral) | Re sp 21 | Ht 1.727 m (5' 8") | Wt 103.9 kg (229 lb 0.9 oz) | SpO2 97% | BMI 34.83 kg/m I&O Detailed Table: I/O last 3 completed shifts: In: 1136 [P.O.:1136] Out: 3050 [Urine:3050] Weight change: Hemodynamics Last 24hrs: Examination: Constitutional: Patient is alert and oriented x 3. Appears well developed and not in acute distress but has some pain. HEENT: Head: Normocephalic and Atraumatic. Nose: Nose normal. Mouth/Throat: Oropharynx is clear and moist. Eyes: No conjunctiva injection. EOM Intact. PERRLA. No scleral icterus. Neck: Neck supple. No JVD present. No tracheal deviation present. No thyromegaly Cardiovascular: Regular rate and rhythm, no murmur heard and no friction rub. Pulmonary/Chest: Symmetrical chest expansion, no stridor, no wheezes and no rales. Abdominal: Soft, BS present, no distension, no ascites. No rebound tenderness and no guard ing. Musculoskeletal: Moves all limbs, + Thigh hematoma. No pedal edema. Neurological: No focal neurologic deficits. + Weakness, No CN deficits. Skin: Skin is warm and dry. No rash noted. No pallor. Psychiatric: No psychosis, reported normal mood. Judgment stable. LABS: Recent Results (from the past 24 hour(s)) HGB and HCT Collection Time: 11/07/17 11:56 PM Result Value Ref Range HGB 10.4 (L) 13.2 - 17.0 g/dL HCT 31.0 (L) 39.0 - 50.0 % CPK Collection Time: 11/08/17 12:17 AM Result Value Ref Range CPK 191 55 - 400 U/L POCT glucose Collection Time: 11/08/17 12:21 AM Result Value Ref Range GLUCOSE,POC SCREEN 213 (H) 65 - 99 mg/dL POCT glucose Collection Time: 11/08/17 5:52 AM Result Value Ref Range GLUCOSE,POC SCREEN 181 (H) 65 - 99 mg/dL CBC w/auto diff (reflex to manual) Collection Time: 11/08/17 6:08 AM Result Value Ref Range WBC 8.65 3.80 - 11.00 K/uL RBC 3.47 (L) 4.20 - 5.70 M/uL HGB 10.4 (L) 13.2 - 17.0 g/dL HCT 29.8 (L) 39.0 - 50.0 % MCV 85.9 80.0 - 100.0 fl MCH 30.0 27.0 - 34.0 pg MCHC 34.9 32.0 - 35.5 g/dL RDW SD 43.3 37 - 53 fl PLT 139 (L) 150 - 400 K/uL MPV 10.0 fl DIFF TYPE AUTOMATED NEUTROPHILS 63.16 % LYMPHOCYTES 26.48 % MONOCYTES 8.27 % EOSINOPHILS 1.57 % BASOPHILS 0.52 % NEUTROPHILS ABS 5.46 1.90 - 7.40 K/uL LYMPHOCYTES ABS 2.29 1.00 - 3.90 K/uL MONOCYTES ABS 0.72 0.00 - 0.80 K/uL EOSINOPHILS ABS 0.14 0.00 - 0.50 K/uL BASOPHILS ABS 0.05 0.00 - 0.10 K/uL Basic metabolic panel Collection Time: 11/08/17 6:08 AM Result Value Ref Range SODIUM 138 135 - 145 mmol/L POTASSIUM 4.3 3.5 - 4.9 mmol/L CHLORIDE 102 99 - 109 mmol/L CO2 26 23 - 32 mmol/L ANION GAP AGAP 14 5 - 20 mmol/L GLUCOSE 177 (H) 65 - 99 mg/dL BUN 18 8 - 25 mg/dL CREATININE 1.0 0.70 - 1.30 mg/dL BUN/CREAT 18 CALCIUM 7.9 (L) 8.5 - 10.5 mg/dL EGFR >60 >60 mL/min/1.73m2 Magnesium Collection Time: 11/08/17 6:08 AM Result Value Ref Range MAGNESIUM 2.1 1.7 - 2.4 mg/dL Phosphorus Collection Time: 11/08/17 6:08 AM Result Value Ref Range PHOSPHORUS 3.2 2.3 - 4.8 mg/dL CPK Collection Time: 11/08/17 6:08 AM Result Value Ref Range CPK 155 55 - 400 U/L Echo cardiac adult complete Collection Time: 11/08/17 8:30 AM Result Value Ref Range LV EF 65 50 - 70 % HGB and HCT Collection Time: 11/08/17 12:01 PM Result Value Ref Range HGB 11.2 (L) 13.2 - 17.0 g/dL HCT 32.2 (L) 39.0 - 50.0 % POCT glucose Collection Time: 11/08/17 12:08 PM Result Value Ref Range GLUCOSE,POC SCREEN 288 (H) 65 - 99 mg/dL PROBLEM LIST Principal Problem: Acute pulmonary embolism (HCC) Active Problems: Thigh hematoma, right, initial encounter Acute post-hemorrhagic anemia Coronary artery disease Hypertension Type 2 diabetes mellitus (HCC) Weakness generalized ASSESSMENT & PLAN Acute Bilateral Pulmonary Embolism: S/P IVC Filter Placement by Dr. Humphreys without complicati ons. No anticoagulation at this time due to right thigh hematoma and increased risks for bl eeding. Will monitor oxygen saturation and follow any recurrent chest pains and shortness of breath symptoms. He will eventually need anticoagulation when stable and would benefit from out patient Hematology services follow up at discharge. Acute Hemorrhagic Anemia: Secondary to acute avulsion of hamstring muscle. H&H is stable a t 11, no acute indication for blood transfusion at this time.Will monitor CBC. Right Thigh Hematoma: Secondary to acute Avulsion of right hamstring muscle with resultant hematoma of right thigh posterior compartment and right ischioanal fossa resulting from a fa ll. Will monitor closely for clinical signs and symptoms of compartment syndrome. Orthopedic services was consulted in [facility] who recommended conservative management and pain contr ol. Appreciate Dr. Humphreys's help and vascular surgery recommendations. Hypertension: BP is stable at present, will continue Amlodipine as scheduled and give Hydr alazine as needed. Coronary Artery Disease: on dual antiplatelet therapy at home. Holding this for now due to R thigh hematoma and bleeding. Diabetes Mellitus Type 2, Uncontrolled without Other Manifestation: Blood sugar are elevate d at present, will start Lantus 20 units at HS and give Humalog per SS. At home he takes 70/ 30 Insulin which he can resume at discharge with additional adjustment as indicated. DVT prophylaxis with SCD's only due to risks of bleeding. Discharge plans when stable and improved in 1 to 2 days and cleared from Vascular surgery s ervices. Spent more than 35 minutes reviewing patient's labs, diagnostic tests, examination of patie nt, discussing plan of care with patient and family, coordination of care and answered their questions. TORSTEN MCGHEE MD 11/08/2017 artens, Radha paulino DO - 11/07/2017 9:25 PM PDTFormatting of this note might be different from the origin al. Progress Notes by Radha Su DO at 11/07/172124 Author: Radha Su DO Service: [employer] Coordinator Author Type: Physician Filed: 11/07/172130 Date of Service: 11/07/172124 Status: Signed Soap Grinder: Radha Su DO (Physician) Pt arrived to ICU in very stable condition earlier this evening. He was taken to the cath l ab and had an IVC filter placed by Dr. Humphreys. The pt is on RA with oxygen sats 97-98% wihtout any dyspnea or distress. He is pain free at this time except for c/o c/o cramping in his R t high and wants to get his nightly pramipexole. Otherwise, he ate dinner and is watching TV i n bed. I examined him, including his legs which he reports are unchanged from earlier today and he is stable to transfer out of the ICU to acute care. I gave report to Dr. Rees who accepted the pt in transfer to the hospitalist service. onversion Willis saction, Provider Unknown - 11/07/2017 6:00 PM PDTFormatting of this note might be differen t from the original. Nurse Progress Note by Julieta Aburto RN at 11/07/171799 Author: Julieta Aburto RN Service: (none) Author Type: Registered Nurse Filed: 11/07/171947 Date of Service: 11/07/171799 Status: Signed Soap Grinder: Julieta Aburto RN (Registered Nurse) Pt arrived via EMS. He is alert and oriented. He is one 1 L 02, Sys BP 170's pt is heading to IR for IVC filter. Rt thigh measurement from [facility]'s 25 cm left leg measurement reads 2 2 cm. onver des Transaction, Provider Unknown - 11/07/2017 5:49 PM PDT Progress Notes by Cayla Dos Santos RPH at 11/07/171748 Author: Cayla Dos Santos RPH Service: Pharmacy Author Type: Pharmacist Filed: 11/07/171748 Date of Service: 11/07/171748 Status: Signed Soap Grinder: Cayla Dos Santos RPH (Pharmacist) Clinical Pharmacy Note: Renal Monitoring Norman Hernandez 81 y.o. male Ht Readings from Last 1 Encounters: No data found for Ht Wt Readings from Last 1 Encounters: No data found for Wt Creatinine clearance cannot be calculated (No order found.) Pharmacy dosing for renal function per MARIA Trujillo. Currently, there are no updated height, weight, and labs. Pharmacy will adjust medications, if necessary, in AM when height, weight, and labs are reported. Cayla Dos Santos PharmD 11/07/2017 5:49 PM docume nted in this encounter H&P Notes Mili Szymanski ARNP - 11/07/2017 5:48 PM PDT H&P by MARIA Trujillo at 11/07/171747 Author: MARIA Trujillo Service: [employer] Coordinator Author Type: Advanced Registered Nu rse Practitioner Filed: 11/07/171842 Date of Service: 11/07/171747 Status: Addendum Soap Grinder: MARIA Trujillo (Advanced Registered Nurse Practitioner) Related Notes: Original Note by MARIA Trujillo (Advanced Registered Nurse Practit ioner) filed at 11/07/17 629 [facility] Service: [employer] Coordinator Admission History & Physical Norman Hernandez 81 y.o. Date of Admission: 11/07/2017 Requesting Physician: Dr. Fisher, [facility] Indication for ICU Admission: hypoxia History Obtained From: patient, chart review CHIEF COMPLAINT: fall with development of hematoma HISTORY OF PRESENT ILLNESS The patient is a 81 y.o. male with significant past medical history of CAD (on dual antipla telets), essential HTN and type 2 diabetes mellitus who presented to [facility] following a fall on 11/05 and developed a hamstring avulsion of the right lower extremity with resultan t hematoma formation in the posterior compartment of the thigh measuring appx 8x4x14 cm. The re was also a development of a hematoma along the ischioanal fossa. The patient reports he w as trying to use a tube cutter along his fence and could not get the strength to cut the dorothy t so he climbed on the fence and attempted to step on the tube cutter but it twisted and he fell under it, injuring his right thigh. He had severe pain in his R lower extremity and fel t a popping. Ortho was consulted by ED physician at [facility] who recommended conservative therapy with pain control, no surgical intervention needed. On 11/06 - the patient was ambulating with physical therapy and developed chest pressure with shortness of breath and became lightheaded. Troponins were checked and were negative, EKG h ad no ST-T wave changes. CT angiogram revealed multiple pulmonary emboli extending from the distal main pulmonary arteries into the lobar, segmental and subsegmental branches of the le ft upper lobe, left lower lobe and the right upper, middle and lower lobes. The patient was unable to undergo anticoagulation due to hematoma with drop in H/H, so Dr. Humphreys was consulted for consideration of IVC filter placement. The patient was initially accepted for admission overnight to the hospitalist service, however there was concern by the hospitalist team was that he was too ill to be managed on the medical floor. The patient was transferred to [facility] ICU for monitoring and treatment. REVIEW OF SYSTEMS Review of Systems Constitutional: Negative. HENT: Negative. Eyes: Negative. Respiratory: Negative. Cardiovascular: Negative. Gastrointestinal: Negative. Genitourinary: Negative. Musculoskeletal: R thigh soreness Skin: Negative. Neurological: Negative. Endo/Heme/Allergies: Negative. PAST MEDICAL HISTORY Past Medical History Diagnosis Date Coronary artery disease Hypertension Type 2 diabetes mellitus (HCC) PAST SURGICAL HISTORY No past surgical history on file. ALLERGIES No Known Allergies MEDICATIONS PRIOR TO ADMISSION Prior to Admission medications Not on File FAMILY HISTORY OF SIGNIFICANCE No family history on file. SOCIAL HISTORY Social History Social History Marital status: Spouse name: N/A Number of children: N/A Years of education: N/A Occupational History Not on file. Social History Main Topics Smoking status: Never Smoker Smokeless tobacco: Not on file Alcohol use No Drug use: No Sexual activity: Not on file Other Topics Concern Not on file Social History Narrative No narrative on file PHYSICAL EXAM VITAL SIGNS Heart Rate: [64] 64 Resp: [27] 27 BP: (169)/(80) 169/80 EXAM GEN: elderly gentleman, appears stated age, [place], awake, alert, oriented x3, NAD. Very pleas ant and cooperative with care. NEURO: PERRLA, EOMI, no facial asymmetry, moves all extremities well, however limited by pa in to R leg GCS: 15 HEENT: sclerae clear, nonicteric, oral mmm, pink, no exudates NECK: supple, trachea midline CV: RRR, S1/S2, no murmur, rub or gallop, peripheral pulses palpable, cap refill brisk LUNGS: clear b/l but diminished on R, no wheezing, rales or rhonchi, symmetric chest expans ion, even/unlabored respirations on 1L NC ABD: soft, nondistended, nontender to palpation, no masses, EXTR: no edema, clubbing or cyanosis, R leg more pale, pulses dopplerable, R thigh > L thig h, circulation/sensation and motor is intact distal to R thigh hematoma. SKIN: warm, dry, no rash or mottling; no e/o skin breakdown over the occiput, scapulae, elb ows, sacrum or heels LINES/TUBES: PIV DATA No results for input(s): WBC, RBC, HGB, HCT, MCV, MCH, MCHC, RDW, PLT, MPV, BANDSABS, NEUTR OABS, LYMPHSABS, ATYPLYMPABS, MONOSABS, BASOSABS, EOSABS, MORPH in the last 168 hours. No results for input(s): NA, K, CL, CO2, ANIONGAP, GLUF, BUN, CREATININE, BCR, CA, ALB, GABRIELLE B, AG, PROT, BILITOT, ALKPHOS, ALT, AST, EGFR, PHOS, MG in the last 168 hours. No results for input(s): INR in the last 168 hours. IMAGING No results found. PROBLEM LIST Principal Problem: Acute pulmonary embolism (HCC) Active Problems: Coronary artery disease Hypertension Type 2 diabetes mellitus (HCC) Avulsion of hamstring muscle, right, initial encounter Thigh hematoma, right, initial encounter Acute blood loss anemia ASSESSMENT & PLAN NEURO: Non focal neuro exam CAM-ICU monitoring CV: Hemodynamically stable Hypertension - restart home amlodipine. PRN hydralazine if needed given HR in low 60's CAD - on dual antiplatelet therapy at home. Holding this for now due to R thigh hematoma and bleeding. PULM: Acute bilateral pulmonary embolism - Dr. Humphreys consulted and planning for IVC filter place ment tonight. Patient is on minimal FiO2, not short of breath or in respiratory distress. Un able to anticoagulate due to R thigh hematoma and potential for increased bleeding. Monitor respiratory status closely. Not in obstructive shock. GI/NUTRITION: NPO for now for IVC filter placement, then ADAT to cardiac diabetic diet. RENAL/LYTES: Renally dose medications, avoid nephrotoxins. Monitor electrolytes and replace per protocol Follow I/O ID: No evidence of infection. No recent illness, pt afebrile with normal WBC per outside fac ility records. HEME: Acute blood loss anemia. Hgb initially 13.0 at time of admission and was 10.7 this am. W ill trend H/H, recheck CBC/coags. Monitor for evidence of ongoing bleeding ENDO: Type 2 diabetes mellitus - blood sugar goal 80-180. SSI for now. Patient on metformin at home. MUSC/SKIN: Acute avulsion of the R hamstring muscle with resultant hematoma of R thigh posterior co mpartment and R ischioanal fossa resulting from a fall - monitor closely for signs and sympt oms of compartment syndrome. Ortho was consulted at outside facility, conservative managemen t with pain control recommended. Vascular surgery following, will notify Dr. Humphreys if patient status worsens. PROPHYLAXIS: Stress ulcer prophylaxis: not indicated DVT prophylaxis: contraindicated VAP bundle: n/a. Disposition: Admit to ICU. The patient and his son were updated as to the plan of care at bedside. Code Status: Full Code Primary Care Physician: No primary care provider on file. *Please bill 90 minutes of critical care time spent evaluating the patient, reviewing the d sangeeta and formulating a plan exclusive of all other procedures. MARIA Trujillo 11/07/2017 documented in th is encounter Consult Notes Jaime Humphreys MD - 11/07/2017 6:50 PM PDT Consults by Jaime Humphreys MD at 11/07/171849 Author: Jaime Humphreys MD Service: Vascular Surgery Author Type: Physician Filed: 11/07/171916 Date of Service: 11/07/171849 Status: Signed Soap Grinder: Jaime Humphreys MD (Physician) Subjective: Patient is a 81 y.o. male with PMH significant for HTN, DM, and CAD who developed fell and injured his right thigh this past Wednesday with large hematoma of right thigh. Yesterday, he developed chest pain and a CT was done which revealed a large pulmonary embolus. Due to lar ge hematoma of thigh, he is unable to be anticoagulated. Therefore, he was transferred to [facility] for IVC filter placement. Patient currently denies SOB and chest pain. Patient Active Problem List Diagnosis Date Noted Acute pulmonary embolism (HCC) 11/07/2017 Coronary artery disease 11/07/2017 Hypertension 11/07/2017 Type 2 diabetes mellitus (HCC) 11/07/2017 Avulsion of hamstring muscle, right, initial encounter 11/07/2017 Thigh hematoma, right, initial encounter 11/07/2017 Acute blood loss anemia 11/07/2017 Past Medical History Diagnosis Date Coronary artery disease Hypertension Type 2 diabetes mellitus (HCC) No past surgical history on file. No prescriptions prior to admission. No Known Allergies Social History Substance Use Topics Smoking status: Never Smoker Smokeless tobacco: Not on file Alcohol use No No family history on file. Review of Systems Comprehensive ROS performed and pertinent items described in the HPI. Objective: Patient Vitals for the past 8 hrs: BP Temp Pulse Resp SpO2 Height Weight 11/07/17 1909 139/62 - 51 14 98 % - - 11/07/17 1905 139/62 - 60 14 98 % - - 11/07/17 1900 137/67 - 58 18 97 % - - 11/07/17 1855 147/72 - 66 16 98 % - - 11/07/17 1851 183/81 - 59 16 98 % - - 11/07/17 1800 169/80 98.1 F (36.7 C) 64 27 - 1.727 m (5' 8") 103.9 kg (229 lb 0.9 oz) Vitals:reviewed CONSTITUTIONAL: Conversant, well developed, NAD EYES: Anicteric sclerae, no lid drag, no proptosis RESP: Normal effort, regular, even, unlabored rate CV: No peripheral edema, rate regular SKIN: [place], warm, dry without rash/lesion MS: ROM not limited, no digital cyanosis, normal gait NEURO: Cranial nerves II-XII grossly intact, A&O times 3 PSYCH: appropriate affect, speech and tone, judgement and insight intact Vascular: Large hematoma of right posterior thigh. Moderate edema of right leg. Data Review: CBC: Lab Results Component Value Date WBC 8.12 11/07/2017 RBC 3.76 (L) 11/07/2017 BMP: No results found for: GLUCOSE, CO2, BUN, CREATININE, CALCIUM Coagulation: Lab Results Component Value Date INR 1.0 11/07/2017 Assessment and plan: 81 yo male with PE with contraindication for anticoagulation. Discussed placing IVC filter to prevent further pulmonary embolism. Patient elected to proceed. PARQ done and consent was obtained. Recommend lower extremity duplex to evaluate for DVT's in AM. Will take to c ath lab for IVC filter placement. documented in this encoun ter Miscellaneous Notes Plan of Care - Conversion Transaction, Provider Unknown - 11/11/2017 12:16 PM PDT Plan of Care by Allie Pepper RN at 11/11/171215 Author: Allie Pepper RN Service: (none) Author Type: Registered Nurse Filed: 11/11/171215 Date of Service: 11/11/171215 Status: Signed Soap Grinder: Allie Pepper RN (Registered Nurse) Problem: Safety Goal: Patient will be injury free during hospitalization Assess and monitor vitals signs, neurological status including level of consciousness and o rientation. Assess patient's risk for falls and implement fall prevention plan of care and i nterventions per hospital policy. Ensure arm band on, uncluttered walking paths in room, adequate room lighting, call light a nd overbed table within reach, bed in low position, wheels locked, side rails up per policy, and non-skid footwear provided. Outcome: Adequate for Discharge Patient sitting up in bed, no sign of distress. Vital signs are stable. Afebrile. Denies pa in when asked. Patient calls appropriately. Call button within reach. HOB up 35 deg. Siderai l up x2. Family at bedside. Pathway is cleared of clutter. Non-skid socks on. Bed in lowest position. Wheels are locked. Will continue to monitor patient. Allie Pepper RN lan o f Care - Conversion Transaction, Provider Unknown - 11/10/2017 10:26 PM PDTFormatting of thi s note might be different from the original. Plan of Care by Gracia Ardon RN at 11/10/172225 Author: Gracia Ardon RN Service: (none) Author Type: Registered Nurse Filed: 11/10/172225 Date of Service: 11/10/172225 Status: Signed Soap Grinder: Gracia Ardon RN (Registered Nurse) Problem: Daily Care Goal: Daily care needs are met Assess and monitor ability to perform self care and identify potential discharge needs. Outcome: Progressing All needs met at this time lan o f Care - Conversion Transaction, Provider Unknown - 11/10/2017 5:29 PM PDTFormatting of thi s note might be different from the original. Plan of Care by Gayla Mejias RN at 11/10/171728 Author: Gayla Mejias RN Service: (none) Author Type: Registered Nurse Filed: 11/10/171729 Date of Service: 11/10/171728 Status: Signed Soap Grinder: Gayla Mejias RN (Registered Nurse) R thigh hematoma continues to cause pain, pt only wanting tramadol x1 this shift. Nausea an d dizziness this AM, MD aware. End of shift chart review complete. Gayla Mejias RN Pain Patient's pain/discomfort is manageable Progressing lan o f Care - Conversion Transaction, Provider Unknown - 11/10/2017 5:58 AM PDTFormatting of thi s note might be different from the original. Plan of Care by Carol Ann Zabala RN at 11/10/1758 Author: Carol Ann Zabala RN Service: (none) Author Type: Registered Nurse Filed: 11/10/1758 Date of Service: 11/10/17557 Status: Signed Soap Grinder: Carol Ann Zabala RN (Registered Nurse) Pain Patient's pain/discomfort is manageable Progressing Pt continues to complain of pain this shift, but states it is at a manageable level. lan o f Care - Conversion Transaction, Provider Unknown - 11/09/2017 6:23 PM PDTFormatting of thi s note might be different from the original. Plan of Care by Hiro Nascimento RN at 11/09/171822 Author: Hiro Nascimento RN Service: (none) Author Type: Registered Nurse Filed: 11/09/171827 Date of Service: 11/09/171822 Status: Signed Soap Grinder: Hiro Nascimento RN (Registered Nurse) Patient unable to tolerate frequent ambulation r/t pain from avulsion to right hamstring. P ain controlled with prn pain medications, administered x3 during shift. Patient denies SOB, SPO2 >90% on room air. LS clear/dim. Pain Patient's pain/discomfort is manageable Progressing Safety Patient will be injury free during hospitalization Progressing Hiro Nascimento RN lan o f Care - Conversion Transaction, Provider Unknown - 11/08/2017 9:58 PM PDTFormatting of thi s note might be different from the original. Plan of Care by Kerry Jensen RN at 11/08/172157 Author: Kerry Jensen RN Service: (none) Author Type: Registered Nurse Filed: 11/08/172157 Date of Service: 11/08/172157 Status: Signed Soap Grinder: Kerry Jensen RN (Registered Nurse) Pain Patient's pain/discomfort is manageable Progressing Pain managed with prn medications Safety Patient will be injury free during hospitalization Progressing Bed in low and locked position, side rails up x2, call light within reach. lan o f Care - Conversion Transaction, Provider Unknown - 11/08/2017 10:06 AM PDTFormatting of thi s note might be different from the original. Plan of Care by Jami Camilo RN at 11/08/171005 Author: Jami Camilo RN Service: (none) Author Type: Registered Nurse Filed: 11/08/17 1007 Date of Service: 11/08/171005 Status: Signed Soap Grinder: Jami aCmilo RN (Registered Nurse) Problem: Safety Goal: Patient will be injury free during hospitalization Assess and monitor vitals signs, neurological status including level of consciousness and o rientation. Assess patient's risk for falls and implement fall prevention plan of care and i nterventions per hospital policy. Ensure arm band on, uncluttered walking paths in room, adequate room lighting, call light a nd overbed table within reach, bed in low position, wheels locked, side rails up per policy, and non-skid footwear provided. Outcome: Progressing Bed in low, locked position, pt wearing nonskid socks, and call light within reach. Problem: Discharge Barriers Goal: Patient's discharge needs are met Collaborate with interdisciplinary team and initiate plans and interventions as needed. Outcome: Progressing Unknown discharge needs at this time. lan o f Care - Conversion Transaction, Provider Unknown - 11/08/2017 2:17 AM PDTFormatting of thi s note might be different from the original. Plan of Care by Galina Brady RN at 11/08/17216 Author: Galina Brady RN Service: (none) Author Type: Registered Nurse Filed: 11/08/17216 Date of Service: 11/08/17216 Status: Signed Soap Grinder: Galina Brady RN (Registered Nurse) Problem: Pain Goal: Patient's pain/discomfort is manageable Outcome: Progressing PRN medication available, pt states pain is managed by medication Problem: Safety Goal: Patient will be injury free during hospitalization Outcome: Progressing Pt has remained free of injuries and falls so far this admission Problem: Daily Care Goal: Daily care needs are met Assess and monitor ability to perform self care and identify potential discharge needs. Outcome: Progressing Hourly rounding provided, assistance provided prn p Not Jaime Sexton MD - 11/07/2017 7:10 PM PDT Brief Op Note by Jaime Humphreys MD at 11/07/171909 Author: Jaime Humphreys MD Service: Vascular Surgery Author Type: Physician Filed: 11/07/171912 Date of Service: 11/07/171909 Status: Signed Soap Grinder: Jaime Humphreys MD (Physician) [facility] Service: Vascular Surgery Brief Op Note Pre-operative Diagnosis: DVT and PE and contraindication for anticoagulation Post-operative Diagnosis: Same Procedure(s): Ultrasound guided access of right internal jugular vein Venacavagram Vena cava filter placement under fluoroscopic guidance Surgeon: Jaime Humphreys MD [employer] Engine Mechanic(s): None Anesthesia: Moderate sedation and Local anesthesia Estimated Blood Loss: Less Than 10 ml (Minimal) Other: Contrast: 25 ml Sedation time: 10 min Versed: 1 mg Fentanyl: 50 mcg Indications: See pre-operative history and physical. Findings: On venacavagram, there was good retrograde filling into left iliac vein but poor filling of right iliac vein concerning for thrombus. IVC filter placed just below level of renal veins. Minimal tilt seen. Complications: None apparent Condition: Stable See dictated operative report for full details. Jaime Humphreys MD 11/07/2017 lan of Care - Conversion Transaction, Provider Unknown - 11/07/2017 6:00 PM PDTFormatting of this note might be dif ferent from the original. Plan of Care by Julieta Aburto RN at 11/07/171799 Author: Julieta Aburto RN Service: (none) Author Type: Registered Nurse Filed: 11/07/171943 Date of Service: 11/07/171799 Status: Signed Soap Grinder: Julieta Aburto RN (Registered Nurse) Daily Care Daily care needs are met Progressing Discharge Barriers Patient's discharge needs are met Progressing Pain Patient's pain/discomfort is manageable Progressing Psychosocial Needs Demonstrates ability to cope with hospitalization/illness Progressing Collaborate with patient/family/caregiver to identify patient specific goals for this h ospitalization Progressing Safety Patient will be injury free during hospitalization Progressing docume nted in this encounter Plan of Treatment Not on filedocumented as of this encounter Procedures + +--------+ + + + | Procedure Name | Priori | Date/Time | Associated Diagnosis | Comments | | | ty | | | | + +--------+ + + + | POC GLUCOSE | Routin | 11/11/2017 | | Results for this | | | e | 10:53 AM | | procedure are in the | | | | PDT | | results section. | + +--------+ + + + | POC GLUCOSE | Routin | 11/11/2017 | | Results for this | | | e | 5:10 AM | | procedure are in the | | | | PDT | | results section. | + +--------+ + + + | EXTERNAL LAB: CBC | Routin | 11/11/2017 | | Results for this | | | e | 4:13 AM | | procedure are in the | | | | PDT | | results section. | + +--------+ + + + | PHOSPHORUS | Routin | 11/11/2017 | | Results for this | | | e | 4:13 AM | | procedure are in the | | | | PDT | | results section. | + +--------+ + + + | MAGNESIUM | Routin | 11/11/2017 | | Results for this | | | e | 4:13 AM | | procedure are in the | | | | PDT | | results section. | + +--------+ + + + | BASIC METABOLIC | Routin | 11/11/2017 | | Results for this | | PANEL | e | 4:13 AM | | procedure are in the | | | | PDT | | results section. | + +--------+ + + + | POC GLUCOSE | Routin | 11/10/2017 | | Results for this | | | e | 8:54 PM | | procedure are in the | | | | PDT | | results section. | + +--------+ + + + | POC GLUCOSE | Routin | 11/10/2017 | | Results for this | | | e | 4:36 PM | | procedure are in the | | | | PDT | | results section. | + +--------+ + + + | POC GLUCOSE | Routin | 11/10/2017 | | Results for this | | | e | 11:24 AM | | procedure are in the | | | | PDT | | results section. | + +--------+ + + + | POC GLUCOSE | Routin | 11/10/2017 | | Results for this | | | e | 10:00 AM | | procedure are in the | | | | PDT | | results section. | + +--------+ + + + | POC GLUCOSE | Routin | 11/10/2017 | | Results for this | | | e | 5:25 AM | | procedure are in the | | | | PDT | | results section. | + +--------+ + + + | EXTERNAL LAB: CBC | Routin | 11/10/2017 | | Results for this | | | e | 4:35 AM | | procedure are in the | | | | PDT | | results section. | + +--------+ + + + | PHOSPHORUS | Routin | 11/10/2017 | | Results for this | | | e | 4:35 AM | | procedure are in the | | | | PDT | | results section. | + +--------+ + + + | MAGNESIUM | Routin | 11/10/2017 | | Results for this | | | e | 4:35 AM | | procedure are in the | | | | PDT | | results section. | + +--------+ + + + | BASIC METABOLIC | Routin | 11/10/2017 | | Results for this | | PANEL | e | 4:35 AM | | procedure are in the | | | | PDT | | results section. | + +--------+ + + + | POC GLUCOSE | Routin | 11/09/2017 | | Results for this | | | e | 9:19 PM | | procedure are in the | | | | PDT | | results section. | + +--------+ + + + | POC GLUCOSE | Routin | 11/09/2017 | | Results for this | | | e | 4:29 PM | | procedure are in the | | | | PDT | | results section. | + +--------+ + + + | POC GLUCOSE | Routin | 11/09/2017 | | Results for this | | | e | 11:48 AM | | procedure are in the | | | | PDT | | results section. | + +--------+ + + + | POC GLUCOSE | Routin | 11/09/2017 | | Results for this | | | e | 6:07 AM | | procedure are in the | | | | PDT | | results section. | + +--------+ + + + | EXTERNAL LAB: CBC | Routin | 11/09/2017 | | Results for this | | | e | 4:00 AM | | procedure are in the | | | | PDT | | results section. | + +--------+ + + + | PHOSPHORUS | Routin | 11/09/2017 | | Results for this | | | e | 4:00 AM | | procedure are in the | | | | PDT | | results section. | + +--------+ + + + | MAGNESIUM | Routin | 11/09/2017 | | Results for this | | | e | 4:00 AM | | procedure are in the | | | | PDT | | results section. | + +--------+ + + + | CK TOTAL | Routin | 11/09/2017 | | Results for this | | | e | 4:00 AM | | procedure are in the | | | | PDT | | results section. | + +--------+ + + + | BASIC METABOLIC | Routin | 11/09/2017 | | Results for this | | PANEL | e | 4:00 AM | | procedure are in the | | | | PDT | | results section. | + +--------+ + + + | POC GLUCOSE | Routin | 11/08/2017 | | Results for this | | | e | 9:52 PM | | procedure are in the | | | | PDT | | results section. | + +--------+ + + + | POC GLUCOSE | Routin | 11/08/2017 | | Results for this | | | e | 5:15 PM | | procedure are in the | | | | PDT | | results section. | + +--------+ + + + | POC GLUCOSE | Routin | 11/08/2017 | | Results for this | | | e | 12:08 PM | | procedure are in the | | | | PDT | | results section. | + +--------+ + + + | HEMOGLOBIN AND | Routin | 11/08/2017 | | Results for this | | HEMATOCRIT | e | 12:01 PM | | procedure are in the | | | | PDT | | results section. | + +--------+ + + + | POC GLUCOSE | Routin | 11/08/2017 | | Results for this | | | e | 10:14 AM | | procedure are in the | | | | PDT | | results section. | + +--------+ + + + | ECHO COMPLETE | Routin | 11/08/2017 | | Results for this | | | e | 8:30 AM | | procedure are in the | | | | PDT | | results section. | + +--------+ + + + | EXTERNAL LAB: CBC | Routin | 11/08/2017 | | Results for this | | | e | 6:08 AM | | procedure are in the | | | | PDT | | results section. | + +--------+ + + + | PHOSPHORUS | Routin | 11/08/2017 | | Results for this | | | e | 6:08 AM | | procedure are in the | | | | PDT | | results section. | + +--------+ + + + | MAGNESIUM | Routin | 11/08/2017 | | Results for this | | | e | 6:08 AM | | procedure are in the | | | | PDT | | results section. | + +--------+ + + + | CK TOTAL | Routin | 11/08/2017 | | Results for this | | | e | 6:08 AM | | procedure are in the | | | | PDT | | results section. | + +--------+ + + + | BASIC METABOLIC | Routin | 11/08/2017 | | Results for this | | PANEL | e | 6:08 AM | | procedure are in the | | | | PDT | | results section. | + +--------+ + + + | POC GLUCOSE | Routin | 11/08/2017 | | Results for this | | | e | 5:52 AM | | procedure are in the | | | | PDT | | results section. | + +--------+ + + + | POC GLUCOSE | Routin | 11/08/2017 | | Results for this | | | e | 12:21 AM | | procedure are in the | | | | PDT | | results section. | + +--------+ + + + | CK TOTAL | Routin | 11/08/2017 | | Results for this | | | e | 12:17 AM | | procedure are in the | | | | PDT | | results section. | + +--------+ + + + | HEMOGLOBIN AND | Routin | 11/07/2017 | | Results for this | | HEMATOCRIT | e | 11:56 PM | | procedure are in the | | | | PDT | | results section. | + +--------+ + + + | VAS LOWER EXTREMITY | Routin | 11/07/2017 | | Results for this | | VENOUS BILATERAL | e | 10:08 PM | | procedure are in the | | | | PDT | | results section. | + +--------+ + + + | POC GLUCOSE | Routin | 11/07/2017 | | Results for this | | | e | 7:37 PM | | procedure are in the | | | | PDT | | results section. | + +--------+ + + + | IR PLACEMENT IVC | Routin | 11/07/2017 | | Results for this | | FILTER | e | 7:21 PM | | procedure are in the | | | | PDT | | results section. | + +--------+ + + + | US GUIDED VASCULAR | Routin | 11/07/2017 | | Results for this | | ACCESS | e | 7:15 PM | | procedure are in the | | | | PDT | | results section. | + +--------+ + + + | LACTIC ACID | Routin | 11/07/2017 | | Results for this | | | e | 6:40 PM | | procedure are in the | | | | PDT | | results section. | + +--------+ + + + | EXTERNAL LAB: CBC | Routin | 11/07/2017 | | Results for this | | | e | 6:38 PM | | procedure are in the | | | | PDT | | results section. | + +--------+ + + + | PROTIME INR | Routin | 11/07/2017 | | Results for this | | | e | 6:38 PM | | procedure are in the | | | | PDT | | results section. | + +--------+ + + + | CK TOTAL | Routin | 11/07/2017 | | Results for this | | | e | 6:38 PM | | procedure are in the | | | | PDT | | results section. | + +--------+ + + + | COMPREHENSIVE | Routin | 11/07/2017 | | Results for this | | METABOLIC PANEL | e | 6:38 PM | | procedure are in the | | | | PDT | | results section. | + +--------+ + + + | MRSA NAAT | Routin | 11/07/2017 | | Results for this | | | e | 6:13 PM | | procedure are in the | | | | PDT | | results section. | + +--------+ + + + documented in this encounter Results POC Glucose (11/11/2017 10:53 AM PDT) + + + + + + | Component | Value | Ref Range | Performed | Pathologist | | | | | At | Signature | + + + + + + | Glucose, | 274 (H)Comment: Testing | 65 - 99 mg/dL | EXTERNAL | | | Fingerstick | performed at [facility] | | LAB | | | | [address];[place], [place] | | | | | | [address] | | | | + + + + + + + + | Specimen | + + | | + + + +---------+ + + | Performing | Address | City/State/ZIP Code | Phone Number | | Organization | | | | + +---------+ + + | EXTERNAL LAB | | | | + +---------+ + + POC Glucose (11/11/2017 5:10 AM PDT) + + + + + + | Component | Value | Ref Range | Performed | Pathologist | | | | | At | Signature | + + + + + + | Glucose, | 173 (H)Comment: Testing | 65 - 99 mg/dL | EXTERNAL | | | Fingerstick | performed at [facility];[address] | | LAB | | | | [address];[place] | | | | | | [address] | | | | + + + + + + + + | Specimen | + + | | + + + +---------+ + + | Performing | Address | City/State/ZIP Code | Phone Number | | Organization | | | | + +---------+ + + | EXTERNAL LAB | | | | + +---------+ + + External Lab: CBC (11/11/2017 4:13 AM PDT) + + + + + + | Component | Value | Ref Range | Performed | Pathologist | | | | | At | Signature | + + + + + + | WBC | 9.11 | 3.80 - 11.00 | EXTERNAL | | | | | K/uL | LAB | | + + + + + + | Non- | 3.27 (L) | 4.20 - 5.70 | EXTERNAL | | | Red Blood | | M/uL | LAB | | | Cells | | | | | | Counted | | | | | + + + + + + | Hemoglobin | 9.8 (L) | 13.2 - 17.0 | EXTERNAL | | | | | g/dL | LAB | | + + + + + + | Hematocrit, | 27.9 (L) | 39.0 - 50.0 % | EXTERNAL | | | POC | | | LAB | | + + + + + + | MCV | 85.5 | 80.0 - 100.0 fl | EXTERNAL | | | | | | LAB | | + + + + + + | MCH | 30.1 | 27.0 - 34.0 pg | EXTERNAL | | | | | | LAB | | + + + + + + | MCHC | 35.2 | 32.0 - 35.5 | EXTERNAL | | | | | g/dL | LAB | | + + + + + + | RDW-CV | 42.4 | 37 - 53 fl | EXTERNAL | | | | | | LAB | | + + + + + + | Platelet | 144 (L) | 150 - 400 K/uL | EXTERNAL | | | Count | | | LAB | | | Plasma | | | | | + + + + + + | MPV | 10.0 | fl | EXTERNAL | | | | | | LAB | | + + + + + + | Differentia | AUTOMATED | | EXTERNAL | | | l Type | | | LAB | | + + + + + + | % Segmented | 70.97 | % | EXTERNAL | | | | | | LAB | | | Neutrophils | | | | | + + + + + + | % | 19.21 | % | EXTERNAL | | | Lymphocytes | | | LAB | | + + + + + + | % Monocytes | 6.47 | % | EXTERNAL | | | | | | LAB | | + + + + + + | % | 2.59 | % | EXTERNAL | | | Eosinophils | | | LAB | | + + + + + + | % Basophils | 0.76 | % | EXTERNAL | | | | | | LAB | | + + + + + + | Absolute | 6.46 | 1.90 - 7.40 | EXTERNAL | | | Segmented | | K/uL | LAB | | | Neutrophils | | | | | + + + + + + | Absolute | 1.75 | 1.00 - 3.90 | EXTERNAL | | | Lymphocytes | | K/uL | LAB | | + + + + + + | Absolute | 0.59 | 0.00 - 0.80 | EXTERNAL | | | Monocytes | | K/uL | LAB | | + + + + + + | Absolute | 0.24 | 0.00 - 0.50 | EXTERNAL | | | Eosinophils | | K/uL | LAB | | + + + + + + | Absolute | 0.07Comment: Testing | 0.00 - 0.10 | EXTERNAL | | | Basophils | performed at [facility];[address] | LAB | | | | [address];[place], [place] | | | | | | [address] | | | | + + + + + + + + | Specimen | + + | Blood specimen | | (specimen) | + + + +---------+ + + | Performing | Address | City/State/ZIP Code | Phone Number | | Organization | | | | + +---------+ + + | EXTERNAL LAB | | | | + +---------+ + + Phosphorus (11/11/2017 4:13 AM PDT) + + + + + + | Component | Value | Ref Range | Performed | Pathologist | | | | | At | Signature | + + + + + + | PHOSPHORUS | 3.5Comment: Testing | 2.3 - 4.8 mg/dL | EXTERNAL | | | | performed at [facility];[address] | | LAB | | | | [address];[place] | | | | | | [address] | | | | + + + + + + + + | Specimen | + + | Blood specimen | | (specimen) | + + + +---------+ + + | Performing | Address | City/State/ZIP Code | Phone Number | | Organization | | | | + +---------+ + + | EXTERNAL LAB | | | | + +---------+ + + Magnesium (11/11/2017 4:13 AM PDT) + + + + + + | Component | Value | Ref Range | Performed | Pathologist | | | | | At | Signature | + + + + + + | Magnesium | 2.0Comment: MODERATE | 1.7 - 2.4 mg/dL | EXTERNAL | | | | HEMOLYSISTesting | | LAB | | | | performed at [facility] | | | | | | [address];[place], [place] | | | | | | [address] | | | | + + + + + + + + | Specimen | + + | Blood specimen | | (specimen) | + + + +---------+ + + | Performing | Address | City/State/ZIP Code | Phone Number | | Organization | | | | + +---------+ + + | EXTERNAL LAB | | | | + +---------+ + + Basic Metabolic Panel (11/11/2017 4:13 AM PDT) + + + + + + | Component | Value | Ref Range | Performed | Pathologist | | | | | At | Signature | + + + + + + | Na | 135 | 135 - 145 | EXTERNAL | | | | | mmol/L | LAB | | + + + + + + | K | 4.9Comment: MODERATE | 3.5 - 4.9 | EXTERNAL | | | | HEMOLYSIS | mmol/L | LAB | | + + + + + + | Cl | 102 | 99 - 109 mmol/L | EXTERNAL | | | | | | LAB | | + + + + + + | CO2 | 27 | 23 - 32 mmol/L | EXTERNAL | | | | | | LAB | | + + + + + + | Anion Gap | 11 | 5 - 20 mmol/L | EXTERNAL | | | | | | LAB | | + + + + + + | Glucose, | 155 (H) | 65 - 99 mg/dL | EXTERNAL | | | Fasting | | | LAB | | + + + + + + | BUN | 23 | 8 - 25 mg/dL | EXTERNAL | | | | | | LAB | | + + + + + + | Creatinine | 1.0 | 0.70 - 1.30 | EXTERNAL | | | | | mg/dL | LAB | | + + + + + + | BUN/Creatin | 23 | | EXTERNAL | | | ine Ratio | | | LAB | | + + + + + + | Calcium | 7.8 (L) | 8.5 - 10.5 | EXTERNAL | | | | | mg/dL | LAB | | + + + + + + | Estimated | >60Comment: GFR <60: | mL/min/1.73m2 | EXTERNAL | | | GFR | CHRONIC KIDNEY DISEASE, | | LAB | | | | IF FOUND OVER A 3 MONTH | | | | | | PERIOD.GFR <15: KIDNEY | | | | | | FAILURE.FOR | | | | | | AMERICANS, MULTIPLY THE | | | | | | CALCULATED GFR BY | | | | | | 1.210.This eGFR is | | | | | | calculated using the | | | | | | MDRD IDVA traceable | | | | | | equation.Testing | | | | | | performed at [facility];[address] | | | | | | [facility];[place], [place] | | | | | | [address] | | | | + + + + + + + + | Specimen | + + | Blood specimen | | (specimen) | + + + +---------+ + + | Performing | Address | City/State/ZIP Code | Phone Number | | Organization | | | | + +---------+ + + | EXTERNAL LAB | | | | + +---------+ + + POC Glucose (11/10/2017 8:54 PM PDT) + + + + + + | Component | Value | Ref Range | Performed | Pathologist | | | | | At | Signature | + + + + + + | Glucose, | 224 (H)Comment: Testing | 65 - 99 mg/dL | EXTERNAL | | | Fingerstick | performed at [facility];[address] | | LAB | | | | [address];[place] | | | | | | [address] | | | | + + + + + + + + | Specimen | + + | | + + + +---------+ + + | Performing | Address | City/State/ZIP Code | Phone Number | | Organization | | | | + +---------+ + + | EXTERNAL LAB | | | | + +---------+ + + POC Glucose (11/10/2017 4:36 PM PDT) + + + + + + | Component | Value | Ref Range | Performed | Pathologist | | | | | At | Signature | + + + + + + | Glucose, | 271 (H)Comment: Testing | 65 - 99 mg/dL | EXTERNAL | | | Fingerstick | performed at [facility];[address] | | LAB | | | | [address];[place], [place] | | | | | | [address] | | | | + + + + + + + + | Specimen | + + | | + + + +---------+ + + | Performing | Address | City/State/ZIP Code | Phone Number | | Organization | | | | + +---------+ + + | EXTERNAL LAB | | | | + +---------+ + + POC Glucose (11/10/2017 11:24 AM PDT) + + + + + + | Component | Value | Ref Range | Performed | Pathologist | | | | | At | Signature | + + + + + + | Glucose, | 234 (H)Comment: Testing | 65 - 99 mg/dL | EXTERNAL | | | Fingerstick | performed at [facility];[address] | | LAB | | | | [address];[place] | | | | | | [address] | | | | + + + + + + + + | Specimen | + + | | + + + +---------+ + + | Performing | Address | City/State/ZIP Code | Phone Number | | Organization | | | | + +---------+ + + | EXTERNAL LAB | | | | + +---------+ + + POC Glucose (11/10/2017 10:00 AM PDT) + + + + + + | Component | Value | Ref Range | Performed | Pathologist | | | | | At | Signature | + + + + + + | Glucose, | 247 (H)Comment: Testing | 65 - 99 mg/dL | EXTERNAL | | | Fingerstick | performed at [facility];[address] | | LAB | | | | [address];[place], [place] | | | | | | [address] | | | | + + + + + + + + | Specimen | + + | | + + + +---------+ + + | Performing | Address | City/State/ZIP Code | Phone Number | | Organization | | | | + +---------+ + + | EXTERNAL LAB | | | | + +---------+ + + POC Glucose (11/10/2017 5:25 AM PDT) + + + + + + | Component | Value | Ref Range | Performed | Pathologist | | | | | At | Signature | + + + + + + | Glucose, | 228 (H)Comment: Testing | 65 - 99 mg/dL | EXTERNAL | | | Fingerstick | performed at [facility];[address] | | LAB | | | | [address];[place] | | | | | | [address] | | | | + + + + + + + + | Specimen | + + | | + + + +---------+ + + | Performing | Address | City/State/ZIP Code | Phone Number | | Organization | | | | + +---------+ + + | EXTERNAL LAB | | | | + +---------+ + + External Lab: CBC (11/10/2017 4:35 AM PDT) + + + + + + | Component | Value | Ref Range | Performed | Pathologist | | | | | At | Signature | + + + + + + | WBC | 8.01 | 3.80 - 11.00 | EXTERNAL | | | | | K/uL | LAB | | + + + + + + | Non- | 3.41 (L) | 4.20 - 5.70 | EXTERNAL | | | Red Blood | | M/uL | LAB | | | Cells | | | | | | Counted | | | | | + + + + + + | Hemoglobin | 10.2 (L) | 13.2 - 17.0 | EXTERNAL | | | | | g/dL | LAB | | + + + + + + | Hematocrit, | 28.9 (L) | 39.0 - 50.0 % | EXTERNAL | | | POC | | | LAB | | + + + + + + | MCV | 84.8 | 80.0 - 100.0 fl | EXTERNAL | | | | | | LAB | | + + + + + + | MCH | 29.9 | 27.0 - 34.0 pg | EXTERNAL | | | | | | LAB | | + + + + + + | MCHC | 35.2 | 32.0 - 35.5 | EXTERNAL | | | | | g/dL | LAB | | + + + + + + | RDW-CV | 42.4 | 37 - 53 fl | EXTERNAL | | | | | | LAB | | + + + + + + | Platelet | 151 | 150 - 400 K/uL | EXTERNAL | | | Count | | | LAB | | | Plasma | | | | | + + + + + + | MPV | 10.4 | fl | EXTERNAL | | | | | | LAB | | + + + + + + | Differentia | AUTOMATED | | EXTERNAL | | | l Type | | | LAB | | + + + + + + | % Segmented | 69.33 | % | EXTERNAL | | | | | | LAB | | | Neutrophils | | | | | + + + + + + | % | 20.01 | % | EXTERNAL | | | Lymphocytes | | | LAB | | + + + + + + | % Monocytes | 7.59 | % | EXTERNAL | | | | | | LAB | | + + + + + + | % | 2.49 | % | EXTERNAL | | | Eosinophils | | | LAB | | + + + + + + | % Basophils | 0.58 | % | EXTERNAL | | | | | | LAB | | + + + + + + | Absolute | 5.55 | 1.90 - 7.40 | EXTERNAL | | | Segmented | | K/uL | LAB | | | Neutrophils | | | | | + + + + + + | Absolute | 1.60 | 1.00 - 3.90 | EXTERNAL | | | Lymphocytes | | K/uL | LAB | | + + + + + + | Absolute | 0.61 | 0.00 - 0.80 | EXTERNAL | | | Monocytes | | K/uL | LAB | | + + + + + + | Absolute | 0.20 | 0.00 - 0.50 | EXTERNAL | | | Eosinophils | | K/uL | LAB | | + + + + + + | Absolute | 0.05Comment: Testing | 0.00 - 0.10 | EXTERNAL | | | Basophils | performed at [facility], [address] | [address] | LAB | | | | [address], | | | | | | [place] [address] | | | | + + + + + + + + | Specimen | + + | Blood specimen | | (specimen) | + + + +---------+ + + | Performing | Address | City/State/ZIP Code | Phone Number | | Organization | | | | + +---------+ + + | EXTERNAL LAB | | | | + +---------+ + + Phosphorus (11/10/2017 4:35 AM PDT) + + + + + + | Component | Value | Ref Range | Performed | Pathologist | | | | | At | Signature | + + + + + + | PHOSPHORUS | 3.6Comment: Testing | 2.3 - 4.8 mg/dL | EXTERNAL | | | | performed at [facility], [address] | | LAB | | | | [address], | | | | | | [place] [address] | | | | + + + + + + + + | Specimen | + + | Blood specimen | | (specimen) | + + + +---------+ + + | Performing | Address | City/State/ZIP Code | Phone Number | | Organization | | | | + +---------+ + + | EXTERNAL LAB | | | | + +---------+ + + Magnesium (11/10/2017 4:35 AM PDT) + + + + + + | Component | Value | Ref Range | Performed | Pathologist | | | | | At | Signature | + + + + + + | Magnesium | 2.1Comment: Testing | 1.7 - 2.4 mg/dL | EXTERNAL | | | | performed at [facility], [address] | | LAB | | | | [address], | | | | | | [place] [address] | | | | + + + + + + + + | Specimen | + + | Blood specimen | | (specimen) | + + + +---------+ + + | Performing | Address | City/State/ZIP Code | Phone Number | | Organization | | | | + +---------+ + + | EXTERNAL LAB | | | | + +---------+ + + Basic Metabolic Panel (11/10/2017 4:35 AM PDT) + + + + + + | Component | Value | Ref Range | Performed | Pathologist | | | | | At | Signature | + + + + + + | Na | 136 | 135 - 145 | EXTERNAL | | | | | mmol/L | LAB | | + + + + + + | K | 4.5 | 3.5 - 4.9 | EXTERNAL | | | | | mmol/L | LAB | | + + + + + + | Cl | 101 | 99 - 109 mmol/L | EXTERNAL | | | | | | LAB | | + + + + + + | CO2 | 27 | 23 - 32 mmol/L | EXTERNAL | | | | | | LAB | | + + + + + + | Anion Gap | 13 | 5 - 20 mmol/L | EXTERNAL | | | | | | LAB | | + + + + + + | Glucose, | 219 (H) | 65 - 99 mg/dL | EXTERNAL | | | Fasting | | | LAB | | + + + + + + | BUN | 22 | 8 - 25 mg/dL | EXTERNAL | | | | | | LAB | | + + + + + + | Creatinine | 0.9 | 0.70 - 1.30 | EXTERNAL | | | | | mg/dL | LAB | | + + + + + + | BUN/Creatin | 24 | | EXTERNAL | | | ine Ratio | | | LAB | | + + + + + + | Calcium | 8.0 (L) | 8.5 - 10.5 | EXTERNAL | | | | | mg/dL | LAB | | + + + + + + | Estimated | >60Comment: GFR <60: | mL/min/1.73m2 | EXTERNAL | | | GFR | CHRONIC KIDNEY DISEASE, | | LAB | | | | IF FOUND OVER A 3 MONTH | | | | | | PERIOD.GFR <15: KIDNEY | | | | | | FAILURE.FOR | | | | | | AMERICANS, MULTIPLY THE | | | | | | CALCULATED GFR BY | | | | | | 1.210.This eGFR is | | | | | | calculated using the | | | | | | MDRD IDMS traceable | | | | | | equation.Testing | | | | | | performed at [facility], [address] | | | | | | [address], | | | | | | [place] [address] | | | | + + + + + + + + | Specimen | + + | Blood specimen | | (specimen) | + + + +---------+ + + | Performing | Address | City/State/ZIP Code | Phone Number | | Organization | | | | + +---------+ + + | EXTERNAL LAB | | | | + +---------+ + + POC Glucose (11/09/2017 9:19 PM PDT) + + + + + + | Component | Value | Ref Range | Performed | Pathologist | | | | | At | Signature | + + + + + + | Glucose, | 228 (H)Comment: Testing | 65 - 99 mg/dL | EXTERNAL | | | Fingerstick | performed at [facility];[address] | | LAB | | | | [address];[place] | | | | | | [address] | | | | + + + + + + + + | Specimen | + + | | + + + +---------+ + + | Performing | Address | City/State/ZIP Code | Phone Number | | Organization | | | | + +---------+ + + | EXTERNAL LAB | | | | + +---------+ + + POC Glucose (11/09/2017 4:29 PM PDT) + + + + + + | Component | Value | Ref Range | Performed | Pathologist | | | | | At | Signature | + + + + + + | Glucose, | 225 (H)Comment: Testing | 65 - 99 mg/dL | EXTERNAL | | | Fingerstick | performed at [facility];[address] | | LAB | | | | [address];[place] | | | | | | [address] | | | | + + + + + + + + | Specimen | + + | | + + + +---------+ + + | Performing | Address | City/State/ZIP Code | Phone Number | | Organization | | | | + +---------+ + + | EXTERNAL LAB | | | | + +---------+ + + POC Glucose (11/09/2017 11:48 AM PDT) + + + + + + | Component | Value | Ref Range | Performed | Pathologist | | | | | At | Signature | + + + + + + | Glucose, | 213 (H)Comment: Testing | 65 - 99 mg/dL | EXTERNAL | | | Fingerstick | performed at [facility];[address] | | LAB | | | | [address];[place] | | | | | | [address] | | | | + + + + + + + + | Specimen | + + | | + + + +---------+ + + | Performing | Address | City/State/ZIP Code | Phone Number | | Organization | | | | + +---------+ + + | EXTERNAL LAB | | | | + +---------+ + + POC Glucose (11/09/2017 6:07 AM PDT) + + + + + + | Component | Value | Ref Range | Performed | Pathologist | | | | | At | Signature | + + + + + + | Glucose, | 231 (H)Comment: Testing | 65 - 99 mg/dL | EXTERNAL | | | Fingerstick | performed at [facility];[address] | | LAB | | | | [address];[place], [place] | | | | | | [address] | | | | + + + + + + + + | Specimen | + + | | + + + +---------+ + + | Performing | Address | City/State/ZIP Code | Phone Number | | Organization | | | | + +---------+ + + | EXTERNAL LAB | | | | + +---------+ + + External Lab: CBC (11/09/2017 4:00 AM PDT) + + + + + + | Component | Value | Ref Range | Performed | Pathologist | | | | | At | Signature | + + + + + + | WBC | 9.26 | 3.80 - 11.00 | EXTERNAL | | | | | K/uL | LAB | | + + + + + + | Non- | 3.41 (L) | 4.20 - 5.70 | EXTERNAL | | | Red Blood | | M/uL | LAB | | | Cells | | | | | | Counted | | | | | + + + + + + | Hemoglobin | 10.2 (L) | 13.2 - 17.0 | EXTERNAL | | | | | g/dL | LAB | | + + + + + + | Hematocrit, | 29.1 (L) | 39.0 - 50.0 % | EXTERNAL | | | POC | | | LAB | | + + + + + + | MCV | 85.2 | 80.0 - 100.0 fl | EXTERNAL | | | | | | LAB | | + + + + + + | MCH | 30.0 | 27.0 - 34.0 pg | EXTERNAL | | | | | | LAB | | + + + + + + | MCHC | 35.1 | 32.0 - 35.5 | EXTERNAL | | | | | g/dL | LAB | | + + + + + + | RDW-CV | 42.9 | 37 - 53 fl | EXTERNAL | | | | | | LAB | | + + + + + + | Platelet | 153 | 150 - 400 K/uL | EXTERNAL | | | Count | | | LAB | | | Plasma | | | | | + + + + + + | MPV | 10.5 | fl | EXTERNAL | | | | | | LAB | | + + + + + + | Differentia | AUTOMATED | | EXTERNAL | | | l Type | | | LAB | | + + + + + + | % Segmented | 70.50 | % | EXTERNAL | | | | | | LAB | | | Neutrophils | | | | | + + + + + + | % | 19.96 | % | EXTERNAL | | | Lymphocytes | | | LAB | | + + + + + + | % Monocytes | 7.81 | % | EXTERNAL | | | | | | LAB | | + + + + + + | % | 1.17 | % | EXTERNAL | | | Eosinophils | | | LAB | | + + + + + + | % Basophils | 0.56 | % | EXTERNAL | | | | | | LAB | | + + + + + + | Absolute | 6.53 | 1.90 - 7.40 | EXTERNAL | | | Segmented | | K/uL | LAB | | | Neutrophils | | | | | + + + + + + | Absolute | 1.85 | 1.00 - 3.90 | EXTERNAL | | | Lymphocytes | | K/uL | LAB | | + + + + + + | Absolute | 0.72 | 0.00 - 0.80 | EXTERNAL | | | Monocytes | | K/uL | LAB | | + + + + + + | Absolute | 0.11 | 0.00 - 0.50 | EXTERNAL | | | Eosinophils | | K/uL | LAB | | + + + + + + | Absolute | 0.05Comment: Testing | 0.00 - 0.10 | EXTERNAL | | | Basophils | performed at [facility], [address] | [address] | LAB | | | | [address], | | | | | | [place] [address] | | | | + + + + + + + + | Specimen | + + | Blood specimen | | (specimen) | + + + +---------+ + + | Performing | Address | City/State/ZIP Code | Phone Number | | Organization | | | | + +---------+ + + | EXTERNAL LAB | | | | + +---------+ + + Phosphorus (11/09/2017 4:00 AM PDT) + + + + + + | Component | Value | Ref Range | Performed | Pathologist | | | | | At | Signature | + + + + + + | PHOSPHORUS | 3.0Comment: Testing | 2.3 - 4.8 mg/dL | EXTERNAL | | | | performed at [facility], [address] | | LAB | | | | [address], | | | | | | [place] [address] | | | | + + + + + + + + | Specimen | + + | Blood specimen | | (specimen) | + + + +---------+ + + | Performing | Address | City/State/ZIP Code | Phone Number | | Organization | | | | + +---------+ + + | EXTERNAL LAB | | | | + +---------+ + + Magnesium (11/09/2017 4:00 AM PDT) + + + + + + | Component | Value | Ref Range | Performed | Pathologist | | | | | At | Signature | + + + + + + | Magnesium | 2.1Comment: Testing | 1.7 - 2.4 mg/dL | EXTERNAL | | | | performed at [facility], [address] | | LAB | | | | [facility], | | | | | | [place] [address] | | | | + + + + + + + + | Specimen | + + | Blood specimen | | (specimen) | + + + +---------+ + + | Performing | Address | City/State/ZIP Code | Phone Number | | Organization | | | | + +---------+ + + | EXTERNAL LAB | | | | + +---------+ + + CK Total (11/09/2017 4:00 AM PDT) + + + + + + | Component | Value | Ref Range | Performed | Pathologist | | | | | At | Signature | + + + + + + | CK, Total | 118Comment: Testing | 55 - 400 U/L | EXTERNAL | | | | performed at [facility];[address] | | LAB | | | | [address];[place] | | | | | | [address] | | | | + + + + + + + + | Specimen | + + | Blood specimen | | (specimen) | + + + +---------+ + + | Performing | Address | City/State/ZIP Code | Phone Number | | Organization | | | | + +---------+ + + | EXTERNAL LAB | | | | + +---------+ + + Basic Metabolic Panel (11/09/2017 4:00 AM PDT) + + + + + + | Component | Value | Ref Range | Performed | Pathologist | | | | | At | Signature | + + + + + + | Na | 136 | 135 - 145 | EXTERNAL | | | | | mmol/L | LAB | | + + + + + + | K | 4.3 | 3.5 - 4.9 | EXTERNAL | | | | | mmol/L | LAB | | + + + + + + | Cl | 101 | 99 - 109 mmol/L | EXTERNAL | | | | | | LAB | | + + + + + + | CO2 | 25 | 23 - 32 mmol/L | EXTERNAL | | | | | | LAB | | + + + + + + | Anion Gap | 14 | 5 - 20 mmol/L | EXTERNAL | | | | | | LAB | | + + + + + + | Glucose, | 213 (H) | 65 - 99 mg/dL | EXTERNAL | | | Fasting | | | LAB | | + + + + + + | BUN | 18 | 8 - 25 mg/dL | EXTERNAL | | | | | | LAB | | + + + + + + | Creatinine | 1.0 | 0.70 - 1.30 | EXTERNAL | | | | | mg/dL | LAB | | + + + + + + | BUN/Creatin | 18 | | EXTERNAL | | | ine Ratio | | | LAB | | + + + + + + | Calcium | 7.6 (L) | 8.5 - 10.5 | EXTERNAL | | | | | mg/dL | LAB | | + + + + + + | Estimated | >60Comment: GFR <60: | mL/min/1.73m2 | EXTERNAL | | | GFR | CHRONIC KIDNEY DISEASE, | | LAB | | | | IF FOUND OVER A 3 MONTH | | | | | | PERIOD.GFR <15: KIDNEY | | | | | | FAILURE.FOR | | | | | | AMERICANS, MULTIPLY THE | | | | | | CALCULATED GFR BY | | | | | | 1.210.This eGFR is | | | | | | calculated using the | | | | | | MDRD IDVA traceable | | | | | | equation.Testing | | | | | | performed at [facility], [address] | | | | | | [facility], | | | | | | [place] [address] | | | | + + + + + + + + | Specimen | + + | Blood specimen | | (specimen) | + + + +---------+ + + | Performing | Address | City/State/ZIP Code | Phone Number | | Organization | | | | + +---------+ + + | EXTERNAL LAB | | | | + +---------+ + + POC Glucose (11/08/2017 9:52 PM PDT) + + + + + + | Component | Value | Ref Range | Performed | Pathologist | | | | | At | Signature | + + + + + + | Glucose, | 272 (H)Comment: Testing | 65 - 99 mg/dL | EXTERNAL | | | Fingerstick | performed at [facility];[address] | | LAB | | | | [address];[place] | | | | | | [address] | | | | + + + + + + + + | Specimen | + + | | + + + +---------+ + + | Performing | Address | City/State/ZIP Code | Phone Number | | Organization | | | | + +---------+ + + | EXTERNAL LAB | | | | + +---------+ + + POC Glucose (11/08/2017 5:15 PM PDT) + + + + + + | Component | Value | Ref Range | Performed | Pathologist | | | | | At | Signature | + + + + + + | Glucose, | 282 (H)Comment: Testing | 65 - 99 mg/dL | EXTERNAL | | | Fingerstick | performed at [facility];[address] | | LAB | | | | [address];[place], [place] | | | | | | [address] | | | | + + + + + + + + | Specimen | + + | | + + + +---------+ + + | Performing | Address | City/State/ZIP Code | Phone Number | | Organization | | | | + +---------+ + + | EXTERNAL LAB | | | | + +---------+ + + POC Glucose (11/08/2017 12:08 PM PDT) + + + + + + | Component | Value | Ref Range | Performed | Pathologist | | | | | At | Signature | + + + + + + | Glucose, | 288 (H)Comment: Testing | 65 - 99 mg/dL | EXTERNAL | | | Fingerstick | performed at [facility];[address] | | LAB | | | | [address];[place] | | | | | | [address] | | | | + + + + + + + + | Specimen | + + | | + + + +---------+ + + | Performing | Address | City/State/ZIP Code | Phone Number | | Organization | | | | + +---------+ + + | EXTERNAL LAB | | | | + +---------+ + + Hemoglobin and Hematocrit (11/08/2017 12:01 PM PDT) + + + + + + | Component | Value | Ref Range | Performed | Pathologist | | | | | At | Signature | + + + + + + | Hemoglobin | 11.2 (L) | 13.2 - 17.0 | EXTERNAL | | | | | g/dL | LAB | | + + + + + + | Hematocrit, | 32.2 (L)Comment: Testing | 39.0 - 50.0 % | EXTERNAL | | | POC | performed at [facility];[address] | | LAB | | | | [address];[place] | | | | | | [address] | | | | + + + + + + + + | Specimen | + + | | + + + +---------+ + + | Performing | Address | City/State/ZIP Code | Phone Number | | Organization | | | | + +---------+ + + | EXTERNAL LAB | | | | + +---------+ + + POC Glucose (11/08/2017 10:14 AM PDT) + + + + + + | Component | Value | Ref Range | Performed | Pathologist | | | | | At | Signature | + + + + + + | Glucose, | 181 (H)Comment: Testing | 65 - 99 mg/dL | EXTERNAL | | | Fingerstick | performed at [facility];[address] | | LAB | | | | [address];[place], [place] | | | | | | [address] | | | | + + + + + + + + | Specimen | + + | | + + + +---------+ + + | Performing | Address | City/State/ZIP Code | Phone Number | | Organization | | | | + +---------+ + + | EXTERNAL LAB | | | | + +---------+ + + ECHO Complete (11/08/2017 8:30 AM PDT) + + | Specimen | + + | | + + + + + | Impressions | Performed At | + + + | 1. Overall left ventricular systolic function is normal with, an EF | | | between 60 - 65 %. 2. The right ventricle is mildly enlarged | | | measuring between 3.4 - 3.7 cm. 3. The right ventricular systolic | | | function is normal. 4. Mild tricuspid regurgitation present. 5. The | | | right ventricular systolic pressure (pulmonary artery systolic | | | pressure), as measured by Doppler, is 34.70mmHg. | | + + + + + + | Narrative | Performed At | + + + | Patient Name: NORMAN HERNANDEZ Date of : 1935 | | | Performing Physician: Sharda Hernadez MD, [facility] | | | | | | INDICATIONS PULMONARY EMBOLISM CONCLUSIONS | | | 1. Overall left ventricular systolic function is normal | | | with, an EF between 60 - 65 %. 2. The right ventricle is mildly | | | enlarged measuring between 3.4 - 3.7 cm. 3. The right ventricular | | | systolic function is normal. 4. Mild tricuspid regurgitation present. | | | 5. The right ventricular systolic pressure (pulmonary artery | | | systolic pressure), as measured by Doppler, is 34.70mmHg. FINDINGS | | | -------- ECG rhythm: Sinus rhythm. ECG rhythm: Resting bradycardia | | | (HR<60bpm). Study: A 2-dimensional transthoracic echocardiogram with | | | m-mode, spectral and color flow Doppler was perfomed. Study: This | | | was a technically adequate study. Left Ventricle: Overall left | | | ventricular systolic function is normal with, an EF between 60 - 65 %. | | | Left Ventricle: The left ventricle cavity size is normal. Left | | | Ventricle: Left ventricular wall thickness is normal. Right | | | Ventricle: The right ventricle is mildly enlarged measuring between | | | 3.4 - 3.7 cm. Right Ventricle: The right ventricular systolic | | | function is normal. Left Atrium: The left atrial size is normal Left | | | Atrium: , and the LA measures 4.1cm. Right Atrium: The right atrium | | | is mildly enlarged. Aortic Valve: The aortic valve is trileaflet. | | | Aortic Valve: The aortic valve is mildly calcified. Aortic Valve: | | | There is no evidence of aortic regurgitation. Aortic Valve: There is | | | no evidence of aortic stenosis. Mitral Valve: The mitral valve is | | | normal. Mitral Valve: There is trace mitral regurgitation. Tricuspid | | | Valve: The tricuspid valve appears structurally normal. Tricuspid | | | Valve: Mild tricuspid regurgitation present. Tricuspid Valve: There | | | is mild pulmonary hypertension. Tricuspid Valve: The right | | | ventricular systolic pressure (pulmonary artery systolic pressure), as | | | measured by Doppler, is 34.70mmHg. Pulmonic Valve: Pulmonic valve | | | appears structurally normal. Pulmonic Valve: Mild pulmonic | | | regurgitation. Pericardium: There is a trivial pericardial effusion | | | present. IVC/Hepatic Veins: The IVC is normal size (1.5-2.5cm) and | | | collapses >50% with sniff, consistent with central venous pressures of | | | 5-10mmHg. MEASUREMENTS RA Area: 13.51 cm2 Ao | | | asc: 2.67 cm Ao sinus: 2.[address] junct: 2.52 cm IVC: | | | 1.58 cm LA Major: 5.12 cm EDV(Teich): 98.65 ml IVSd: | | | 0.75 cm LVIDd: 4.62 cm LVPWd: 1.24 cm LVOT Diam: 1.92 cm | | | %FS: 29.70 % EF(Teich): 56.81 % ESV(Teich): 42.60 ml IVSs: | | | 1.13 cm LVIDs: 3.25 cm LVPWs: 1.50 cm SV(Teich): 56.05 | | | ml RA Major: 5.14 cm RVIDd: 3.49 cm LAESV(A-L): 48.23 ml | | | LAESV Index (A-L): 22.33 ml/m2 LAAs A2C: 18.00 cm2 LAESV A-L | | | A2C: 49.35 ml LALs A2C: 5.57 cm LAAs A4C: 16.69 cm2 LAESV | | | A-L A4C: 44.72 ml LALs A4C: 5.28 cm Ao Diam: 3.18 cm AV | | | Cusp: 1.64 cm LA Diam: 4.07 cm LA/Ao: 1.27 %FS: 34.07 % | | | EDV(Teich): 122.09 ml EF(Teich): 62.73 % ESV(Teich): | | | 45.49 ml IVSd: 0.82 cm IVSs: 1.01 cm LVIDd: 5.06 cm | | | LVIDs: 3.34 cm LVPWd: 0.79 cm LVPWs: 1.41 cm SV(Teich): | | | 76.59 ml TAPSE: 2.27 cm IVC diameter: 2.41 cm IVC collapse: | | | 0.90 cm IVC % collapse: 60.08 % HR: 56.81 BPM AV maxPG: | | | 15.10 mmHg AV meanP.86 mmHg AV Vmax: 1.94 m/s AV Vmean: | | | 1.40 m/s AV VTI: 48.26 cm EPI Vmax: 1.57 cm2 EPI (VTI): | | | 1.55 cm2 AVAI Vmax: 0.00 cm2/m2 AVAI (VTI): 0.00 cm2/m2 LVOT | | | maxP.40 mmHg LVOT meanP.21 mmHg LVSI Dopp: 34.74 | | | ml/m2 LVSV Dopp: 75.04 ml LVOT Vmax: 1.04 m/s LVOT Vmean: | | | 0.69 m/s LVOT VTI: 25.70 cm MCO: 505.23 ms MV A Kurtis: 0.87 | | | m/s MV DecT: 191.95 ms MV E Kurtis: 0.89 m/s MV E/A Ratio: | | | 1.02 MV PHT: 57.30 ms MVA By PHT: 3.83 cm2 MV A Dur: | | | 131.30 ms Septal e': 0.09 m/s Septal E/e': 9.33 Lateral e': | | | 0.08 m/s Lateral E/e': 10.00 P Vein A: 0.25 m/s P Vein A | | | Dur: 102.75 ms P Vein D: 0.37 m/s P Vein S/D Ratio: 1.57 P | | | Vein S: 0.59 m/s PAEDP: 11.06 mmHg PRend P.06 mmHg | | | PRend Vmax: 1.41 m/s HR: 59.71 BPM PV maxP.09 mmHg PV | | | meanP.66 mmHg PV Vmax: 0.88 m/s PV Vmean: 0.61 m/s PV | | | VTI: 23.70 cm RAP: 3 mmHg RV S': 0.11 m/s RVSP: 34.70 | | | mmHg TR maxP.70 mmHg TR Vmax: 2.81 m/s TV A Kurtis: 0.43 | | | m/s TV Dec [place]: 2.19 m/s2 TV Dec Time: 244.15 ms TV E Kurtis: | | | 0.53 m/s TV E/A Ratio: 1.22 Veneer Jointer: KVW | | | Authenticated by: Sharda Hernadez MD, [facility] Report Date/Time: 11-08-2017 | | | 16:25:4 | | + + + + + | Procedure Note | + + | Roni Hloder Conversion - 10/12/2018 12:26 AM PDT Patient Name: Lionel HERNANDEZ of | | : 1935 Performing Physician: Sharda Hernadez MD, | | FACC INDICATIONS | | -PULMONARY EMBOLISM CONCLUSIONS 1. Overall left ventricular systolic function | | is normal with, an EF between 60 - 65 %.2. The right ventricle is mildly enlarged | | measuring between 3.4 - 3.7 cm.3. The right ventricular systolic function is normal.4. | | Mild tricuspid regurgitation present.5. The right ventricular systolic pressure | | (pulmonary artery systolic pressure), as measured by Doppler, is 34.70mmHg. | | FINDINGS--------ECG rhythm: Sinus rhythm.ECG rhythm: Resting bradycardia | | (HR<60bpm).Study: A 2-dimensional transthoracic echocardiogram with m-mode, spectral and | | color flow Doppler was perfomed.Study: This was a technically adequate study.Left | | Ventricle: Overall left ventricular systolic function is normal with, an EF between 60 - | | 65 %.Left Ventricle: The left ventricle cavity size is normal.Left Ventricle: Left | | ventricular wall thickness is normal.Right Ventricle: The right ventricle is mildly | | enlarged measuring between 3.4 - 3.7 cm.Right Ventricle: The right ventricular systolic | | function is normal.Left Atrium: The left atrial size is normalLeft Atrium: , and the LA | | measures 4.1cm.Right Atrium: The right atrium is mildly enlarged.Aortic Valve: The | | aortic valve is trileaflet.Aortic Valve: The aortic valve is mildly calcified.Aortic | | Valve: There is no evidence of aortic regurgitation.Aortic Valve: There is no evidence | | of aortic stenosis.Mitral Valve: The mitral valve is normal.Mitral Valve: There is trace | | mitral regurgitation.Tricuspid Valve: The tricuspid valve appears structurally | | normal.Tricuspid Valve: Mild tricuspid regurgitation present.Tricuspid Valve: There is | | mild pulmonary hypertension.Tricuspid Valve: The right ventricular systolic pressure | | (pulmonary artery systolic pressure), as measured by Doppler, is 34.70mmHg.Pulmonic | | Valve: Pulmonic valve appears structurally normal.Pulmonic Valve: Mild pulmonic | | regurgitation.Pericardium: There is a trivial pericardial effusion present.IVC/Hepatic | | Veins: The IVC is normal size (1.5-2.5cm) and collapses >50% with sniff, consistent with | | central venous pressures of 5-10mmHg. MEASUREMENTS RA Area: 13.51 cm2Ao | | asc: 2.67 cmAo sinus: 2.[address] junct: 2.52 cmIVC: 1.58 cmLA Major: 5.12 | | cmEDV(Teich): 98.65 mlIVSd: 0.75 cmLVIDd: 4.62 cmLVPWd: 1.24 cmLVOT Diam: 1.92 | | cm%FS: 29.70 %EF(Teich): 56.81 %ESV(Teich): 42.60 mlIVSs: 1.13 cmLVIDs: 3.25 | | cmLVPWs: 1.50 cmSV(Teich): 56.05 mlRA Major: 5.14 cmRVIDd: 3.49 cmLAESV(A-L): | | 48.23 mlLAESV Index (A-L): 22.33 ml/m2LAAs A2C: 18.00 [id number] A-L A2C: 49.35 | | mlLALs A2C: 5.57 cmLAAs A4C: 16.69 [id number] A-L A4C: 44.72 mlLALs A4C: 5.28 cmAo | | Diam: 3.18 cmAV Cusp: 1.64 cmLA Diam: 4.07 cmLA/Ao: 1.27%FS: 34.07 | | %EDV(Teich): 122.09 mlEF(Teich): 62.73 %ESV(Teich): 45.49 mlIVSd: 0.82 cmIVSs: | | 1.01 cmLVIDd: 5.06 cmLVIDs: 3.34 cmLVPWd: 0.79 cmLVPWs: 1.41 cmSV(Teich): | | 76.59 mlTAPSE: 2.27 cmIVC diameter: 2.41 cmIVC collapse: 0.90 cmIVC % collapse: | | 60.08 %HR: 56.81 BPMAV maxP.10 mmHgAV meanP.86 mmHgAV Vmax: 1.94 m/Gabriel | | Vmean: 1.40 m/Gabriel VTI: 48.26 cmAVA Vmax: 1.57 cm2AVA (VTI): 1.55 [id number] Vmax: | | 0.00 cm2/m2AVAI (VTI): 0.00 cm2/m2LVOT maxP.40 mmHgLVOT meanP.21 mmHgLVSI | | Dopp: 34.74 ml/m2LVSV Dopp: 75.04 mlLVOT Vmax: 1.04 m/sLVOT Vmean: 0.69 m/sLVOT | | VTI: 25.70 cmMCO: 505.23 msMV A Kurtis: 0.87 m/sMV DecT: 191.95 msMV E Kurtis: 0.89 | | m/sMV E/A Ratio: 1.02MV PHT: 57.30 msMVA By PHT: 3.83 cm2MV A Dur: 131.30 | | msSeptal e': 0.09 m/sSeptal E/e': 9.33Lateral e': 0.08 m/sLateral E/e': 10.00P | | Vein A: 0.25 m/sP Vein A Dur: 102.75 msP Vein D: 0.37 m/sP Vein S/D Ratio: 1.57P | | Vein S: 0.59 m/sPAEDP: 11.06 mmHgPRend P.06 mmHgPRend Vmax: 1.41 m/sHR: | | 59.71 BPMPV maxP.09 mmHgPV meanP.66 mmHgPV Vmax: 0.88 m/sPV Vmean: 0.61 | | m/sPV VTI: 23.70 cmRAP: 3 mmHgRV S': 0.11 m/sRVSP: 34.70 mmHgTR maxP.70 | | mmHgTR Vmax: 2.81 m/sTV A Kurtis: 0.43 m/sTV Dec [place]: 2.19 m/s2TV Dec Time: | | 244.15 msTV E Kurtis: 0.53 m/sTV E/A Ratio: 1.22 Veneer Jointer: [email or web address] by: | | Sharda Hernadez MD, FACCReport Date/Time: 11-08-2017 16:25:4 IMPRESSION: 1. Overall left | | ventricular systolic function is normal with, an EF between 60 - 65 %.2. The right | | ventricle is mildly enlarged measuring between 3.4 - 3.7 cm.3. The right ventricular | | systolic function is normal.4. Mild tricuspid regurgitation present.5. The right | | ventricular systolic pressure (pulmonary artery systolic pressure), as measured by | | Doppler, is 34.70mmHg. | |EDV(Teich): 98.65 ml | |IVSd: 0.75 cm | |LVIDd: 4.62 cm | |LVPWd: 1.24 cm | |LVOT Diam: 1.92 cm | |%FS: 29.70 % | |EF(Teich): 56.81 % | |ESV(Teich): 42.60 ml | |IVSs: 1.13 cm | |LVIDs: 3.25 cm | |LVPWs: 1.50 cm | |SV(Teich): 56.05 ml | |RA Major: 5.14 cm | |RVIDd: 3.49 cm | |LAESV(A-L): 48.23 ml | |LAESV Index (A-L): 22.33 ml/m2 | |LAAs A2C: 18.00 cm2 | |LAESV A-L A2C: 49.35 ml | |LALs A2C: 5.57 cm | |LAAs A4C: 16.69 cm2 | |LAESV A-L A4C: 44.72 ml | |LALs A4C: 5.28 cm | |Ao Diam: 3.18 cm | |AV Cusp: 1.64 cm | |LA Diam: 4.07 cm | |LA/Ao: 1.27 | |%FS: 34.07 % | |EDV(Teich): 122.09 ml | |EF(Teich): 62.73 % | |ESV(Teich): 45.49 ml | |IVSd: 0.82 cm | |IVSs: 1.01 cm | |LVIDd: 5.06 cm | |LVIDs: 3.34 cm | |LVPWd: 0.79 cm | |LVPWs: 1.41 cm | |SV(Teich): 76.59 ml | |TAPSE: 2.27 cm | |IVC diameter: 2.41 cm | |IVC collapse: 0.90 cm | |IVC % collapse: 60.08 % | |HR: 56.81 BPM | |AV maxP.10 mmHg | |AV meanP.86 mmHg | |AV Vmax: 1.94 m/s | |AV Vmean: 1.40 m/s | |AV VTI: 48.26 cm | |EPI Vmax: 1.57 cm2 | |EPI (VTI): 1.55 cm2 | |AVAI Vmax: 0.00 cm2/m2 | |AVAI (VTI): 0.00 cm2/m2 | |LVOT maxP.40 mmHg | |LVOT meanP.21 mmHg | |LVSI Dopp: 34.74 ml/m2 | |LVSV Dopp: 75.04 ml | |LVOT Vmax: 1.04 m/s | |LVOT Vmean: 0.69 m/s | |LVOT VTI: 25.70 cm | |MCO: 505.23 ms | |MV A Kurtis: 0.87 m/s | |MV DecT: 191.95 ms | |MV E Kurtis: 0.89 m/s | |MV E/A Ratio: 1.02 | |MV PHT: 57.30 ms | |MVA By PHT: 3.83 cm2 | |MV A Dur: 131.30 ms | |Septal e': 0.09 m/s | |Septal E/e': 9.33 | |Lateral e': 0.08 m/s | |Lateral E/e': 10.00 | |P Vein A: 0.25 m/s | |P Vein A Dur: 102.75 ms | |P Vein D: 0.37 m/s | |P Vein S/D Ratio: 1.57 | |P Vein S: 0.59 m/s | |PAEDP: 11.06 mmHg | |PRend P.06 mmHg | |PRend Vmax: 1.41 m/s | |HR: 59.71 BPM | |PV maxP.09 mmHg | |PV meanP.66 mmHg | |PV Vmax: 0.88 m/s | |PV Vmean: 0.61 m/s | |PV VTI: 23.70 cm | |RAP: 3 mmHg | |RV S': 0.11 m/s | |RVSP: 34.70 mmHg | |TR maxP.70 mmHg | |TR Vmax: 2.81 m/s | |TV A Kurtis: 0.43 m/s | |TV Dec [place]: 2.19 m/s2 | |TV Dec Time: 244.15 ms | |TV E Kurtis: 0.53 m/s | |TV E/A Ratio: 1.22 | | | |Veneer Jointer: KVW | |Authenticated by: Sharda Hernadez MD, [facility] | |Report Date/Time: 11-08-2017 16:25:4 | | | |IMPRESSION: | |1. Overall left ventricular systolic function is normal with, an EF between 60 - 65 %. | |2. The right ventricle is mildly enlarged measuring between 3.4 - 3.7 cm. | |3. The right ventricular systolic function is normal. | |4. Mild tricuspid regurgitation present. | |5. The right ventricular systolic pressure (pulmonary artery systolic pressure), as measure d by Doppler, is 34.70mmHg. | + + External Lab: CBC (11/08/2017 6:08 AM PDT) + + + + + + | Component | Value | Ref Range | Performed | Pathologist | | | | | At | Signature | + + + + + + | WBC | 8.65 | 3.80 - 11.00 | EXTERNAL | | | | | K/uL | LAB | | + + + + + + | Non- | 3.47 (L) | 4.20 - 5.70 | EXTERNAL | | | Red Blood | | M/uL | LAB | | | Cells | | | | | | Counted | | | | | + + + + + + | Hemoglobin | 10.4 (L) | 13.2 - 17.0 | EXTERNAL | | | | | g/dL | LAB | | + + + + + + | Hematocrit, | 29.8 (L) | 39.0 - 50.0 % | EXTERNAL | | | POC | | | LAB | | + + + + + + | MCV | 85.9 | 80.0 - 100.0 fl | EXTERNAL | | | | | | LAB | | + + + + + + | MCH | 30.0 | 27.0 - 34.0 pg | EXTERNAL | | | | | | LAB | | + + + + + + | MCHC | 34.9 | 32.0 - 35.5 | EXTERNAL | | | | | g/dL | LAB | | + + + + + + | RDW-CV | 43.3 | 37 - 53 fl | EXTERNAL | | | | | | LAB | | + + + + + + | Platelet | 139 (L) | 150 - 400 K/uL | EXTERNAL | | | Count | | | LAB | | | Plasma | | | | | + + + + + + | MPV | 10.0 | fl | EXTERNAL | | | | | | LAB | | + + + + + + | Differentia | AUTOMATED | | EXTERNAL | | | l Type | | | LAB | | + + + + + + | % Segmented | 63.16 | % | EXTERNAL | | | | | | LAB | | | Neutrophils | | | | | + + + + + + | % | 26.48 | % | EXTERNAL | | | Lymphocytes | | | LAB | | + + + + + + | % Monocytes | 8.27 | % | EXTERNAL | | | | | | LAB | | + + + + + + | % | 1.57 | % | EXTERNAL | | | Eosinophils | | | LAB | | + + + + + + | % Basophils | 0.52 | % | EXTERNAL | | | | | | LAB | | + + + + + + | Absolute | 5.46 | 1.90 - 7.40 | EXTERNAL | | | Segmented | | K/uL | LAB | | | Neutrophils | | | | | + + + + + + | Absolute | 2.29 | 1.00 - 3.90 | EXTERNAL | | | Lymphocytes | | K/uL | LAB | | + + + + + + | Absolute | 0.72 | 0.00 - 0.80 | EXTERNAL | | | Monocytes | | K/uL | LAB | | + + + + + + | Absolute | 0.14 | 0.00 - 0.50 | EXTERNAL | | | Eosinophils | | K/uL | LAB | | + + + + + + | Absolute | 0.05Comment: Testing | 0.00 - 0.10 | EXTERNAL | | | Basophils | performed at [facility];[address] | [address] | LAB | | | | [address];[place], [place] | | | | | | [address] | | | | + + + + + + + + | Specimen | + + | Blood specimen | | (specimen) | + + + +---------+ + + | Performing | Address | City/State/ZIP Code | Phone Number | | Organization | | | | + +---------+ + + | EXTERNAL LAB | | | | + +---------+ + + Phosphorus (11/08/2017 6:08 AM PDT) + + + + + + | Component | Value | Ref Range | Performed | Pathologist | | | | | At | Signature | + + + + + + | PHOSPHORUS | 3.2Comment: Testing | 2.3 - 4.8 mg/dL | EXTERNAL | | | | performed at [facility], [address] | | LAB | | | | [address], | | | | | | [place] [address] | | | | + + + + + + + + | Specimen | + + | Blood specimen | | (specimen) | + + + +---------+ + + | Performing | Address | City/State/ZIP Code | Phone Number | | Organization | | | | + +---------+ + + | EXTERNAL LAB | | | | + +---------+ + + Magnesium (11/08/2017 6:08 AM PDT) + + + + + + | Component | Value | Ref Range | Performed | Pathologist | | | | | At | Signature | + + + + + + | Magnesium | 2.1Comment: Testing | 1.7 - 2.4 mg/dL | EXTERNAL | | | | performed at [facility], [address] | | LAB | | | | [address], | | | | | | [place] [address] | | | | + + + + + + + + | Specimen | + + | Blood specimen | | (specimen) | + + + +---------+ + + | Performing | Address | City/State/ZIP Code | Phone Number | | Organization | | | | + +---------+ + + | EXTERNAL LAB | | | | + +---------+ + + CK Total (11/08/2017 6:08 AM PDT) + + + + + + | Component | Value | Ref Range | Performed | Pathologist | | | | | At | Signature | + + + + + + | CK, Total | 155Comment: Testing | 55 - 400 U/L | EXTERNAL | | | | performed at [facility];[address] | | LAB | | | | [address];[place], [place] | | | | | | [address] | | | | + + + + + + + + | Specimen | + + | | + + + +---------+ + + | Performing | Address | City/State/ZIP Code | Phone Number | | Organization | | | | + +---------+ + + | EXTERNAL LAB | | | | + +---------+ + + Basic Metabolic Panel (11/08/2017 6:08 AM PDT) + + + + + + | Component | Value | Ref Range | Performed | Pathologist | | | | | At | Signature | + + + + + + | Na | 138 | 135 - 145 | EXTERNAL | | | | | mmol/L | LAB | | + + + + + + | K | 4.3 | 3.5 - 4.9 | EXTERNAL | | | | | mmol/L | LAB | | + + + + + + | Cl | 102 | 99 - 109 mmol/L | EXTERNAL | | | | | | LAB | | + + + + + + | CO2 | 26 | 23 - 32 mmol/L | EXTERNAL | | | | | | LAB | | + + + + + + | Anion Gap | 14 | 5 - 20 mmol/L | EXTERNAL | | | | | | LAB | | + + + + + + | Glucose, | 177 (H) | 65 - 99 mg/dL | EXTERNAL | | | Fasting | | | LAB | | + + + + + + | BUN | 18 | 8 - 25 mg/dL | EXTERNAL | | | | | | LAB | | + + + + + + | Creatinine | 1.0 | 0.70 - 1.30 | EXTERNAL | | | | | mg/dL | LAB | | + + + + + + | BUN/Creatin | 18 | | EXTERNAL | | | ine Ratio | | | LAB | | + + + + + + | Calcium | 7.9 (L) | 8.5 - 10.5 | EXTERNAL | | | | | mg/dL | LAB | | + + + + + + | Estimated | >60Comment: GFR <60: | mL/min/1.73m2 | EXTERNAL | | | GFR | CHRONIC KIDNEY DISEASE, | | LAB | | | | IF FOUND OVER A 3 MONTH | | | | | | PERIOD.GFR <15: KIDNEY | | | | | | FAILURE.FOR | | | | | | AMERICANS, MULTIPLY THE | | | | | | CALCULATED GFR BY | | | | | | 1.210.This eGFR is | | | | | | calculated using the | | | | | | MDRD IDMS traceable | | | | | | equation.Testing | | | | | | performed at [facility], [address] | | | | | | [facility], | | | | | | [place] [address] | | | | + + + + + + + + | Specimen | + + | Blood specimen | | (specimen) | + + + +---------+ + + | Performing | Address | City/State/ZIP Code | Phone Number | | Organization | | | | + +---------+ + + | EXTERNAL LAB | | | | + +---------+ + + POC Glucose (11/08/2017 5:52 AM PDT) + + + + + + | Component | Value | Ref Range | Performed | Pathologist | | | | | At | Signature | + + + + + + | Glucose, | 181 (H)Comment: Testing | 65 - 99 mg/dL | EXTERNAL | | | Fingerstick | performed at [facility];[address] | | LAB | | | | [address];[place], [place] | | | | | | [address] | | | | + + + + + + + + | Specimen | + + | | + + + +---------+ + + | Performing | Address | City/State/ZIP Code | Phone Number | | Organization | | | | + +---------+ + + | EXTERNAL LAB | | | | + +---------+ + + POC Glucose (11/08/2017 12:21 AM PDT) + + + + + + | Component | Value | Ref Range | Performed | Pathologist | | | | | At | Signature | + + + + + + | Glucose, | 213 (H)Comment: Testing | 65 - 99 mg/dL | EXTERNAL | | | Fingerstick | performed at [facility];[address] | | LAB | | | | [address];[place] | | | | | | [address] | | | | + + + + + + + + | Specimen | + + | | + + + +---------+ + + | Performing | Address | City/State/ZIP Code | Phone Number | | Organization | | | | + +---------+ + + | EXTERNAL LAB | | | | + +---------+ + + CK Total (11/08/2017 12:17 AM PDT) + + + + + + | Component | Value | Ref Range | Performed | Pathologist | | | | | At | Signature | + + + + + + | CK, Total | 191Comment: Testing | 55 - 400 U/L | EXTERNAL | | | | performed at [facility];[address] | | LAB | | | | [address] [facility];[place], [place] | | | | | | [address] | | | | + + + + + + + + | Specimen | + + | Blood specimen | | (specimen) | + + + +---------+ + + | Performing | Address | City/State/ZIP Code | Phone Number | | Organization | | | | + +---------+ + + | EXTERNAL LAB | | | | + +---------+ + + Hemoglobin and Hematocrit (11/07/2017 11:56 PM PDT) + + + + + + | Component | Value | Ref Range | Performed | Pathologist | | | | | At | Signature | + + + + + + | Hemoglobin | 10.4 (L) | 13.2 - 17.0 | EXTERNAL | | | | | g/dL | LAB | | + + + + + + | Hematocrit, | 31.0 (L)Comment: Testing | 39.0 - 50.0 % | EXTERNAL | | | POC | performed at [facility];[address] | | LAB | | | | [address];[place], [place] | | | | | | [address] | | | | + + + + + + + + | Specimen | + + | | + + + +---------+ + + | Performing | Address | City/State/ZIP Code | Phone Number | | Organization | | | | + +---------+ + + | EXTERNAL LAB | | | | + +---------+ + + VAS Lower Extremity Venous Bilateral (11/07/2017 10:08 PM PDT) + + | Specimen | + + | | + + + + + | Impressions | Performed At | + + + | No evidence for deep venous thrombosis bilaterally. [facility] | | | Electronically signed by Jackson Callejas MD on Nov 07 2017 11:01PM | | | Referring Provider Line: [phone] ID: [id number] | | + + + + + + | Narrative | Performed At | + + + | EXAM: BILATERAL LOWER EXTREMITY VENOUS ULTRASOUND EXAM DATE: | | | 11/07/2017 10:08 PM. CLINICAL HISTORY: Bilateral pulmonary emboli. | | | COMPARISON: None. TECHNIQUE: Real-time sonographic vascular | | | imaging was performed by the hitcher through the lower extremities | | | utilizing both color-flow and Doppler spectral analysis. Multiple | | | u.s. representative static images were saved for review. FINDINGS: | | | Right: Common Femoral Vein (CFV): Normal. CFV-GSV Junction: Normal. | | | Profunda Femoral Vein (PFV): Normal. Femoral Vein (FV) Prox: Normal. | | | Femoral Vein (FV) Mid: Normal. Femoral Vein (FV) Dist: Normal. | | | Popliteal Vein: Normal. Posterior Tibial Veins: Normal. Peroneal | | | Veins: Normal. Left: Common Femoral Vein (CFV): Normal. CFV-GSV | | | Junction: Normal. Profunda Femoral Vein (PFV): Normal. Femoral Vein | | | (FV) Prox: Normal. Femoral Vein (FV) Mid: Normal. Femoral Vein (FV) | | | Dist: Normal. Popliteal Vein: Normal. Posterior Tibial Veins: | | | Normal. Peroneal Veins: Normal. Other: None. | | + + + + + | Procedure Note | + + | Roni Holder Conversion - 10/12/2018 12:26 AM PDT EXAM:BILATERAL LOWER EXTREMITY VENOUS | | ULTRASOUND EXAM DATE: 11/07/2017 10:08 PM. CLINICAL HISTORY: Bilateral pulmonary emboli. | | COMPARISON: None. TECHNIQUE: Real-time sonographic vascular imaging was performed by the | | hitcher through the lower extremities utilizing both color-flow and Doppler | | spectral analysis. Multiple u.s. representative static images were saved for review. | | FINDINGS:Right:Common Femoral Vein (CFV): Normal.CFV-GSV Junction: Normal.Profunda | | Femoral Vein (PFV): Normal.Femoral Vein (FV) Prox: Normal.Femoral Vein (FV) Mid: | | Normal.Femoral Vein (FV) Dist: Normal.Popliteal Vein: Normal.Posterior Tibial Veins: | | Normal.Peroneal Veins: Normal. Left:Common Femoral Vein (CFV): Normal.CFV-GSV Junction: | | Normal.Profunda Femoral Vein (PFV): Normal.Femoral Vein (FV) Prox: Normal.Femoral Vein | | (FV) Mid: Normal.Femoral Vein (FV) Dist: Normal.Popliteal Vein: Normal.Posterior Tibial | | Veins: Normal.Peroneal Veins: Normal. Other: None. IMPRESSION: No evidence for deep | | venous thrombosis bilaterally. [facility] Electronically signed by Jackson Callejas MD on Oct | | 2017 11:01PM Referring Provider Line: [phone] ID: [id number] | |CFV-GSV Junction: Normal. | |Profunda Femoral Vein (PFV): Normal. | |Femoral Vein (FV) Prox: Normal. | |Femoral Vein (FV) Mid: Normal. | |Femoral Vein (FV) Dist: Normal. | |Popliteal Vein: Normal. | |Posterior Tibial Veins: Normal. | |Peroneal Veins: Normal. | | | |Left: | |Common Femoral Vein (CFV): Normal. | |CFV-GSV Junction: Normal. | |Profunda Femoral Vein (PFV): Normal. | |Femoral Vein (FV) Prox: Normal. | |Femoral Vein (FV) Mid: Normal. | |Femoral Vein (FV) Dist: Normal. | |Popliteal Vein: Normal. | |Posterior Tibial Veins: Normal. | |Peroneal Veins: Normal. | | | |Other: None. | | | |IMPRESSION: | |No evidence for deep venous thrombosis bilaterally. | | | |RADIA | | | | Electronically signed by Jackson Callejas MD on Nov 07 2017 11:01PM Referring Provider Line: [phone] ID: [id number] | + + POC Glucose (11/07/2017 7:37 PM PDT) + + + + + + | Component | Value | Ref Range | Performed | Pathologist | | | | | At | Signature | + + + + + + | Glucose, | 222 (H)Comment: Testing | 65 - 99 mg/dL | EXTERNAL | | | Fingerstick | performed at [facility] | | LAB | | | | [facility];[place] | | | | | | [id number] | | | | + + + + + + + + | Specimen | + + | | + + + +---------+ + + | Performing | Address | City/State/ZIP Code | Phone Number | | Organization | | | | + +---------+ + + | EXTERNAL LAB | | | | + +---------+ + + IR Placement IVC Filter (11/07/2017 7:21 PM PDT) + + | Specimen | + + | | + + + + + | Narrative | Performed At | + + + | IR IVC FILTER PLACEMENT PREOPERATIVE DIAGNOSIS DVT and PE with | | | contraindication for anticoagulation POSTOPERATIVE DIAGNOSIS Same | | | PROCEDURES 1. Moderate conscious sedation 2. Ultrasound guided | | | access of right internal jugular vein 3. Vena cavagram. 4. Inferior | | | vena cava filter placement under fluoroscopic guidance SURGEON | | | Jaime Humphreys MD APPLIED PSYCHOLOGY CHAIR None. ANESTHESIA Moderate sedation, | | | local anesthesia. Informed consent was obtained from the patient. | | | Continuous cardiac monitoring was performed throughout the procedure. | | | Conscious sedation was provided by the nursing staff during the | | | procedure under my supervision. Sedation time: 10 minutes | | | Medications: 1 mg Versed IV, 50 mcg Fentanyl IV ESTIMATED BLOOD | | | LOSS Minimal. CONTRAST USED 25 mL of Isovue-250. INDICATIONS | | | See preoperative history and physical FINDINGS A Bard Padma | | | filter was deployed below the level of the renal veins in the inferior | | | vena cava and confirmed by fluoroscopy. DESCRIPTION OF PROCEDURE | | | Patient was properly identified and brought to the environmental laboratory technician. | | | Patient was placed supine on the environmental laboratory technician table and patient was given | | | moderate sedation. The patient's bilateral neck were then prepped | | | and draped in the usual sterile fashion. Local anesthetic was then | | | given to the right neck and the right internal jugular vein was | | | accessed using a micropuncture needle and a micropuncture sheath was | | | then inserted over a wire. An Amplatzer wire was then inserted into | | | the inferior vena cava and a introducer sheath was then inserted over | | | the wire. First a vena cavagram was then performed through the | | | sheath, with location of the renal veins being identified. Next a | | | Cook Salvatore tulip IVC filter was then deployed just below the level | | | of the renal veins with minimal tilt being seen. After deployment of | | | the Cook Salvatore tulip filter, the sheath was then removed and | | | pressure applied to the right neck and hemostasis was then assured. | | | Sterile dressing was then applied. At the end of the case sponge, | | | needle, and instrument counts were correct x2. There were no apparent | | | complications. IMPRESSION Proper placement of a Cook Salvatore | | | tulip IVC filter below the level of the renal veins. | | | | | + + + + + | Procedure Note | + + | Gallo, Rad Conversion - 10/12/2018 12:26 AM PDT IR IVC FILTER PLACEMENT PREOPERATIVE | | DIAGNOSISDVT and PE with contraindication for anticoagulation POSTOPERATIVE | | DIAGNOSISSame PROCEDURES1. Moderate conscious sedation2. Ultrasound guided access of | | right internal jugular vein3. Vena cavagram.4. Inferior vena cava filter placement under | | fluoroscopic guidance Radha Humphreys MD ASSISTANTNone. ANESTHESIAModerate sedation, | | local anesthesia. Informed consent was obtained from the patient. Continuous cardiac | | monitoring was performed throughout the procedure.Conscious sedation was provided by the | | nursing staff during the procedure under my supervision.Sedation time: 10 | | minutesMedications: 1 mg Versed IV, 50 mcg Fentanyl IV ESTIMATED BLOOD LOSSMinimal. | | CONTRAST USED25 mL of Isovue-250. INDICATIONSSee preoperative history and physical | | FINDINGSA Bard Bibb filter was deployed below the level of the renal veins in the | | inferiorvena cava and confirmed by fluoroscopy. DESCRIPTION OF PROCEDUREPatient was | | properly identified and brought to the environmental laboratory technician.Patient was placed supine on the cath | | lab table and patient wasgiven moderate sedation. The patient's bilateral neck were then | | preppedand draped in the usual sterile fashion. Local anesthetic was then givento the | | right neck and the right internal jugular vein was accessed using amicropuncture needle | | and a micropuncture sheath was then inserted over awire. An Amplatzer wire was then | | inserted into the inferior vena cava and aintroducer sheath was then inserted over the | | wire. First a vena cavagram wasthen performed through the sheath, with location of the | | renal veins beingidentified. Next a Cook Salvatore tulip IVC filter was then deployed just | | below thelevel of the renal veins with minimal tilt being seen. After deployment ofthe | | Cook Salvatore tulip filter, the sheath was then removed and pressureapplied to the right | | neck and hemostasis was then assured. Steriledressing was then applied. At the end of | | the case sponge, needle, andinstrument counts were correct x2. There were no apparent | | complications. IMPRESSIONProper placement of a Cook Salvatore tulip IVC filter below the | | level of the renal veins. | |Medications: 1 mg Versed IV, 50 mcg Fentanyl IV | | | |ESTIMATED BLOOD LOSS | |Minimal. | | | |CONTRAST USED | |25 mL of Isovue-250. | | | |INDICATIONS | |See preoperative history and physical | | | |FINDINGS | |A Bard Padma filter was deployed below the level of the renal veins in the inferior | |vena cava and confirmed by fluoroscopy. | | | |DESCRIPTION OF PROCEDURE | |Patient was properly identified and brought to the environmental laboratory technician. | |Patient was placed supine on the environmental laboratory technician table and patient was | |given moderate sedation. The patient's bilateral neck were then prepped | |and draped in the usual sterile fashion. Local anesthetic was then given | |to the right neck and the right internal jugular vein was accessed using a | |micropuncture needle and a micropuncture sheath was then inserted over a | |wire. An Amplatzer wire was then inserted into the inferior vena cava and a | |introducer sheath was then inserted over the wire. First a vena cavagram was | |then performed through the sheath, with location of the renal veins being | |identified. Next a Cook Salvatore tulip IVC filter was then deployed just below the | |level of the renal veins with minimal tilt being seen. After deployment of | |the Cook Salvatore tulip filter, the sheath was then removed and pressure | |applied to the right neck and hemostasis was then assured. Sterile | |dressing was then applied. At the end of the case sponge, needle, and | |instrument counts were correct x2. There were no apparent complications. | | | |IMPRESSION | |Proper placement of a Cook Salvatore tulip IVC filter below the level of the renal veins. | | | | | + + US Guided Vascular Access (11/07/2017 7:15 PM PDT) + + | Specimen | + + | | + + + + + | Narrative | Performed At | + + + | This Point of Care (POC) ultrasound image has been reviewed and | | | interpreted by the physician identified as the performing physician in | | | the associated interpretation and report. | | + + + + + | Procedure Note | + + | Roni Holder - 10/12/2018 12:26 AM PDT This Point of Care (POC) ultrasound | | image has been reviewed andinterpreted by the physician identified as the performing | | physician in theassociated interpretation and report. | | | + + Lactic Acid (11/07/2017 6:40 PM PDT) + + + + + + | Component | Value | Ref Range | Performed | Pathologist | | | | | At | Signature | + + + + + + | Lactate | 1.4Comment: Testing | 0.4 - 2.0 | EXTERNAL | | | | performed at [facility] | mmol/L | LAB | | | | [address];[place], [place] | | | | | | [address] | | | | + + + + + + + + | Specimen | + + | Blood specimen | | (specimen) | + + + +---------+ + + | Performing | Address | City/State/ZIP Code | Phone Number | | Organization | | | | + +---------+ + + | EXTERNAL LAB | | | | + +---------+ + + Protime INR (11/07/2017 6:38 PM PDT) + + + + + + | Component | Value | Ref Range | Performed | Pathologist | | | | | At | Signature | + + + + + + | INR | 1.0Comment: REFERENCE | | EXTERNAL | | | | RANGE:0.9 - 1.2 | | LAB | | | | NON-ANTICOAGULATED2.0 | | | | | | - 3.0 ALL OTHER | | | | | | THERAPEUTIC | | | | | | INDICATIONS2.5 - 3.5 | | | | | | MECHANICAL HEART VALVES, | | | | | | RECURRENT OR SYSTEMIC | | | | | | EMBOLISMTesting | | | | | | performed at [facility];[address] | | | | | | [address];[place], [place] | | | | | | [address] | | | | + + + + + + + + | Specimen | + + | Blood specimen | | (specimen) | + + + +---------+ + + | Performing | Address | City/State/ZIP Code | Phone Number | | Organization | | | | + +---------+ + + | EXTERNAL LAB | | | | + +---------+ + + External Lab: [facility] (11/07/2017 6:38 PM PDT) + + + + + + | Component | Value | Ref Range | Performed | Pathologist | | | | | At | Signature | + + + + + + | WBC | 8.12 | 3.80 - 11.00 | EXTERNAL | | | | | K/uL | LAB | | + + + + + + | Non- | 3.76 (L) | 4.20 - 5.70 | EXTERNAL | | | Red Blood | | M/uL | LAB | | | Cells | | | | | | Counted | | | | | + + + + + + | Hemoglobin | 10.9 (L) | 13.2 - 17.0 | EXTERNAL | | | | | g/dL | LAB | | + + + + + + | Hematocrit, | 32.6 (L) | 39.0 - 50.0 % | EXTERNAL | | | POC | | | LAB | | + + + + + + | MCV | 86.7 | 80.0 - 100.0 fl | EXTERNAL | | | | | | LAB | | + + + + + + | MCH | 29.1 | 27.0 - 34.0 pg | EXTERNAL | | | | | | LAB | | + + + + + + | MCHC | 33.5 | 32.0 - 35.5 | EXTERNAL | | | | | g/dL | LAB | | + + + + + + | RDW-CV | 42.4 | 37 - 53 fl | EXTERNAL | | | | | | LAB | | + + + + + + | Platelet | 144 (L) | 150 - 400 K/uL | EXTERNAL | | | Count | | | LAB | | | Plasma | | | | | + + + + + + | MPV | 9.9 | fl | EXTERNAL | | | | | | LAB | | + + + + + + | Differentia | AUTOMATED | | EXTERNAL | | | l Type | | | LAB | | + + + + + + | % Segmented | 63.18 | % | EXTERNAL | | | | | | LAB | | | Neutrophils | | | | | + + + + + + | % | 28.46 | % | EXTERNAL | | | Lymphocytes | | | LAB | | + + + + + + | % Monocytes | 7.06 | % | EXTERNAL | | | | | | LAB | | + + + + + + | % | 0.97 | % | EXTERNAL | | | Eosinophils | | | LAB | | + + + + + + | % Basophils | 0.33 | % | EXTERNAL | | | | | | LAB | | + + + + + + | Absolute | 5.13 | 1.90 - 7.40 | EXTERNAL | | | Segmented | | K/uL | LAB | | | Neutrophils | | | | | + + + + + + | Absolute | 2.31 | 1.00 - 3.90 | EXTERNAL | | | Lymphocytes | | K/uL | LAB | | + + + + + + | Absolute | 0.57 | 0.00 - 0.80 | EXTERNAL | | | Monocytes | | K/uL | LAB | | + + + + + + | Absolute | 0.08 | 0.00 - 0.50 | EXTERNAL | | | Eosinophils | | K/uL | LAB | | + + + + + + | Absolute | 0.03Comment: Testing | 0.00 - 0.10 | EXTERNAL | | | Basophils | performed at [facility];[address] | K/uL | LAB | | | | [address];[place] | | | | | | [id number] | | | | + + + + + + + + | Specimen | + + | Blood specimen | | (specimen) | + + + +---------+ + + | Performing | Address | City/State/ZIP Code | Phone Number | | Organization | | | | + +---------+ + + | EXTERNAL LAB | | | | + +---------+ + + CK Total (11/07/2017 6:38 PM PDT) + + + + + + | Component | Value | Ref Range | Performed | Pathologist | | | | | At | Signature | + + + + + + | CK, Total | 141Comment: Testing | 55 - 400 U/L | EXTERNAL | | | | performed at [facility];[address] | | LAB | | | | [address];[place], [place] | | | | | | [address] | | | | + + + + + + + + | Specimen | + + | Blood specimen | | (specimen) | + + + +---------+ + + | Performing | Address | City/State/ZIP Code | Phone Number | | Organization | | | | + +---------+ + + | EXTERNAL LAB | | | | + +---------+ + + Comprehensive Metabolic Panel (11/07/2017 6:38 PM PDT) + + + + + + | Component | Value | Ref Range | Performed | Pathologist | | | | | At | Signature | + + + + + + | Na | 139 | 135 - 145 | EXTERNAL | | | | | mmol/L | LAB | | + + + + + + | K | 4.1 | 3.5 - 4.9 | EXTERNAL | | | | | mmol/L | LAB | | + + + + + + | Cl | 103 | 99 - 109 mmol/L | EXTERNAL | | | | | | LAB | | + + + + + + | CO2 | 28 | 23 - 32 mmol/L | EXTERNAL | | | | | | LAB | | + + + + + + | Anion Gap | 12 | 5 - 20 mmol/L | EXTERNAL | | | | | | LAB | | + + + + + + | Glucose, | 194 (H) | 65 - 99 mg/dL | EXTERNAL | | | Fasting | | | LAB | | + + + + + + | BUN | 17 | 8 - 25 mg/dL | EXTERNAL | | | | | | LAB | | + + + + + + | Creatinine | 0.95 | 0.70 - 1.30 | EXTERNAL | | | | | mg/dL | LAB | | + + + + + + | BUN/Creatin | 18 | | EXTERNAL | | | ine Ratio | | | LAB | | + + + + + + | Calcium | 8.0 (L) | 8.5 - 10.5 | EXTERNAL | | | | | mg/dL | LAB | | + + + + + + | Protein, | 6.3 | 6.3 - 8.2 g/dL | EXTERNAL | | | Total | | | LAB | | + + + + + + | Albumin | 3.0 (L) | 3.3 - 4.8 g/dL | EXTERNAL | | | | | | LAB | | + + + + + + | Globulin | 3.2 | 1.3 - 4.9 g/dL | EXTERNAL | | | | | | LAB | | + + + + + + | A/G Ratio | 0.9 (L) | 1.0 - 2.4 | EXTERNAL | | | | | | LAB | | + + + + + + | Bilirubin | 0.9 | 0.1 - 1.5 mg/dL | EXTERNAL | | | Total | | | LAB | | + + + + + + | ALP, | 65 | 35 - 115 U/L | EXTERNAL | | | External | | | LAB | | + + + + + + | AST | 14 | 10 - 45 U/L | EXTERNAL | | | | | | LAB | | + + + + + + | ALT | 17 | 10 - 65 U/L | EXTERNAL | | | | | | LAB | | + + + + + + | Estimated | >60Comment: GFR <60: | mL/min/1.73m2 | EXTERNAL | | | GFR | CHRONIC KIDNEY DISEASE, | | LAB | | | | IF FOUND OVER A 3 MONTH | | | | | | PERIOD.GFR <15: KIDNEY | | | | | | FAILURE.FOR | | | | | | AMERICANS, MULTIPLY THE | | | | | | CALCULATED GFR BY | | | | | | 1.210.This eGFR is | | | | | | calculated using the | | | | | | MDRD IDMS traceable | | | | | | equation.Testing | | | | | | performed at [facility];[address] | | | | | | [facility];[place], [place] | | | | | | [address] | | | | + + + + + + + + | Specimen | + + | Blood specimen | | (specimen) | + + + +---------+ + + | Performing | Address | City/State/ZIP Code | Phone Number | | Organization | | | | + +---------+ + + | EXTERNAL LAB | | | | + +---------+ + + MRSA NAAT (11/07/2017 6:13 PM PDT) + + | Specimen | + + | | + + + + + | Narrative | Performed At | + + + | SOURCE NARES(NOSE) MRSA | EXTERNAL LAB | | PCR NEGATIVE Testing | | | performed at [facility];[address] [facility];[place] [address] | | + + + + +---------+ + + | Performing | Address | City/State/ZIP Code | Phone Number | | Organization | | | | + +---------+ + + | EXTERNAL LAB | | | | + +---------+ + + documented in this encounter Visit Diagnoses + + | Diagnosis | + + | Other acute pulmonary embolism without acute cor pulmonale (HCC) | + + documented in this encounter
--- OUTSIDE RECORDS SUMMARY | ~2020-02-16 | XMS | Encounter Summary ---
Demographics + + + | Address | [address] [place] [address] RD | | | [place] [address] | + + + | Home Phone | | + + + | Preferred Language | Unknown | + + + | Marital Status | | + + + | Jehovah'S Witness Affiliation | Unknown | + + + | Race | White | + + + | Ethnic Group | Not or | + + + Author + + + | Author | [facility] | | | and [place] | + + + | Organization | [facility] | | [...] Walls | ECON | [place] [address] | | + + + + + | Keven Walls | ECON | Unknown | | + + + + + Care Team Providers + +------+ + | Care Hospital Orderly Name | Role | Phone | + +------+ + | Paolo Solares MD | PCP | | + +------+ + Encounter Details +--------+ + + + + | Date | Type | Department | Care Team | Description | +--------+ + + + + | 05/18/ | Hospital | [facility] | Conversion | Presence of IVC | | 2019 | Encounter | CENTER [facility] | Transaction, | filter | | | | [address] | Provider Unknown | | | | | [place] | [phone] | | | | | [address] | | | | | | [phone] | Jaime Humphreys MD | | | | | | [address] | | | | | | [place] | | | | | | [address] | | | | | | [phone] | | | | | | | | +--------+ + + + [...] at Time of Discharge + + + +---------+ + + | Medication | Sig | Dispensed | Refills | Start | End Date | | | | | | Date | | + + + +---------+ + + | | Take 1 tablet by | | 0 | 05/11/19 | | | amoxicillin-clavulan | mouth every 12 | | | 19 | | | ate (AUGMENTIN) | hours. With meals | | | | | | 875-125 mg per | until gone | | | | | | tablet | | | | | | + + + +---------+ + + | azithromycin | Take 2 tablets by | | 0 | 05/11/19 | | | (ZITHROMAX) 250 mg | mouth. Today then | | | 19 | | | tablet | take 1 tablet daily | | | | | | | for 4 days | | | | | + + + +---------+ + + | clopidogrel | Take 300 mg by mouth | | 0 | | | | (PLAVIX) 300 mg TABS | Daily. | | | | | + + + +---------+ + + | dabigatran | | | 0 | 04/27/19 | | | (PRADAXA) 150 mg | | | | 19 | | | capsule | | | | | | + + + +---------+ + + | furosemide (LASIX) | Take 1 tablet by | | 0 | 11/20/19 | | | 40 mg tablet | mouth Daily. | | | 18 | | + + + +---------+ + + | | Take 1-2 tablets by | | 0 | 11/20/19 | | | HYDROcodone-acetamin | mouth every 4 hours | | | 18 | | | ophen (NORCO) 10-325 | as needed for Pain. | | | | | | mg per tablet | | | | | | + + + +---------+ + + | Insulin Pen Needle | | | 0 | 05/08/19 | | | (B-D UF III MINI | | | | 19 | | | PEN NEEDLES) 31G X 5 | | | | | | | MM MISC | | | | | | + + + +---------+ + + | metFORMIN | Take 1,000 mg by | | 0 | | | | (GLUCOPHAGE) 1000 MG | mouth 2 times daily | | | | | | tablet | (with breakfast & | | | | | | | dinner). | | | | | + + + +---------+ + + | potassium chloride | Take 1 tablet by | | 0 | 11/20/19 | | | (KLOR-CON) 10 mEq | mouth Daily. | | | 18 | | | CR tablet | | | | | | + + + +---------+ + + documented as of this encounter Progress Notes Conversion Transaction, Provider Unknown - 05/18/2018 5:25 PM PDTFormatting of this note m ight be different from the original. Nurse Progress Note by Radah Ackerman RN at 05/18/181724 Author: Radha Ackerman RN Service: (none) Author Type: Registered Nurse Filed: 05/18/18 5794 Date of Service: 05/18/181724 Status: Signed Business Support Liaison: Radha Ackerman RN (Registered Nurse) Discharge instructions given to patient and family. Patient vitals WNL. Patient in no appa rent distress. All questions have been answered. Discussed signs and symptoms of surgical site infection, DVT and PE prevention. Prescriptions given and side effects explained. Harley Ackerman RN docume nted in this encounter H&P Notes Jaime Humphreys MD - 05/18/2018 3:31 PM PDT Interval H&P Note by Jaime Humphreys MD at 05/18/18 1531 Author: Jaime Humphreys MD Service: Vascular Surgery Author Type: Physician Filed: 05/18/18 153 Date of Service: 05/18/18 153 Status: Signed Business Support Liaison: Jaime Humphreys MD (Physician) [facility] Service: Vascular Surgery Pre-Operative History & Physical Interval Update There have been no significant clinical changes since the completion of the above H&P. Tod ays physical assessment showed HP update PE: Normal appearance, alert and oriented X3 and r espiratory effort normal Moderate Sedation Presedation Assessment completed. The patient was reassessed immediately prior to sedation with no significant clinical hendrix es in the exam, including heart and lungs, since the completion of H&P ASA Classification: ASA 2: Patient with a mild systemic disease Mallampati Classification: I: Full visibility of tonsils, uvula and soft palate Jaime Humphreys MD 05/18/2018 *CORE MEASURES REMINDER: If the patient has a known or suspected infection prior to surger y, please add diagnosis to the problem list (consider: Infection 136.9). Source Note Author: Jaime Humphreys MD Service: (none) Author Type: Physician Filed: 05/16/181934 Date of Service: 05/12/18 1400 Status: Signed Business Support Liaison: Jaime Humphreys MD (Physician) Subjective Subjective Mr. Walls is a pleasant 82 y.o. male with PMH significant for CAD, HTN who is referred t o nc for possible IVC filter removal. In October 2017 the patient suffered a fall and inju red his right thigh resulting in a large hematoma of his right thigh. He then developed ches t pain and he was shown to have a large PE on CT. Due to large hematoma of the thigh, he was unable to be anticoagulated and patient was transferred to [facility] for IVC filter placement on 11/10/17. We performed IVC filter placement on 11/10/17. Patient presents today for IVC wally ter removal. History reviewed. No pertinent surgical history. Social History Substance Use Topics Smoking status: Never Smoker Smokeless tobacco: Never Used Alcohol use No History reviewed. No pertinent family history. Current Outpatient Prescriptions on File Prior to Visit Medication Sig Dispense Refill amLODIPine (NORVASC) 5 MG tablet Take 10 mg by mouth daily. aspirin 81 MG tablet Take 81 mg by mouth daily. insulin - MIX insulin NPH-insulin regular 70/30 (HUMULIN, NOVOLIN 70/30) (70-30) 100 UN IT/ML injection Inject 20 Units into the skin 2 (two) times daily before meals. metFORMIN (GLUCOPHAGE) 1000 MG tablet Take 1,000 mg by mouth nightly. omeprazole (PRILOSEC) 40 MG capsule Take 40 mg by mouth every morning before breakfast. pramipexole (MIRAPEX) 1 MG tablet Take 1 mg by mouth 3 (three) times daily. clopidogrel (PLAVIX) 75 MG tablet Take 75 mg by mouth daily. No current facility-administered medications on file prior to visit. No Known Allergies Comprehensive ROS performed and pertinent items described in the HPI. Objective Objective Vitals:reviewed CONSTITUTIONAL: Conversant, well developed, NAD EYES: Anicteric sclerae, no lid drag, no proptosis RESP: Normal effort, regular, even, unlabored rate CV: No peripheral edema, rate regular SKIN: [place], warm, dry without rash/lesion MS: ROM not limited, no digital cyanosis, normal gait NEURO: Cranial nerves II-XII grossly intact, A&O times 3 PSYCH: appropriate affect, speech and tone, judgement and insight intact Vascular: Minimal edema of lower extremities Assessment and Plan Discussed with the patient that I recommend removal of his IVC filter as he no longer needs filter in place. Discussed surgical option and mechanism of IVC filter removal with the pat ient. We have discussed benefits and risks of this procedure, including bleeding, infection. Patient is understanding and agreeable to [facility] filter retrieval, and has signed consent for surgery on 05/18/18. Patient was instructed not to eat or drink fluids after 11:59 PM on 05/17. I have instructed the patient stop taking his blood thinners at this time to reduce the risk of bleeding during surgery. All questions and concerns addressed. I will see the patie nt on 05/18/18. Patient understands and is agreeable. Jaime Humphreys MD Attending Note: Documentation assistance provided by Justen Macedo (Scribe). Information giovany rded by the scribe has been reviewed and validated by me. I agree with its contents. Signed by: Renu Kay 05/12/18, 2:16 PM Jaime Rich MD - 05/13/19 2:00 PM PDT H&P (View-Only) by Jaime Humphreys MD at 05/12/18 1400 Author: Jaime Humphreys MD Service: (none) Author Type: Physician Filed: 05/16/18 1935 Date of Service: 05/12/18 1400 Status: Signed Business Support Liaison: Jaime Humphreys MD (Physician) Subjective Subjective Mr. Walls is a pleasant 82 y.o. male with PMH significant for CAD, HTN who is referred t o nc for possible IVC filter removal. In October 2017 the patient suffered a fall and inju red his right thigh resulting in a large hematoma of his right thigh. He then developed ches t pain and he was shown to have a large PE on CT. Due to large hematoma of the thigh, he was unable to be anticoagulated and patient was transferred to [facility] for IVC filter placement on 11/10/17. We performed IVC filter placement on 11/10/17. Patient presents today for IVC wally ter removal. History reviewed. No pertinent surgical history. Social History Substance Use Topics Smoking status: Never Smoker Smokeless tobacco: Never Used Alcohol use No History reviewed. No pertinent family history. Current Outpatient Prescriptions on File Prior to Visit Medication Sig Dispense Refill amLODIPine (NORVASC) 5 MG tablet Take 10 mg by mouth daily. aspirin 81 MG tablet Take 81 mg by mouth daily. insulin - MIX insulin NPH-insulin regular 70/30 (HUMULIN, NOVOLIN 70/30) (70-30) 100 UN IT/ML injection Inject 20 Units into the skin 2 (two) times daily before meals. metFORMIN (GLUCOPHAGE) 1000 MG tablet Take 1,000 mg by mouth nightly. omeprazole (PRILOSEC) 40 MG capsule Take 40 mg by mouth every morning before breakfast. pramipexole (MIRAPEX) 1 MG tablet Take 1 mg by mouth 3 (three) times daily. clopidogrel (PLAVIX) 75 MG tablet Take 75 mg by mouth daily. No current facility-administered medications on file prior to visit. No Known Allergies Comprehensive ROS performed and pertinent items described in the HPI. Objective Objective Vitals:reviewed CONSTITUTIONAL: Conversant, well developed, NAD EYES: Anicteric sclerae, no lid drag, no proptosis RESP: Normal effort, regular, even, unlabored rate CV: No peripheral edema, rate regular SKIN: [place], warm, dry without rash/lesion MS: ROM not limited, no digital cyanosis, normal gait NEURO: Cranial nerves II-XII grossly intact, A&O times 3 PSYCH: appropriate affect, speech and tone, judgement and insight intact Vascular: Minimal edema of lower extremities Assessment and Plan Discussed with the patient that I recommend removal of his IVC filter as he no longer needs filter in place. Discussed surgical option and mechanism of IVC filter removal with the pat ient. We have discussed benefits and risks of this procedure, including bleeding, infection. Patient is understanding and agreeable to [facility] filter retrieval, and has signed consent for surgery on 05/18/18. Patient was instructed not to eat or drink fluids after 11:59 PM on 05/17. I have instructed the patient stop taking his blood thinners at this time to reduce the risk of bleeding during surgery. All questions and concerns addressed. I will see the patie nt on 05/18/18. Patient understands and is agreeable. Jaime Humphreys MD Attending Note: Documentation assistance provided by Justen Macedo (Scribe). Information giovany rded by the scribe has been reviewed and validated by me. I agree with its contents. Signed by: Renu Kay 05/12/18, 2:16 PM documented in this encoun ter Miscellaneous Notes Op Note - Jaime Humphreys MD - 05/18/2018 4:16 PM PDTFormatting of this note might be differen t from the original. Brief Op Note by Jaime Humphreys MD at 05/18/18 1616 Author: Jaime Humphreys MD Service: Vascular Surgery Author Type: Physician Filed: 05/18/181617 Date of Service: 05/18/181615 Status: Signed Business Support Liaison: Jaime Humphreys MD (Physician) [facility] Service: Vascular Surgery Brief Op Note Pre-operative Diagnosis: Unwanted IVC filter Post-operative Diagnosis: Same Procedure(s): Ultrasound guided access of right internal jugular vein Venacavagram Retrieval of IVC filter via right IJ access Surgeon: aJime Humphreys MD Development Team Lead(s): None Anesthesia: Moderate sedation and Local anesthesia Estimated Blood Loss: Less Than 10 ml (Minimal) Other: Contrast: 30 ml Sedation time: 10 min Versed: 1 mg Fentanyl: 50 mcg Indications: See pre-operative history and physical. Findings: No clot was seen in IVC filter on cavagram. IVC filter was then retrieved via r ight IJ access. Complications: None apparent Condition: Stable See dictated operative report for full details. Jaime Humphreys MD 05/18/2018 documented in this encoun ter Plan of Treatment Not on filedocumented as of this encounter Procedures + +--------+ + + + | Procedure Name | Priori | Date/Time | Associated Diagnosis | Comments | | | ty | | | | + +--------+ + + + | IR REMOVAL IVC | Routin | 05/18/2018 | | Results for this | | FILTER | e | 4:27 PM | | procedure are in the | | | | PDT | | results section. | + +--------+ + + + | US GUIDED VASCULAR | Routin | 05/18/2018 | | Results for this | | ACCESS | e | 4:27 PM | | procedure are in the | | | | PDT | | results section. | + +--------+ + + + | EXTERNAL LAB: CBC | Routin | 05/18/2018 | | Results for this | | | e | 3:12 PM | | procedure are in the | | | | PDT | | results section. | + +--------+ + + + | BASIC METABOLIC | Routin | 05/18/2018 | | Results for this | | PANEL | e | 3:12 PM | | procedure are in the | | | | PDT | | results section. | + +--------+ + + + documented in this encounter Results IR Removal IVC Filter (05/18/2018 4:27 PM PDT) + + | Specimen | + + | | + + + + + | Narrative | Performed At | + + + | PREOPERATIVE DIAGNOSES Unwanted inferior vena cava filter | | | POSTOPERATIVE DIAGNOSES Unwanted inferior vena cava filter | | | PROCEDURE 1. Ultrasound guided access of right internal jugular vein. | | | 2. Selective catheterization of inferior vena cava and venacavagram. | | | 3. Removal of inferior vena cava filter via the right internal | | | jugular approach. SURGEON Jaime Humphreys MD TELE[employer]APH PLANT MAINTAINER None. | | | ANESTHESIA Moderate sedation, local anesthesia. Informed consent | | | was obtained from the patient. Continuous cardiac monitoring was | | | performed throughout the procedure. Conscious sedation was provided | | | by the nursing staff during the procedure under my supervision. | | | Sedation time: 10 minutes Medications: 1 mg Versed IV, 50 mcg | | | Fentanyl IV CONTRAST USED 30 mL of Isovue-250 ESTIMATED BLOOD | | | LOSS Minimal. INDICATIONS Mr. Walls is a pleasant | | | 82-year-old male who had DVT and PE with contraindication to | | | anticoagulation. Therefore, an IVC filter was placed. The patient is | | | no longer at high risk for pulmonary embolism and request to have IVC | | | filter removed. Therefore, the patient was taken to the [facility] for | | | IVC filter retrieval. FINDINGS No clot was seen in the inferior | | | vena cava filter. Therefore, the filter was retrieved via the right | | | internal jugular vein access site. DESCRIPTION OF PROCEDURE The | | | patient was properly identified and brought to the catheterization | | | lab. The patient was laid supine on the catheterization lab table. The | | | patient's right neck was prepped and draped in the usual sterile | | | fashion. Local anesthetic was then given to the right neck. The right | | | internal jugular vein was accessed using a micropuncture needle | | | under ultrasound guidance. A micropuncture sheath was then inserted | | | over the wire and this was upsized to a 4-Swiss sheath. First, an | | | Omni Flush catheter was then placed into the distal IVC and a vena | | | cavogram was then performed which showed no clot in the filter. | | | Therefore, the 4-Swiss sheath was then removed over a wire and a | | | Cook IVC filter retrieval sheath was then inserted over the wire. | | | Once the Cook IVC filter sheath was in place near the IVC filter, a | | | snare was then used to capture the hook of the IVC filter. Once the | | | snare had the hook of the IVC filter, the 12-Swiss sheath was then | | | advanced over the IVC filter, collapsing the limbs of the filter. | | | Once the IVC filter limbs were collapsed, it was able to be pulled | | | into the 12-Swiss sheath in its entirety. Then the 12-Swiss sheath | | | was then removed from the right IJ vein and pressure applied to the | | | right IJ vein with hemostasis being achieved. Sterile dressing was | | | then applied. At the end of the case, sponge, needle and instrument | | | counts were correct x2. There were no apparent complications. | | | IMPRESSION Proper retrieval of inferior vena cava filter via right IJ | | | approach. | | | 5:46 PM | | + + + + + | Procedure Note | + + | Gallo, Rad Conversion - 10/11/2018 6:21 PM PDT PREOPERATIVE DIAGNOSESUnwanted inferior | | vena cava filter POSTOPERATIVE DIAGNOSESUnwanted inferior vena cava filter PROCEDURE1. | | Ultrasound guided access of right internal jugular vein.2. Selective catheterization of | | inferior vena cava and venacavagram.3. Removal of inferior vena cava filter via the | | right internal jugular approach. Radha Humphreys MD ASSISTANTNone. ANESTHESIAModerate | | sedation, local anesthesia. Informed consent was obtained from the patient. Continuous | | cardiac monitoring was performed throughout the procedure.Conscious sedation was | | provided by the nursing staff during the procedure under my supervision.Sedation time: | | 10 minutesMedications: 1 mg Versed IV, 50 mcg Fentanyl IV CONTRAST USED30 mL of | | Isovue-250 ESTIMATED BLOOD LOSSMinimal. INDICATIONSMrNargis Walls is a pleasant | | 82-year-old male who had DVT and PEwith contraindication to anticoagulation. Therefore, | | an IVCfilter was placed. The patient is no longer at high risk for pulmonary embolismand | | request to have IVC filter removed. Therefore, the patient was taken tothe [facility] for | | IVC filter retrieval. FINDINGSNo clot was seen in the inferior vena cava filter. | | Therefore, the filter wasretrieved via the right internal jugular vein access site. | | DESCRIPTION OF PROCEDUREThe patient was properly identified and brought to the | | catheterizationlab. The patient was laid supine on the catheterization lab table. | | Thepatient's right neck was prepped and draped in the usual sterile fashion.Local | | anesthetic was then given to the right neck. The right internaljugular vein was accessed | | using a micropuncture needle under ultrasoundguidance. A micropuncture sheath was then | | inserted over the wire and thiswas upsized to a 4-Swiss sheath. First, an Omni Flush | | catheter was thenplaced into the distal IVC and a vena cavogram was then performed | | whichshowed no clot in the filter. Therefore, the 4-Swiss sheath was thenremoved over a | | wire and a Cook IVC filter retrieval sheath was theninserted over the wire. Once the | | Cook IVC filter sheath was in placenear the IVC filter, a snare was then used to capture | | the hook of theIVC filter. Once the snare had the hook of the IVC filter, the | | 12-Frenchsheath was then advanced over the IVC filter, collapsing the limbs of | | thefilter. Once the IVC filter limbs were collapsed, it was able to be pulledinto the | | 12-Swiss sheath in its entirety. Then the 12-Swiss sheath wasthen removed from the | | right IJ vein and pressure applied to the right IJ vein withhemostasis being achieved. | | Sterile dressing was then applied. At the endof the case, sponge, needle and instrument | | counts were correct x2. Therewere no apparent complications. IMPRESSIONProper retrieval | | of inferior vena cava filter via right IJ approach. | |with contraindication to anticoagulation. Therefore, an IVC | |filter was placed. The patient is no longer at high risk for pulmonary embolism | |and request to have IVC filter removed. Therefore, the patient was taken to | |the [facility] for IVC filter retrieval. | | | |FINDINGS | |No clot was seen in the inferior vena cava filter. Therefore, the filter was | |retrieved via the right internal jugular vein access site. | | | |DESCRIPTION OF PROCEDURE | |The patient was properly identified and brought to the catheterization | |lab. The patient was laid supine on the catheterization lab table. The | |patient's right neck was prepped and draped in the usual sterile fashion. | |Local anesthetic was then given to the right neck. The right internal | |jugular vein was accessed using a micropuncture needle under ultrasound | |guidance. A micropuncture sheath was then inserted over the wire and this | |was upsized to a 4-Swiss sheath. First, an Omni Flush catheter was then | |placed into the distal IVC and a vena cavogram was then performed which | |showed no clot in the filter. Therefore, the 4-Swiss sheath was then | |removed over a wire and a Cook IVC filter retrieval sheath was then | |inserted over the wire. Once the Cook IVC filter sheath was in place | |near the IVC filter, a snare was then used to capture the hook of the | |IVC filter. Once the snare had the hook of the IVC filter, the 12-Swiss | |sheath was then advanced over the IVC filter, collapsing the limbs of the | |filter. Once the IVC filter limbs were collapsed, it was able to be pulled | |into the 12-Swiss sheath in its entirety. Then the 12-Swiss sheath was | |then removed from the right IJ vein and pressure applied to the right IJ vein with | |hemostasis being achieved. Sterile dressing was then applied. At the end | |of the case, sponge, needle and instrument counts were correct x2. There | |were no apparent complications. | | | | | |IMPRESSION | |Proper retrieval of inferior vena cava filter via right IJ approach. | | | | | + + US Guided Vascular Access (05/18/2018 4:27 PM PDT) + + | Specimen | [...] | + + | Roni Holder - 10/11/2018 6:21 PM PDT This Point of Care (POC) ultrasound | | image has been reviewed andinterpreted by the physician identified as the performing | | physician in theassociated interpretation and report. | | | + + External Lab: [facility] (05/18/2018 3:12 PM PDT) + + + + + + | Component | Value | Ref Range | Performed | Pathologist | | | | | At | Signature | + + + + + + | WBC | 7.72 | 3.80 - 11.00 | EXTERNAL | | | | | K/uL | LAB | | + + + + + + | Non- | 4.86 | 4.20 - 5.70 | EXTERNAL | | | Red Blood | | M/uL | LAB | | | Cells | | | | | | Counted | | | | | + + + + + + | Hemoglobin | 13.4 | 13.2 - 17.0 | EXTERNAL | | | | | g/dL | LAB | | + + + + + + | Hematocrit, | 40.2 | 39.0 - 50.0 % | EXTERNAL | | | POC | | | LAB | | + + + + + + | MCV | 82.9 | 80.0 - 100.0 fl | EXTERNAL | | | | | | LAB | | + + + + + + | MCH | 27.6 | 27.0 - 34.0 pg | EXTERNAL | | | | | | LAB | | + + + + + + | MCHC | 33.3 | 32.0 - 35.5 | EXTERNAL | | | | | g/dL | LAB | | + + + + + + | RDW-CV | 45.9 | 37 - 53 fl | EXTERNAL | | | | | | LAB | | + + + + + + | Platelet | 221 | 150 - 400 K/uL | EXTERNAL [...] + + + | % Segmented | 60.15 | % | EXTERNAL | | | | | | LAB | | | Neutrophils | | | | | + + + + + + | % | 31.42 | % | EXTERNAL | | | Lymphocytes | | | LAB | | + + + + + + | % Monocytes | 6.24 | % | EXTERNAL | | | | | | LAB | | + + + + + + | % | 1.52 | % | EXTERNAL | | | Eosinophils | | | LAB | | + + + + + + | % Basophils | 0.67 | % | EXTERNAL | | | | | | LAB | | + + + + + + | Absolute | 4.64 | 1.90 - 7.40 | EXTERNAL | | | Segmented | | K/uL | LAB | | | Neutrophils | | | | | + + + + + + | Absolute | 2.43 | 1.00 - 3.90 | EXTERNAL | | | Lymphocytes | | K/uL | LAB | | + + + + + + | Absolute | 0.48 | 0.00 - 0.80 | EXTERNAL | | | Monocytes | | K/uL | LAB | | + + + + + + | Absolute | 0.12 | 0.00 - 0.50 | EXTERNAL | | | Eosinophils | | K/uL | LAB | | + + + + + + | Absolute | 0.05Comment: Testing | 0.00 - 0.10 | EXTERNAL | | | Basophils | performed at [facility] | K/uL | LAB | | | | [address];[place], [place] | | | | | | [address] | | | | + + + [...] + +---------+ + + Basic Metabolic Panel (05/18/2018 3:12 PM PDT) + + + + + + | Component | Value | Ref Range | Performed | Pathologist | | | | | At | Signature | + + + + + + | Na | 142 | 135 - 145 | EXTERNAL | | | | | mmol/L | LAB | | + + + + + + | K | 3.9 | 3.5 - 4.9 | EXTERNAL | | | | | mmol/L | LAB | | + + + + + + | Cl | 108 | 99 - 109 mmol/L | EXTERNAL [...] + + + + | Glucose, | 129 (H) | 65 - 99 mg/dL | EXTERNAL | | | Fasting | | | LAB | | + + + + + + | BUN | 19 | 8 - 25 mg/dL | EXTERNAL | | | | | | LAB | | + + + + + + | Creatinine | 1.07 | 0.70 - 1.30 | EXTERNAL | | | | | mg/dL | LAB | | + + + + + + | BUN/Creatin | 18 | | EXTERNAL | | | ine Ratio | | | LAB | | + + + + + + | Calcium | 8.6 | 8.5 - 10.5 | EXTERNAL | [...] | | | | | performed at [facility] | | | | | | [facility];[place], [place] | | | | | | [address] | | | | + + + [...] + | Diagnosis | + + | Presence of IVC filter Other postprocedural status | + + documented in this encounter"
--- OUTSIDE RECORDS SUMMARY | ~2020-02-16 | XMS | Encounter Summary ---
Demographics + + + | Address | [address] [place] [address] RD | | | [place] [address] | + + + | Home Phone | | + + + | Preferred Language | Unknown | + + + | Marital Status | | + + + | Holiness Affiliation | Unknown | + + + | Race | White | + + + | Ethnic Group | Not or | + + + Author + + + | Author | [facility] | | | and [place] | + + + | Organization | [facility] | | | [...] Walls | ECON | [place] [address] | | + + + + + | Keven Walls | ECON | Unknown | | + + + + + Care Team Providers + +------+ + | Care Senior Sales Executive Name | Role | Phone | + +------+ + | Paolo Solares MD | PCP | | + +------+ + Encounter Details +--------+ + + + + | Date | Type | Department | Care Team | Description | +--------+ + + + + | 09/27/ | Orders Only | [facility] | Provider, | | | 2019 | | SYSTEM GENERIC OP | [address] | | | | | CONVERSION [address] | [place] | | | | | [address] [place], [place] | [place] [address] | | | | | [address] | | | | | | [phone] | | | +--------+ + + + [...]
--- OUTSIDE RECORDS SUMMARY | ~2020-02-16 | XMS | Encounter Summary ---
Demographics + + + | Address | [address] [place] [address] RD | | | [place] [address] | + + + | Home Phone | | + + + | Preferred Language | Unknown | + + + | Marital Status | | + + + | Judaism Affiliation | Unknown | + + + | Race | White | + + + | Ethnic Group | Not or | + + + Author + + + | Author | [facility] | | | and [place] | + + + | Organization | [facility] | | | [...] Hernandez | ECON | [place] [address] | | + + + + + | Keven Hernandez | ECON | Unknown | | + + + + + Care Team Providers + +------+ + | Care Sheet Metal Technician Name | Role | Phone | + +------+ + PCP | Unavailable | + +------+ + Encounter Details +--------+ + + + + | Date | Type | Department | Care Team | Description | +--------+ + + + + | 01/30/ | Hospital | [facility] | Paolo Solares MD | | | 2012 | Encounter | MED CTR XRAY [address] | | | | | [place] | [place], [place] | | | | | [place] [address] | [address] | | | | | [phone] | | | +--------+ + + + [...] | + +--------+ + + + | MRI LUMBAR SPINE WO | Routin | 01/30/2013 | | Results for this | | CONTRAST | e | 11:41 AM | | procedure are in the | | | | PST | | results section. | + +--------+ + + + | MRI THORACIC SPINE | Routin | 01/30/2013 | | Results for this | | WO CONTRAST | e | 11:21 AM | | procedure are in the | | | | PST | | results section. | + +--------+ + + + documented in this encounter Results MRI Lumbar Spine wo Contrast (01/30/2013 11:41 AM PST) + + | Specimen | + + | | + + + + + | Narrative | Performed At | + + + | [facility] | [place] | | Department [address] [place] [address] | [facility] | | [ rep [address]] [ rep [facility] | | st zip] Signed | - IMAGING | | | | | Patient Name: MIKIE HERNANDEZ Physician: | | | FRYS : 1935 Age: 77 Sex: M Unit #: [id number] | | | Exam Date: 01/30/13 Location: [facility] | | | Report #: [id number] Page: | | | %(RAD)RES..mtdd.print.filter("pg") of %(RAD) | | | RES..mtdd.print.filter("tpg") | | | | | | Accession Number: [id number] | | | MRI OF THE LUMBAR SPINE WITHOUT IV CONTRAST CLINICAL | | | HISTORY: BACK PAIN, 8TH RIB FRACTURE BY BOW ON 12/10/2012. | | | TECHNIQUE: Axial T1, T2; sagittal T1, T2, and STIR; coronal T2 | | | MRI images of the lumbar spine were obtained. | | | FINDINGS: There is mild broad-based dextroconvex curvature of | | | the lumbar spine centered at the level of L3. Vertebral body | | | alignment is otherwise maintained. Vertebral body heights are | | | maintained. There is diffuse degenerative disk disease. Change | | | compatible with a small Schmorl's node is seen at the superior | | | endplate of L5. The conus medullaris terminates at the level of | | | T12-L1. On the sagittal images provided, the disks, | | | thecal sac, and neural foramina are normal from the levels of T11-12 | | | and T12-L1. On axial imaging: At L1-2, there is a | | | circumferential disk bulge that contours the thecal sac. There is | | | facet degenerative change with bilateral facet joint effusions and | | | ligamentum flavum thickening. There is mild left and mild right | | | neural foraminal narrowing. At L2-3, there is a | | | circumferential disk bulge that contours the thecal sac. There is | | | facet degenerative hypertrophy and ligamentum flavum thickening, | | | with prominence of the posterior epidural space adipose tissue. | | | These factors together narrow the thecal sac to 9 mm in midline AP | | | diameter, with the thecal sac measuring approximately 18 mm in | | | maximal transverse diameter. There is a reduction in the overall | | | amount of CSF surrounding the descending nerve fibers of the cauda | | | equina, with subsequent crowding of the fibers at this level. There | | | is elevation of the posterior longitudinal ligament. There is | | | moderate bilateral neural foraminal narrowing. There is contacting of | | | the right exiting nerve root by the disk bulge, without evidence of | | | deflection. At L3-4, there is a circumferential disk | | | bulge that contours the thecal sac. There is facet degenerative | | | hypertrophy and ligamentum flavum thickening, with bilateral facet | | | joint effusions. There is prominence of the epidural adipose tissue. | | | These factors combine to narrow the thecal sac to 8 mm in midline | | | AP diameter. There is some reduction in the CSF space within the | | | thecal sac, and mild crowding of the descending cauda equina nerve | | | fibers. There is moderate right and severe left neural foraminal | | | narrowing. At L4-5, there is a posterior disk bulge that | | | contours the thecal sac. There is facet degenerative hypertrophy | | | and ligamentum flavum thickening. The thecal sac measures 9 mm in | | | midline AP diameter. There is moderate left and moderate-severe | | | right neural foraminal narrowing. There is deflection of bilateral | | | exiting nerve roots. At L5-S1, there is a posterior disk | | | bulge. There is facet degenerative hypertrophy. There are bilateral | | | facet joint effusions, left greater than right. There is | | | moderate-severe left and severe right neural foraminal narrowing. | | | The visualized intraabdominal and paraspinal structures | | | are unremarkable. IMPRESSION: DIFFUSE DEGENERATIVE | | | DISK DISEASE AND SPONDYLOTIC CHANGE, WITH SUBSEQUENT SPINAL CANAL | | | NARROWING AT THE LEVELS OF L2-3, L3-4, AND L4-5. DIFFUSE NEURAL | | | FORAMINAL NARROWING THROUGHOUT THE LUMBAR SPINE OF VARYING DEGREES, | | | GREATEST IN THE LOWER LUMBAR SPINE, DETAILED ABOVE. | | | Dictated Date/Time: 01/30/2013 11:41 Transcribed Date/Time: | | | 01/30/2013 13:25 Chemical Sales Representative: | | | <<Signature on File>> | | | Jackson | | | Juhi Mason MD01/30/13 1818 <Electronically signed by Jackson Reynaga | | | Marlon JONES> Jackson Mason MD 01/30/13 1141 | | | Chemical Sales Representative: [employer] Qqnspkmqmqzod67/02/13 1325 | | | Paolo Solares MD | | + + + + + + + + | Performing | Address | City/State/ZIP Code | Phone Number | | Organization | | | | + + + + + | [place] [facility] | [address] | [place] | [phone] | | [facility] | | [address] | | | - IMAGING | | | | + + + + + MRI Thoracic Spine wo Contrast (01/30/2013 11:21 AM PST) + + | Specimen | + + | | + + + + + | Narrative | Performed At | + + + | [facility] | [place] | | Department [address] [facility], [place] | [facility] | | [ rep [address]] [ rep ct [facility] | | st zip] Signed | - IMAGING | | | | | Patient Name: MIKIE HERNANDEZ Physician: | | | FRYS. : 1935 Age: 77 Sex: M Unit #: [id number] | | | Exam Date: 01/30/13 Location: [facility] | | | Report #: [id number] Page: | | | %(RAD)RES..mtdd.print.filter("pg") of %(RAD) | | | RES..mtdd.print.filter("tpg") | | | | | | Accession Number: [id number] | | | MRI OF THE THORACIC SPINE WITHOUT CONTRAST CLINICAL HISTORY: | | | EIGHTH RIB FRACTURE BY BOW ON 12/10/2012. COMPARISON: | | | X-ray of the thoracic spine 12/23/2012. TECHNIQUE: Axial | | | T2; sagittal T1, T2, and STIR; coronal T2 and STIR MRI images of the | | | thoracic spine were obtained. FINDINGS: There is | | | approximately 2 mm anterolisthesis of T2 on T3. There is approximately | | | 2 mm anterolisthesis of T10 on T11. Vertebral body alignment is | | | otherwise maintained. Vertebral body heights are maintained | | | throughout the thoracic spine. There is mild diffuse degenerative | | | disk disease, with mild loss of disk hydration signal seen at | | | multiple levels in the mid and lower thoracic spine. Bone marrow | | | signal is within normal limits for the patient's age, without | | | evidence of signal change within the bone marrow to suggest fracture | | | or discogenic endplate marrow signal change. There is a small | | | posterior central disk protrusion at T7-8 that contours the thecal sac | | | and does not contact the cord on the images provided. Note that | | | there is the appearance of mild contouring of the cord at this | | | level, without cord signal abnormality. The thecal sac measures 11 mm | | | in midline AP diameter at this level. There is no neural foraminal | | | narrowing at this level. At T9-10, there is a left-sided | | | facet joint effusion. At T10-11, there is a small posterior | | | disk bulge, eccentric towards the left, that contours the thecal sac | | | and does not appear to contact the cord. There is no significant | | | neural foraminal narrowing. Disk marginal osteophyte | | | formation is seen anteriorly and towards the right at most levels in | | | the lower thoracic spine, compatible with degenerative disk disease. | | | On the coronal STIR images only, increased T2-weighted | | | signal is seen in the posterolateral right 5th, 6th, and 7th ribs, | | | as well as posteriorly in the right 8th and 9th ribs, suggestive of | | | trauma. Cardiomegaly is suggested. The paraspinal soft | | | tissues appear unremarkable. IMPRESSION: APPROXIMATELY | | | 2 MM ANTEROLISTHESIS OF T2 ON T3 AND APPROXIMATELY 2 MM | | | ANTEROLISTHESIS OF T10 ON T11. POSTERIOR DISK PROTRUSION AT T7-8, | | | NARROWING THE THECAL SAC TO 11 MM IN MIDLINE AP DIAMETER. THE | | | PROTRUSION DOES NOT APPEAR TO CONTACT THE CORD, ALTHOUGH THERE IS MILD | | | CONTOURING OF THE CORD AT THIS LEVEL WITHOUT CORD SIGNAL | | | ABNORMALITY. LEFT FACET JOINT EFFUSION AT T9-10. NO ACUTE | | | ABNORMALITY OF THE THORACIC SPINE. INCREASED T2-WEIGHTED SIGNAL | | | SEEN IN THE STIR IMAGES ONLY IN THE REGION OF THE RIGHT POSTEROLATERAL | | | 5TH , 6TH, AND 7TH RIBS, WELL POSTERIORLY IN THE RIGHT 8TH RIB | | | AND 9TH RIB ARE SUGGESTIVE OF EDEMA, CORRESPONDING TO PROVIDED | | | HISTORY OF TRAUMA. Dictated Date/Time: 01/30/2013 11:21 | | | Transcribed Date/Time: 01/30/2013 12:56 Chemical Sales Representative: | | | <<Signature on File>> | | | Jackson | | | Juhi Mason MD01/30/13 1818 <Electronically signed by Jackson Mason MD> Jackson Mason MD 01/30/13 1121 | | | Chemical Sales Representative: [employer] Jkuszalzowfvo69/02/13 1256 | | | Paolo Solares MD | | + + + + + + + + | Performing | Address | City/State/ZIP Code | Phone Number | | Organization | | | | + + + + + | [facility] | [address] | [place] | [phone] | | [facility] | | [address] | | | - IMAGING | | | | + + + + + documented in this encounter Visit Diagnoses Not on filedocumented in this encounter
--- OUTSIDE RECORDS SUMMARY | ~2020-02-16 | XMS | Clinical Summary ---
Demographics + + + | Address | [address] [place] [address] RD | | | [place] [address] | + + + | Home Phone | | + + + | Preferred Language | Unknown | + + + | Marital Status | | + + + | Jain Affiliation | Unknown | + + + | Race | White | + + + | Ethnic Group | Not or | + + + Author + + + | Author | [facility] | | | and [place] | + + + | Organization | [facility] | | | [...] Walls | ECON | [place] [address] | | + + + + + | Keven Walls | ECON | Unknown | | + + + + + Care Team Providers + +------+ + | Care Predator Control Trapper Name | Role | Phone | + +------+ + | Paolo Solares MD | PCP | | + +------+ + Allergies No Known Active Allergies Medications + + + +---------+------+------+-------+ | Medication | Sig | Dispensed | Refills | Star | End | Statu | | | | | | t | Date | s | | | | | | Date | | | + + + +---------+------+------+-------+ | metFORMIN | Take 1,000 mg by | | 0 | | | Activ | | (GLUCOPHAGE) 1000 MG | mouth 2 times daily | | | | | e | | tablet | (with breakfast & | | | | | | | | dinner). | | | | | | + + + +---------+------+------+-------+ | clopidogrel | Take 300 mg by mouth | | 0 | | | Activ | | (PLAVIX) 300 mg TABS | Daily. | | | | | e | + + + +---------+------+------+-------+ | amLODIPine | Take 10 mg by mouth | | 0 | | | Activ | | (NORVASC) 5 mg | Daily. | | | | | e | | tablet | | | | | | | + + + +---------+------+------+-------+ | dabigatran | | | 0 | 02/2 | | Activ | | (PRADAXA) 150 mg | | | | /20 | | e | | capsule | | | | 19 | | | + + + +---------+------+------+-------+ | insulin - MIX | Inject 20 Units | | 0 | | | Activ | | insulin NPH-insulin | under the skin 2 | | | | | e | | regular 70/30 | times daily (before | | | | | | | (HUMULIN, NOVOLIN | meals). | | | | | | | 70/30) 100 units/mL | | | | | | | | PEN | | | | | | | + + + +---------+------+------+-------+ | Insulin Pen Needle | | | 0 | 03/0 | | Activ | | (B-D UF III MINI | | | | /20 | | e | | PEN NEEDLES) 31G X 5 | | | | 19 | | | | MM MISC | | | | | | | + + + +---------+------+------+-------+ | omeprazole | Take 40 mg by mouth | | 0 | | | Activ | | (PRILOSEC) 40 MG | every morning | | | | | e | | capsule | (before breakfast). | | | | | | + + + +---------+------+------+-------+ | pramipexole | Take 1 mg by mouth 3 | | 0 | | | Activ | | (MIRAPEX) 1 MG | times daily. | | | | | e | | tablet | | | | | | | + + + +---------+------+------+-------+ | metFORMIN | Take 1,000 mg by | | 0 | | | Activ | | (GLUCOPHAGE) 1000 MG | mouth nightly. | | | | | e | | tablet | | | | | | | + + + +---------+------+------+-------+ | amLODIPine | | | 0 | 07/0 | | Activ | | (NORVASC) 10 MG | | | | 7/20 | | e | | tablet | | | | 19 | | | + + + +---------+------+------+-------+ | | Take 1 tablet by | | 0 | 03/1 | | Activ | | amoxicillin-clavulan | mouth every 12 | | | 2/20 | | e | | ate (AUGMENTIN) | hours. With meals | | | 19 | | | | 875-125 mg per | until gone | | | | | | | tablet | | | | | | | + + + +---------+------+------+-------+ | atorvaSTATin | Take 1 tablet by | | 1 | 07/1 | | Activ | | (LIPITOR) 20 mg | mouth Daily. | | | 2/20 | | e | | tablet | | | | 19 | | | + + + +---------+------+------+-------+ | azithromycin | Take 2 tablets by | | 0 | 03/1 | | Activ | | (ZITHROMAX) 250 mg | mouth. Today then | | | 2/20 | | e | | tablet | take 1 tablet daily | | | 19 | | | | | for 4 days | | | | | | + + + +---------+------+------+-------+ | furosemide (LASIX) | Take 1 tablet by | | 0 | 09/2 | | Activ | | 40 mg tablet | mouth Daily. | | | 1/20 | | e | | | | | | 18 | | | + + + +---------+------+------+-------+ | | Take 1-2 tablets by | | 0 | 09/2 | | Activ | | HYDROcodone-acetamin | mouth every 4 hours | | | 1/20 | | e | | ophen (NORCO) 10-325 | as needed for Pain. | | | 18 | | | | mg per tablet | | | | | | | + + + +---------+------+------+-------+ | NOVOLOG MIX 70/30 | Inject 28 Units | | 0 | 07/2 | | Activ | | FLEXPEN (70-30) 100 | under the skin 2 | | | 1/20 | | e | | UNIT/ML PEN | times daily. | | | 19 | | | + + + +---------+------+------+-------+ | potassium chloride | Take 1 tablet by | | 0 | 10/31 | | Activ | | (KLOR-CON) 10 mEq | mouth Daily. | | | 03/20 | | e | | CR tablet | | | | 18 | | | + + + +---------+------+------+-------+ Active Problems + + + | Problem | Noted Date | + + + | Generalized weakness | 11/08/2017 | + + + | Acute pulmonary embolism | 11/07/2017 | + + + | Avulsion of hamstring muscle, right, initial encounter | 11/07/2017 | + + + | Coronary atherosclerosis | 11/07/2017 | + + + | Hypertension | 11/07/2017 | + + + | Thigh hematoma, right, initial encounter | 11/07/2017 | + + + | Type 2 diabetes mellitus | 11/07/2017 | + + + Encounters +--------+ + + + + | Date | Type | Specialty | Care Team | Description | +--------+ + + + + | 02/09/ | Emergency | Emergency Medicine | Nick Tracey, | | | 2019 | | | Physician Anali | | +--------+ + + + + | 01/28/ | Hospital | Cardiology | Paolo Solares MD | No Show | | 2019 | Encounter | | | | +--------+ + + + + from Last 3 Months Immunizations + + + + | Name | Administration Dates | Next Due | + + + + | KRISTIN Blackmon 2 DOSE | 08/22/2013 | | | (ADULT) | | | + + + + | HEP B, 3 DOSE | 08/22/2013 | | | (ADULT) | | | + + + + | INFLUENZA TRIV | 12/06/2003 | | | W/PRES(PED/ADOL/ADUL | | | | T),MULTIDOSE | | | + + + + | POLIO (IPV), 4 DOSE | 08/22/2013 | | | (PED/ADULT) | | | + + + + | TDAP, (ADOL/ADULT) | 10/29/2008 | | + + + + | TYPHOID, VICPS | 08/22/2013 | | + + + + | YELLOW FEVER, SQ | 08/22/2013 | | | (LIVE) | | | + + + + | ZOSTER, 1 DOSE | 08/22/2013 | | | (ZOSTAVAX) | | | + + + + Social [...] + + + | Blood Pressure | 170/77 | 02/10/2020 5:31 PM | | | | | PST | | + + + + + | Pulse | 67 | 02/10/2020 5:31 PM | | | | | PST | | + + + + + | Temperature | 36.2 C (97.2 F) | 02/10/2020 5:31 PM | | | | | PST | | + + + + + | Respiratory Rate | 22 | 02/10/2020 5:31 PM | | | | | PST | | + + + + + | Oxygen Saturation | 95% | 02/10/2020 5:31 PM | | | | | PST | | + + + + + | Inhaled Oxygen | - | - | | | Concentration | | | | + + + + + | Weight | 101.9 kg (224 lb | 05/18/2018 5:34 PM | | | | 10.4 oz) | PDT | | + + + + + | Height | 172.7 cm (5' 8") | 05/18/2018 5:34 PM | | | | | PDT | | + + + + + | Body Mass Index | 34.16 | 05/18/2018 5:34 PM | | | | | PDT | | + + + + + Plan of Treatment + + + + + | Health Maintenance | Due Date | Last | Comments | | | | Done | | + + + + + | Med Mgmt: HBA1C | | | | | | 8 | | | + + + + + | Medication | | | | | Management | 8 | | | + + + + + | Diabetic Eye Exam | | | | | | 6 | | | + + + + + | Diabetic Foot Exam | | | | | | 6 | | | + + + + + | Hemoglobin A1c | | | | | Screening | 6 | | | + + + + + | Vaccine: | | | | | Pneumococcal 65+ (1 | 3 | | | | of 1 - PPSV23) | | | | + + + + + | Vaccine: Zoster (2 | | 08/23/19 | | | of 3) | 4 | 14 | | + + + + + | Adult Annual | | | | | Wellness Visit | 8 | | | + + + + + | Microalbumin | | | | | Screening | 8 | | | + + + + + | Vaccine: | | 10/30/19 | | | Dtap/Tdap/Td (2 - | 9 | 09 | | | Td) | | | | + + + + + | Med Mgmt: Cr | | 05/19/19 | | | | 0 | 19, | | | | | 11/12/19 | | | | | 18, | | | | | 11/11/19 | | | | | 18, | | | | | Addition | | | | | al | | | | | history | | | | | exists | | + + + + + | Med Mgmt: HCT | | 05/19/19 | | | | 0 | 19, | | | | | 11/12/19 | | | | | 18, | | | | | 11/11/19 | | | | | 18, | | | | | Addition | | | | | al | | | | | history | | | | | exists | | + + + + + | Med Mgmt: HGB | | 05/19/19 | | | | 0 | 19, | | | | | 11/12/19 | | | | | 18, | | | | | 11/11/19 | | | | | 18, | | | | | Addition | | | | | al | | | | | history | | | | | exists | | + + + + + | Med Mgmt: K | | 05/19/19 | | | | 0 | 19, | | | | | 11/12/19 | | | | | 18, | | | | | 11/11/19 | | | | | 18, | | | | | Addition | | | | | al | | | | | history | | | | | exists | | + + + + + | Med Mgmt: Na | | 05/19/19 | | | | 0 | 19, | | | | | 11/12/19 | | | | | 18, | | | | | 11/11/19 | | | | | 18, | | | | | Addition | | | | | al | | | | | history | | | | | exists | | + + + + + | Med Mgmt: eGFR | | 05/19/19 | | | | 0 | 19, | | | | | 11/12/19 | | | | | 18, | | | | | 11/11/19 | | | | | 18, | | | | | Addition | | | | | al | | | | | history | | | | | exists | | + + + + + | Vaccine: Influenza | | 12/12/19 | | | (#1) | 0 | 17, | | | | | 12/23/19 | | | | | 16, | | | | | 03/08/19 | | | | | 16, | | | | | Addition | | | | | al | | | | | history | | | | | exists | | + + + + + Results Not on filefrom Last 3 Months Insurance + +--------+ +--------+ +---------+--------+ | Payer | Benefi | Subscriber | Effect | Phone | Address | Type | | | t Plan | ID | gallo | | | | | | / | | Dates | | | | | | Group | | | | | | + +--------+ +--------+ +---------+--------+ | MEDICARE | MEDICA | [id number] | | [phone] | | Medica | | | RE | | 003-Pr | 5 | | re | | | PART A | | esent | | | | | | AND B | | | | | | + +--------+ +--------+ +---------+--------+ | [employer] | [place] | [id number] | | [phone] | | PPO | | | TEAMST | 3 | 017-Pr | 3 | | | | | ERS | | esent | | | | | | WELFAR | | | | | | | | E | | | | | | | | TRUST | | | | | | | | PREMER | | | | | | | | A PPO | | | | | | + +--------+ +--------+ +---------+--------+ + +--------+ +--------+ + + | Guarantor Name | Accoun | Relation to | Date | Phone | Billing Address | | | t Type | Patient | of | | | | | | | | | | + +--------+ +--------+ + + | Mkiie Walls | Person | Self [birth year] | [address] | | | al/Fam | | 1936 | [phone] | [address] [place] | | | [place] | | | [address] (Home) | [address] | + +--------+ +--------+ + + Advance Directives + + + + + | Type | Date Recorded | Patient | Explanation | | | | Fusing Machine Tender | | + + + + + | Power of | | | | | After School Program Assistant | | | | + + + + + | Advance | | | | | Directive | | | | + + + + +
--- OUTSIDE RECORDS SUMMARY | ~2020-02-16 | XMS | Encounter Summary ---
Demographics + + + | Address | [id number] [place] [address] RD | | | [place] [address] | + + + | Home Phone | | + + + | Preferred Language | Unknown | + + + | Marital Status | | + + + | Yazdanism Affiliation | Unknown | + + + | Race | White | + + + | Ethnic Group | Not or | + + + Author + + + | Author | [facility] | | | and [...] [place] | ECON | [place] [address] | | + + + + + | Keven [place] | ECON | Unknown | | + + + + + Care Team Providers + +------+ + | Care Mixed Crop And Livestock Farm Worker Name | Role | Phone | + +------+ + | Paolo Solares MD | PCP | | + +------+ + Encounter Details +--------+ + + + + | Date | Type | Department | Care Team | Description | +--------+ + + + + | 11/07/ | Hospital | [facility] | Conversion | Pain | | 2018 | Encounter | [address]VERSION [address] | Transaction, | | | | | [address] | Provider Unknown | | | | | [place] | [phone] | | | | | [phone] | | | | | | [phone] | | | +--------+ + + + [...] WO CONTRAST | Routin | 11/05/2017 | | Results for this | | | e | 2:42 AM | | procedure are in the | | | | PDT | | results section. | + +--------+ + + + documented in this encounter Results CT Head wo Contrast (11/05/2017 2:42 AM PDT) + + | [...]
--- OUTSIDE RECORDS SUMMARY | ~2020-02-16 | XMS | Encounter Summary ---
Demographics + + + | Address | [id number] [place] [address] RD | | | [place] [address] | + + + | Home Phone | | + + + | Preferred Language | Unknown | + + + | Marital Status | | + + + | Yazidism Affiliation | Unknown | + + + | Race | White | + + + | Ethnic Group | Not or | + + + Author + + + | Author | [facility] | | | and [place] [...] [place] | ECON | [place] [address] | | + + + + + | Keven Walls | ECON | Unknown | | + + + + + Care Team Providers + +------+ + | Care Information Clerk Cashier Name | Role | Phone | + +------+ + | Paolo Solares MD | PCP | | + +------+ + Encounter Details +--------+ + + + + | Date | Type | Department | Care Team | Description | +--------+ + + + + | 11/07/ | Hospital | [facility] GENER[facility] IP | Conversion | Pain | | 2018 | Encounter | [address]VERSION [address] | Transaction, | | | | | [address] | Provider Unknown | | | | | [place] | [phone] | | | | | [phone] | | | | | | [phone] | | | +--------+ + + + [...] +--------+ + + + | CT ANGIOGRAM | Routin | 11/06/2017 | | Results for this | | PULMONARY | e | 2:41 AM | | procedure are in the | | | | PDT | | results section. | + +--------+ + + + documented in this encounter Results CT Angiogram Pulmonary w Contrast (11/06/2017 2:41 AM PDT) + + | Specimen | [...]
--- OUTSIDE RECORDS SUMMARY | ~2020-02-16 | XMS | Encounter Summary ---
Demographics + + + | Address | [address] [place] [address] RD | | | [place] [address] | + + + | Home Phone | | + + + | Preferred Language | Unknown | + + + | Marital Status | | + + + | Congregational Affiliation | Unknown | + + + | Race | White | + + + | Ethnic Group | Not or | + + + Author + + + | Author | [facility] | | | and [place] | + + + | Organization | [facility] | | [...] [place] | ECON | [place] [address] | | + + + + + | Keven Walls | ECON | Unknown | | + + + + + Care Team Providers + +------+ + | Care Senior Managing Director Name | Role | Phone | + +------+ + | Paolo Solares MD | PCP | | + +------+ + Encounter Details +--------+ + + + + | Date | Type | Department | Care Team | Description | +--------+ + + + + | 11/07/ | Hospital | [facility] | Conversion | Pain | | 2018 | Encounter | [address] | Transaction, | | | | | [address] | Provider Unknown | | | | | [place] | [phone] | | | | | [phone] | | | | | | [phone] | | | +--------+ + + + [...] +--------+ + + + | XR HIP RIGHT 2-3 | Routin | 11/05/2017 | | Results for this | | VIEWS | e | 2:42 AM | | procedure are in the | | | | PDT | | results section. | + +--------+ + + + documented in this encounter Results XR Hip Right 2-3 Views (11/05/2017 2:42 AM PDT) + + | [...]
--- OUTSIDE RECORDS SUMMARY | ~2020-02-16 | XMS | Encounter Summary ---
Demographics + + + | Address | [address] [place] [address] RD | | | [place] [address] | + + + | Home Phone | | + + + | Preferred Language | Unknown | + + + | Marital Status | | + + + | Orthodox Affiliation | Unknown | + + + | Race | White | + + + | Ethnic Group | Not or | + + + Author + + + | Author | [facility] | | | and [place] | + + + | Organization | [facility] | | | [...] [place] | ECON | [place] [address] | | + + + + + | Keven Walls | ECON | Unknown | | + + + + + Care Team Providers + +------+ + | Care Bilingual Nanny Name | Role | Phone | + +------+ + | Paolo Solares MD | PCP | | + +------+ + Reason for Visit + + + | Reason | Comments | + + + | Weakness | | + + + | Cough | | + + + Encounter Details +--------+ + + + + | Date | Type | Department | Care Team | Description | +--------+ + + + + | 02/09/ | Emergency | [facility] | Nick Tracey, | | | 2020 | | [facility] | [place] [address] | | | | | [place] [address] | [place] | | | | | [place] | [phone] | | | | | [address] | | | | | | [phone] | No Physician p | | +--------+ + + + + [...] + + + + | Weight | - | - | | + + + + + | Height | - | - | | + + + + + | Body Mass Index | - | - | | + + + + + documented in this encounter Medications at Time of Discharge + + + +---------+ + + | Medication | Sig | Dispensed | Refills | Start | End Date | | | | | | Date | | + + + +---------+ + + | amLODIPine | | | 0 | 09/05/19 | | | (NORVASC) 10 MG | | | | 19 | | | tablet | | | | | | + + + +---------+ + + | amLODIPine | Take 10 mg by mouth | | 0 | | | | (NORVASC) 5 mg | Daily. | | | | | | tablet [...] + + + +---------+ + + | atorvaSTATin | Take 1 tablet by | | 1 | 09/10/19 | | | (LIPITOR) 20 mg | mouth Daily. | | | 19 | | | tablet | | | [...] + + + +---------+ + + | insulin - MIX | Inject 20 Units | | 0 | | | | insulin NPH-insulin | under the skin 2 | | | | | | regular 70/30 | times daily (before | | | | | | (HUMULIN, NOVOLIN | meals). | | | | | | 70/30) 100 units/mL | | | | | | | PEN | | | | | | + [...] + + + +---------+ + + | NOVOLOG MIX 70/30 | Inject 28 Units | | 0 | 09/19/19 | | | FLEXPEN (70-30) 100 | under the skin 2 | | | 19 | | | UNIT/ML PEN | times daily. | | | | | + + + +---------+ + + | omeprazole | Take 40 mg by mouth | | 0 | | | | (PRILOSEC) 40 MG | every morning | | | | | | capsule | (before breakfast). | | | | | + + + +---------+ + + | potassium chloride | Take 1 tablet by | | 0 | 11/20/19 | | | (KLOR-CON) 10 mEq | mouth Daily. | | | 18 | | | CR tablet | | | | | | + + + +---------+ + + | pramipexole | Take 1 mg by mouth 3 | | 0 | | | | (MIRAPEX) 1 MG | times daily. | | | | | | tablet | | | | | | + + + +---------+ + + documented as of this encounter ED Notes Joi Lala RN - 02/10/2020 5:28 PM PSTPt reports feeling unwell x 3 days with positive covid test result on Wednesday. He reports now feeling very weak and states he cannot lay flat. docum ented in this encounter Plan of Treatment Not on filedocumented as of this encounter Visit Diagnoses Not on filedocumented in this encounter"
[~2020-02-16 14:43] MED LIST changes: +HYDROCODON-ACE1 EAC8 PO; +MIRALAX17 GM PO; +NOVOLOG MI100 UNIT/1 SUB-Q; +OMEPRAZOLE40 MG PO; +SENNA-TIME S T1 EACH PO
--- OUTSIDE RECORDS SUMMARY | 2020-02-16 14:46 | XMS ---
PreManage Notification: NORMAN HERNANDEZ Security Inseamer Events No recent Security Events currently on file CRITERIA MET - [facility] - 2 Visits in 30 Days CARE PROVIDERS There are no care providers on record at this time. Nina has no Care Guidelines for this patient. [facility] MO[facility] NOTE: Visits indicate total known visits. ED/C VISIT TRACKING (12 MO.) [facility]2020 [facility] COMPLAINT: - CHEST PAIN, COUGH 02/10/2020 17:12 [facility] [place] TYPE: Emergency DIAGNOSES: - Cough - weakness INPATIENT VISIT TRACKING (12 MO.) No inpatient visits to display in this time frame [email or web address]
[2020-02-16] MEDS ORDERED: COZAAR25 MG PO (16:26)
[2020-02-16] MEDS ORDERED: VENTOLIN HFA18 GM INH (18:54)
--- NOTE | 2020-02-16 20:12 | EKG ---
[facility] [address] [facility] [place] [address] Signed Sinus bradycardia with marked sinus arrhythmia with 1st degree AV block Nonspecific ST and T wave abnormality Abnormal ECG When compared with ECG of 16-NOV-2017 16:48, ST now depressed in Inferior leads Nonspecific T wave abnormality now evident in Inferior leads Confirmed by MAYTE OLIVER MD ([id number]) on 02/16/2020 8:12:31 PM Electronically Signed By: MAYTE OLIVER MD 02/16/202011 PATIENT NAME: NORMAN HERNANDEZ Electrocardiogram DATE OF : 39 PHYSICIAN: MAYTE OLIVER MD REPORT #: [id number] REPORT IS CONFIDENTIAL AND NOT TO BE RELEASED WITHOUT AUTHORIZATION
== END 2020-02-16 19:30 | disposition home or self-care (01) ==
LOC: ED 14:43
DX: U07.1 COVID-19 (principal); J12.89 Other viral pneumonia; I10 Essential (primary) hypertension; E11.9 Type 2 diabetes mellitus without complications; Z88.5 Allergy status to narcotic agent; Z79.899 Other long term (current) drug therapy; Z79.4 Long term (current) use of insulin
CPT/HCPCS: 71045; 80053; 83880; 84484; 85025; 93005; 93010; 99285-25; J7050; M0239

== ENCOUNTER 2020-12-30 21:45 | Emergency (ER) | payer BC, MEDICARE ==
[~2020-12-30] VITALS: Ht 172.7 cm; Wt 99.8 kg
[~2020-12-30 21:45] MED LIST changes: +COZAAR25 MG PO; +VENTOLIN HFA18 GM INH
[2020-12-30] MEDS ORDERED: PERCOCET 5-3251 EACH PO (23:23)
== END 2020-12-30 23:45 | disposition home or self-care (01) ==
LOC: ED 21:45
DX: M47.816 Spondylosis without myelopathy or radiculopathy, lumbar region (principal); I10 Essential (primary) hypertension; E11.9 Type 2 diabetes mellitus without complications; Z88.5 Allergy status to narcotic agent; Z79.899 Other long term (current) drug therapy; Z79.84 Long term (current) use of oral hypoglycemic drugs; Z79.4 Long term (current) use of insulin
CPT/HCPCS: 72100; 96372; 99283-25; J1885

== ENCOUNTER 2024-09-23 08:03 | Emergency (ER) | payer BC, MEDICARE ==
[~2024-09-23] VITALS: Ht 172.7 cm; Wt 109.0 kg
[~2024-09-23 08:03] MED LIST changes: +PERCOCET 5-3251 EACH PO
[2024-09-23 08:36] LABS: BASOPHILS 0.7 % (0.2-1.2); EOSINOPHILS 4.7 % (0.8-7.0); LYMPHOCYTES 28.7 % (21.8-53.1); MCH 27.4 PG (25.7-32.2); MCHC 32.2 g/dL (32.3-36.5); MCV 85.1 fL (79.0-92.2); MONOCYTES 13.2 % (5.3-12.2); NEUTROPHILS 52.0 % (34.0-67.9); RBC 4.42 M/uL (4.63-6.08)
[2024-09-23 09:04] LABS: ALT (SGPT) 23.0 U/L (14-59); AST (SGOT) 19.0 U/L (15-37); GLOMERULAR FILTRATION RATE,EST 52.0 mL/min (>60); PROTEIN, TOTAL 7.2 g/dL (6.4-8.2); UREA NITROGEN 27.0 mg/dL (7-18)
[2024-09-23] MEDS ORDERED: ALBUTEROL/IPRATROPIUM 3 ML NEB INH ONE (10:30)
[2024-09-23] MEDS ORDERED: BENZONATATE200 MG PO (11:28)
[2024-09-23] MEDS ORDERED: VENTOLIN HFA18 GM INH (11:28)
[2024-09-23 11:37] VITALS: BP 151/71
--- NOTE | 2024-09-23 22:36 | EKG ---
[facility] [address] [facility] [place] [address] Signed Sinus rhythm with 1st degree AV block Nonspecific T wave abnormality Abnormal ECG When compared with ECG of 16-FEB-2020 16:33, ST now depressed in Anterior leads Nonspecific T wave abnormality no longer evident in Inferior leads Inverted T waves have replaced nonspecific T wave abnormality in Lateral leads Confirmed by Tanisha Feldman MD () on 09/23/2024 10:36:38 PM Electronically Signed By: TANISHA FELDMAN MD 09/23/24 2236 PATIENT NAME: NORMAN HERNANDEZ Electrocardiogram DATE OF : 39 PHYSICIAN: TANISHA FELDMAN MD REPORT #: [id number] REPORT IS CONFIDENTIAL AND NOT TO BE RELEASED WITHOUT AUTHORIZATION
== END 2024-09-23 11:42 | disposition left against medical advice (07) ==
LOC: ED 08:03
PROVIDERS: Emergency Medicine
DX: R79.89 Other specified abnormal findings of blood chemistry (principal); I10 Essential (primary) hypertension; E11.9 Type 2 diabetes mellitus without complications; Z79.84 Long term (current) use of oral hypoglycemic drugs; Z79.4 Long term (current) use of insulin; Z88.5 Allergy status to narcotic agent
CPT/HCPCS: 36415; 71045; 80053; 83735; 83880; 84484; 85025; 93005; 93010; 94640; 99285-25